=== PATIENT | female | born 1985 | race Caucasian/White ===

== ENCOUNTER 2023-12-30 07:46 | Outpatient (OUT) | payer BC, SELFPAY ==
[2023-12-30 08:38] LABS: Basophils Percent Auto 0.5 % (0.2-2.0); Eosinophils Absolute Auto 0.6 10^3/uL (0.0-0.7); Eosinophils Percent Auto 6.8 % (0.9-7.0); Hematocrit 38.4 % (36.0-48.0); Immature Granulocytes Abs Auto 0.02 10^3/uL (0.00-0.03); Immature Granulocytes Pct Auto 0.2 % (0.0-0.5); Lymphocytes Absolute Auto 2.8 10^3/uL (1.2-3.8); Lymphocytes Percent Auto 31.7 % (20.5-60.0); Mean Corpuscular HGB Conc 31.3 g/dL (29.9-35.2); Mean Corpuscular Hemoglobin 26.7 pg (26.7-34.0); Mean Corpuscular Volume 85.3 fL (81.0-99.0); Mean Platelet Volume 10.1 fL (9.5-13.5); Monocytes Absolute Auto 0.3 10^3/uL (0.3-0.8); Monocytes Percent Auto 3.9 % (1.7-12.0); Neutrophils Percent Auto 56.9 % (43.0-75.0); Platelet Count 284 10^3/uL (150-450); Red Cell Distribution Width 14.7 % (11.0-15.0); White Blood Count 8.8 10^3/uL (4.0-11.0)
[2023-12-30 08:40] LABS: Estimated Average Glucose 117 mg/dL; Glycohemoglobin A1C 5.7 % (4.5-6.2)
[2023-12-30 09:52] LABS: TSH W/ REFLEX FT4 1.591 uIU/mL (0.358-3.740)
[2023-12-30 09:53] LABS: Alanine Aminotransferase 26 U/L (14-59); Albumin Globulin Ratio 0.9; Albumin Level 3.3 g/dL (3.4-5.0); Alkaline Phosphatase 76 U/L (46-116); Anion Gap 12.9; Aspartate Amino Transferase 17 U/L (15-37); BUN Creatinine Ratio 10.7; Bilirubin Total 0.7 mg/dL (0.2-1.0); Calcium 9.1 mg/dL (8.5-10.1); Carbon Dioxide 27.1 mmol/L (21.0-32.0); Chloride 102 mmol/L (98-107); Chol HDL Ratio 4.4; Cholesterol 184 mg/dL (<=200); Estimated GFR (African America >60 (>=60); Estimated GFR (Non-African Ame >60 (>=60); Globulin 3.7 g/dL; Glucose 107 mg/dL (74-106); HDL Cholesterol 42 mg/dL (40-60); Sodium 138 mmol/L (136-145); Triglycerides 282 mg/dL (<=150); VLDL CHOLESTEROL 56.4 mg/dL
[2023-12-30 09:54] LABS: Percent Iron Saturation 15.6 %
[2023-12-31 08:08] LABS: Transferrin 330 mg/dL (192-364)
== END 2023-12-30 07:47 | disposition home or self-care (01) ==
LOC: LAB 07:50
DX: Z00.00 Encounter for general adult medical examination without abnormal findings (principal); R53.83 Other fatigue
CPT/HCPCS: 36415; 80053; 80061; 82607; 82728; 83036; 83540; 83550; 84439; 84443; 84466; 85025

== ENCOUNTER 2024-02-06 15:25 | Outpatient (OUT) | payer BC, SELFPAY ==
--- OUTSIDE RECORDS SUMMARY | 2024-02-06 15:30 | XMS_ITS | CCD ---
Author Organization [facility] Care Team Providers Care Ski Lift Operator Name Role Phone REQUEST, NONE LISTED Consulting Unavaila ble REQUEST, NONE LISTED Primary Care Unavaila ble REQUEST, NONE LISTED Admitting Unavaila ble REQUEST, DR CHAO LISTED Attending Unavaila ble USAMA DRISCOLL Admitting Unavailable YAMILA, USAMA Attending Unavailable USAMA DRISCOLL Consulting Unavailable REQUEST, NONE LISTED Primary Care Unavaila ble REQUEST, NONE LISTED Primary Care Unavaila ble GLADYS, SUSANNAH Admitting Unavailable GRECHANGELITA, WAQAR THACKER Consulting Unavailable GLADYS, SUSANNAH Attending Unavailable JACKELIN SURÁEZ Consulting Unavailable REQUEST, NONE LISTED Primary Care Unavaila ble MISC, DOCTOR Admitting Unavailable MISC, DR MARTÍNEZ Attending Unavailable MISC, DR MARTÍNEZ Consulting Unavailable Mariama, Genie Unavailable MARI FONSECA Attending Unavailable WOLF MIMS Referring Unavaila ble WOLF MIMS Attending Unavailabl e PRASANNA, WOLF Attending Unavailabl e Allergies Allergy Classification Reported Allergen(s) Allergy Type Date of Onset Reaction(s) Facility Shellfish (1 source) Shellfish Food Allergy [facility] Repository (1 source) Shellfish Propensity to adverse reactions [facility] Other (1 source) Shellfish; Translations: [SHELLFISH DERIVED] Propensity to adverse reactions to food (disorder) [facility] Repository Medications Current Medications Medication Drug Class(es) Dates Sig (Normalized) Sig (Original) atorvastatin (1 source) HMG-CoA Reductase Inhibitor Start: 02-05-2024 take 1 mg by mouth once daily Atorvastatin Active MG PO Daily February 05, 2024 12:00am fluticasone propionate 0.05 mg/actuat metered dose nasal spray (2 sources) Corticosteroid Start: 03-31-2021 take 2 spray(s) nasal route once daily Fluticasone Propionate 50 MCG/ACT 2 sprays Nasally Once a day for 14 day(s) 2 sprays to each nostril daily until your symptoms improve Mar, Active Start: 12-01-2019 take 1 spray(s) nasa l route once daily Fluticasone Propionate 50 MCG/ACT 1 spray in each nostril Nasally Once a day for 30 day(s) Nov, Not-Taking Losartan (1 source) Angiotensin 2 Receptor Jean Start: 02-05-2024 take 1 mg by mouth once daily Losartan Active MG PO Daily February 05, 2024 12:00am metFORMIN (2 sources) Biguanide Start: 02-05-2024 take 1 mg by mouth twice daily Metformin Active MG PO Twice daily February 05, 2024 12:00am metFORMIN HCl 50 0 MG Oral for 30 Not-Taking Multivitamin preparation (1 source) Multivitamin Act laila predniSONE 20 mg oral tablet (1 source) Start: 03-31-2021 take 1 tablet by mouth every twelve hours predniSONE 20 MG 1 tablet Orally bid for 5 day(s) Mar, Active Zantac 150 Maximum Strength 150 MG (1 source) take 1 tablet by mouth once daily Zantac 150 Maximum Strength 150 MG 1 tablet Orally Once a day Active Completed/Discontinued Medications Medication Drug Class(es) Dates Sig (Normalized) Sig (Original) [id number] 200 actuat albuterol 0.09 mg/actuat metered dose inhaler (1 source) beta2-Adrenergic Agonist Start: 03-18-2019 take 2 puff(s) by inhalation every four hours as needed Albuterol Sulfate HFA 108 (90 Base) MCG/ACT 2 puffs as needed Inhalation every 4 hrs Mar, Not-Taking cetirizine hydrochloride 10 mg oral tablet (1 source) Histamine-1 Receptor Antagonist Start: 12-01-2019 take 1 tablet by mouth every twenty-four hours Cetirizine HCl 10 MG 1 tablet Orally Once a day for 30 day(s) Nov, Not-Taking methylPREDNISolone 4 mg oral tablet (1 source) Corticosteroid Start: 03-18-2019 Medrol (Jason) 4 MG as directed Orally Mar, Not-Taking Previfem (1 source) Previfem Not-Taking Problems Active Problems Problem Classification Problem Date Documented Da te Episodic/Chronic Esophageal disorders (1 source) Gastroesophageal reflux disease; Translations: [GERD [Gastroesophageal reflux disease]] Chronic Other gastrointestinal disorders (1 source) Dysphagia; Translations: [Dysphagia, unspecified] 02-05-2024 Episodic Residual codes; unclassified (1 source) Obstructive sleep apnea (adult) (pediatric); Translations: [Obstructive sleep apnea (adult) (pediatric)] Onset: 4 Chronic Residual codes; unclassified (1 source) Acquired absence of other specified parts of digestive tract; Translations: [ACQ ABSENCE OTH PART DIGESTV TRACT] Onset: 1 Episodic Residual codes; unclassified (1 source) Acquired absence of both cervix and uterus; Translations: [ACQUIRED ABSENCE BOTH CERVIX AND UTERUS] Onset: 1 Episodic Unclassified (1 source) New Patient Onset: 4 Past or Other Problems Problem Classification Problem Date Documented Da te Episodic/Chronic Abdominal pain (6 sources) Upper abdominal pain, unspecified; Translations: [Epigastric pain] Onset: 06-13-2020 Episodic Gastritis and duodenitis (1 source) Gastroduodenitis; Translations: [Gastritis and gastroduodenitis, unspecified, without mention of hemorrhage] Episodic Immunizations and screening for infectious disease (5 sources) Contact with and (suspected) exposure to other viral communicable diseases; Translations: [CONTCT EXPS OTH VIRL COMMUNICABL DZ] Onset: 12-02-2019 Resolved: 03-31-2021 Episodic Nausea and vomiting (2 sources) Nausea; Translations: [Nausea and vomiting] Onset: 06-16-2020 Episodic Other disorders of stomach and duodenum (1 source) Disorder of function of stomach; Translations: [Dyspepsia and other specified disorders of function of stomach] Episodic Other gastrointestinal disorders (1 source) Diarrhea; Translations: [Diarrhea] Episodic Other upper respiratory infections (1 source) Acute recurrent sinusitis, unspecified Onset: 03-31-2021 Resolved: 03-31-2021 Episodic Viral infection (1 source) COVID-19 Onset: 03-31-2021 Resolved: 03-31-2021 Results Test Name Value Interpretation Reference Range Facility COVID Quick Testingon 2020 Result Positive [facility] Other AMYLASEon 06-13-2020 Amylase [Catalytic activity/Vol] 34 U/L Normal 31-110 [facility] Comment on above: Performed By: #### L IPA, CMP, NIDA #### [facility] [address] [place], [place] [id number] John Elsa CBC AUTO DIFFon 06-13-2020 BASO # 0.0 103/ul Normal 0.0-0.1 [facility] Comment on above: Performed By: #### C BC #### [facility] [address] [place], [place] [id number] John Elsa Basophils/100 WBC (Bld) 0.4 % Normal 0.2-2.0 [facility] Comment on above: Performed By: #### C BC #### [facility] [address] [place] [address] John Elsa EO # 1.1 103/ul Critically high 0.0-0.7 [facility] Comment on above: Performed By: #### C BC #### [facility] [address] [place] [address] John Elsa Eosinophils/100 WBC (Bld) 10.5 % Critically high 0.9-7.0 [facility] Comment on above: Performed By: #### C BC #### [facility] [address] [place] [address] John Elsa Erythrocyte distribution width (RBC) [Ratio] 14.1 % Normal 11.0-15.0 [facility] Comment on above: Performed By: #### C BC #### [facility] [address] [place] [address] John Elsa Hematocrit (Bld) [Volume fraction] 40.1 % Normal 36.0-48.0 [facility] Comment on above: Performed By: #### C BC #### [facility] [address] [place], [place] [id number] John Elsa Hemoglobin (Bld) [Mass/Vol] 12.8 g/dL Normal 12.0-16.0 [facility] Comment on above: Performed By: #### C BC #### [facility] [address] [place] [address] Johnkatelyn Hunter IG # 0.03 10e3/ul Normal 0.00-0.03 [facility] Comment on above: Performed By: #### C BC #### [facility] [address] [place] [address] Johnkatelyn Hunter IG % 0.3 % Normal 0.0-0.5 [facility] Comment on above: Performed By: #### C BC #### [facility] [address] [place] [address] Johnkatelyn Hunter LYMPH # 3.1 103/ul Normal 1.2-3.8 [facility] Comment on above: Performed By: #### C BC #### [facility] [address] [place] [address] John Hunter Lymphocytes/100 WBC (Bld) 29.2 % Normal 20.5-60.0 [facility] Comment on above: Performed By: #### C BC #### [facility] [address] [place] [address] John Hnuter MANUAL DIFF REQ NO Normal [facility] Comment on above: Performed By: #### C BC #### [facility] [address] [place] [address] Johnkatelyn Hunter MCH (RBC) [Entitic mass] 27.7 pg Normal 26.7-34.0 [facility] Comment on above: Performed By: #### C BC #### [facility] [address] [place] [address] John Hunter MCHC (RBC) [Mass/Vol] 31.9 g/dL Normal 29.9-35.2 [facility] Comment on above: Performed By: #### C BC #### [facility] [address] [place] [address] Johnkatelyn Hunter MCV (RBC) [Entitic vol] 86.8 fL Normal 81.0-99.0 [facility] Comment on above: Performed By: #### C BC #### [facility] [address] [place] [address] John Elsa MONO # 0.4 103/ul Normal 0.3-0.8 [facility] [place] [facility] Comment on above: Performed By: #### C BC #### [facility] [address] [place] [address] John Arellanoen Monocytes/100 WBC (Bld) 4.1 % Normal 1.7-12.0 [facility] Comment on above: Performed By: #### C BC #### [facility] [address] [place], [place] [address] Johnkatelyn Arellanoen NEUT # 5.9 103/ul Normal 1.4-6.5 [facility] Comment on above: Performed By: #### C BC #### [facility] [address] [place], [place] [id number] John Hunter Neutrophils/100 WBC (Bld) 55.5 % Normal 43.0-75.0 [facility] Comment on above: Performed By: #### C BC #### [facility] [address] [place], [place] [id number] John Hunter Platelet mean volume (Bld) [Entitic vol] 9.9 fL Normal 9.5-13.5 [facility] Comment on above: Performed By: #### C BC #### [facility] [address] [place], [place] [id number] John Elsa PLT 281 103/ul Normal 150-450 [facility] Comment on above: Performed By: #### C BC #### [facility] [address] [place], [place] [id number] John Elsa RBC 4.62 106/ul Normal 4.20-5.40 [facility] Comment on above: Performed By: #### C BC #### [facility] [address] [place], [place] [id number] John Elsa WBC 10.6 103/ul Normal 4.0-11.0 [facility] Comment on above: Performed By: #### C BC #### [facility] [address] [place], [place] [id number] Johnkatelyn Arellanoen ER URINE PROFILEon 1 Bilirubin Ql (U) Negative Normal NEGATIVE [facility] Comment on above: Performed By: #### E RUR #### [facility] [address] [place] [address] John Elsa Clarity (U) CLEAR Normal CLEAR [facility] Comment on above: Performed By: #### E RUR #### [facility] [address] [place] [address] John Elsa Color (U) LT. YELLOW Normal YELLOW [facility] Comment on above: Performed By: #### E RUR #### [facility] [address] [place] [address] John Elsa ERUAHD A micrscopic examination will be performed if indicated. Normal [facility] Comment on above: Performed By: #### E RUR #### [facility] [address] [place] [address] John Elsa Glucose Ql (U) Negative Normal NEGATIVE [facility] Comment on above: Performed By: #### E RUR #### [facility] [address] [place] [address] John Elsa Hemoglobin Ql (U) Negative Normal NEGATIVE [facility] Comment on above: Performed By: #### E RUR #### [facility] [address] [place] [address] John Elsa Ketones Ql (U) Negative Normal NEGATIVE [facility] Comment on above: Performed By: #### E RUR #### [facility] [address] [place] [address] John Elsa LEUKOCYTES Negative Normal NEGATIVE [facility] Comment on above: Performed By: #### E RUR #### [facility] [address] [place] [address] John Elsa Nitrite Ql (U) Negative Normal NEGATIVE [facility] Comment on above: Performed By: #### E RUR #### [facility] [address] [place] [address] John Elsa pH (U) 5.5 [pH] Normal 5-9 [facility] Comment on above: Performed By: #### E RUR #### [facility] [address] [place] [address] John Elsa SPEC GRAVITY 1.020 Normal 1.005-<=1.025 [facility] Comment on above: Performed By: #### E RUR #### [facility] [address] [place] [address] John Lesa UA PROTEIN Negative Normal NEGATIVE/ TRACE [facility] Comment on above: Performed By: #### E RUR #### [facility] [address] [place] [address] John Elsa UR MICRO IND NOT INDICATED Normal [facility] Comment on above: Performed By: #### E RUR #### [facility] [address] [place] [address] John Elsa Urobilinogen Qn (U) 0.2 {Nawaf'U}/dL Normal 0.2 - 1.0 [facility] Comment on above: Performed By: #### E RUR #### [facility] [address] [place] [address] John Elsa LIPASEon 06-13-2020 Lipase [Catalytic activity/Vol] 104.0 U/L Normal 23.0-300.0 [facility] Comment on above: Performed By: #### L IPA, CMP, NIDA #### [facility] [address] [place] [address] John Elsa MONOon 06-13-2020 Monocytes (Bld) [#/Vol] Negative Normal NEGATIVE [facility] Comment on above: Performed By: #### M RUBEN #### [facility] [address] [place] [address] Johnkatelyn Hunter PROF 14(COMP METB)on 021 Albumin [Mass/Vol] 3.4 g/dL Critically low 3.5-5.0 [facility] Comment on above: Performed By: #### L IPA, CMP, NIDA #### [facility] [address] [place] [address] John Elsa Albumin/Globulin [Mass ratio] 0.9 {ratio} Normal [facility] Comment on above: Performed By: #### L IPA, CMP, NIDA #### [facility] [address] [place], [place] [address] John Elsa ALP [Catalytic activity/Vol] 90 U/L Normal 38-126 [facility] Comment on above: Performed By: #### L IPA, CMP, NIDA #### [facility] [address] [address] John Elsa ALT [Catalytic activity/Vol] 19 U/L Normal 9-52 [facility] Comment on above: Performed By: #### L IPA, CMP, NIDA #### [facility] [address] [address] John Elsa Anion gap [Moles/Vol] 15.2 mmol/L Normal [facility] Comment on above: Performed By: #### L IPA, CMP, NIDA #### [facility] [address] [place] [address] John Elsa AST [Catalytic activity/Vol] 13 U/L Critically low 14-36 [facility] Comment on above: Performed By: #### L IPA, CMP, NIDA #### [facility] [address] [place] [address] John Elsa Bilirubin [Mass/Vol] 0.4 mg/dL Normal 0.2-1.3 [facility] Comment on above: Performed By: #### L IPA CMP, NIAD #### [facility] [address] [place] [address] John Elsa Calcium [Mass/Vol] 9.0 mg/dL Normal 8.4-10.2 [facility] Comment on above: Performed By: #### L IPA, CMP, NIDA #### [facility] [address] [place] [address] John Elsa Chloride [Moles/Vol] 104 mmol/L Normal 98-107 [facility] Comment on above: Performed By: #### L IPA, CMP, NIDA #### [facility] [address] [place] [address] John Elsa CO2 [Moles/Vol] 26.3 mmol/L Normal 22.0-30.0 [facility] Comment on above: Performed By: #### L IPA, CMP, NIDA #### [facility] [address] [place] [address] John Elsa Creatinine [Mass/Vol] 0.85 mg/dL Normal 0.52-1.04 [facility] Comment on above: Performed By: #### L IPA CMP, NIDA #### [facility] [address] [place] [address] John Elsa EGFR-AF IRAQI >60 Normal >=60 [facility] Comment on above: Performed By: #### L IPA CMP, NIDA #### [facility] [address] [address] John Elsa EGFR-NON AF IRAQI >60 Normal >=60 [facility] Comment on above: Performed By: #### L IPA CMP, NIDA #### [facility] [address] [place] [address] John Elsa Globulin (S) [Mass/Vol] 3.7 g/dL Normal [facility] Comment on above: Performed By: #### L IPA CMP, NIDA #### [facility] [address] [place] [address] John Elsa Glucose [Mass/Vol] 106 mg/dL Normal 74-106 [facility] Comment on above: Performed By: #### L IPA CMP, NIDA #### [facility] [address] [place] [address] John Elsa Potassium [Moles/Vol] 4.5 mmol/L Normal 3.4-5.0 [facility] Comment on above: Performed By: #### L IPA CMP, NIDA #### [facility] [address] [place] [address] John Elsa Protein [Mass/Vol] 7.1 g/dL Normal 6.1-8.2 [facility] Comment on above: Performed By: #### L IPA CMP, NIDA #### [facility] [address] [place] [address] John Elsa Sodium [Moles/Vol] 141 mmol/L Normal 137-145 [facility] Comment on above: Performed By: #### L IPA CMP, NIDA #### [facility] [address] [place] [address] John Elsa Urea nitrogen [Mass/Vol] 8.0 mg/dL Normal 7.0-17.0 [facility] Comment on above: Performed By: #### L LUPE RAMOS AMY #### [facility] [address] [address] John Hunter Urea nitrogen/Creatinin e [Mass ratio] 9.4 mg/mg Normal [facility] Comment on above: Performed By: #### L LUPE RAMOS AMY #### [facility] [address] [address] John Hunter XR ABD FLAT UP_PA Claudio 06-13 XR ABD FLAT UP_PA CH IMAGES REVIEWED: XR ABD FLAT UP_PA CH COMPARISON: 03/20/2019 chest x-ray. CLINICAL INDICATION: Abdominal pain. FINDINGS: Cardiomediastinal silhouette within normal limits. No focal consolidation, pleural effusion, or pneumothorax. Status post cholecystectomy. Hepatomegaly. No obvious obstruction, however there are some borderline dilated loops of small bowel in the left upper quadrant which could be further evaluated with CT if clinically indicated. No free air under the diaphragm. No focal pathologic calcifications. IMPRESSION: 1. No obvious obstruction, however there are some borderline dilated loops of small bowel in the left upper quadrant which could be further evaluated with CT if clinically indicated. 2. Hepatomegaly. 3. No free air. 4. Status post cholecystectomy. Electronically authenticated by: JACKELIN SUÁREZ Date: 2020-06-13 21:39 Normal [facility] COVID-19 PCRon 12-05-2019 SARS-CoV-2 (COVID-19) RNA DAVID+probe Ql (Unsp spec) Not detected Normal Not Detected [facility] Comment on above: Result Comment: This test was developed and its performance characteristics determined by [employer]. This test has not been FDA cleared or approved. This test has been authorized by FDA under an Emergency Use Authorization (EUA). This test is only authorized for the duration of time the declaration that circumstances exist justifying the authorization of the emergency use of in vitro diagnostic tests for detection of SARS-CoV-2 virus and/or diagnosis of COVID-19 infection under section 564(b)(1) of the Act, 21 U.S.C. 360bbb-3(b)(1), unless the authorization is terminated or revoked sooner. When diagnostic testing is negative, the possibility of a false negative result should be considered in the context of a patient's recent exposures and the presence of clinical signs and symptoms consistent with COVID-19. An individual without symptoms of COVID-19 and who is not shedding SARS-CoV-2 virus would expect to have a negative (not detected) result in this assay. Performed By: #### C VDPCR #### [facility] [address] [place] [address] John Hunter Vital Signs Date Time Vital Sign Value Performing Clinician Facility 02-05-2024 15:42-0400 Body height 160.02 cm [facility] 02-05-2024 15:42-0400 Body mass index (BMI) [Ratio] 51 kg/m2 [facility] 02-05-2024 15:42-0400 Body weight 130.63 kg [facility] 03-31-2021 16:30-0500 Body height 160.02 cm Genie Mariama Other [facility] Other 03-31-2021 16:30-0500 Body temperature 98.6 [degF] Genie Mariama Other [facility] Other 03-31-2021 16:30-0500 Respiratory rate 18 /min Genie Leslie Other [facility] Other 03-31-2021 16:30-0500 SaO2% (BldA) [Mass fraction] 98 % Genie Mariama Other [facility] Other Encounters Encounter Date Encounter Type Care Provider Facility Start: 02-05-2024 End: 02-05-2024 ambulatory [facility] Work Phone: Start: 02-05-2024 End: 02-05-2024 Patient encounter procedure [facility] Work Phone: Start: 01-23-2024 End: 01-23-2024 ambulatory WOLF ISAACPATRICK Not Available Start: 01-23-2024 End: 01-23-2024 ambulatory MARI FONSECA [facility] Start: 12-27-2023 End: 12-27-2023 ambulatory WOLF ISAACPATRICK Not Available Start: 03-31-2021 (URG) Urgent Care Visit Genie Mariama [facility] Start: 03-31-2021 End: 03-31-2021 ambulatory Genie Leslie Other [facility] Other Start: 09-02-2020 End: 09-03-2020 ambulatory USAMA DRISCOLL Facility:[facility] Start: 08-12-2020 End: 08-13-[address] NONE LISTED REQUEST Facility:[facility] Start: 06-13-2020 End: 06-14-[address] NONE LISTED REQUEST Facility:[facility] Start: 12-02-2019 End: 12-03-[address] NONE LISTED REQUEST Facility:[facility] Payers Date Payer Category Payer Unknown [id number] 1985 Unknown [id number] 1986 Unknown [id number] 1986 Unknown [id number] 1986 Unknown [id number] 1986 Unknown [id number] 1959 Private Health Insurance [id number] 1958 Self-pay [id number] 1958 Unknown [id number] Private Health Insurance [facility] [id number] Self-pay Self Pay [id number] Unknown [id number] Unknown [id number] Social History Date Type Detail Facility Unknown if ever smoked [facility] Other Sex Assigned At Sex Assigned At Bir th [facility] Other Start: 01-04-2024 Tobacco smoking status NHIS Never smoked tobacco (finding) [facility] Start: 1985 Sex Assigned At Female F [facility] Evaluation note 03-31-2021 Note Date & Type Note Facility 03-31-2021 Evaluation note Encounter Date Diagnosis Assessment Notes Mar, COVID-19 (ICD-10 - U07.1) Mar, Contact with and (suspected) exposure to other viral communicable diseases (ICD-10 - Z20.828) Mar, Acute recurrent sinusitis, unspecified location (ICD-10 - J01.91) Mar, Other Additional time spent conducting pre-visit phone call, screening for symptoms, instructions on social distancing, application and removal of PPE, and cleaning of examination room, equipment and supplies was preformed. Patient education given for testing methodology and results. Patient care instructions given in writting by [facility] document. [facility] Other Evaluation note Note Date & Type Note Facility Evaluation note No assessment information availa [facility] Work Phone: History general Narrative - Reported Note Date & Type Note Facility History general Narrative - Reported Type Medical History acid reflux Surgical History x2 Surgical History cholecystectomy Surgical History EGD Surgical History hysterectomy Hospitalization History No know Hospitalization history [facility] Other Summary Purpose Family History No Family History Records FoundNo Family History Records FoundNo Family History Records Found Advance Directives Advance Directive Response Recorded Date/ Time Advance Directives No January 04, 2024 2:44pm Chief Complaint and Reason for Visit Chief Complaint Refer: GERD, dysphag ia Additional Source Comments INFORMATION SOURCE (unrecogn ized section and content) DATE CREATED AUTHOR 09/01/2020 [facility] DATE CREATED AUTHOR AUTHOR'S ORGANIZ ATION 01/25/2024 [facility] DATE CREATED AUTHOR AUTHOR'S ORGANIZ ATION 01/25/2024 [facility] EPIC REASON FOR VISIT (unrecogniz ed section and content) #27 GREEN EQUINOX, EAR PAIN, SINUS CONGESTION Care Teams (unrecognized sec tion and content) Team Status: Active Member Role Status Dates PHYSICIAN NO FAMILY Primary Care Provider Active Team Status: Inactive Member Role Status Dates PHYSICIAN NO FAMILY Primary Care Provider Active Start: February 05, 2024 End: February 05, 2024 Francisco Barrett APRN Attending Provider Active Start: February 05, 2024 End: February 05, 2024 Goals (unrecognized section and content) Goals may be documented in a n alternate section FOR RECORDS PERTAINING TO PATIENTS WHO ARE OR HAVE BEEN ENROLLED IN A CHEMICAL DEPENDENCY/SUBSTANCEABUSE PROGRAM, SOME INFORMATION MAY BE OMITTED. This clinical summary was aggregated from multiple sources. Caution should be exercised in using it in the provision of clinical care. This summary normalizes information from multiple sources, and as a consequence, information in this document may materially change the coding, format and clinical context of patient data. In addition, data may be omitted in some cases. CLINICAL DECISIONS SHOULD BE BASED ON THE PRIMARY CLINICAL RECORDS. [facility] [employer] [facility]. provides no warranty or guarantee of the accuracy or completeness of information in this document.
== END 2024-02-06 15:26 | disposition home or self-care (01) ==
LOC: SLEEP 15:25
DX: G47.33 Obstructive sleep apnea (adult) (pediatric) (principal)
CPT/HCPCS: 95782

== ENCOUNTER 2024-03-02 10:24 | Outpatient (OUT) | payer BC, SELFPAY ==
--- OUTSIDE RECORDS SUMMARY | 2024-03-02 10:28 | XMS_ITS | CCD ---
Author Organization [facility] Care Team Providers Care Adventure Guide Name Role Phone REQUEST, NONE LISTED Consulting Unavaila ble REQUEST, NONE LISTED Primary Care Unavaila ble REQUEST, NONE LISTED Admitting Unavaila ble REQUEST, DR CHAO LISTED Attending Unavaila USAMA Borrego Admitting Unavailable YAMILA, USAMA Attending Unavailable USAMA DRISCOLL Consulting Unavailable REQUEST, NONE LISTED Primary Care Unavaila ble REQUEST, NONE LISTED Primary Care Unavaila ble SUSANNAH GRAHAM Admitting Unavailable GRECHANGELITA, WAQAR THACKER Consulting Unavailable SUSANNAH GRAHAM Attending Unavailable JACKELIN SUÁREZ Consulting Unavailable REQUEST, NONE LISTED Primary Care Unavaila ble MISC, DR MARTÍNEZ Admitting Unavailable MISC, DR MARTÍNEZ Attending Unavailable MISC, DR MARTÍNEZ Consulting Unavailable Mariama, Gneie Unavailable MARI FONSECA Attending Unavailable JACY RIVERA Referring Unavaila ble JACY RIVERA Attending JACY Noyola Attending UnavailMD Laura Wu Attending Provider RAJEEV Rivera Primary Care Provid er Jacy Rivera Primary Care Unavaila ble Laura Fortune Attending Unavailable Laura Fortune Admitting Unavailable Allergies Allergy Classification Reported Allergen(s) Allergy Type Date of Onset Reaction(s) Facility Shellfish (1 source) Shellfish Food Allergy [facility] Repository (1 source) Shellfish Propensity to adverse reactions [employer] Other (2 sources) Shellfish; Translations: [SHELLFISH DERIVED] Propensity to adverse reactions to food (disorder) 4 [facility] Medications Current Medications Medication Drug Class(es) Dates Sig (Normalized) Sig (Original) Ascorbic Acid (1 source) Vitamin C Start: 02-08-2024 take 1 tablet by mouth once daily Ascorbic Acid (Vitamin C) (C-1000) 1,000 mg tablet Active 1 GM PO Daily February 08, 2024 12:00am aspirin 81 mg oral tablet (1 source) Platelet Aggregation Inhibitor, Nonsteroidal Anti-inflammatory Drug Start: 02-08-2024 take 81 mg by mouth once daily Aspirin Active 81 MG PO Daily February 08, 2024 12:00am atorvastatin 20 mg oral tablet (2 sources) HMG-CoA Reductase Inhibitor Start: 02-05-2024 take 20 mg by mouth once daily Atorvastatin Active 20 MG PO Daily February 05, 2024 12:00am Start: 02-05-2024 take 1 mg by mouth [...] a day for 30 day(s) Nov, Not-Taking losartan potassium 25 mg oral tablet (2 sources) Angiotensin 2 Receptor Jean Start: 02-05-2024 take 25 mg by mouth once daily Losartan Active 25 MG PO Daily February 05, 2024 12:00am Start: 02-05-2024 take 1 mg by mouth once daily Losartan Active MG PO Daily February 05, 2024 12:00am metFORMIN hydrochloride 500 mg oral tablet (3 sources) Biguanide Start: 02-05-2024 take 500 mg by mouth twice daily Metformin Active 500 MG PO Twice daily February 05, 2024 12:00am Start: 02-05-2024 take 1 mg by mouth twice daily Metformin Active MG PO Twice daily February 05, 2024 12:00am metFORMIN HCl 50 0 MG Oral for 30 Not-Taking Multivitamin preparation (2 sources) Start: 02-08-2024 take 1 tablet by mouth once daily Multivitamin Active 1 TAB PO Daily February 08, 2024 12:00am Multivitamin Act laila pantoprazole 40 mg delayed release oral tablet (1 source) Proton Pump Inhibitor Start: 02-20-2024 take 40 mg by mouth twice daily Pantoprazole Active 40 MG PO Twice daily 120 February 20, 2024 12:00am predniSONE 20 mg oral tablet (1 source) Start: 03-31-2021 take 1 tablet by mouth every twelve hours predniSONE 20 MG 1 tablet Orally bid for 5 day(s) Mar, Active Red Beet Root-Sour Owusu Ext (1 source) Start: 02-08-2024 take 1 tablet by mouth once daily Red Beet Root-Sour Owusu Ext Active 1 TAB PO Daily February 08, 2024 12:00am Zantac 150 Maximum Strength 150 MG (1 source) take 1 tablet by mouth once daily Zantac 150 Maximum Strength 150 MG 1 tablet Orally Once a day Active Completed/Discontinued Medications Medication Drug Class(es) Dates Sig (Normalized) Sig (Original) [id number] 200 actuat albuterol 0.09 mg/actuat metered dose [...] a day for 30 day(s) Nov, Not-Taking cimetidine 200 mg oral tablet (1 source) Histamine-2 Receptor Antagonist Start: 02-08-2024 End: 02-20-2024 Cimetidine Discontinued 200 MG PO As Directed February 08, 2024 12:00am February 20, 2024 8:25am methylPREDNISolone 4 mg oral tablet (1 source) Corticosteroid Start: 03-18-2019 Medrol (Jason) 4 MG as directed Orally Mar, Not-Taking Previfem (1 source) Previfem Not-Taking Problems Active Problems Problem Classification Problem Date Documented Da te Episodic/Chronic Esophageal disorders (1 source) Gastroesophageal reflux disease; Translations: [GERD [Gastroesophageal reflux disease]] Chronic Other gastrointestinal disorders (2 sources) Dysphagia; Translations: [Dysphagia, unspecified] 02-05-2024 Episodic Other gastrointestinal disorders (1 source) Dysphagia, unspecified; Translations: [Dysphagia, unspecified] 02-05-2024 Episodic Residual codes; [...] Test Name Value Interpretation Reference Range Facility Pathology Request for Lab Co rpon 02-20-2024 Pathology Request for Lab Kelly Normal [facility] Comment on above: Order Comment: PATHO LOGY GI SPECIMEN Result Comment: See report. Scanned copy available in EMR. PERFORMED BY: [place] [address] PATHOLOGIST RESIDENT ASSISTANT ALIVIA GALARZA M.D. Performed By: #### P ATH TO [facility] #### [address] COVID Quick Testingon 2020 Result Positive [employer] Other AMYLASEon 06-13-2020 Amylase [Catalytic activity/Vol] 34 U/L Normal 31-110 [facility] Comment on above: Performed By: #### L IPA, CMP, NIDA #### [facility] [address] [place], [place] [id number] John Elsa CBC AUTO DIFFon 06-13-2020 BASO # 0.0 103/ul Normal 0.0-0.1 [facility] Comment on above: Performed By: #### C BC #### [facility] [address] [place], [place] [id number] John Elsa Basophils/100 WBC (Bld) 0.4 % Normal 0.2-2.0 [facility] Comment on above: Performed By: #### C BC #### [facility] [address] [place], [place] [phone] John Elsa EO # 1.1 103/ul Critically high 0.0-0.7 [facility] Comment on above: Performed By: #### C BC #### [facility] [address] [id number] John Elsa Eosinophils/100 WBC (Bld) 10.5 % Critically high 0.9-7.0 [facility] Comment on above: Performed By: #### C BC #### [facility] [address] [place], [place] [phone] John Elsa Erythrocyte distribution width (RBC) [Ratio] 14.1 % Normal 11.0-15.0 [facility] Comment on above: Performed By: #### C BC #### [facility] [address] [place], [place] [phone] John Elsa Hematocrit (Bld) [Volume fraction] 40.1 % Normal 36.0-48.0 [facility] Comment on above: Performed By: #### C BC #### [facility] [address] [place] [address] John Hunter Hemoglobin (Bld) [Mass/Vol] 12.8 g/dL Normal 12.0-16.0 [facility] Comment on above: Performed By: #### C BC #### [facility] [address] [place] [address] Johnkatelyn Hunter IG # 0.03 10e3/ul Normal 0.00-0.03 [facility] Comment on above: Performed By: #### C BC #### [facility] [address] [place] [address] Johnkatelyn Hunter IG % 0.3 % Normal 0.0-0.5 [facility] Comment on above: Performed By: #### C BC #### [facility] [address] [place] [address] John Hunter LYMPH # 3.1 103/ul Normal 1.2-3.8 [facility] Comment on above: Performed By: #### C BC #### [facility] [address] [place] [address] John Hunter Lymphocytes/100 WBC (Bld) 29.2 % Normal 20.5-60.0 [facility] Comment on above: Performed By: #### C BC #### [facility] [address] [place] [address] John Hunter MANUAL DIFF REQ NO Normal [facility] Comment on above: Performed By: #### C BC #### [facility] [address] [place], [place] [phone] John Hunter MCH (RBC) [Entitic mass] 27.7 pg Normal 26.7-34.0 [facility] Comment on above: Performed By: #### C BC #### [facility] [address] [place] [address] John Hunter MCHC (RBC) [Mass/Vol] 31.9 g/dL Normal 29.9-35.2 [facility] Comment on above: Performed By: #### C BC #### [facility] [address] [id number] John Hunter MCV (RBC) [Entitic vol] 86.8 fL Normal 81.0-99.0 [facility] Comment on above: Performed By: #### C BC #### [facility] [address] [phone] John Hunter MONO # 0.4 103/ul Normal 0.3-0.8 [facility] Comment on above: Performed By: #### C BC #### [facility] [address] [id number] John Hunter Monocytes/100 WBC (Bld) 4.1 % Normal 1.7-12.0 [facility] Comment on above: Performed By: #### C BC #### [facility] [address] [place], [place] [address] John Arellanoen NEUT # 5.9 103/ul Normal 1.4-6.5 [facility] Comment on above: Performed By: #### C BC #### [facility] [address] [place], [place] [address] John Hunter Neutrophils/100 WBC (Bld) 55.5 % Normal 43.0-75.0 [facility] Comment on above: Performed By: #### C BC #### [facility] [address] [place], [place] [address] John Hunter Platelet mean volume (Bld) [Entitic vol] 9.9 fL Normal 9.5-13.5 [facility] Comment on above: Performed By: #### C BC #### [facility] [address] [phone] John Elsa PLT 281 103/ul Normal 150-450 [facility] Comment on above: Performed By: #### C BC #### [facility] [address] [phone] John Elsa RBC 4.62 106/ul Normal 4.20-5.40 [facility] Comment on above: Performed By: #### C BC #### [facility] [address] [place] [address] John Elsa WBC 10.6 103/ul Normal 4.0-11.0 [facility] Comment on above: Performed By: #### C BC #### [facility] [address] [place], [place] [phone] John Elsa ER URINE PROFILEon 1 Bilirubin Ql (U) Negative Normal NEGATIVE [facility] Comment on above: Performed By: #### E RUR #### [facility] [address] [place] [address] John Elsa Clarity (U) CLEAR Normal CLEAR [facility] Comment on above: Performed By: #### E RUR #### [facility] [address] [place] [address] John Elsa Color (U) LT. YELLOW Normal YELLOW [facility] Comment on above: Performed By: #### E RUR #### [facility] [address] [place] [address] John Elsa ERUAHD A micrscopic examination will be performed if indicated. Normal [facility] Comment on above: Performed By: #### E RUR #### [facility] [address] [place] [address] John Elsa Glucose Ql (U) Negative Normal NEGATIVE [facility] Comment on above: Performed By: #### E RUR #### [facility] [address] [place] [address] Jonh Elsa Hemoglobin Ql (U) Negative Normal NEGATIVE [facility] Comment on above: Performed By: #### E RUR #### [facility] [address] [place] [address] John Elsa Ketones Ql (U) Negative Normal NEGATIVE [facility] Comment on above: Performed By: #### E RUR #### [facility] [address] [place] [address] John Elsa LEUKOCYTES Negative Normal NEGATIVE [facility] Comment on above: Performed By: #### E RUR #### [facility] [address] [place] [address] John Elsa Nitrite Ql (U) Negative Normal NEGATIVE [facility] Comment on above: Performed By: #### E RUR #### [facility] [address] [place], [place] [phone] John Hunter pH (U) 5.5 [pH] Normal 5-9 [facility] Comment on above: Performed By: #### E RUR #### [facility] [address] [place] [address] John Hunter SPEC GRAVITY 1.020 Normal 1.005-<=1.025 [facility] Comment on above: Performed By: #### E RUR #### [facility] [address] [place], [place] [address] John Hunter UA PROTEIN Negative Normal NEGATIVE/ TRACE [facility] Comment on above: Performed By: #### E RUR #### [facility] [address] [place] [address] John Hunter UR MICRO IND NOT INDICATED Normal [facility] Comment on above: Performed By: #### E RUR #### [facility] [address] [place] [address] John Hunter Urobilinogen Qn (U) 0.2 {Nawaf'U}/dL Normal 0.2 - 1.0 [facility] Comment on above: Performed By: #### E RUR #### [facility] [address] [place] [address] John Hunter LIPASEon 06-13-2020 Lipase [Catalytic activity/Vol] 104.0 U/L Normal 23.0-300.0 [facility] Comment on above: Performed By: #### L IPA, CMP, NIDA #### [facility] [address] [place], [place] [phone] Johnkatelyn Hunter MONOon 06-13-2020 Monocytes (Bld) [#/Vol] Negative Normal NEGATIVE [facility] Comment on above: Performed By: #### M RUBEN #### [facility] [address] [place] [address] Johnkatelyn Arellanoen PROF 14(COMP METB)on 021 Albumin [Mass/Vol] 3.4 g/dL Critically low 3.5-5.0 [facility] Comment on above: Performed By: #### L IPA, CMP, NIDA #### [facility] [address] [phone] John Elsa Albumin/Globulin [Mass ratio] 0.9 {ratio} Normal [facility] Comment on above: Performed By: #### L IPA, CMP, NIDA #### [facility] [address] [phone] John Elsa ALP [Catalytic activity/Vol] 90 U/L Normal 38-126 [facility] Comment on above: Performed By: #### L IPA, CMP, NIDA #### [facility] [address] [address] John Elsa ALT [Catalytic activity/Vol] 19 U/L Normal 9-52 [facility] Comment on above: Performed By: #### L IPA, CMP, NIDA #### [facility] [address] [phone] John Elsa Anion gap [Moles/Vol] 15.2 mmol/L Normal [facility] Comment on above: Performed By: #### L IPA, CMP, NIDA #### [facility] [address] [address] John Elsa AST [Catalytic activity/Vol] 13 U/L Critically low 14-36 [facility] Comment on above: Performed By: #### L IPA, CMP, NIDA #### [facility] [address] [phone] John Elsa Bilirubin [Mass/Vol] 0.4 mg/dL Normal 0.2-1.3 [facility] Comment on above: Performed By: #### L IPA, CMP, NIDA #### [facility] [address] [phone] John Elsa Calcium [Mass/Vol] 9.0 mg/dL Normal 8.4-10.2 [facility] Comment on above: Performed By: #### L IPA, CMP, NIDA #### [facility] [address] [phone] John Elsa Chloride [Moles/Vol] 104 mmol/L Normal 98-107 [facility] Comment on above: Performed By: #### L IPA CMP, NIDA #### [facility] [address] [place] [address] John Elsa CO2 [Moles/Vol] 26.3 mmol/L Normal 22.0-30.0 [facility] Comment on above: Performed By: #### L IPA CMP, NIDA #### [facility] [address] [place] [address] John Elsa Creatinine [Mass/Vol] 0.85 mg/dL Normal 0.52-1.04 [facility] Comment on above: Performed By: #### L IPA CMP, NIDA #### [facility] [address] [place] [address] John Elsa EGFR-AF WELSH >60 Normal >=60 [facility] Comment on above: Performed By: #### L IPA CMP, NIDA #### [facility] [address] [place] [address] John Elsa EGFR-NON AF WELSH >60 Normal >=60 [facility] Comment on above: Performed By: #### L IPA CMP, NIDA #### [facility] [address] [place] [address] John Elsa Globulin (S) [Mass/Vol] 3.7 g/dL Normal [facility] Comment on above: Performed By: #### L IPA CMP, NIDA #### [facility] [address] [place] [address] John Elsa Glucose [Mass/Vol] 106 mg/dL Normal 74-106 [facility] Comment on above: Performed By: #### L IPA CMP, NIDA #### [facility] [address] [place] [address] John Elsa Potassium [Moles/Vol] 4.5 mmol/L Normal 3.4-5.0 [facility] Comment on above: Performed By: #### L IPA CMP, NIDA #### [facility] [address] [place] [address] John Elsa Protein [Mass/Vol] 7.1 g/dL Normal 6.1-8.2 [facility] Comment on above: Performed By: #### L LUPE RAMOS, NIDA #### [facility] [address] [address] John Elsa Sodium [Moles/Vol] 141 mmol/L Normal 137-145 [facility] Comment on above: Performed By: #### L RACHEL CMP, NIDA #### [facility] [address] [address] John Elsa Urea nitrogen [Mass/Vol] 8.0 mg/dL Normal 7.0-17.0 [facility] Comment on above: Performed By: #### L RACHEL CMP, NIDA #### [facility] [address] [address] John Elsa Urea nitrogen/Creatinin e [Mass ratio] 9.4 mg/mg Normal [facility] Comment on above: Performed By: #### L RACHEL CMP, NIDA #### [facility] [address] [place] [address] John Elsa XR ABD FLAT UP_PA Claudio 06-13 XR [...] JACKELIN SUÁREZ Date: 2020-06-13 21:39 Normal [facility] COVID-19 PCRon 12-05-2019 SARS-CoV-2 (COVID-19) RNA DAVID+probe Ql (Unsp spec) Not detected Normal Not Detected [facility] Comment on above: Result Comment: This test was developed and its performance characteristics determined by [employer]. This test has not been FDA cleared [...] assay. Performed By: #### C VDPCR #### [facility] [address] [place] [address] Vital Signs Date Time Vital Sign Value Performing Clinician Faci litjosesito 02-20-2024 08:55-0400 Diastolic blood pressure 89 mm[Hg] HISTOPATHOLOGY TECHNICIAN-C Jacy Rivera Work Phone: [facility] 02-20-2024 08:55-0400 Heart rate 79 /min HISTOPATHOLOGY TECHNICIAN-C Jacy Rivera Work Phone: [facility] 02-20-2024 08:55-0400 Respiratory rate 16 /min HISTOPATHOLOGY TECHNICIAN-C Jacy Rivera Work Phone: [facility] 02-20-2024 08:55-0400 SaO2% (BldA) [Mass fraction] 98 % HISTOPATHOLOGY TECHNICIAN-C Jacy Rivera Work Phone: [facility] 02-20-2024 08:55-0400 Systolic blood pressure 138 mm[Hg] HISTOPATHOLOGY TECHNICIAN-C Jacy Rivera Work Phone: [facility] 02-20-2024 07:33-0400 Body height 160.02 cm HISTOPATHOLOGY TECHNICIAN-C Jacy Rivera Work Phone: [facility] 02-20-2024 07:33-0400 Body temperature 98 [degF] HISTOPATHOLOGY TECHNICIAN-C Jacy Rivera Work Phone: [facility] 02-20-2024 07:33-0400 Body weight 129.27 kg HISTOPATHOLOGY TECHNICIAN-C Jacy Mccartyzpatrick Work Phone: [facility] 02-05-2024 15:42-0400 Body height 160.02 cm [facility] 02-05-2024 15:42-0400 Body mass index (BMI) [Ratio] 51 kg/m2 [facility] 02-05-2024 15:42-0400 Body weight 130.63 kg [facility] 03-31-2021 16:30-0500 Body height 160.02 cm Genie Leslie Other [employer] [facility] [employer] Other 03-31-2021 16:30-0500 Body temperature 98.6 [degF] Genie Leslie Other [employer] [facility] [employer] Other 03-31-2021 16:30-0500 Respiratory rate 18 /min Genie Leslie Other [employer] [facility] [employer] Other 03-31-2021 16:30-0500 SaO2% (BldA) [Mass fraction] 98 % Genie Leslie Other [employer] [facility] [employer] Other Encounters Encounter Date Encounter Type Care Provider Facility Start: 02-20-2024 Non-patient / Non-visit HISTOPATHOLOGY TECHNICIAN-C Jacy Rivera Work Phone: [facility] Work Phone: Start: 02-20-2024 End: 02-20-2024 Admission to same day surgery center HISTOPATHOLOGY TECHNICIAN-C Jacy Rivera Work Phone: [facility] Work Phone: Start: 02-20-2024 End: 02-20-2024 ambulatory HISTOPATHOLOGY TECHNICIAN-C Jacy Rivera Work Phone: [facility] Work Phone: Start: 02-05-2024 End: 02-05-2024 ambulatory [facility] Work Phone: Start: 02-05-2024 End: 02-05-2024 Patient encounter procedure [facility] Work Phone: Start: 01-23-2024 End: 01-23-2024 ambulatory JACY RIVERA Not Available Start: 01-23-2024 End: 01-23-2024 ambulatory [facility] Start: 12-27-2023 End: 12-27-2023 ambulatory JACY RIVERA Not Available Start: 03-31-2021 (URG) Urgent Care Visit Genie Leslie [facility] Start: 03-31-2021 End: 03-31-2021 ambulatory Genie Leslie Other [employer] Other Start: 09-02-2020 End: 09-03-2020 ambulatory USAMA DRISCOLL Facility:[facility] Start: 08-12-2020 End: 08-13-2020 ambulatory NONE LISTED REQUEST Facility:[facility] Start: 06-13-2020 End: 06-14-[address] NONE LISTED REQUEST Facility:[facility] Start: 12-02-2019 End: 12-03-[address] NONE LISTED REQUEST Facility: Procedures Date Procedure Procedure Detail Performing Clinician Start: 02-20-2024 Esophagogastroduodenoscopy HISTOPATHOLOGY TECHNICIAN-Brianne Rivera Work Phone: Plan of Treatment Date Care Activity Detail Author Start: 02-20-[address] [facility] Patient Education Esophagitis Ga stritis (DC) Know your [facility] Work Phone: Payers Date Payer Category Payer Self-pay [id number] 2023 Unknown [id number] 1986 Unknown [id number] 1986 Unknown [id number] 1986 Unknown [id number] 1986 Unknown [id number] 1986 Unknown [id number] 1959 Private Health Insurance [id number] 1959 Self-pay [id number] 1958 Unknown [id number] Private Health Insurance [facility] Chujian [id number] Unknown [id number] Unknown [id number] Unknown [id number] Social History Date Type Detail Facility Unknown if ever smoked [employer] Other Sex Assigned At Sex Assigned At Bir th [employer] Other Start: 01-04-2024 End: 02-20-2024 Tobacco smoking status NHIS Never smoked tobacco (finding) [facility] Start: 1985 Sex Assigned At Female [facility] Goals Date Patient Goal Desired Activity /State Procedure note 02-20-2024 Note Date & Type Note Facility 02-20-2024 Procedure note [facility] Evaluation note 03-31-2021 Note Date & [...] Patient care instructions given in writting by [facility] Home document. [employer] Other Evaluation note Note Date & Type Note Facility Evaluation note No assessment information availa ble [facility] Work Phone: Evaluation note Note Date & Type Note Facility Evaluation note Diagnosis Onset Date Dysphagia acute [facility] Work Phone: History and physical note Note Date & Type Note Facility History and physical note Note Date/Time February 20, 2024 8:22am [facility] [address] [place] [address] Gastroenterology H&P Signed Patient: Ainsley Persaud MR#: [id number] : 1985 Acct:[id number] Age/Sex: 38 / F Adm Date: 4 Loc: Room: Type: [facility] Attending Dr: Laura Fortune MD Copies to: Jacy Rivera, HISTOPATHOLOGY TECHNICIAN-C Laura Fortune MD~ Date of Service: 02/20/2024 HISTORY & PHYSICAL: Patient's history with special attention to the cardiovascular, pulmonary systems and the current problem was reviewed with the patient immediately prior to the procedure. Present medications and doses reviewed in the EMR. Allergies and pertinent laboratory tests were also reviewedat this time in the EMR. The physical examination, as below, was then performed. Indication, assessment and HPI: 38-year-old female here for EGD for evaluation of dysphagia Family history of GI malignancy? No PHYSICAL EXAMINATION General appearance: NAD Skin: No jaundice Head: NC/AT Eyes: Anicteric Neck: Supple Lungs: Normal respiratory effort, no use of accessory muscles Abdomen: nondistended Neuro: Ox3. REVIEW OF SYSTEMS Constitutional: Denies malaise, fevers Cardiovascular: Denies chest pain, palpitations Respiratory: Denies shortness of breath, wheezing Gastrointestinal: As per HPI Genitourinary: Denies dysuria, polyuria Musculoskeletal: Denies joint swelling, joint stiffness Neurological: Denies confusion, numbness, tingling Endocrine: Denies fatigue Written informed consent obtained from the patient. Risks (including but not limited to perforation, infection, bloating, bleeding, need for emergent surgeryand loss of life), benefits and alternatives explained and questions answered. The patient verbalized understanding. Based on history patient is an appropriate candidate for the procedure. Laura Fortune M.D. Documented By: Laura Fortune MD 02/20/24819 Signed By: <Electronically signed by Laura Fortune MD> 02/20/24820 [facility] Work Phone: History general Narrative - Reported Note Date & Type Note Facility History general Narrative - Reported Type Medical History acid reflux Surgical History x2 Surgical History cholecystectomy Surgical History EGD Surgical History hysterectomy Hospitalization History No know Hospitalization history [facility] [employer] Other Summary Purpose Family History No Family History Records Found Relationship Condition Age at Onset Recorded Date/T cherry father Hypertension Unknown sister Malignant neoplasm of ovary Unknown grandparent Hypertension Unknown Diabetes mellitus Unknown mother History of heart valve replacement Unknow n Advance Directives No Advanced Directives Records Found Advance Directive Response Recorded Date/ Time Advance Directives No January 04, 2024 2:44pm Chief Complaint and Reason for Visit Chief Complaint Refer: GERD, dysphag ia Chief Complaint Refer: GERD, dysphag ia Dysphagia Dysphagia Reason for Visit Dysphagia Additional Source Comments INFORMATION SOURCE (unrecogn ized section and content) DATE CREATED AUTHOR 09/01/2020 [facility] DATE CREATED AUTHOR AUTHOR'S ORGANIZ ATION 01/25/2024 [facility] DATE CREATED AUTHOR AUTHOR'S ORGANIZ ATION 01/25/2024 [facility] DATE CREATED AUTHOR AUTHOR'S ORGANIZ ATION 02/27/2024 [facility] REASON FOR VISIT (unrecogniz ed section and content) #27 GREEN EQUINOX, EAR PAIN, SINUS CONGESTION Care Teams (unrecognized sec tion and content) Team Status: Active Member Role Status Dates PHYSICIAN NO FAMILY Primary Care Provider Active Team Status: Inactive Member Role Status Dates PHYSICIAN NO FAMILY Primary Care Provider Active Start: February 05, 2024 End: February 05, 2024 Francisoc Barrett APRN Attending Provider Active Start: February 05, 2024 End: February 05, 2024 Team Status: Active Member Role Status Dates Jacy Rivera NP-C Primary Care Provider Ac tive Team Status: Inactive Member Role Status Dates Laura Fortune MD Attending Provider Active Start: February 20, 2024 End: February 20, 2024 Jacy Rivera NP-C Primary Care Provider Ac tive Start: February 20, 2024 End: February 20, 2024 Team Status: Active Member Role Status Dates Laura Fortune MD Attending Provider, Other Provider Active Start: February 20, 2024 Jacy Rivera NP-C Primary Care Provider Active Start: February Goals (unrecognized section and content) Goals may [...] BE BASED ON THE PRIMARY CLINICAL RECORDS. [employer] [facility]. provides no warranty or guarantee of the accuracy or completeness of information in this document.
[2024-03-02 11:12] LABS: Alanine Aminotransferase 17 U/L (14-59); Albumin Globulin Ratio 0.8; Albumin Level 3.3 g/dL (3.4-5.0); Alkaline Phosphatase 83 U/L (46-116); Aspartate Amino Transferase 13 U/L (15-37); BUN Creatinine Ratio 11.1; Calcium 9.4 mg/dL (8.5-10.1); Chloride 103 mmol/L (98-107); Estimated GFR (African America >60 (>=60 mL/min/1.73m^2); Estimated GFR (Non-African Ame >60 (>=60 mL/min/1.73m^2); Glucose 107 mg/dL (74-106); Sodium 139 mmol/L (136-145); Total Protein 7.3 g/dL (6.4-8.2)
[2024-03-02 11:21] LABS: Creatinine Urine Random 95.13 mg/dL (20.00-300.00); Microalbum Creatinine Ratio Ur 13.6 mg/g (0.0-29.9); Microalbumin Urine Random <1.3 mg/dL (<=30.0)
== END 2024-03-02 10:25 | disposition home or self-care (01) ==
LOC: LAB 10:25
DX: R73.03 Prediabetes (principal)
CPT/HCPCS: 36415; 80053; 82043; 82570

== ENCOUNTER 2024-04-13 06:40 | Outpatient (OUT) | payer BC, SELFPAY ==
[2024-04-13 09:10] LABS: Estimated Average Glucose 143 mg/dL; Glycohemoglobin A1C 6.6 % (4.5-6.2)
== END 2024-04-13 06:41 | disposition home or self-care (01) ==
LOC: LAB 06:42
DX: R73.03 Prediabetes (principal)
CPT/HCPCS: 36415; 83036

== ENCOUNTER 2024-07-20 08:22 | Outpatient (OUT) | payer BC, SELFPAY ==
--- OUTSIDE RECORDS SUMMARY | 2024-07-20 08:26 | XMS_ITS | CCD ---
Author Organization [facility] Care Team Providers Care Webbing Inspector Name Role Phone REQUEST, DR NONE LISTED Consulting Unavaila ble REQUEST, NONE LISTED Primary Care Unavaila ble REQUEST, NONE LISTED Admitting Unavaila ble REQUEST, NONE LISTED Attending Unavaila ble USAMA DRISCOLL Admitting [...] Mariama, Genie Unavailable MARI FONSECA Attending Unavailable JACY RIVERA Referring Unavaila ble MD Laura Fortune Attending Provider [phone] RAJEEV Rivera Primary Care Provid er Oh Vasquez MD Primary Care Provider [phone] Jacy Rivera NP Unavailable [phone] Jacy Rivera Primary Care Unavaila ble Devika, Imad Attending Unavailable Devika, Imapril Admitting Unavailable Laura Fortune MD Attending Provider [phone] Miguel GRIMES-CJacy Primary Care Provid er Jacy Rievra NP Unavailable [phone] JACY RIVERA Attending Unavailabl e JACY RIVERA Attending Unavailabl e RIVERA, JACY Attending Unavailabl e Allergies Allergy Classification Reported Allergen(s) Allergy Type Date of Onset Reaction(s) Facility Shellfish (1 source) Shellfish Food Allergy [facility] Repository (1 source) Shellfish Propensity to adverse reactions IS Decisions Other (2 sources) Shellfish; Translations: [SHELLFISH DERIVED] Propensity to adverse reactions to food (disorder) 4 [facility] Repository (8 sources) Shellfish Propensity to adverse reactions 4 [facility] Healthcare (8 sources) Other Propensity to adverse reactions 4 Unknown [facility] Healthcare Medications Current Medications Medication Drug Class(es) Dates Sig (Normalized) Sig (Original) amoxicillin 875 mg / clavulanate 125 mg oral tablet (1 source) Penicillin-class Antibacterial Start: 03-19-2024 take 1 tablet by mouth every twelve hours Amoxicillin-Pot Clavulanate 875-125 mg tablet Active 1 TAB PO Every 12 hours 24 02March 19, 2024 12:00am Ascorbic Acid (16 sources) Vitamin C Start: 02-08-2024 take 1 tablet by mouth once daily Ascorbic Acid (Vitamin C) (C-1000) 1,000 mg tablet Active 1 GM PO Daily February 07, 2024 11:00pm Start: 02-08-2024 take 1 tablet by mouth once da christina Ascorbic Acid (Vitamin C) (C-1000) 1,000 mg tablet Active 1 GM PO Daily February 08, 2024 12:00am Start: 05-08-2019 Ascorbic Acid (vitamin C) 1000 MG tablet 05/08/2019 Active aspirin 81 mg oral tablet (16 sources) Platelet Aggregation Inhibitor, Nonsteroidal Anti-inflammatory Drug Start: 02-08-2024 take 1 capsule by mouth once daily Aspirin 81 mg capsule Active 81 MG PO Daily February 07, 2024 11:00pm take 1 tablet by mouth once alexandra y aspirin 81 MG EC tablet Take 81 mg by mouth Daily Active atorvastatin 20 mg oral tablet (15 sources) HMG-CoA Reductase Inhibitor Start: 02-05-2024 take 1 mg by mouth once daily Atorvastatin Active MG PO Daily February 05, 2024 12:00am Start: 01-15-2024 End: 04-22-2025 take 1 tablet by mouth once daily atorvastatin (Lipitor) 20 MG tablet Indications: Hypercholesteremia (CMS/HCC) Take 1 tablet (20 mg) by mouth Daily 30 tablet 11 04/22/2024 04/22/2025 Active fluticasone propionate 0.05 mg/actuat metered dose nasal [...] Not-Taking losartan potassium 25 mg oral tablet (12 sources) Angiotensin 2 Receptor Jean Start: 02-05-2024 take 1 mg by mouth once daily Losartan Active MG PO Daily February 05, 2024 12:00am Start: 01-23-2024 End: 04-22-2024 take 1 tablet by mouth once daily losartan (Cozaar) 25 MG tablet Indications: Mixed hyperlipidemia (CMS/HCC) TAKE 1 TABLET BY MOUTH DAILY 30 tablet 2 04/22/2024 Active metFORMIN hydrochloride 500 mg oral tablet (14 sources) Biguanide Start: 02-05-2024 take 1 mg by mouth twice daily Metformin Active MG PO Twice daily February 05, 2024 12:00am Start: 01-23-2024 End: 04-22-2025 take 1 tablet by mouth in the morning metFORMIN (Glucophage) 500 MG tablet Indications: Prediabetes Take 1 tablet (500 mg) by mouth in the morning and 1 tablet (500 mg) in the evening. Take with meals. 60 tablet 11 04/22/2024 04/22/2025 Active metFORMIN HCl 50 0 MG Oral for 30 Not-Taking Misc Natural Products (Beet Root) 500 MG capsule (14 sources) Start: 12-27-2023 Misc Natural P roducts (Beet Root) 500 MG capsule 12/27/2023 Active Multiple Vitamins-Minerals (Multivitamin Gummies Adult) chewable tablet (14 sources) Multiple Vitamins-Minerals (Multivitamin Gummies Adult) chewable tablet Active Multivitamin preparation (2 sources) Start: 02-08-2024 take 1 tablet by mouth once daily Multivitamin Active 1 TAB PO Daily February 08, 2024 12:00am Multivitamin Act laila Multivitamin tablet (1 source) Start: 02-08-2024 take 1 tablet by mouth once daily Multivitamin tablet Active 1 TAB PO Daily February 07, 2024 11:00pm pantoprazole 40 mg delayed release oral tablet (5 sources) Proton Pump Inhibitor Start: 02-20-2024 End: 03-08-2024 pantoprazole (ProtoNix) 40 MG EC tablet Twice daily 03/08/2024 Active predniSONE 20 mg oral tablet (1 source) Start: 03-31-2021 take 1 tablet by mouth every twelve hours predniSONE 20 MG 1 tablet Orally bid for 5 day(s) Mar, Active Red Beet Root-Sour [place] Ext (1 source) Start: 02-08-2024 take 1 tablet by mouth once daily Red Beet Root-Sour [place] Ext Active 1 TAB PO Daily February 08, 2024 12:00am Red Beet Root-Sour [place] Ext 250-0.5 mg tablet,chewable (1 source) Start: 02-08-2024 Red Beet Root- Sour [place] Ext 250-0.5 mg tablet,chewable Active 1 TAB PO Daily February 07, 2024 11:00pm Zantac 150 Maximum Strength 150 MG (1 source) take 1 tablet by mouth once daily Zantac 150 Maximum Strength 150 MG 1 tablet Orally Once a day Active Completed/Discontinued Medications Medication Drug Class(es) Dates Sig (Normalized) Sig (Original) [id number] 200 actuat albuterol 0.09 mg/actuat metered dose [...] Nov, Not-Taking cimetidine 200 mg oral tablet (16 sources) Histamine-2 Receptor Antagonist Start: 02-08-2024 End: 04-22-2024 Cimetidine 200 mg tablet Discontinued 200 MG PO As Directed February 07, 2024 11:00pm February 20, 2024 7:25am take 1 tablet by mouth every oth er day cimetidine (Tagamet) 200 MG tablet Take 200 mg by mouth 1 time EVERY OTHER DAY Active methylPREDNISolone 4 mg oral tablet (1 source) Corticosteroid Start: 03-18-2019 Medrol (Jason) 4 MG as directed Orally Mar, Not-Taking Previfem (1 source) Previfem Not-Todd ing rosuvastatin calcium 5 mg oral tablet (2 sources) HMG-CoA Reductase Inhibitor Start: 12-30-2023 End: 01-15-2024 take 1 tablet by mouth once daily rosuvastatin (Crestor) 5 MG tablet Indications: Hypertriglyceridemia (CMS/HCC) Take 1 tablet (5 mg) by mouth Daily 30 tablet 3 12/30/2023 01/15/2024 Discontinued (Side effects) Problems Active Problems Problem Classification Problem Date Documented Da te Episodic/Chronic Diabetes mellitus without complication (12 sources) Prediabetes; Translations: [Prediabetes] Onset: 4 01-23-2024 Episodic Disorders of lipid metabolism (17 sources) Hyperlipidemia; Translations: [Hyperlipidemia, unspecified] Onset: 4 01-23-2024 Chronic Esophageal disorders (20 sources) Gastroesophageal reflux disease; Translations: [GERD [Gastroesophageal reflux disease]] Onset: 4 12-27-2023 Chronic Essential hypertension (12 sources) Essential hypertension; Translations: [Essential (primary) hypertension] Onset: 4 01-23-2024 Chronic Other gastrointestinal disorders (3 sources) Dysphagia; Translations: [Dysphagia, unspecified] 02-05-2024 Episodic Other gastrointestinal disorders (3 sources) Dysphagia, unspecified; Translations: [Dysphagia, unspecified] Onset: 4 02-05-2024 Episodic Other nutritional; endocrine; and metabolic disorders (16 sources) Severe obesity; Translations: [Class 3 severe obesity with body mass index (BMI) of 50.0 to 59.9 in adult] Onset: 4 12-27-2023 Chronic Residual codes; unclassified (1 source) Obstructive sleep [...] COMMUNICABL DZ] Onset: 12-02-2019 Resolved: 03-31-2021 Episodic Malaise and fatigue (16 sources) Fatigue; Translations: [Other fatigue] Onset: 12-27-2023 12-27-2023 Episodic Nausea and vomiting (2 sources) Nausea; Translations: [Nausea and vomiting] Onset: 06-16-2020 Episodic Other disorders of stomach and duodenum (1 source) Disorder of function of stomach; Translations: [Dyspepsia and other specified disorders of function of stomach] Episodic Other gastrointestinal disorders (1 source) Diarrhea; Translations: [Diarrhea] Episodic Other gastrointestinal disorders (14 sources) Difficulty swallowing solids; Translations: [Dysphagia, unspecified] Onset: 12-27-2023 12-27-2023 Episodic Other lower respiratory disease (16 sources) Snoring; Translations: [Snoring] Onset: 12-27-2023 12-27-2023 Episodic Other upper respiratory infections (1 source) Acute recurrent sinusitis, unspecified Onset: 03-31-2021 Resolved: 03-31-2021 Episodic Viral infection (1 source) COVID-19 Onset: 03-31-2021 Resolved: 03-31-2021 Results Test Name Value Interpretation Reference Range Facility [facility] HEMOGLOBIN A1Con 024 Glucose [Mass/Vol] 143 mg/dL [facility] HbA1c (Bld) [Mass fraction] 6.6 % High 4.5 - 6.2 % [facility] Comment on above: ADA RECOMMENDED LIMI T 4.0 - 6.0 ADA THERAPEUTIC TARGET < 7.0 ACTION SUGGESTED > 7.0 Interpretation and review of laboratory results Abnormal [facility] CMP (CMP) (FOR REMOTE FH C USE)on 03-02-2024 Albumin [Mass/Vol] 3.3 g/dL Low 3.4 - 5.0 g/dL [facility] ALBUMIN GLOBULIN RATIO 0.8 [facility] ALP [Catalytic activity/Vol] 83 U/L 46 - 116 U/L [facility] ALT [Catalytic activity/Vol] 17 U/L 14 - 59 U/L [facility] Anion gap [Moles/Vol] 13 mmol/L [facility] AST [Catalytic activity/Vol] 13 U/L Low 15 - 37 U/L [facility] Bilirubin [Mass/Vol] 1 mg/dL 0.2 - 1 .0 mg/dL [facility] Calcium [Mass/Vol] 9.4 mg/dL 8.5 - 10. 1 mg/dL [facility] Chloride [Moles/Vol] 103 mmol/L 98 - 10 7 mmol/L [facility] CO2 [Moles/Vol] 27 mmol/L 21.0 - 32.0 mmol/L [facility] Creatinine [Mass/Vol] 0.9 mg/dL 0.55 - 1.02 mg/dL [facility] GFR/1.73 sq M.predicted CKD-EPI (S/P/Bld) [Vol rate/Area] >60 >=60 mL/min/1.73m 2 [facility] Globulin (S) [Mass/Vol] 4 g/dL [facility] Glucose [Mass/Vol] 107 mg/dL High 74 - 106 mg/dL [facility] Interpretation and review of laboratory results Abnormal [facility] Potassium [Moles/Vol] 4 mmol/L 3.5 - 5.1 mmol/L [facility] Protein [Mass/Vol] 7.3 g/dL 6.4 - 8.2 g/dL [facility] Sodium [Moles/Vol] 139 mmol/L 136 - 145 mmol/L [facility]H EGFR-NON AF [facility] >60 >=60 mL/min/1.73m 2 [facility] Urea nitrogen [Mass/Vol] 10 mg/dL 7.0 - 18.0 mg/dL [facility] Urea nitrogen/Creatinine [Mass ratio] 11.1 mg/mg [facility] Healthcar e No Panel InformationOrdered By: Laura Fortune on 02-20-2024 Miscellaneous Pathology Test See comment [facility] Comment on above: See report. Scanned copy available in EMR. Pathology Request for Lab Co rpon 02-20-2024 Pathology Request for Lab Kelly Normal [facility] Comment on above: Order Comment: PATHO LOGY GI SPECIMEN Result Comment: See report. Scanned copy available in EMR. PERFORMED BY: [place] [address] PATHOLOGIST ENVIRONMENTAL TECH ALIVIA GALARZA M.D. Performed By: #### P ATH TO [facility] #### [address] [facility] HEMOGLOBIN A1Con 024 Glucose [Mass/Vol] 117 mg/dL [facility] HbA1c (Bld) [Mass fraction] 5.7 % 4.5 - 6.2 % [facility] Comment on above: ADA RECOMMENDED LIMI T 4.0 - 6.0 ADA THERAPEUTIC TARGET < 7.0 ACTION SUGGESTED > 7.0 [facility] COVID Quick Testingon 2020 Result Positive [facility] Other AMYLASEon 06-13-2020 Amylase [Catalytic activity/Vol] 34 U/L Normal 31-110 [facility] Comment on above: Performed By: #### L IPA, CMP, NIDA #### [facility] [address] [place], [place] [address] John Elsa CBC AUTO DIFFon 06-13-2020 BASO # 0.0 103/ul Normal 0.0-0.1 [facility] Comment on above: Performed By: #### C BC #### [facility] [address] [place], [place] [address] John Elsa Basophils/100 WBC (Bld) 0.4 % Normal 0.2-2.0 [facility] Comment on above: Performed By: #### C BC #### [facility] [address] [place] [id number] John Elsa EO # 1.1 103/ul Critically high 0.0-0.7 [facility] Comment on above: Performed By: #### C BC #### [facility] [address] [place] [id number] John Elsa Eosinophils/100 WBC (Bld) 10.5 % Critically high 0.9-7.0 [facility] Comment on above: Performed By: #### C BC #### [facility] [address] [place] [address] John Elsa Erythrocyte distribution width (RBC) [Ratio] 14.1 % Normal 11.0-15.0 [facility] Comment on above: Performed By: #### C BC #### [facility] [address] [place] [address] John Elsa Hematocrit (Bld) [Volume fraction] 40.1 % Normal 36.0-48.0 [facility] Comment on above: Performed By: #### C BC #### [facility] [address] [place], [place] [id number] John Elsa Hemoglobin (Bld) [Mass/Vol] 12.8 g/dL Normal 12.0-16.0 [facility] Comment on above: Performed By: #### C BC #### [facility] [address] [place] [address] John Elsa IG # 0.03 10e3/ul Normal 0.00-0.03 [facility] Comment on above: Performed By: #### C BC #### [facility] [address] [place] [address] John Elsa IG % 0.3 % Normal 0.0-0.5 [facility] Comment on above: Performed By: #### C BC #### [facility] [address] [place] [address] John Elsa LYMPH # 3.1 103/ul Normal 1.2-3.8 [facility] Comment on above: Performed By: #### C BC #### [facility] [address] [place], [place] [id number] John Elsa Lymphocytes/100 WBC (Bld) 29.2 % Normal 20.5-60.0 [facility] Comment on above: Performed By: #### C BC #### [facility] [address] [place], [place] [id number] Jonh Elsa MANUAL DIFF REQ NO Normal [facility] Comment on above: Performed By: #### C BC #### [facility] [address] [place], [place] [id number] John Elsa MCH (RBC) [Entitic mass] 27.7 pg Normal 26.7-34.0 [facility] Comment on above: Performed By: #### C BC #### [facility] [address] [place] [address] John Elsa MCHC (RBC) [Mass/Vol] 31.9 g/dL Normal 29.9-35.2 [facility] Comment on above: Performed By: #### C BC #### [facility] [address] [place], [place] [id number] John Elsa MCV (RBC) [Entitic vol] 86.8 fL Normal 81.0-99.0 [facility] Comment on above: Performed By: #### C BC #### [facility] [address] [place] [address] John Elsa MONO # 0.4 103/ul Normal 0.3-0.8 [facility] Comment on above: Performed By: #### C BC #### [facility] [address] [place], [place] [id number] John Elsa Monocytes/100 WBC (Bld) 4.1 % Normal 1.7-12.0 [facility] Comment on above: Performed By: #### C BC #### [facility] [address] [place] [address] John Elsa NEUT # 5.9 103/ul Normal 1.4-6.5 [facility] Comment on above: Performed By: #### C BC #### [facility] [address] [place] [address] John Hunter Neutrophils/100 WBC (Bld) 55.5 % Normal 43.0-75.0 [facility] Comment on above: Performed By: #### C BC #### [facility] [address] [place] [address] John Hunter Platelet mean volume (Bld) [Entitic vol] 9.9 fL Normal 9.5-13.5 [facility] Comment on above: Performed By: #### C BC #### [facility] [address] [place] [address] John Hunter PLT 281 103/ul Normal 150-450 [facility] Comment on above: Performed By: #### C BC #### [facility] [address] [place] [address] John Hunter RBC 4.62 106/ul Normal 4.20-5.40 [facility] Comment on above: Performed By: #### C BC #### [facility] [address] [place] [address] Johnkatelyn Hunter WBC 10.6 103/ul Normal 4.0-11.0 [facility] Comment on above: Performed By: #### C BC #### [facility] [address] [place] [address] John Hunter ER URINE PROFILEon 1 Bilirubin Ql (U) Negative Normal NEGATIVE [facility] Comment on above: Performed By: #### E RUR #### [facility] [address] [place] [address] Johnkatelyn Arellanoen Clarity (U) CLEAR Normal CLEAR [facility] Comment on above: Performed By: #### E RUR #### [facility] [address] [place] [address] John Elsa Color (U) LT. YELLOW Normal YELLOW [facility] Comment on above: Performed By: #### E RUR #### [facility] [address] [place], [place] [id number] Johnkatelyn Arellanoen ERUAHD A micrscopic examination will be performed if indicated. Normal [facility] Comment on above: Performed By: #### E RUR #### [facility] [address] [place] [address] John Elsa Glucose Ql (U) Negative Normal NEGATIVE [facility] Comment on above: Performed By: #### E RUR #### [facility] [address] [place] [address] John Elsa Hemoglobin Ql (U) Negative Normal NEGATIVE [facility] Comment on above: Performed By: #### E RUR #### [facility] [address] [place] [address] John Elsa Ketones Ql (U) Negative Normal NEGATIVE [facility] Comment on above: Performed By: #### E RUR #### [facility] [address] [place] [address] John Elsa LEUKOCYTES Negative Normal NEGATIVE [facility] Comment on above: Performed By: #### E RUR #### [facility] [address] [place] [address] John Elsa Nitrite Ql (U) Negative Normal NEGATIVE [facility] Comment on above: Performed By: #### E RUR #### [facility] [address] [place] [address] John Elsa pH (U) 5.5 [pH] Normal 5-9 [facility] Comment on above: Performed By: #### E RUR #### [facility] [address] [place] [address] John Elsa SPEC GRAVITY 1.020 Normal 1.005-<=1.025 [facility] Comment on above: Performed By: #### E RUR #### [facility] [address] [place] [address] John Elsa UA PROTEIN Negative Normal NEGATIVE/ TRACE [facility] Comment on above: Performed By: #### E RUR #### [facility] [address] [place] [address] John Elsa UR MICRO IND NOT INDICATED Normal [facility] Comment on above: Performed By: #### E RUR #### [facility] [address] [place] [address] John Elsa Urobilinogen Qn (U) 0.2 {Nawaf'U}/dL Normal 0.2 - 1. 0 [facility] Comment on above: Performed By: #### E RUR #### [facility] [address] [place], [place] [id number] John Elsa LIPASEon 06-13-2020 Lipase [Catalytic activity/Vol] 104.0 U/L Normal 23.0-300.0 [facility] Comment on above: Performed By: #### L IPA, CMP, NIDA #### [facility] [address] [place], [place] [id number] John Elsa MONOon 06-13-2020 Monocytes (Bld) [#/Vol] Negative Normal NEGATIVE [facility] Comment on above: Performed By: #### M RUBEN #### [facility] [address] [place], [place] [id number] Johnkatelyn Arellanoen PROF 14(COMP METB)on 021 Albumin [Mass/Vol] 3.4 g/dL Critically low 3.5-5.0 [facility] Comment on above: Performed By: #### L IPA, CMP, NIDA #### [facility] [address] [place], [place] [id number] John Elsa Albumin/Globulin [Mass ratio] 0.9 {ratio} Normal [facility] Comment on above: Performed By: #### L IPA, CMP, NIDA #### [facility] [address] [place], [place] [id number] John Elsa ALP [Catalytic activity/Vol] 90 U/L Normal 38-126 [facility] Comment on above: Performed By: #### L IPA, CMP, NIDA #### [facility] [address] [place], [place] [id number] John Elsa ALT [Catalytic activity/Vol] 19 U/L Normal 9-52 [facility] Comment on above: Performed By: #### L IPA, CMP, NIDA #### [facility] [address] [place], [place] [id number] John Elsa Anion gap [Moles/Vol] 15.2 mmol/L Normal [facility] Comment on above: Performed By: #### L IPA, CMP, NIDA #### [facility] [address] [place] [address] John Elsa AST [Catalytic activity/Vol] 13 U/L Critically low 14-36 [facility] Comment on above: Performed By: #### L IPA, CMP, NIDA #### [facility] [address] [place] [address] John Elsa Bilirubin [Mass/Vol] 0.4 mg/dL Normal 0.2-1.3 [facility] Comment on above: Performed By: #### L IPA, CMP, NIDA #### [facility] [address] [place] [address] John Elsa Calcium [Mass/Vol] 9.0 mg/dL Normal 8.4-10.2 [facility] Comment on above: Performed By: #### L IPA, CMP, NIDA #### [facility] [address] [place] [address] John Elsa Chloride [Moles/Vol] 104 mmol/L Normal 98-107 [facility] Comment on above: Performed By: #### L IPA, CMP, NIDA #### [facility] [address] [place] [address] John Elsa CO2 [Moles/Vol] 26.3 mmol/L Normal 22.0-30.0 [facility] Comment on above: Performed By: #### L IPA, CMP, NIDA #### [facility] [address] [place] [address] John Elsa Creatinine [Mass/Vol] 0.85 mg/dL Normal 0.52-1.04 [facility] Comment on above: Performed By: #### L IPA, CMP, NIDA #### [facility] [address] [place] [address] John Elsa EGFR-AF [facility] >60 Normal >=60 [facility] Comment on above: Performed By: #### L IPA, CMP, NIDA #### [facility] [address] [place] [address] John Elsa EGFR-NON AF [facility] >60 Normal >=60 [facility] Comment on above: Performed By: #### L IPA, CMP, NIDA #### [facility] [address] [place] [id number] John Elsa Globulin (S) [Mass/Vol] 3.7 g/dL Normal [facility] Comment on above: Performed By: #### L IPA, CMP, NIDA #### [facility] [address] [place] [address] John Elsa Glucose [Mass/Vol] 106 mg/dL Normal 74-106 [facility] Comment on above: Performed By: #### L IPA, CMP, NIDA #### [facility] [address] [place] [address] John Elsa Potassium [Moles/Vol] 4.5 mmol/L Normal 3.4-5.0 [facility] Comment on above: Performed By: #### L IPA, CMP, NIDA #### [facility] [address] [place] [address] John Elsa Protein [Mass/Vol] 7.1 g/dL Normal 6.1-8.2 [facility] Comment on above: Performed By: #### L IPA CMP, NIDA #### [facility] [address] [place] [address] John Elsa Sodium [Moles/Vol] 141 mmol/L Normal 137-145 [facility] Comment on above: Performed By: #### L IPA, CMP, NIDA #### [facility] [address] [place], [place] [id number] John Elsa Urea nitrogen [Mass/Vol] 8.0 mg/dL Normal 7.0-17.0 [facility] Comment on above: Performed By: #### L IPA, CMP, NIDA #### [facility] [address] [id number] John Elsa Urea nitrogen/Creatinine [Mass ratio] 9.4 mg/mg Normal [facility] Comment on above: Performed By: #### L IPA, CMP, NIDA #### [facility] [address] [id number] John Elsa XR ABD FLAT UP_PA Claudio [...] JACKELIN SUÁREZ Date: 2020-06-13 21:39 Normal [facility] COVID-19 PCRon 12-05-2019 SARS-CoV-2 (COVID-19) RNA DAVID+probe Ql (Unsp spec) Not detected Normal Not Detected [facility] Comment on above: Result Comment: This test was developed and its performance characteristics determined by [facility]. This test has not been FDA cleared [...] assay. Performed By: #### C VDPCR #### [facility] [address] [id number] John Hunter Vital Signs Date Time Vital Sign Value Performing Clinician Facility 04-22-2024 15:29-0500 Body height 160 cm Jacy Rivera [employer] Work Phone: [facility] 04-22-2024 15:29-0500 Body mass index (BMI) [Ratio] 48.15 kg/m2 Jacy Rivera [employer] Work Phone: [facility] 04-22-2024 15:29-0500 Body temperature 97.2 [degF] Jacy Rivera [employer] Work Phone: [facility] 04-22-2024 15:29-0500 Body weight 123.29 kg Jacy Rivera [employer] Work Phone: [facility] 04-22-2024 15:29-0500 Diastolic blood pressure 82 mm[Hg] Jacy Rivera [employer] Work Phone: [facility] 04-22-2024 15:29-0500 Heart rate 87 /min Jacy Rivera [employer] Work Phone: [facility] 04-22-2024 15:29-0500 Respiratory rate 16 /min Jacy Rivera [employer] Work Phone: [facility] 04-22-2024 15:29-0500 SaO2% (BldA) [Mass fraction] 97 % Jacy Rivera [employer] Work Phone: [facility] 04-22-2024 15:29-0500 Systolic blood pressure 122 mm[Hg] Jacy Rivera [employer] Work Phone: [facility] 03-19-2024 16:08-0500 Body height 160.02 cm Jacy Rivera [employer] Work Phone: [facility] 03-19-2024 16:08-0500 Body mass index (BMI) [Ratio] 50.5 kg/m2 Jacy Rivera [employer] Work Phone: [facility] 03-19-2024 16:08-0500 Body temperature 97.2 [degF] Jacy Rivera [employer] Work Phone: [facility] 03-19-2024 16:08-0500 Body weight 129.5 kg Jacy Rivera [employer] Work Phone: [facility] 03-19-2024 16:08-0500 Diastolic blood pressure 80 mm[Hg] Jacy Rivera [employer] Work Phone: [facility] 03-19-2024 16:08-0500 Heart rate 83 /min Jacy Rivera [employer] Work Phone: [facility] 03-19-2024 16:08-0500 Respiratory rate 18 /min Jacy Rivera [employer] Work Phone: [facility] 03-19-2024 16:08-0500 SaO2% (BldA) [Mass fraction] 96 % Jacy Rivera [employer] Work Phone: [facility] 03-19-2024 16:08-0500 Systolic blood pressure 118 mm[Hg] Jacy Rivera [employer] Work Phone: [facility] 02-20-2024 08:55-0400 Diastolic blood pressure 89 mm[Hg] [employer] Jacy Rivera Work Phone: [facility] 02-20-2024 08:55-0400 Heart rate 79 /min [employer] Jacy Rivera Work Phone: [facility] 02-20-2024 08:55-0400 Respiratory rate 16 /min [employer] Jacy Rivera Work Phone: [facility] 02-20-2024 08:55-0400 SaO2% (BldA) [Mass fraction] 98 % [employer] Jacy Rivera Work Phone: [facility] 02-20-2024 08:55-0400 Systolic blood pressure 138 mm[Hg] [employer] Jacy Rivera Work Phone: [facility] 02-20-2024 07:33-0400 Body height 160.02 cm [employer] Jacy Rivera Work Phone: [facility] 02-20-2024 07:33-0400 Body temperature 98 [degF] [employer] Jacy Rivera Work Phone: [facility] 02-20-2024 07:33-0400 Body weight 129.27 kg [employer] Jacy Rivera Work Phone: [facility] 02-05-2024 15:42-0400 Body height 160.[address] [facility] 02-05-2024 15:42-0400 Body mass index (BMI) [Ratio] 51 kg/m2 [facility] 02-05-2024 15:42-0400 Body weight 130.[address] [facility] 01-23-2024 15:28-0400 Body height 160 cm Jacy Rivera [employer] Work Phone: [facility] 01-23-2024 15:28-0400 Body mass index (BMI) [Ratio] 51.37 kg/m2 Jacy Rivera [employer] Work Phone: [facility] 01-23-2024 15:28-0400 Body temperature 98.1 [degF] Jacy Rivera [employer] Work Phone: [facility] 01-23-2024 15:28-0400 Body weight 131.54 kg Jacy Rivera [employer] Work Phone: [facility] 01-23-2024 15:28-0400 Diastolic blood pressure 90 mm[Hg] Jacy Rivera [employer] Work Phone: [facility] 01-23-2024 15:28-0400 Heart rate 95 /min Jacy Rivera [employer] Work Phone: [facility] Comment on above: 95% O2 01-23-2024 15:28-0400 Systolic blood pressure 140 mm[Hg] Jacy Rivera [employer] Work Phone: [facility] 12-27-2023 16:25-0400 Body height 160 cm Jacy Rivera [employer] Work Phone: [facility] 12-27-2023 16:25-0400 Body mass index (BMI) [Ratio] 50.84 kg/m2 Jacy Rivera [employer] Work Phone: [facility] 12-27-2023 16:25-0400 Body temperature 98.29 [degF] Jacy Rivera [employer] Work Phone: [facility] 12-27-2023 16:25-0400 Body weight 130.18 kg Jacy Rivera [employer] Work Phone: [facility] 12-27-2023 16:25-0400 Diastolic blood pressure 90 mm[Hg] Jacy Rivera [employer] Work Phone: [facility] 12-27-2023 16:25-0400 Heart rate 100 /min Jacy Rivera [employer] Work Phone: [facility] Comment on above: 98% O2 12-27-2023 16:25-0400 Systolic blood pressure 134 mm[Hg] Jacy Rivera [employer] Work Phone: [facility] 03-31-2021 16:30-0500 Body height 160.02 cm Genie Leslie Other [facility] Other 03-31-2021 16:30-0500 Body temperature 98.6 [degF] Genie Leslie Other [facility] Other 03-31-2021 16:30-0500 Respiratory rate 18 /min Genie Leslie Other [facility] Other 03-31-2021 16:30-0500 SaO2% (BldA) [Mass fraction] 98 % Genie Leslie Other [facility] Other Encounters Encounter Date Encounter Type Care Provider Facility Start: 04-22-2024 End: 04-22-2024 Office outpatient visit 15 minutes Jacy Bearpatrick [employer] Work Phone: [facility] Comment on above: Primary hypertension (CMS/HCC) (Primary Dx); Prediabetes; Hypercholesteremia (CMS/HCC) Start: 04-22-2024 End: 04-22-2024 ambulatory JACY RIVERA Not Available Start: 04-22-2024 End: 04-22-2024 Bamboo flowsheet Jacy Rivera [employer] Work Phone: [facility] Start: 04-22-2024 End: 04-22-2024 Bamboo flowsheet Jacy Rivera [employer] Work Phone: [facility] Start: 04-19-2024 End: 04-22-2024 Refill Jacy Rivera [employer] Work Phone: [facility] Comment on above: Mixed hyperlipidemia (CMS/HCC) Start: 04-13-2024 End: 04-13-2024 Clinisync Result Encounter Jacy Rivera [employer] Work Phone: [facility] Unsolicited Start: 04-13-2024 End: 04-13-2024 Clinisync Result Encounter Jacy Rivera [employer] Work Phone: [facility] Unsolic[facility] Start: 03-19-2024 End: 03-19-2024 ambulatory Jacy N Rivera [employer] Work Phone: [facility] Work Phone: Start: 03-19-2024 End: 03-19-2024 Patient encounter procedure Jacy Rivera [employer] Work Phone: [facility] Work Phone: Start: 03-02-2024 End: 03-02-2024 Clinisync Result Encounter Jacy Rivera [employer] Work Phone: [facility] Unsolicited Start: 03-02-2024 End: 03-02-2024 Clinisync Result Encounter Jacy Rivera [employer] Work Phone: [facility] Unsolicited Start: 02-20-2024 Non-patient / Non-visit [employer] B malini Rivera Work Phone: [facility] Work Phone: Start: 02-20-2024 End: 02-20-2024 Admission to same day surgery center [employer] Jacy Hernándezk Work Phone: [facility] Work Phone: Start: 02-20-2024 End: 02-20-2024 ambulatory [employer] Jacy Rivera Work Phone: [facility] Work Phone: Start: 02-05-2024 End: 02-05-2024 ambulatory [facility] Work Phone: Start: 02-05-2024 End: 02-05-2024 Patient encounter procedure [facility] Work Phone: Start: 01-23-2024 End: 01-23-2024 Office outpatient visit 15 minutes Jacy Rivera [employer] Work Phone: [facility] Comment on above: Prediabetes (Primary Dx); Mixed hyperlipidemia (CMS/HCC); Primary hypertension (CMS/HCC); Gastroesophageal reflux disease, unspecified whether esophagitis present Start: 01-23-2024 End: 01-23-2024 ambulatory JACY RIVERA Not Available Start: 01-23-2024 End: 01-23-2024 Bamboo flowsheet Jacy Rivera [employer] Work Phone: [facility] Start: 01-23-2024 End: 01-23-2024 Bamboo flowsheet Jacy Rivera [employer] Work Phone: [facility] Start: 01-23-2024 End: 01-23-2024 ambulatory [facility] Start: 01-15-2024 End: 01-15-2024 Orders Only Jacy Rivera [employer] Work Phone: [facility] Comment on above: Hypercholesteremia ( CMS/HCC) (Primary Dx) Start: 12-30-2023 End: 12-30-2023 Clinisync Result Encounter Jacy Rivera [employer] Work Phone: [facility] Unsolicited Start: 12-30-2023 End: 12-30-2023 Clinisync Result Encounter Jacy Rivera [employer] Work Phone: [facility] Unsolicited Start: 12-30-2023 End: 12-30-2023 Refill Jacy Rivera [employer] Work Phone: [facility] Comment on above: Hypertriglyceridemia (CMS/HCC) (Primary Dx) Start: 12-27-2023 End: 12-27-2023 Periodic preventive med est patient 18-39 yrs Jacy Rivera [employer] Work Phone: [facility] Comment on above: Encounter for wellne ss examination in adult (Primary Dx); Class 3 severe obesity due to excess calories without serious comorbidity with body mass index (BMI) of 50.0 to 59.9 in adult (CMS/HCC); Gastroesophageal reflux disease, unspecified whether esophagitis present; Fatigue, unspecified type; Snoring Start: 12-27-2023 End: 12-27-2023 ambulatory JACY RIVERA Not Available Start: 12-27-2023 End: 12-27-2023 Bamboo flowsheet Jacy Rivera [employer] Work Phone: [facility] Start: 12-27-2023 End: 12-27-2023 Bamboo flowsheet Jacy Hernándezk [employer] Work Phone: [facility] Start: 12-27-2023 End: 12-27-2023 Patient encounter status Jacy Rivera [employer] Work Phone: [facility] Start: 03-31-2021 (URG) Urgent Care Visit Genie georges [facility] Start: 03-31-2021 End: 03-31-2021 ambulatory Genie Leslie Other [facility] Other Start: 09-02-2020 End: 09-03-2020 ambulatory USAMA DRISCOLL Facility: Start: 08-12-2020 End: 08-13-2020 ambulatory NONE LISTED REQUEST Facility: Start: 06-13-2020 End: 06-14-2020 ambulatory NONE LISTED REQUEST Facility: Start: 12-02-2019 End: 12-03-2019 ambulatory NONE LISTED REQUEST Facility: Procedures Date Procedure Procedure Detail Performing Clinician Start: 04-13-2024 MLR HEMOGLOBIN A1C Jacy Rivera [employer] Work Phone: Start: 03-02-2024 [facility] CMP (CMP) (FOR REMOTE COUNTS INCLUDE 234 BEDS AT THE [facility] USE) Diana Rivera [employer] Work Phone: Start: 02-20-2024 Esophagogastroduodenoscopy [employer] Jacy Rivera Work Phone: Start: 12-30-2023 MLR HEMOGLOBIN A1C Jacy Hernándezk [employer] Work Phone: Plan of Treatment Date Care Activity Detail Author Start: 06-24-2024 End: 01-22-2025 Lipid 1996 panel - Serum or Plasma Lipid panel Lab Routine Mixed hyperlipidemia (CMS/HCC) Expected: 06/24/2024 (Approximate), Expires: 01/22/2025 [facility] Work Phone: Comment on above: Expected: 06/24/2024 (Approximate), Expires: 01/22/2025 Start: 06-17-2024 Influenza vaccination Influenza Vacc ine (#1) [facility] Comment on above: Postponed from 01/06 (Patient Refused) Start: 04-23-2024 End: 01-22-2025 Hemoglobin A1c/Hemoglobin.total in Blood Hemoglobin A1c Lab Routine Prediabetes Expected: 04/23/2024 (Approximate), Expires: 01/22/2025 [facility] Comment on above: Expected: 04/23/2024 (Approximate), Expires: 01/22/2025 Start: 04-22-2024 End: 04-22-2024 Patient encounter procedure [facility] Comment on above: Arrived Start: 03-07-2024 End: 01-22-2025 Comprehensive metabolic 2000 panel - Serum or Plasma Comprehensive metabolic panel Lab Routine Prediabetes Expected: 03/07/2024 (Approximate), Expires: 01/22/2025 [facility] Comment on above: Expected: 03/07/2024 (Approximate), Expires: 01/22/2025 Start: 03-07-2024 End: 01-22-2025 Microalbumin/Creatinine panel in random Urine Microalbumin / creatinine urine ratio Lab Routine Prediabetes Expected: 03/07/2024 (Approximate), Expires: 01/22/2025 [facility] Comment on above: Expected: 03/07/2024 (Approximate), Expires: 01/22/2025 Start: 02-20-2024 [facility] Start: 01-23-2024 End: 01-23-2024 Patient encounter procedure [facility] Comment on above: Arrived Start: 01-07-2024 Influenza vaccination Influenza Vacc ine (#1) [facility] Start: 12-27-2023 End: 12-27-2023 Patient encounter procedure 12/27/2023 4:30 PM EDT Office Visit [facility] [address] [place] [address] Jacy Rivera, [place] [address] [place] [address] Arrived [facility] Comment on above: Arrived Start: 12-27-2023 End: 12-26-2024 CBC W Auto Differential panel - Blood CBC and differential Lab Routine Encounter for wellness examination in adult Expected: 12/27/2023 (Approximate), Expires: 12/26/2024 [facility] Comment on above: Expected: 12/27/2023 (Approximate), Expires: 12/26/2024 Start: 12-27-2023 End: 12-26-2024 Cobalamin (Vitamin B12) [Mass/volume] in Serum or Plasma Vitamin B12 Lab Routine Fatigue, unspecified type Expected: 12/27/2023 (Approximate), Expires: 12/26/2024 [facility] Comment on above: Expected: 12/27/2023 (Approximate), Expires: 12/26/2024 Start: 12-27-2023 End: 12-26-2024 Comprehensive metabolic 2000 panel - Serum or Plasma Comprehensive metabolic panel Lab Routine Encounter for wellness examination in adult Expected: 12/27/2023 (Approximate), Expires: 12/26/2024 [facility] Comment on above: Expected: 12/27/2023 (Approximate), Expires: 12/26/2024 Start: 12-27-2023 End: 12-26-2024 Ferritin [Mass/volume] in Serum or Plasma Ferritin Lab Routine Fatigue, unspecified type Expected: 12/27/2023 (Approximate), Expires: 12/26/2024 [facility] Comment on above: Expected: 12/27/2023 (Approximate), Expires: 12/26/2024 Start: 12-27-2023 End: 12-26-2024 Hemoglobin A1c/Hemoglobin.total in Blood Hemoglobin A1c Lab Routine Encounter for wellness examination in adult Expected: 12/27/2023 (Approximate), Expires: 12/26/2024 [facility] Comment on above: Expected: 12/27/2023 (Approximate), Expires: 12/26/2024 Start: 12-27-2023 End: 12-26-2024 Iron + transferrin + TIBC Iron + transferrin + TIBC Lab Routine Fatigue, unspecified type Expected: 12/27/2023 (Approximate), Expires: 12/26/2024 [facility] Comment on above: Expected: 12/27/2023 (Approximate), Expires: 12/26/2024 Start: 12-27-2023 End: 12-26-2024 Lipid 1996 panel - Serum or Plasma Lipid panel Lab Routine Encounter for wellness examination in adult Expected: 12/27/2023 (Approximate), Expires: 12/26/2024 [facility] Comment on above: Expected: 12/27/2023 (Approximate), Expires: 12/26/2024 Start: 12-27-2023 End: 12-26-2024 TSH W/REFLEX TO FT4 TSH W/REFLEX TO FT4 Lab Routine Encounter for wellness examination in adult Expected: 12/27/2023 (Approximate), Expires: 12/26/2024 [facility] Work Phone: Comment on above: Expected: 12/27/2023 (Approximate), Expires: 12/26/2024 Start: 2016 Screening for malign ant neoplasm of cervix [facility] Start: 2007 Screening for malign ant neoplasm of cervix Pap Smear [facility] Patient Education Esophagitis Ga stritis (DC) Know your [facility] Work Phone: Payers Date Payer Category Payer Self-pay [id number] 2023 [facility] Shield [facility] [id number] 2023 Unknown BCBS BCBS xxxxxx [id number] 2023-Present [phone] [address] [place] [address] [id number] 2023 Unknown [id number] 1986 Unknown [id number] 1986 Unknown [id number] [id number] 1986 Unknown [id number] [id number] 1986 Unknown [id number] [id number] 1986 Unknown [id number] [id number] 1986 Unknown [id number] [id number] 1959 Private Health Insurance [id number] 1959 Self-pay [id number] 1959 Unknown [id number] Private Health Insurance [facility] Urlist [facility] [id number] Unknown [id number] Unknown [id number] Unknown [id number] [id number] Social History Date Type Detail Facility Unknown if ever smoked [facility] Other Start: 12-27-2023 End: 01-23-2024 Sex Assigned At [facility] Other Start: 12-27-2023 End: 01-04-2024 Tobacco smoking status NHIS Never smoked tobacco (finding) [facility] Start: 1985 Sex Assigned At Female [facility] Start: 12-27-2023 End: 01-23-2024 Tobacco use and exposure Smokeless tobacco non-user [facility] Start: 12-27-2023 End: 01-23-2024 Alcoholic beverage intake Lifetime non-drinker (finding) [facility] Start: 12-27-2023 End: 01-23-2024 History of Social function [facility] Start: 1985 Sex assigned at Not on file [facility] Start: 03-19-2024 Sex Female (finding) [facility] History of tobacco use Passive smoker [facility] Tobacco smoking status NHIS Tobacco smoking consumption unknown [facility] NEGATED: Highlighted rowStart: NINF History of tobacco use Passive smoker [facility] Goals Date Patient Goal Desired Activity /State Clinical Notes 03-31-2021 to 04-22-2024 Jacy Rivera NP - 04/22/2024 3:46 PM Sonu Rivera, [place] - 04/22/2024 3:43 PM Sonu Rivera NP - 04/22/2024 3:30 PM EST Note Date & Type Note Facility 04-22-2024 History of Present illness Narrative Associated Problem(s): Prediabetes A1C 6.6% Metformin 500mg Bid Pt declines taking injectables or any GLP-1 medications. Would like to try with diet and exercise on her own first. Has lost 11 pounds since starting Metformin Check A1c in 3 months Recheck CMP in one month Associated Problem(s): Primary hypertension (CMS/HCC) Is currently taking Losartan. BP is at goal today in office. Denies orthostatic changes, dizziness, cough, shortness of breath, swelling in extremities. Continue current regimen. Given BP log, advised pt to record BP and bring log back with them to next visit. Images from the original note were not included. Subjective Patient ID: Hali Eason is a 38 y.o. female who presents for No chief complaint on file.. HPI HTN: Is currently taking Losartan. BP is at goal today in office. Denies orthostatic changes, dizziness, cough, shortness of breath, swelling in extremities. Continue current regimen. Given BP log, advised pt to record BP and bring log back with them to next visit. DM II: A1C 6.6% Metformin 500mg Bid Pt declines taking injectables or any GLP-1 medications. Would like to try with diet and exercise on her own first. Has lost 11 pounds since starting Metformin Check A1c in 3 months Recheck CMP in one month Review of Systems Constitutional: Negative for activity change, appetite change, chills, fatigue, fever, night sweats and unexpected weight change. HENT: Negative for congestion, ear pain, rhinorrhea, sinus pressure, sinus pain, sore throat, trouble swallowing and voice change. Eyes: Negative for discharge and visual disturbance. Respiratory: Negative for chest tightness, shortness of breath and wheezing. Cardiovascular: Negative for chest pain, palpitations and leg swelling. Gastrointestinal: Negative for abdominal distention, abdominal pain, blood in stool, constipation, diarrhea, nausea and vomiting. Genitourinary: Negative for difficulty urinating, dysuria, flank pain, hematuria and pelvic pain. Musculoskeletal: Negative for arthralgias, joint swelling and neck pain. Skin: Negative for rash and wound. Neurological: Negative for dizziness, tremors, syncope, weakness, light-headedness, numbness and headaches. Psychiatric/Behavioral: Negative for sleep disturbance and suicidal ideas. The patient is not nervous/anxious. Hematological: Does not bruise/bleed easily. Endocrine: Negative for cold intolerance, heat intolerance, polydipsia, polyphagia and polyuria. Objective Physical Exam Constitutional: Appearance: Normal appearance. HENT: Head: Normocephalic. Right Ear: External ear normal. Left Ear: External ear normal. Nose: Nose normal. Mouth/Throat: Mouth: Mucous membranes are moist. Pharynx: Oropharynx is clear. Eyes: Pupils: Pupils are equal, round, and reactive to light. Cardiovascular: Rate and Rhythm: Normal rate and regular rhythm. Pulses: Normal pulses. Pulmonary: Effort: Pulmonary effort is normal. Breath sounds: Normal breath sounds. Abdominal: General: Abdomen is flat. Bowel sounds are normal. Palpations: Abdomen is soft. Musculoskeletal: General: Normal range of motion. Cervical back: Normal range of motion. Skin: General: Skin is warm. Capillary Refill: Capillary refill takes less than 2 seconds. Neurological: Mental Status: She is alert and oriented to person, place, and time. Psychiatric: Mood and Affect: Mood normal. Behavior: Behavior normal. Assessment/Plan Problem List Items Addressed This Visit Prediabetes A1C 6.6% Metformin 500mg Bid Pt declines taking injectables or any GLP-1 medications. Would like to try with diet and exercise on her own first. Has lost 11 pounds since starting Metformin Check A1c in 3 months Recheck CMP in one month Primary hypertension (CMS/HCC) - Primary Is currently taking Losartan. BP is at goal today in office. Denies orthostatic changes, dizziness, cough, shortness of breath, swelling in extremities. Continue current regimen. Given BP log, advised pt to record BP and bring log back with them to next visit. documented in this encounter [facility] 02-20-2024 Procedure note [facility] 02-05-2024 Evaluation note Diagnosis Onset Date Resolution Dysphagia acute January 3:40pm [facility] Work Phone: [phone]) 913-328509-17-2024 History of Present illness Narrative* Jacy Rivera NP - 01/23/2024 4:37 PM EDTAssociated Problem(s): Primary hypertension (CMS/HCC) Elevated BP readings on multiple occasions. Pt is doing sleep study on 02/06/2024; Weight loss and CPAP regimen may significantly aid in BP reduction. However, in the meantime will initiate Losartan 25mg Once daily. Recheck CMP in 4 weeks. * Jacy Rivera NP - 01/23/2024 4:37 PM EDTAssociated Problem(s): Hyperlipidemia (CMS/HCC) Initiated Atorvastatin 20mg 2 weeks ago Denies any myalgias. Continue current regimen. Will recheck Lipid panel in 6 months * Jacy Rviera NP - 01/23/2024 4:37 PM EDTAssociated Problem(s): Prediabetes A1C 6.0% Initiated metformin 500mg BID Pt had taken previously in the past as prescribed by MARKETING PLANNING MANAGER. States she tolerated well and lost 50 pounds while taking, agreeable to initiation today. Check A1c in 3 months Recheck CMP in one month * Jacy Rivera NP - 01/23/2024 4:01 PM EDTAssociated Problem(s): GERD (gastroesophageal reflux disease) Continue taking Tagamet as prescribed. Referral sent to Dr. Sammi PETERSON sees GI on 02/05/24 Difficulty swallowing meats/proteins Changes in Bowel habits. * Jacy Rivera NP - 01/23/2024 3:30 PM EDT Images from the original note were not included. Subjective Patient ID: Hali Eason is a 38 y.o. female who presents for Follow-up. HPI HTN: Elevated BP readings on multiple occasions. Pt is doing sleep study on 02/06/2024; Weight loss and CPAP regimen may significantly aid in BP reduction. However, in the meantime will initiate Losartan 25mg Once daily. Recheck CMP in 4 weeks. HLD: Initiated Atorvastatin 20mg 2 weeks ago Denies any myalgias. Continue current regimen. Will recheck Lipid panel in 6 months Prediabetes: A1C 6.0% Initiated metformin 500mg Bid Check A1c in 3 months Recheck CMP in one month Review of Systems Constitutional: Negative for activity change, appetite change, chills, diaphoresis, fatigue, fever and unexpected weight change. HENT: Negative for congestion, ear pain, rhinorrhea, sinus pressure, sinus pain, sneezing, sore throat, trouble swallowing and voice change. Eyes: Negative for visual disturbance. Respiratory: Negative for cough, chest tightness, shortness of breath and wheezing. Cardiovascular: Negative for chest pain, palpitations and leg swelling. Gastrointestinal: Negative for abdominal distention, abdominal pain, blood in stool, constipation, diarrhea and vomiting. Genitourinary: Negative for decreased urine volume, dysuria, flank pain, frequency, hematuria and urgency. Musculoskeletal: Negative for arthralgias, gait problem, joint swelling and myalgias. Skin: Negative for rash. Neurological: Negative for dizziness, tremors, syncope, weakness, light- headedness and headaches. Psychiatric/Behavioral: Negative for decreased concentration and suicidal ideas. The patient is notnervous/anxious. Hematological: Does not bruise/bleed easily. Endocrine: Negative for cold intolerance, heat intolerance, polydipsia, polyphagia and polyuria. Objective Physical Exam Vitals reviewed. Constitutional: Appearance: Normal appearance. HENT: Head: Normocephalic and atraumatic. Right Ear: Tympanic membrane normal. Left Ear: Tympanic membrane normal. Nose: Nose normal. Mouth/Throat: Mouth: Mucous membranes are moist. Pharynx: Oropharynx is clear. Eyes: Pupils: Pupils are equal, round, and reactive to light. Cardiovascular: Rate and Rhythm: Normal rate and regular rhythm. Pulses: Normal pulses. Heart sounds: Normal heart sounds. Pulmonary: Effort: Pulmonary effort is normal. Breath sounds: Normal breath sounds. Abdominal: General: Abdomen is flat. Bowel sounds are normal. Palpations: Abdomen is soft. Musculoskeletal: General: Normal range of motion. Cervical back: Normal range of motion. Skin: General: Skin is warm and dry. Capillary Refill: Capillary refill takes less than 2 seconds. Neurological: General: No focal deficit present. Mental Status: She is alert and oriented to person, place, and time. Psychiatric: Mood and Affect: Mood normal. Behavior: Behavior normal. Assessment/Plan Problem List Items Addressed This Visit GERD (gastroesophageal reflux disease) Continue taking Tagamet as prescribed. Referral sent to Dr. Sammi PETERSON sees GI on 02/05/24 Difficulty swallowing meats/proteins Changes in Bowel habits. Prediabetes - Primary A1C 6.0% Initiated metformin 500mg BID Pt had taken previously in the past as prescribed by MARKETING PLANNING MANAGER. States she tolerated well and lost 50 pounds while taking, agreeable to initiation today. Check A1c in 3 months Recheck CMP in one month Relevant Medications metFORMIN (Glucophage) 500 MG tablet Other Relevant Orders Microalbumin / creatinine urine ratio Comprehensive metabolic panel Hemoglobin A1c Hyperlipidemia (CMS/HCC) Initiated Atorvastatin 20mg 2 weeks ago Denies any myalgias. Continue current regimen. Will recheck Lipid panel in 6 months Relevant Medications losartan (Cozaar) 25 MG tablet Other Relevant Orders Lipid panel Primary hypertension (CMS/HCC) Elevated BP readings on multiple occasions. Pt is doing sleep study on 02/06/2024; Weight loss and CPAP regimen may significantly aid in BP reduction. However, in the meantime will initiate Losartan 25mg Once daily. Recheck CMP in 4 weeks. documented in this [facility]09-17-2024 Instructions* Patient Instructions* Jacy Rivera NP - 01/23/2024 3:30 PM EDT Start Losartan 25mg daily Start Metformin 500mg twice daily Your blood pressure is TOO HIGH in the office today. Check your blood pressure at home one times per day, preferably in the afternoon. Goal <130/90. Record results in blood pressure log. Bring back with you to your next visit. Have Comprehensive metabolic profile and urine completed in 4-6 weeks Have Hgb A1C done in 3 months Have Lipid Panel done in June Complete sleep study. Call if you need anything! documented in this [facility]08-21-2024 History of Present illness Narrative* Jacy Rivera NP - 12/27/2023 5:16 PM EDTAssociated Problem(s): Fatigue Sleep study ordered. TSH ordered. Anemia panel ordered. * Jacy Rivera NP - 12/27/2023 5:15 PM EDTAssociated Problem(s): Snoring Sleep study ordered. * Jacy Rivera NP - 12/27/2023 5:13 PM EDTAssociated Problem(s): GERD (gastroesophageal reflux disease) Continue taking Tagamet as prescribed. Referral sent to Dr. West- GI Difficulty swallowing meats/proteins Changes in Bowel habits. * Jacy Rivera NP - 12/27/2023 5:12 PM EDTAssociated Problem(s): Class 3 severe obesity with body mass index (BMI) of 50.0 to 59.9 in adult ([facility]) Discussed with patient their BMI (actual, verses recommended). We have also discussed lifestyle modifications: attempts to perform physical activity as chronic conditions allow, also to monitor dietary intake: increasing protein/fruits/veggies and lowering carb intake (unless contraindicated). Limit sodas, juices, and sugary drinks. Also discussed oral medications that can be utilized for weight loss, as well as surgical options for weight loss. * Jacy Rivera NP - 12/27/2023 5:12 PM EDTAssociated Problem(s): Encounter for wellness examination in adult Wellness labs ordered * Jacy Hernándezk, LIFT BUILDER WHOLE - 12/27/2023 4:30 PM EDT Images from the original note were not included. Subjective Patient ID: Hali Eason is a 38 y.o. female who presents for Establish Care ( ) and Leg Swelling (BRIT X 2MONTHS). HPI Is here today to establish care Has concerns regarding swelling bilateral lower extremities, legs only-not feet. Denies shortness of breath, chest pain, orthopnea; Is concerned about weight. Had partial hysterectomy 5 years ago, has gained 100 pounds since. Lives at home with and two children, son and daughter. Enjoys reading and crocheting Diet: Mostly home cooked meals, maybe once per week eats out. Meal prep Protein, carb and vegetable at each meal. Water: 80-120 ounces per day Exercise: nothing consistent Sleep: Has insomnia; Gets 4-5 hours per night; broken up. Poor quality. Admits snoring, coughing in sleep, frequent drowsiness, naps. Denies: gasping for air Family hx of DM; Paternal GM Had gallbladder removed in 2013- had EGD for esophageal strictures; Difficulty swallowing proteins-feels food gets stuck in throat. Is unsure of dx- would like to see GI again. Anxiety/Depression: Denies SI/HI Has been worse since weight gain Feels hopeless and overwhelmed Has good support system at home. Review of Systems Constitutional: Negative for activity change, appetite change, chills, diaphoresis, fatigue, fever and unexpected weight change. HENT: Negative for congestion, ear pain, rhinorrhea, sinus pressure, sinus pain, sneezing, sore throat, trouble swallowing and voice change. Eyes: Negative for visual disturbance. Respiratory: Negative for cough, chest tightness, shortness of breath and wheezing. Cardiovascular: Positive for leg swelling. Negative for chest pain and palpitations. Gastrointestinal: Negative for abdominal distention, abdominal pain, blood in stool, constipation, diarrhea and vomiting. Genitourinary: Negative for decreased urine volume, dysuria, flank pain, frequency, hematuria and urgency. Musculoskeletal: Negative for arthralgias, gait problem, joint swelling and myalgias. Skin: Negative for rash. Neurological: Negative for dizziness, tremors, syncope, weakness, light- headedness and headaches. Psychiatric/Behavioral: Negative for decreased concentration and suicidal ideas. The patient is nervous/anxious. Hematological: Does not bruise/bleed easily. Endocrine: Negative for cold intolerance, heat intolerance, polydipsia, polyphagia and polyuria. Objective Physical Exam Vitals reviewed. Constitutional: Appearance: Normal appearance. HENT: Head: Normocephalic and atraumatic. Right Ear: Tympanic membrane normal. Left Ear: Tympanic membrane normal. Nose: Nose normal. Mouth/Throat: Mouth: Mucous membranes are moist. Pharynx: Oropharynx is clear. Eyes: Pupils: Pupils are equal, round, and reactive to light. Cardiovascular: Rate and Rhythm: Normal rate and regular rhythm. Pulses: Normal pulses. Heart sounds: Normal heart sounds. Pulmonary: Effort: Pulmonary effort is normal. Breath sounds: Normal breath sounds. Abdominal: General: Abdomen is flat. Bowel sounds are normal. Palpations: Abdomen is soft. Musculoskeletal: General: Normal range of motion. Cervical back: Normal range of motion. Right lower leg: Edema present. Left lower leg: Edema present. Comments: Non pitting BLE Edema Skin: General: Skin is warm and dry. Neurological: General: No focal deficit present. Mental Status: She is alert and oriented to person, place, and time. Psychiatric: Mood and Affect: Mood normal. Behavior: Behavior normal. Assessment/Plan Problem List Items Addressed This Visit GERD (gastroesophageal reflux disease) Continue taking Tagamet as prescribed. Referral sent to Dr. West- GI Difficulty swallowing meats/proteins Changes in Bowel habits. Encounter for wellness examination in adult - Primary Wellness labs ordered Fatigue Class 3 severe obesity with body mass index (BMI) of 50.0 to 59.9 in adult (CMS/[facility]) Discussed with patient their BMI (actual, verses recommended). We have also discussed lifestyle modifications: attempts to perform physical activity as chronic conditions allow, also to monitor dietary intake: increasing protein/fruits/veggies and lowering carb intake (unless contraindicated). Limit sodas, juices, and sugary drinks. Also discussed oral medications that can be utilized for weight loss, as well as surgical options for weight loss. documented in this encounterKindred [id number] Instructions* Patient Instructions* Jacy Bearpatrick, [place] - 12/27/2023 4:30 PM EDT FASTING labs ordered. Nothing to eat or drink for 12 hours prior to blood draw. Water and black coffee ok. Referral to Sleep Study and referral to GI- They will call you! Diet: Eat three meals per day. Breakfast, lunch, and dinner. Avoid snacking. Avoid eating after 5/6pm. Daily protein GOAL 35% of your intake; 30g per meal. Daily calorie GOAL 1,800-2,000 per day. Consider tracking your food intake on MyvitalclipinessPal or LoseIt Water: Increase water intake; GOAL 64-80oz of water per day. Exercise: Increase activity. GOAL 30 minutes, 5 days per week. START SLOW. Start with 5 minutes, 5 days per week. Then increase to 10 days, 5 days per week. Continue to increase until you reach the goal. Increase steps; GOAL 10,000 steps per day. Be sure to get adequate sleep; GOAL 6-8 hours of sleep per night. DASH stands for Dietary Approaches to Stop Hypertension. The DASH diet is a healthy-eating plan designed to help prevent or treat high blood pressure, also called hypertension. It also may help lower cholesterol linked to heart disease, called low density lipoprotein (LDL) cholesterol. High blood pressure and high LDL cholesterol levels are two major risk factors for heart disease and stroke. Foods in the DASH diet are rich in the minerals potassium, calcium and magnesium. The DASH diet focuses on vegetables, fruits and whole grains. It includes fat-free or low-fat dairy products, fish, poultry, beans and nuts. The diet limits foods that are high in salt, also called sodium. It also limits added sugar and saturated fat, such as in fatty meats and full-fat dairy products. DASH diet and sodium The standard DASH diet limits salt to 2,300 milligrams (mg) a day. That amount agrees with the Dietary Guidelines for Americans. That's about the amount of sodium in 1 teaspoon of table salt. A lower sodium version of DASH restricts sodium to 1,500 mg a day. You can choose the version of the diet that meets your health needs. If you aren't sure what sodium level is right for you, talk to your health care provider. DASH diet: What to eat The DASH diet is a balanced eating plan that gives choices of what to eat. The diet helps create a heart-healthy eating style for life. There's no need for special foods or drinks. Foods in the diet are at grocery stores and in most restaurants. When following DASH, it is important to choose foods that are: Rich in potassium, calcium, magnesium, fiber and protein. Low in saturated fat. Low in salt. DASH diet: Suggested servings The DASH diet provides daily and weekly nutritional goals. The number of servings depends on daily calorie needs. Here's a look at the recommended servings from each food group for a 2,780-sfukmyf-z-day DASH diet: Grains: 6 to 8 servings a day. One serving may be 1/2 cup of cooked cereal, rice or pasta, 1 slice of bread or 1 ounce dry cereal. Vegetables: 4 to 5 servings a day. One serving is 1 cup raw leafy green vegetable, 1/2 cup cut-up raw or cooked vegetables, or 1/2 cup vegetable juice. Fruits: 4 to 5 servings a day. One serving is one medium fruit, 1/2 cup fresh, frozen or canned fruit, or 1/2 cup fruit juice. Fat-free or low-fat dairy products: 2 to 3 servings a day. One serving is 1 cup milk or yogurt, or 1 1/2 ounces cheese. Lean meats, poultry and fish: six 1-ounce servings or fewer a day. One serving is 1 ounce of cookedmeat, poultry or fish, or 1 egg. Nuts, seeds, or dry beans and peas: 4 to 5 servings a week. One serving is 1/3 cup nuts, 2 tablespoons peanut butter, 2 tablespoons seeds, or 1/2 cup cooked dried beans or peas, also called legumes. Fats and oils: 2 to 3 servings a day. One serving is 1 teaspoon soft margarine, 1 teaspoon vegetable oil, 1 tablespoon mayonnaise or 2 tablespoons salad dressing. Sweets and added sugars: 5 servings or fewer a week. One serving is 1 tablespoon sugar, jelly or jam, 1/2 cup sorbet or 1 cup lemonade. DASH diet: Alcohol and caffeine Drinking too much alcohol can increase blood pressure. The Dietary Guidelines for Americans recommends that men limit alcohol to no more than two drinks a day and women to one or less. The DASH diet doesn't talk about caffeine. How caffeine affects blood pressure isn't clear. But caffeine can cause blood pressure to rise at least briefly. If you have high blood pressure or if you think caffeine affects your blood pressure, think about cutting down. You might talk to your health care provider about caffeine. Take aim at salt The foods at the center of the DASH diet are low in salt. So following the DASH diet is likely to lower salt intake. To further reduce salt: Read food labels and choose low-salt or au-gzpc-gwzeq options. Use salt-free spices or flavorings instead of salt. Don't add salt when cooking rice, pasta or hot cereal. Choose plain fresh or frozen vegetables. Choose fresh skinless poultry, fish and lean cuts of meat. Eat less restaurant food. When eating at restaurants, ask for dishes with less salt and ask not to have salt added to your order. As you cut back on processed, salty foods, you might notice that food tastes different. It can taketime for your taste buds to adjust. But once they do, you might prefer the DASH way of eating. And you'll be healthier for it. If you need anything call! documented in this encounterKindred [id number] Evaluation note* Encounter Date Diagnosis Assessment Notes Treatment Notes Treatment Clinical Notes Mar, COVID-19 (ICD-10 - U07.1) Mar, [...] Patient care instructions given in writting by [facility] At Home document. IngagePatient Other Evaluation noteNo assessment information available [facility] Work Phone: Evaluation note* Diagnosis Onset Date Resolution Status Dysphagia acute [facility] Work Phone: Evaluation note* Diagnosis Prediabetes- Primary Other abnormal glucose Mixed hyperlipidemia (CMS/HCC) Mixed hyperlipidemia Primary hypertension (CMS/HCC) Unspecified essential hypertension Gastroesophageal reflux disease, unspecified whether esophagitis present documented in this encounter [facility] HealthcareEvaluation note* Diagnosis Encounter for wellness examination in adult- Primary Class 3 severe obesity due to excess calories without serious comorbidity with body mass index (BMI) of 50.0 to 59.9 in adult (CMS/HCC) Gastroesophageal reflux disease, unspecified whether esophagitis present Fatigue, unspecified type Snoring Other dyspnea and respiratory abnormality Prediabetes- Primary Other abnormal glucose Mixed hyperlipidemia (CMS/HCC) Mixed hyperlipidemia Primary hypertension (CMS/HCC) Unspecified essential hypertension Gastroesophageal reflux disease, unspecified whether esophagitis present Mixed hyperlipidemia ([facility]/HCC) Mixed hyperlipidemia documented in this encounter [facility] HealthcareEvaluation note* Diagnosis Encounter for wellness examination in adult- Primary Class 3 severe obesity due to excess calories without serious comorbidity with body mass index (BMI) of 50.0 to 59.9 in adult (CMS/HCC) Gastroesophageal reflux disease, unspecified whether esophagitis present Fatigue, unspecified type Snoring Other dyspnea and respiratory abnormality Prediabetes- Primary Other abnormal glucose Mixed hyperlipidemia (CMS/HCC) Mixed hyperlipidemia Primary hypertension (CMS/HCC) Unspecified essential hypertension Gastroesophageal reflux disease, unspecified whether esophagitis present Primary hypertension ([facility]/HCC)- Primary Unspecified essential hypertension Prediabetes Other abnormal glucose Hypercholesteremia ([facility]/HCC) Pure hypercholesterolemia documented in this encounter [facility] HealthcareEvaluation note* Diagnosis Encounter for wellness examination in adult- Primary Class 3 severe obesity due to excess calories without serious comorbidity with body mass index (BMI) of 50.0 to 59.9 in adult ([facility]/HCC) Gastroesophageal reflux disease, unspecified whether esophagitis present Fatigue, unspecified type Snoring Other dyspnea and respiratory abnormality documented in this encounter [facility] HealthcareEvaluation note* Diagnosis Hypertriglyceridemia ([facility]/HCC)- Primary Pure hyperglyceridemia documented in this encounter [facility] HealthcareEvaluation note* Diagnosis Hypercholesteremia ([facility])- Primary Pure hypercholesterolemia documented in this encounter [facility] HealthcareHistory and physical note Author Laura Fortune [facility] February 20, 2024 8:21am Note Date/Time February 20, 2024 8 :22am [facility] [address] [place] [address] Gastroenterology H&P Signed Patient: Hali Eason MR#: [id number] : 1985 Acct:[id number] Age/Sex: 38 / F Adm Date: 4 Loc: Room: Type: [facility] Attending Dr: Laura Fortune MD Copies to: RAJEEV Patricio MD~ Date of Service: 02/20/2024 HISTORY & [...] <Electronically signed by Laura Fortune MD> 02/20/24820 [facility] Work Phone: History general Narrative - Reported* Type Description Date Medical History acid reflux Surgical History x2 Surgical History cholecystectomy Surgical History EGD Surgical History hysterectomy Hospitalization History No know Hospitalization history IngagePatient Other Reason for referral (narrative)* Consultation (Routine) - Pending Review Specialty Diagnoses / Procedures Referred By Tl aguiar Referred To Contact Gastroenterology Diagnoses Gastroesophageal reflux disease, unspecified whether esophagitis present Procedures [place] OFFICE/OUTPATIENT NEW HIGH [facility]DM 60 MINUTES Jacy Rivera NP [address] [place] [address] Jose West MD [address] [id number] Referral ID Status Reason Start Date Expiration Date Visits Requested Visits Authorized [id number] Pending Review Specialty Services Required 12/27/2023 06/24/2024 1 1 Scheduling Instructions Please include OV note 12/27/23 * Consultation (Routine) - Pending Review Specialty Diagnoses / Procedures Referred By Tl aguiar Referred To Contact Sleep Medicine Diagnoses Fatigue, unspecified type Snoring Procedures [place] OFFICE/OUTPATIENT NEW HIGH [facility] 60 MINUTES Jcay Rivera NP [address] [place] [address] Malu Guardado MD [facility] [place] [address] Referral ID Status Reason Start Date Expiration Date Visits Requested Visits Authorized [id number] Pending Review Specialty Services Required 12/27/2023 06/24/2024 1 1 Scheduling Instructions Please include OV note form today 12/26 [facility] Summary Purpose Family History Relationship Condition Age at Onset Recorded Date/T cherry father Hypertension Unknown sister Malignant neoplasm of ovary Unknown grandparent Hypertension Unknown Diabetes mellitus Unknown mother History of heart valve replacement Unknow n Advance Directives Advance Directive Response Recorded Date/ Time Advance Directives No January 04, 2024 2:44pm Advance Directive Response Recorded Date/ Time Advance Directives No January 04, 2024 1:44pm Chief Complaint and Reason for Visit Chief Complaint Refer: GERD, dysphag ia Chief Complaint Refer: GERD, dysphag ia Dysphagia Dysphagia Reason for Visit Dysphagia Chief Complaint Admit Date Refer: GERD, dysphagia February 04 024 3:40pm Dysphagia February 20, 2024 7 :05am Dysphagia February 20, 2024 8 :20am Cough, chest congestion March 19 024 4:04pm Reason for Visit Admit Date Dysphagia February 05, 2024 3:40pm Reason for Referral Specialty Diagnoses / Procedures Referred By Contac t Referred To Contact Diagnoses Hypertriglyceridemia ([facility]/HCC) Jacy Rivera NP [address] [place] [phone] Referral ID Status Reason Start Date Expiration Date Visits Re quested Visits Authorized [id number] Closed 1 1 Additional Source Comments INFORMATION SOURCE (unrecogn ized section and content) DATE CREATED AUTHOR 09/01/2020 [facility] DATE CREATED AUTHOR AUTHOR'S ORGANIZ ATION 01/25/2024 [facility] DATE CREATED AUTHOR AUTHOR'S ORGANIZ ATION 03/02/2024 [facility] DATE CREATED AUTHOR AUTHOR'S ORGANIZ ATION 04/24/2024 [facility] EPIC REASON FOR VISIT (unrecogniz ed section and content) Reason Comments Follow-up Reason Comments Med Refill Reason Comments Establish Care Leg Swelling BRIT X 2MONTHS Care Teams (unrecognized sec tion and content) [...] Team Status: Active Member Role Status Dates RAJEEV [facility] Primary Care Provider Ac tive Team Status: [...] NP-C Primary Care Provider Active Start: February Webbing Inspector Relationship Specialty Start Date End Date Oh Vasquez MD [address] [place] [address] PCP - General Family Medicine 12/18/23 Jacy Rivera NP [address] [place] [address] Nurse Practitioner Family Medicine 12/18/23 Team Status: Inactive Member Role Status Dates Jacy Rivera NP-C Primary Care Provider Ac tive Start: March 19, 2024 End: March 19, 2024 Lalita Schroeder APRN Attending Provider Active Start: March 19, 2024 End: March 19, 2024 Webbing Inspector Relationship Specialty Start Date End Date Oh Vasquez MD [address] [place] [address] PCP - General Family Medicine 12/18/23 Jacy Rivera NP [address] [place] [address] PCP - [facility] 02/06/24 Jacy Rivera NP [address] [place] [address] Nurse Practitioner Family Medicine 12/18/23 Webbing Inspector Relationship Specialty Start Date End Date Oh Vasquez MD [address] [place] [address] PCP - General Family Medicine 12/18/23 Jacy Rivera NP [address] [place] [address] Nurse Practitioner Family Medicine 12/18/23 Webbing Inspector Relationship Specialty Start Date End Date Oh Vasquez MD [address] [place] [phone] PCP - General Family Medicine 12/18/23 Jacy Rivera NP [address] [place] [address] Nurse Practitioner Family Medicine 12/18/23 Webbing Inspector Relationship Specialty Start Date End Date Oh Vasquez MD [address] [place] [phone] PCP - General Family Medicine 12/18/23 Jacy Rivera NP [address] [place] [address] PCP - [facility] 02/06/24 Jacy Rivera NP [address] [place] [address] Nurse Practitioner Family Medicine 12/18/23 Webbing Inspector Relationship Specialty Start Date End Date Oh Vasquez MD [address] [place] [phone] PCP - General Family Medicine 12/18/23 Jacy Rivera NP [address] [place] [address] PCP - [facility] 02/06/24 Jacy Rivera NP [address] [place] [address] Nurse Practitioner Family Medicine 12/18/23 Webbing Inspector Relationship Specialty Start Date End Date Oh Vasquez MD [address] [place] [address] PCP - General Family Medicine 12/18/23 Jacy Rivera NP [address] [place] [address] Nurse Practitioner Family Medicine 12/18/23 Webbing Inspector Relationship Specialty Start Date End Date Oh Vasquez MD [address] [place] [address] PCP - General Family Medicine 12/18/23 Jacy Rivera NP [address] [place] [address] Nurse Practitioner Family Medicine 12/18/23 Webbing Inspector Relationship Specialty Start Date End Date Oh Vasquez MD [address] [place] [address] PCP - General Family Medicine 12/18/23 Jacy Rivera NP [address] [place] [address] Nurse Practitioner Family Medicine 12/18/23 Webbing Inspector Relationship Specialty Start Date End Date Oh Vasquez MD [address] [place] [phone] PCP - General Family Medicine 12/18/23 Jacy Rivera NP [address] [place] [address] Nurse Practitioner [facility] 12/18/23 Webbing Inspector Relationship Specialty Start Date End Date Oh Vasquez MD [address] [place] [address] PCP - General Family [facility] 12/18/23 Jacy Rivera NP [address] [place] [address] Nurse Practitioner [facility] 12/18/23 Goals (unrecognized section and content) Goals may [...] BE BASED ON THE PRIMARY CLINICAL RECORDS. [facility]. provides no warranty or guarantee of the accuracy or completeness of information in this document.
[2024-07-20 08:48] LABS: Cholesterol 136 mg/dL (<=200); HDL Cholesterol 46 mg/dL (40-60); Triglycerides 185 mg/dL (<=150)
== END 2024-07-20 08:23 | disposition home or self-care (01) ==
LOC: LAB 08:23
PROVIDERS: PCP Nurse Practitioner
DX: E78.2 Mixed hyperlipidemia (principal)
CPT/HCPCS: 36415; 80061

== ENCOUNTER 2025-01-11 06:38 | Outpatient (OUT) | payer BC, SELFPAY ==
--- OUTSIDE RECORDS SUMMARY | 2025-01-11 06:41 | XMS_ITS | Encounter Summary ---
Author Organization [facility] Address [address] [place] [address] Care Team Providers Care Livestock Rancher Name Role Phone Oh Vasquez MD Primary Care Provider [phone] Jacy Rivera RN ANESTHESIOLOGY Unavailable [phone] Jacy Rivera RN ANESTHESIOLOGY Unavailable [phone] Encounter Details Date Type Department Care Team (Late st Contact Info) Description 04/17/2024 Orders Only [facility] [address] [place] [address] Jacy Rivera NP Social History Tobacco Use Types Packs/Day Years Used Date Smoking Tobacco: Never Passive Smoke Exposure: Never Smokeless Tobacco: Never Alcohol Use Standard Drinks/Week Comments Never 0 (1 standard drink = 0.6 oz pur e alcohol) PHQ-2 Answer Date Recorded Patient Health Questionnaire-2 Score 0 01/23/2024 Comments Unknown Sex and Gender Information Value Date Recorded Sex Assigned at Not on file Legal Sex Female 7:12 PM EDT Gender Identity Not on file Sexual Orientation Not on file documented as of this encounter Plan of Treatment Not on file documented as of this encounter Procedures Procedure Name Priority Date/Time Associated Diagnosis Comments TITRATION STUDY Routine 04/11/2024 10:02 AM EST documented in this encounter Results * Titration Study (04/11/2024 10:02 AM EST) Jacy Rivera RN [facility] ORDERABLES Final Result documented in this encounter Visit Diagnoses Not on filedocumented in this encounter Care Teams Livestock Rancher Relationship Specialty Start Date End Date Oh Vasquez MD PCP - General Family Medicine 12/18/23 Jacy Rivera NP PCP - [facility] 02/06/24 Jacy Rivera NP Nurse Practitioner Family Medicine 12/18/23 documented as of this encounter
--- OUTSIDE RECORDS SUMMARY | 2025-01-11 06:41 | XMS_ITS | CCD ---
Author Organization [facility] Care Team Providers Care Pipe Liner Name Role Phone REQUEST, NONE LISTED Consulting [...] Unavaila ble MD Laura Fortune Attending Provider [phone] RAJEEV Rivrea Primary Care [facility] er Oh Vasquez MD Primary Care Provider Jacy Rivera NP Unavailable Jacy Rivera Primary Care Unavaila ble Laura Fortune Attending Unavailable Laura Fortune Admitting Unavailable Laura Fortune MD Attending Provider Miguel ASSEMBLER CORNCOB PIPES-CJacy Primary Care [facility] er Jacy Rivera NP Unavailable Jacy Rivera NP Unavailable Jacy Rivera NP Unavailable Jacy Rivera Primary Care Provid er Lucila Brock DO Attending Provider OPAL VERDUGO Attending Unavailable OPAL VERDUGO Attending Unavailable OPAL VERDUGO Attending Unavailable OPAL VERDUGO Attending Unavailable OPAL VERDUGO Attending Unavailable JACY RIVERA Attending Unavailabl e RIVERAJACY BOBBY Attending Unavailabl e RIVERA, JACY Attending Unavailabl e Allergies Allergy Classification Reported Allergen(s) Allergy Type Date of Onset Reaction(s) Facility Shellfish (1 source) Shellfish Food Allergy The [facility] Repository (1 source) Shellfish Propensity to adverse reactions [employer] Other (2 sources) Shellfish; Translations: [SHELLFISH DERIVED] Propensity to adverse reactions to food (disorder) 4 [facility] Repository (20 sources) Shellfish Propensity to adverse reactions 4 [facility] (20 sources) Other Propensity to adverse reactions 4 Unknown [facility] Healthcare Medications Current Medications Medication Drug Class(es) Dates Sig (Normalized) Sig (Original) ascorbic acid 1000 mg oral tablet (20 sources) Vitamin C Start: 02-08-2024 take 1 tablet by mouth once daily Start: 02-08-2024 take 1 tablet by ruby th once daily Ascorbic Acid (Vitamin C) (C-1000) 1,000 mg tablet Active 1 GM PO Daily February 07, 2024 11:00pm Start: 02-08-2024 take 1 tablet by ruby th once daily Ascorbic Acid (Vitamin C) (C-1000) 1,000 mg tablet Active 1 GM PO Daily February 08, 2024 12:00am Start: 05-08-2019 End: 07-29-2024 Ascorbic Acid (vitamin C) 10 00 MG tablet 05/08/2019 07/29/2024 Discontinued (Therapy completed) aspirin 81 mg oral tablet (20 sources) Platelet Aggregation Inhibitor, Nonsteroidal Anti-inflammatory Drug Start: 02-08-2024 take 1 capsule by mouth once daily take 1 tablet by mouth once alexandra y aspirin 81 MG EC tablet Take 81 mg by mouth Daily Active atorvastatin 20 mg oral tablet (20 sources) HMG-CoA Reductase Inhibitor Start: 02-05-2024 take 1 mg by mouth once daily Atorvastatin Active MG PO Daily February 05, 2024 12:00am Start: 01-15-2024 End: 04-22-2025 take 1 tablet by mouth once daily atorvastatin (Lipitor) 20 MG tablet Indications: Hypercholesteremia Take 1 tablet (20 mg) by mouth Daily 30 tablet 11 04/22/2024 04/22/2025 Active FLUoxetine 20 mg oral capsule (20 sources) Serotonin Reuptake Inhibitor Start: 12-23-2024 End: 03-23-2025 take 1 capsule by mouth once daily FLUoxetine (PROzac) 20 MG capsule Indications: ISABEL (generalized anxiety disorder) Take 1 capsule (20 mg) by mouth Daily 90 capsule 12/23/2024 03/23/2025 Active Start: 07-29-2024 End: 01-28-2025 take 1 capsule by mouth once daily FLUoxetine (PROzac) 10 MG capsule Indications: ISABEL (generalized anxiety disorder) Take 1 capsule (10 mg) by mouth Daily 90 capsule 1 10/30/2024 12/23/2024 Discontinued (Reorder) fluticasone propionate 0.05 mg/actuat metered dose nasal [...] for 30 day(s) Nov, Not-Taking losartan potassium 50 mg oral tablet (20 sources) Angiotensin 2 Receptor Jean Start: 07-29-2024 End: 01-28-2025 take 1 tablet by mouth once daily losartan (Cozaar) 50 MG tablet Indications: Primary hypertension Take 1 tablet (50 mg) by mouth Daily 90 tablet 1 10/30/2024 01/28/2025 Active Start: 02-05-2024 take 1 mg by mouth once daily Losartan Active MG PO Daily February 05, 2024 12:00am Start: 01-23-2024 End: 07-29-2024 take 1 tablet by mouth once daily Losartan 25 mg tablet Active 25 MG PO Daily February 05, 2024 12:00am Complies with drug therapy metFORMIN hydrochloride 500 mg oral tablet (20 sources) Biguanide Start: 02-05-2024 take 1 mg by mouth twice daily Metformin Active MG PO Twice daily February 05, 2024 12:00am Start: 01-23-2024 End: 04-22-2025 take 1 tablet by mouth in the morning metFORMIN (Glucophage) 500 MG tablet Indications: Prediabetes Take 1 tablet (500 mg) by mouth in the morning and 1 tablet (500 mg) in the evening. Take with meals. 60 tablet 04/22/2024 04/22/2025 Active metFORMIN HCl 50 0 MG Oral for 30 Not-Taking Multivitamin preparation (2 sources) Start: 02-08-2024 take 1 tablet by mouth once daily Multivitamin Active 1 TAB PO Daily February 08, 2024 12:00am Multivitamin Act laila Multivitamin tablet (2 sources) Start: 02-08-2024 take 1 tablet by mouth once daily Multivitamin tablet Active 1 TAB PO Daily February 08, 2024 12:00am Complies with drug therapy Start: 02-08-2024 take 1 tablet by ruby th once daily Multivitamin tablet Active 1 TAB PO Daily February 07, 2024 11:00pm pantoprazole 40 mg delayed release oral tablet (20 sources) Proton Pump Inhibitor Start: 02-20-2024 End: [...] Drug Class(es) Dates Sig (Normalized) Sig (Original) [id number] 200 actuat albuterol 0.09 mg/actuat metered dose inhaler (1 source) beta2-Adrenergic Agonist Start: 03-18-2019 take 2 puff(s) by inhalation every four hours as needed Albuterol Sulfate HFA 108 (90 Base) MCG/ACT 2 puffs as needed Inhalation every 4 hrs Mar, Not-Taking amoxicillin 875 mg / clavulanate 125 mg oral tablet (2 sources) Penicillin-class Antibacterial Start: 03-19-2024 End: 04-23-2024 take 1 tablet by mouth every twelve hours Amoxicillin-Pot Clavulanate 875-125 mg tablet Discontinued 1 TAB PO Every 12 hours 24 02March 19, 2024 1:00am April 23, 2024 12:06pm budesonide 0.5 mg/ml inhalation suspension (1 source) Corticosteroid Start: 05-03-2024 End: 12-11-2024 take 1 mg by inhalation twice daily Budesonide 1 mg/2 mL suspension for nebulization Discontinued 1 MG INHALATION Twice daily 60 May 03, 2024 1:00am December 11, 2024 3:50pm cetirizine hydrochloride 10 mg oral tablet (1 source) Histamine-1 Receptor Antagonist Start: 12-01-2019 take 1 tablet by mouth every twenty-four hours Cetirizine HCl 10 MG 1 tablet Orally Once a day for 30 day(s) Nov, Not-Taking cimetidine 200 mg oral tablet (18 sources) Histamine-2 Receptor Antagonist Start: 12-11-2024 End: 12-11-2024 take 1 tablet by mouth every other day Cimetidine 200 mg tablet Discontinued 200 MG PO .q.o.d December 11, 2024 12:00am December 11, 2024 3:50pm Start: 02-08-2024 End: 04-22-2024 Cimetidine 200 mg tablet Discontinued 200 MG PO As Directed February 08, 2024 12:00am February 20, 2024 8:25am take 1 tablet by ruby th every other day cimetidine (Tagamet) 200 MG tablet Take 200 mg by mouth 1 time EVERY OTHER DAY Active methylPREDNISolone 4 mg oral tablet (1 source) Corticosteroid Start: 03-18-2019 Medrol (Jason) 4 MG as directed Orally Mar, Not-Taking Misc Natural Products (Beet Root) 500 MG capsule (17 sources) Start: 12-27-2023 End: 07-29-2024 Misc Natural Products (Beet Root) 500 MG capsule 12/27/2023 07/29/2024 Discontinued (Therapy completed) Start: 12-27-2023 Misc Natural P roducts (Beet Root) 500 MG capsule 12/27/2023 Active Multiple Vitamins-Minerals (Multivitamin Gummies Adult) chewable tablet (17 sources) End: 07-29-2024 Multiple Vitamins-Minerals (Multivitamin Gummies Adult) chewable tablet 07/29/2024 Discontinued (Therapy completed) Multiple Vitamin s-Minerals (Multivitamin Gummies Adult) chewable tablet Active phentermine hydrochloride 37.5 mg oral tablet (13 sources) Sympathomimetic Amine Anorectic Start: 10-30-2024 End: 01-22-2025 take 1 tablet by mouth before mealtime phentermine (Adipex-P) 37.5 MG tablet Indications: Morbid obesity due to excess calories (CMS-HCC) Take 1 tablet (37.5 mg) by mouth in the morning. Take before meals. 30 tablet 11/27/2024 12/23/2024 Discontinued (Reorder) Previfem (1 source) Previfem Not-Todd ing Red Beet-Sour [place]usu Extract 250-0.5 mg tablet,chewable (1 source) Start: 02-08-2024 End: 12-11-2024 Red Beet-Sour [place]u Extract 250-0.5 mg tablet,chewable Discontinued 1 TAB PO Daily February 08, 2024 12:00am December 11, 2024 3:51pm rosuvastatin calcium 5 mg oral tablet (2 sources) HMG-CoA Reductase Inhibitor Start: 12-30-2023 End: 01-15-2024 take 1 tablet by mouth once daily rosuvastatin (Crestor) 5 MG tablet Indications: Hypertriglyceridemia (CMS/HCC) Take 1 tablet (5 mg) by mouth Daily 30 tablet 3 12/30/2023 01/15/2024 Discontinued (Side effects) Problems Active Problems Problem Classification Problem Date Documented Da te Episodic/Chronic Abdominal pain (7 sources) Upper abdominal pain, unspecified; Translations: [Epigastric pain] Onset: 1 Episodic Anxiety disorders (20 sources) Generalized anxiety disorder; Translations: [Generalized anxiety disorder] Onset: 5 07-29-2024 Chronic Disorders of lipid metabolism (20 sources) Hyperlipidemia; Translations: [Hyperlipidemia, unspecified] Onset: 4 01-23-2024 Chronic Esophageal disorders (20 sources) Gastroesophageal reflux disease; Translations: [GERD [Gastroesophageal reflux disease]] Onset: 4 12-27-2023 Chronic Esophageal disorders (1 source) Esophagitis; Translations: [Esophagitis] 04-23-2024 Episodic Essential hypertension (20 sources) Essential hypertension; Translations: [Essential (primary) hypertension] Onset: 4 01-23-2024 Chronic Gastritis and duodenitis (3 sources) Gastroduodenitis; Translations: [Gastritis and gastroduodenitis, unspecified, without mention of hemorrhage] 04-23-2024 Episodic Other gastrointestinal disorders (4 sources) Dysphagia; Translations: [Dysphagia, unspecified] 02-05-2024 Episodic Other gastrointestinal disorders (3 sources) Dysphagia, unspecified; Translations: [Dysphagia, unspecified] Onset: 4 02-05-2024 Episodic Other lower respiratory disease (2 sources) Hypoxia; Translations: [Hypoxemia] 12-11-2024 Episodic Other nutritional; endocrine; and metabolic disorders (20 sources) Morbid obesity; Translations: [Morbid (severe) obesity due to excess calories] Onset: 5 07-29-2024 Chronic Other nutritional; endocrine; and metabolic disorders (2 sources) Obesity; Translations: [Obesity, unspecified] 12-11-2024 Chronic Other upper respiratory infections (2 sources) Acute recurrent sinusitis, unspecified; Translations: [Acute sinusitis] Onset: 1 Resolved: 1 Episodic Residual codes; unclassified (1 source) Obstructive sleep apnea (adult) (pediatric); Translations: [Obstructive sleep apnea (adult) (pediatric)] Onset: 4 Chronic Residual codes; unclassified (18 sources) Obstructive sleep apnea syndrome; Translations: [Obstructive sleep apnea (adult) (pediatric)] Onset: 5 07-29-2024 Chronic Residual codes; unclassified (2 sources) Hypersomnia; Translations: [Hypersomnia, unspecified] 12-11-2024 Chronic Residual codes; unclassified (1 source) Acquired absence of other specified parts of digestive tract; Translations: [ACQ ABSENCE OTH PART DIGESTV TRACT] Onset: 1 Episodic Residual codes; unclassified (1 source) Acquired absence of both cervix and uterus; Translations: [ACQUIRED ABSENCE BOTH CERVIX AND UTERUS] Onset: 1 Episodic Residual codes; unclassified (2 sources) Sleep deprivation; Translations: [Sleep deprivation] 12-11-2024 Episodic Unclassified (1 source) New Patient Onset: 4 Past or Other Problems Problem Classification Problem Date Documented Da te Episodic/Chronic Diabetes mellitus without complication (20 sources) Prediabetes; Translations: [Prediabetes] Onset: 01-23-2024 01-23-2024 Episodic Immunizations and screening for infectious disease (5 sources) Contact with and (suspected) exposure to other viral communicable diseases; Translations: [CONTCT EXPS OTH VIRL COMMUNICABL DZ] Onset: 12-02-2019 Resolved: 03-31-2021 Episodic Malaise and fatigue (20 sources) Fatigue; Translations: [Other fatigue] Onset: 12-27-2023 12-27-2023 Episodic Nausea and vomiting (2 sources) Nausea; Translations: [Nausea and vomiting] Onset: 06-16-2020 Episodic Other disorders of stomach and duodenum (1 source) Disorder of function of stomach; Translations: [Dyspepsia and other specified disorders of function of stomach] Episodic Other gastrointestinal disorders (1 source) Diarrhea; Translations: [Diarrhea] Episodic Other gastrointestinal disorders (20 sources) Difficulty swallowing solids; Translations: [Dysphagia, unspecified] Onset: 12-27-2023 12-27-2023 Episodic Other lower respiratory disease (20 sources) Snoring; Translations: [Snoring] Onset: 12-27-2023 12-27-2023 Episodic Other nutritional; endocrine; and metabolic disorders (20 sources) Severe obesity; Translations: [Class 3 severe obesity with body mass index (BMI) of 50.0 to 59.9 in adult] Onset: 12-27-2023 Resolved: 07-29-2024 12-27-2023 Chronic Other nutritional; endocrine; and metabolic disorders (15 sources) Obesity caused by energy imbalance; Translations: [Morbid (severe) obesity due to excess calories] Onset: 07-29-2024 Resolved: 07-29-2024 07-29-2024 Chronic Other nutritional; endocrine; and metabolic disorders (17 sources) Body mass index 40+ - severely obese; Translations: [Body mass index (BMI) 45.0-49.9, adult] Onset: 07-29-2024 Resolved: 07-29-2024 07-29-2024 Chronic Viral infection (1 source) COVID-19 Onset: 03-31-2021 Resolved: 03-31-2021 Results Test Name Value Interpretation Reference Range Facility HbA1c (Bld) [Mass fraction]o n 07-29-2024 Interpretation and review of laboratory results Abnormal [facility] Laboratory - Hematology and Cell countson 07-29-2024 HbA1c (Bld) [Mass fraction] 6.10 % [facility] HEMOGLOBIN A1Con 024 Glucose [Mass/Vol] 143 mg/dL [facility] HbA1c (Bld) [Mass fraction] 6.6 % High 4.5 - 6.2 % [facility] Comment on above: ADA RECOMMENDED LIMI T 4.0 - 6.0 ADA THERAPEUTIC TARGET < 7.0 ACTION SUGGESTED > 7.0 Interpretation and review of laboratory results Abnormal [facility] CMP (CMP) (FOR REMOTE FH C USE)on 03-02-2024 Albumin [Mass/Vol] 3.3 g/dL Low 3.4 - 5.0 g/dL [facility] ALBUMIN GLOBULIN RATIO 0.8 [facility] ALP [Catalytic activity/Vol] 83 U/L 46 - 116 U/L [facility] ALT [Catalytic activity/Vol] 17 U/L 14 - 59 U/L [facility] Anion gap [Moles/Vol] 13 mmol/L [facility] AST [Catalytic activity/Vol] 13 U/L Low 15 - 37 U/L [facility] Bilirubin [Mass/Vol] 1 mg/dL 0.2 - 1 .0 mg/dL [facility] Calcium [Mass/Vol] 9.4 mg/dL 8.5 - 10. 1 mg/dL [facility] Chloride [Moles/Vol] 103 mmol/L 98 - 10 7 mmol/L [facility] CO2 [Moles/Vol] 27 mmol/L 21.0 - 32.0 mmol/L [facility] Creatinine [Mass/Vol] 0.9 mg/dL 0.55 - 1.02 mg/dL [facility] GFR/1.73 sq M.predicted CKD-EPI (S/P/Bld) [Vol rate/Area] >60 >=60 mL/min/1.73m 2 [facility] Globulin (S) [Mass/Vol] 4 g/dL [facility] Glucose [Mass/Vol] 107 mg/dL High 74 - 106 mg/dL [facility] Interpretation and review of laboratory results Abnormal [facility] Potassium [Moles/Vol] 4 mmol/L 3.5 - 5.1 mmol/L [facility] Protein [Mass/Vol] 7.3 g/dL 6.4 - 8.2 g/dL [facility] Sodium [Moles/Vol] 139 mmol/L 136 - 145 mmol/L [facility] TBH EGFR-NON AF [place] >60 >=60 mL/min/1.73m 2 [facility] Urea nitrogen [Mass/Vol] 10 mg/dL 7.0 - 18.0 mg/dL [facility] Urea nitrogen/Creatinine [Mass ratio] 11.1 mg/mg [facility] No Panel InformationOrdered By: Laura Fortune on 02-20-2024 Miscellaneous Pathology Test See comment [facility] Comment on above: See report. Scanned copy available in EMR. Pathology Request for Lab Co rpon 02-20-2024 Pathology Request for Lab Kelly Normal [facility] Comment on above: Order Comment: PATHO LOGY GI SPECIMEN Result Comment: See report. Scanned copy available in EMR. PERFORMED BY: [place] [address] PATHOLOGIST RETAIL PLANNER ALIVIA GALARZA M.D. Performed By: #### P ATH TO [facility] #### [address] MLR HEMOGLOBIN A1Con 024 Glucose [Mass/Vol] 117 mg/dL [facility] HbA1c (Bld) [Mass fraction] 5.7 % 4.5 - 6.2 % [facility] Comment on above: ADA RECOMMENDED LIMI T 4.0 - 6.0 ADA THERAPEUTIC TARGET < 7.0 ACTION SUGGESTED > 7.0 [facility] e COVID Quick Testingon 2020 Result Positive [employer] Other AMYLASEon 06-13-2020 Amylase [Catalytic activity/Vol] 34 U/L Normal 31-110 [facility] Comment on above: Performed By: #### L IPA, CMP, NIDA #### [facility] [address] [place], [place] [id number] John Elsa CBC AUTO DIFFon 06-13-2020 BASO # 0.0 103/ul Normal 0.0-0.1 [facility] Comment on above: Performed By: #### C BC #### [facility] [address] [place], [place] [id number] John Hunter Basophils/100 WBC (Bld) 0.4 % Normal 0.2-2.0 [facility] Comment on above: Performed By: #### C BC #### [facility] [address] [place], [place] [id number] Johnkatelyn Hunter EO # 1.1 103/ul Critically high 0.0-0.[address] [facility] Comment on above: Performed By: #### C BC #### [facility] [address] [place], [place] [id number] John Hunter Eosinophils/100 WBC (Bld) 10.5 % Critically high 0.9-7.0 [facility] Comment on above: Performed By: #### C BC #### [facility] [address] [place], [place] [id number] John Hunter Erythrocyte distribution width (RBC) [Ratio] 14.1 % Normal 11.0-15.0 [facility] Comment on above: Performed By: #### C BC #### [facility] [address] [place], [place] [id number] John Elsa Hematocrit (Bld) [Volume fraction] 40.1 % Normal 36.0-48.0 [facility] Comment on above: Performed By: #### C BC #### [facility] [address] [place], [place] [id number] John Elsa Hemoglobin (Bld) [Mass/Vol] 12.8 g/dL Normal 12.0-16.0 [facility] Comment on above: Performed By: #### C BC #### [facility] [address] [place], [place] [id number] John Elsa IG # 0.03 10e3/ul Normal 0.00-0.03 [facility] Comment on above: Performed By: #### C BC #### [facility] [address] [place] [address] John Elsa IG % 0.3 % Normal 0.0-0.5 [facility] Comment on above: Performed By: #### C BC #### [facility] [address] [place] [address] John Elsa LYMPH # 3.1 103/ul Normal 1.2-3.8 [facility] Comment on above: Performed By: #### C BC #### [facility] [address] [place], [place] [id number] John Hunter Lymphocytes/100 WBC (Bld) 29.2 % Normal 20.5-60.0 [facility] Comment on above: Performed By: #### C BC #### [facility] [address] [place], [place] [id number] Johnkatelyn Hunter MANUAL DIFF REQ NO Normal [facility] Comment on above: Performed By: #### C BC #### [facility] [address] [place], [place] [id number] John Elsa MCH (RBC) [Entitic mass] 27.7 pg Normal 26.7-34.0 [facility] Comment on above: Performed By: #### C BC #### [facility] [address] [place], [place] [id number] John Elsa MCHC (RBC) [Mass/Vol] 31.9 g/dL Normal 29.9-35.2 [facility] Comment on above: Performed By: #### C BC #### [facility] [address] [place], [place] [address] John Elsa MCV (RBC) [Entitic vol] 86.8 fL Normal 81.0-99.0 [facility] Comment on above: Performed By: #### C BC #### [facility] [address] [place] [id number] John Elsa MONO # 0.4 103/ul Normal 0.3-0.8 [facility] Comment on above: Performed By: #### C BC #### [facility] [address] [place], [place] [id number] John Elsa Monocytes/100 WBC (Bld) 4.1 % Normal 1.7-12.0 [facility] Comment on above: Performed By: #### C BC #### [facility] [address] [place] [address] John Elsa NEUT # 5.9 103/ul Normal 1.4-6.5 [facility] Comment on above: Performed By: #### C BC #### [facility] [address] [place], [place] [id number] John Elsa Neutrophils/100 WBC (Bld) 55.5 % Normal 43.0-75.0 [facility] Comment on above: Performed By: #### C BC #### [facility] [address] [place], [place] [id number] John Elsa Platelet mean volume (Bld) [Entitic vol] 9.9 fL Normal 9.5-13.5 [facility] Comment on above: Performed By: #### C BC #### [facility] [address] [place], [place] [id number] John Elsa PLT 281 103/ul Normal 150-450 [facility] Comment on above: Performed By: #### C BC #### [facility] [address] [place], [place] [id number] John Elsa RBC 4.62 106/ul Normal 4.20-5.40 [facility] Comment on above: Performed By: #### C BC #### [facility] [address] [place], [place] [id number] John Lesa WBC 10.6 103/ul Normal 4.0-11.0 [facility] Comment on above: Performed By: #### C BC #### [facility] [address] [place] [address] John Elsa ER URINE PROFILEon 1 Bilirubin Ql (U) Negative Normal NEGATIVE [facility] Comment on above: Performed By: #### E RUR #### [facility] [address] [place] [address] John Elsa Clarity (U) CLEAR Normal CLEAR [facility] Comment on above: Performed By: #### E RUR #### [facility] [address] [place] [address] John Elsa Color (U) LT. YELLOW Normal YELLOW [facility] Comment on above: Performed By: #### E RUR #### [facility] [address] [place] [address] John Elsa ERUAHD A micrscopic examination will be performed if indicated. Normal [facility] Comment on above: Performed By: #### E RUR #### [facility] [address] [place] [address] John Elsa Glucose Ql (U) Negative Normal NEGATIVE [facility] Comment on above: Performed By: #### E RUR #### [facility] [address] [place] [address] John Elsa Hemoglobin Ql (U) Negative Normal NEGATIVE [facility] Comment on above: Performed By: #### E RUR #### [facility] [address] [place] [address] John Elsa Ketones Ql (U) Negative Normal NEGATIVE [facility] Comment on above: Performed By: #### E RUR #### [facility] [address] [place] [address] John Elsa LEUKOCYTES Negative Normal NEGATIVE [facility] Comment on above: Performed By: #### E RUR #### [facility] [address] [place] [address] John Elsa Nitrite Ql (U) Negative Normal NEGATIVE [facility] Comment on above: Performed By: #### E RUR #### [facility] [address] [place], [place] [id number] John Hunter pH (U) 5.5 [pH] Normal 5-9 [facility] Comment on above: Performed By: #### E RUR #### [facility] [address] [place], [place] [id number] John Hunter SPEC GRAVITY 1.020 Normal 1.005-<=1.[address] [facility] Comment on above: Performed By: #### E RUR #### [facility] [address] [place], [place] [id number] John Hunter UA PROTEIN Negative Normal NEGATIVE/ TRACE [facility] Comment on above: Performed By: #### E RUR #### [facility] [address] [place], [place] [id number] John Hunter UR MICRO IND NOT INDICATED Normal [facility] Comment on above: Performed By: #### E RUR #### [facility] [address] [place] [address] John Hunter Urobilinogen Qn (U) 0.2 {Nawaf'U}/dL Normal 0.2 - 1. 0 [facility] Comment on above: Performed By: #### E RUR #### [facility] [address] [place], [place] [id number] John Hunter LIPASEon 06-13-2020 Lipase [Catalytic activity/Vol] 104.0 U/L Normal 23.0-300.0 [facility] Comment on above: Performed By: #### L IPA, CMP, NIDA #### [facility] [address] [place], [place] [id number] John Elsa MONOon 06-13-2020 Monocytes (Bld) [#/Vol] Negative Normal NEGATIVE [facility] Comment on above: Performed By: #### M RUBEN #### [facility] [address] [place], [place] [id number] John Hunter PROF 14(COMP METB)on 021 Albumin [Mass/Vol] 3.4 g/dL Critically low 3.5-5.0 [facility] Comment on above: Performed By: #### L IPA, CMP, NIDA #### [facility] [address] [place], [place] [address] John Elsa Albumin/Globulin [Mass ratio] 0.9 {ratio} Normal [facility] Comment on above: Performed By: #### L IPA, CMP, NIDA #### [facility] [address] [place], [place] [address] John Elsa ALP [Catalytic activity/Vol] 90 U/L Normal 38-126 [facility] Comment on above: Performed By: #### L IPA, CMP, NIDA #### [facility] [address] [place] [id number] John Elsa ALT [Catalytic activity/Vol] 19 U/L Normal 9-52 [facility] Comment on above: Performed By: #### L IPA, CMP, NIDA #### [facility] [address] [place] [id number] John Elsa Anion gap [Moles/Vol] 15.2 mmol/L Normal [facility] Comment on above: Performed By: #### L IPA, CMP, NIDA #### [facility] [address] [place], [place] [address] John Elsa AST [Catalytic activity/Vol] 13 U/L Critically low 14-36 [facility] Comment on above: Performed By: #### L IPA, CMP, NIDA #### [facility] [address] [place], [place] [address] John Elsa Bilirubin [Mass/Vol] 0.4 mg/dL Normal 0.2-1.3 [facility] Comment on above: Performed By: #### L IPA, CMP, NIDA #### [facility] [address] [place], [place] [address] John Elsa Calcium [Mass/Vol] 9.0 mg/dL Normal 8.4-10.2 [facility] Comment on above: Performed By: #### L IPA, CMP, NIDA #### [facility] [address] [place], [place] [address] John Elsa Chloride [Moles/Vol] 104 mmol/L Normal 98-107 [facility] Comment on above: Performed By: #### L IPA, CMP, NIDA #### [facility] [address] [place] [address] John Elsa CO2 [Moles/Vol] 26.3 mmol/L Normal 22.0-30.0 [facility] Comment on above: Performed By: #### L IPA, CMP, NIDA #### [facility] [address] [place] [address] John Elsa Creatinine [Mass/Vol] 0.85 mg/dL Normal 0.52-1.04 [facility] Comment on above: Performed By: #### L IPA, CMP, NIDA #### [facility] [address] [place] [address] John Elsa EGFR-AF [place] >60 Normal >=60 [facility] Comment on above: Performed By: #### L IPA, CMP, NIDA #### [facility] [address] [place] [address] John Elsa EGFR-NON AF [place] >60 Normal >=60 [facility] Comment on above: Performed By: #### L IPA, CMP, NIDA #### [facility] [address] [place] [address] John Elsa Globulin (S) [Mass/Vol] 3.7 g/dL Normal [facility] Comment on above: Performed By: #### L IPA, CMP, NIDA #### [facility] [address] [place] [address] John Elsa Glucose [Mass/Vol] 106 mg/dL Normal 74-106 [facility] Comment on above: Performed By: #### L IPA, CMP, NIDA #### [facility] [address] [place] [address] John Elsa Potassium [Moles/Vol] 4.5 mmol/L Normal 3.4-5.0 [facility] Comment on above: Performed By: #### L IPA, CMP, NIDA #### [facility] [address] [place] [address] John Elsa Protein [Mass/Vol] 7.1 g/dL Normal 6.1-8.2 [facility] Comment on above: Performed By: #### L IPA, CMP, NIDA #### [facility] [address] [place] [id number] John Elsa Sodium [Moles/Vol] 141 mmol/L Normal 137-145 [facility] Comment on above: Performed By: #### L IPA, CMP, NIDA #### [facility] [address] [place] [address] John Elsa Urea nitrogen [Mass/Vol] 8.0 mg/dL Normal 7.0-17.0 [facility] Comment on above: Performed By: #### L IPA, CMP, NIDA #### [facility] [address] [place] [address] John Elsa Urea nitrogen/Creatinine [Mass ratio] 9.4 mg/mg Normal [facility] Comment on above: Performed By: #### L IPA, CMP, NIDA #### [facility] [address] [place] [address] John Elsa XR ABD FLAT UP_PA Claudio [...] JACKELIN SUÁREZ Date: 2020-06-13 21:39 Normal [facility] COVID-19 PCRon 12-05-2019 SARS-CoV-2 (COVID-19) RNA DAVID+probe Ql (Unsp spec) Not detected Normal Not Detected [facility] Comment on above: Result Comment: This test was developed and its performance characteristics determined by [employer]. This test has not been FDA cleared [...] assay. Performed By: #### C VDPCR #### [facility] [address] [place] [address] John Elsa Vital Signs Date Time Vital Sign Value Performing Clinician Facility 12-23-2024 19:29-0400 Diastolic blood pressure 94 mm[Hg] pOal Jangliannez [employer] Work Phone: [facility] 12-23-2024 19:29-0400 Systolic blood pressure 134 mm[Hg] Opal Jangholz [employer] Work Phone: [facility] 12-23-2024 18:56-0400 Body mass index (BMI) [Ratio] 48.43 kg/m2 Opal Suhailholz [employer] Work Phone: [facility] 12-23-2024 18:56-0400 Body temperature 97.81 [degF] Opal Suhailholz [employer] Work Phone: [facility] 12-23-2024 18:56-0400 Body weight 124.01 kg Opal Suhailholz [employer] Work Phone: [facility] 12-23-2024 18:56-0400 Heart rate 84 /min Opal Suhailliannez [employer] Work Phone: [facility] 12-23-2024 18:56-0400 Respiratory rate 18 /min Opal Kartik [employer] Work Phone: [facility] 12-23-2024 18:56-0400 SaO2% (BldA) [Mass fraction] 98 % Opal Walterz [employer] Work Phone: [facility] 12-11-2024 13:09-0400 Body height 160.02 cm Jacy Rivera [employer] Work Phone: [facility] 12-11-2024 13:09-0400 Diastolic blood pressure 93 mm[Hg] Jacy Rivera [employer] Work Phone: [facility] 12-11-2024 13:09-0400 Heart rate 82 /min Jacy Rivera [employer] Work Phone: [facility] 12-11-2024 13:09-0400 Respiratory rate 16 /min Jacy Rivera [employer] Work Phone: [facility] 12-11-2024 13:09-0400 SaO2% (BldA) [Mass fraction] 96 % Jacy Rivera [employer] Work Phone: [facility] 12-11-2024 13:09-0400 Systolic blood pressure 142 mm[Hg] Jacy Rivera [employer] Work Phone: [facility] 11-27-2024 16:53-0400 Body mass index (BMI) [Ratio] 48.57 kg/m2 Opal Walterz [employer] Work Phone: [facility] 11-27-2024 16:53-0400 Body temperature 98.49 [degF] Opal Walterz [employer] Work Phone: [facility] 11-27-2024 16:53-0400 Body weight 124.38 kg Opal Kartik [employer] Work Phone: [facility] 11-27-2024 16:53-0400 Diastolic blood pressure 90 mm[Hg] Opal Aichholz [employer] Work Phone: [facility] 11-27-2024 16:53-0400 Heart rate 95 /min Opal Aichholz [employer] Work Phone: [facility] 11-27-2024 16:53-0400 Respiratory rate 18 /min Opal Aichholz [employer] Work Phone: [facility] 11-27-2024 16:53-0400 SaO2% (BldA) [Mass fraction] 98 % Opal Aichholz [employer] Work Phone: [facility] 11-27-2024 16:53-0400 Systolic blood pressure 128 mm[Hg] Opal Aichholz [employer] Work Phone: [facility] 10-30-2024 16:09-0400 Diastolic blood pressure 86 mm[Hg] Opal Aichholz [employer] Work Phone: [facility] 10-30-2024 16:09-0400 Systolic blood pressure 122 mm[Hg] Opal Aichholz [employer] Work Phone: [facility] 10-30-2024 15:34-0400 Body mass index (BMI) [Ratio] 50.34 kg/m2 Opal Aichholz [employer] Work Phone: [facility] 10-30-2024 15:34-0400 Body temperature 98.49 [degF] Opal Aichholz [employer] Work Phone: [facility] 10-30-2024 15:34-0400 Body weight 128.91 kg Opal Aichholz [employer] Work Phone: [facility] 10-30-2024 15:34-0400 Heart rate 83 /min Opal Aichholz [employer] Work Phone: [facility] 10-30-2024 15:34-0400 Respiratory rate 18 /min Opal Aichholz [employer] Work Phone: [facility] 10-30-2024 15:34-0400 SaO2% (BldA) [Mass fraction] 97 % Opalmarin Watsonz [employer] Work Phone: [facility] 08-29-2024 16:00-0400 Body mass index (BMI) [Ratio] 49.67 kg/m2 Opal Suhailholz [employer] Work Phone: [facility] 08-29-2024 16:00-0400 Body temperature 97.9 [degF] Opal Suhailholz [employer] Work Phone: [facility] 08-29-2024 16:00-0400 Body weight 127.19 kg Opal Suhailholz [employer] Work Phone: [facility] 08-29-2024 16:00-0400 Diastolic blood pressure 82 mm[Hg] Opal Suhailholz [employer] Work Phone: [facility] 08-29-2024 16:00-0400 Heart rate 95 /min Opal Suhailholz [employer] Work Phone: [facility] 08-29-2024 16:00-0400 Respiratory rate 18 /min Opal Suhailholz [employer] Work Phone: [facility] 08-29-2024 16:00-0400 SaO2% (BldA) [Mass fraction] 97 % Opal Suhailholz [employer] Work Phone: [facility] 08-29-2024 16:00-0400 Systolic blood pressure 124 mm[Hg] Opal Suhailholz [employer] Work Phone: [facility] 07-29-2024 14:11-0400 Body mass index (BMI) [Ratio] 50.45 kg/m2 Opal Suhailholz [employer] Work Phone: [facility] 07-29-2024 14:11-0400 Body temperature 99.61 [degF] Opal Danishhholz [employer] Work Phone: [facility] 07-29-2024 14:11-0400 Body weight 129.18 kg Opal Danishmayelaz [employer] Work Phone: [facility] 07-29-2024 14:11-0400 Diastolic blood pressure 88 mm[Hg] Opal Verdugo [employer] Work Phone: [facility] 07-29-2024 14:11-0400 Heart rate 93 /min Opla Verdugo [employer] Work Phone: [facility] 07-29-2024 14:11-0400 Respiratory rate 18 /min Opal Verdugo [employer] Work Phone: [facility] 07-29-2024 14:11-0400 SaO2% (BldA) [Mass fraction] 97 % Opal Verdugo [employer] Work Phone: [facility] 07-29-2024 14:11-0400 Systolic blood pressure 140 mm[Hg] Opal Verdugo [employer] Work Phone: [facility] 04-22-2024 15:29-0500 Body height 160 cm Jacy Rivera [employer] Work Phone: [facility] 04-22-2024 15:29-0500 Body mass index (BMI) [Ratio] 48.15 kg/m2 Jacy Rivera [employer] Work Phone: [facility] 04-22-2024 15:29-0500 Body temperature 97.2 [degF] Jacy Rivera [employer] Work Phone: [facility] 04-22-2024 15:29-0500 Body weight 123.29 kg Jacy Rivera [employer] Work Phone: [facility] 04-22-2024 15:29-0500 Diastolic blood pressure 82 mm[Hg] Jacy Rivera [employer] Work Phone: [facility] 04-22-2024 15:29-0500 Heart rate 87 /min Jacy Rivera [employer] Work Phone: [facility] 04-22-2024 15:29-0500 Respiratory rate 16 /min Jacy Rivera [employer] Work Phone: [facility] 04-22-2024 15:29-0500 SaO2% (BldA) [Mass fraction] 97 % Jacy Rivera [employer] Work Phone: [facility] 04-22-2024 15:29-0500 Systolic blood pressure 122 mm[Hg] Jacy Rivera [employer] Work Phone: [facility] 03-19-2024 16:08-0500 Body height 160.02 cm Jacy Rivera [employer] Work Phone: [facility] 03-19-2024 16:08-0500 Body mass index (BMI) [Ratio] 50.5 kg/m2 Jacy Rivera [employer] Work Phone: [facility] 03-19-2024 16:08-0500 Body temperature 97.2 [degF] Jacy Rivera [employer] Work Phone: [facility] 03-19-2024 16:08-0500 Body weight 129.5 kg Jacy Rivera [employer] Work Phone: [facility] 03-19-2024 16:08-0500 Diastolic blood pressure 80 mm[Hg] Jacy Rivera [employer] Work Phone: [facility] 03-19-2024 16:08-0500 Heart rate 83 /min Jacy Rivera [employer] Work Phone: [facility] 03-19-2024 16:08-0500 Respiratory rate 18 /min Jacy Rivera [employer] Work Phone: [facility] 03-19-2024 16:08-0500 SaO2% (BldA) [Mass fraction] 96 % Jacy Rivera [employer] Work Phone: [facility] 03-19-2024 16:08-0500 Systolic blood pressure 118 mm[Hg] Jacy Rivera [employer] Work Phone: [facility] 02-20-2024 08:55-0400 Diastolic blood pressure 89 mm[Hg] [employer] Jacy Rivera Work Phone: [facility] 02-20-2024 08:55-0400 Heart rate 79 /min [employer] Jacy Rivera Work Phone: [facility] 02-20-2024 08:55-0400 Respiratory rate 16 /min [employer] Jacy Rivera Work Phone: [facility] 02-20-2024 08:55-0400 SaO2% (BldA) [Mass fraction] 98 % [employer] Jacy Rivera Work Phone: [facility] 02-20-2024 08:55-0400 Systolic blood pressure 138 mm[Hg] [employer] Jacy Rivera Work Phone: [facility] 02-20-2024 07:33-0400 Body height 160.02 cm [employer] Jacy Rivera Work Phone: [facility] 02-20-2024 07:33-0400 Body temperature 98 [degF] [employer] Jacy Rivera Work Phone: [facility] 02-20-2024 07:33-0400 Body weight 129.27 kg [employer] Jacy Rivera Work Phone: [facility] 02-05-2024 15:42-0400 Body height 160.02 cm [facility] 02-05-2024 15:42-0400 Body mass index (BMI) [Ratio] 51 kg/m2 [facility] 02-05-2024 15:42-0400 Body weight 130.63 kg [facility] 01-23-2024 15:28-0400 Body height 160 cm Jacy Rivera [employer] Work Phone: [facility] 01-23-2024 15:28-0400 Body mass index (BMI) [Ratio] 51.37 kg/m2 Jacy Rivera [employer] Work Phone: [facility] 01-23-2024 15:28-0400 Body temperature 98.1 [degF] Jacy Rivera [employer] Work Phone: [facility] 01-23-2024 15:28-0400 Body weight 131.54 kg Jacy Rivera [employer] Work Phone: [facility] 01-23-2024 15:28-0400 Diastolic blood pressure 90 mm[Hg] Jacy Rivera [employer] Work Phone: [facility] 01-23-2024 15:28-0400 Heart rate 95 /min Jacy Rivera [employer] Work Phone: [facility] Comment on above: 95% O2 01-23-2024 15:28-0400 Systolic blood pressure 140 mm[Hg] Jacy Rivera [employer] Work Phone: [facility] 12-27-2023 16:25-0400 Body height 160 cm Jacy Rivera [employer] Work Phone: [facility] 12-27-2023 16:25-0400 Body mass index (BMI) [Ratio] 50.84 kg/m2 Jacy Rivera [employer] Work Phone: [facility] 12-27-2023 16:25-0400 Body temperature 98.29 [degF] Jacy Rivera [employer] Work Phone: [facility] 12-27-2023 16:25-0400 Body weight 130.18 kg Jacy Rivera [employer] Work Phone: [facility] 12-27-2023 16:25-0400 Diastolic blood pressure 90 mm[Hg] Jacy Bearpatrick [employer] Work Phone: [facility] 12-27-2023 16:25-0400 Heart rate 100 /min Jacy Bearpatrick [employer] Work Phone: [facility] Comment on above: 98% O2 12-27-2023 16:25-0400 Systolic blood pressure 134 mm[Hg] Jacy Bearpatrick [employer] Work Phone: [facility] 03-31-2021 16:30-0500 Body height 160.02 cm Genie Pedersenmond Other [facility] Other 03-31-2021 16:30-0500 Body temperature 98.6 [degF] Genie Mariama Other [facility] Other 03-31-2021 16:30-0500 Respiratory rate 18 /min Genie Mariama Other [facility] Other 03-31-2021 16:30-0500 SaO2% (BldA) [Mass fraction] 98 % Geniedarwin Leslie Other [facility] Other Encounters Encounter Date Encounter Type Care Provider Facility Start: 12-23-2024 End: 12-23-2024 Office outpatient visit 25 minutes Opal Verdugo [employer] Work Phone: [facility] Comment on above: ISABEL (generalized anx iety disorder) (Primary Dx); Morbid obesity due to excess calories ([facility]-HCC); Mixed hyperlipidemia ; Encounter for wellness examination in adult; Primary hypertension Start: 12-23-2024 End: 12-23-2024 Patient encounter status Opal Verdugo [employer] Work Phone: [facility] Start: 12-23-2024 End: 12-23-2024 ambulatory OPAL AICHHOLZ Not Available Start: 12-23-2024 End: 12-23-2024 Bamboo flowsheet Opal Aichholz [employer] Work Phone: [facility] Start: 12-23-2024 End: 12-23-2024 Bamboo flowsheet Opal Aichholz [employer] Work Phone: [facility] Start: 12-11-2024 End: 12-11-2024 ambulatory Jacy Rivera [employer] Work Phone: [facility] Work Phone: Start: 12-11-2024 End: 12-11-2024 Patient encounter procedure Lucila Brock DO -[facility] Work Phone: Start: 11-27-2024 End: 11-27-2024 Office outpatient visit 15 minutes Opal Aichholz [employer] Work Phone: [facility] Comment on above: Primary hypertension (Primary Dx); Morbid obesity due to excess calories (CMS-HCC); ISABEL (generalized anxiety disorder) Start: 11-27-2024 End: 11-27-2024 ambulatory OPAL AICHHOLZ Not Available Start: 11-27-2024 End: 11-27-2024 Bamboo flowsheet Opal Aichholz [employer] Work Phone: [facility] Start: 11-27-2024 End: 11-27-2024 Bamboo flowsheet Opal Aichholz [employer] Work Phone: [facility] Start: 10-30-2024 End: 10-30-2024 Office outpatient visit 25 minutes Opal Aichholz [employer] Work Phone: [facility] Comment on above: ISABEL (generalized anx iety disorder) (Primary Dx); Primary hypertension ; Morbid obesity due to excess calories (CMS-HCC); Prediabetes Start: 10-30-2024 End: 10-30-2024 ambulatory OPAL AICHHOLZ Not Available Start: 10-30-2024 End: 10-30-2024 Bamboo flowsheet Opal Danishhholz [employer] Work Phone: [facility] Start: 10-30-2024 End: 10-30-2024 Bamboo flowsheet Opal Aichholz [employer] Work Phone: [facility] Start: 08-29-2024 End: 08-29-2024 Office outpatient visit 15 minutes Opal Kartik [employer] Work Phone: [facility] Comment on above: Primary hypertension (CMS/HCC) (Primary Dx); Morbid obesity due to excess calories (CMS/HCC); ISABEL (generalized anxiety disorder) (CMS/HCC) Start: 08-29-2024 End: 08-29-2024 ambulatory OPAL KARTIK Not Available Start: 08-29-2024 End: 08-29-2024 Bamboo flowsheet Opal Aichholz [employer] Work Phone: [facility] Start: 08-29-2024 End: 08-29-2024 Bamboo flowsheet Opal Aichholz [employer] Work Phone: [facility] Start: 07-29-2024 End: 07-29-2024 Bamboo flowsheet Opal Aichholz [employer] Work Phone: [facility] Start: 07-29-2024 End: 07-29-2024 Bamboo flowsheet Opal Aichholz [employer] Work Phone: [facility] Start: 07-29-2024 End: 07-29-2024 Office outpatient visit 25 minutes Opal Walterz [employer] Work Phone: [facility] Comment on above: Primary hypertension (CMS/HCC) (Primary Dx); Body mass index (BMI) 45.0-49.9, adult (CMS/HCC); Gastroesophageal reflux disease, unspecified whether esophagitis present; Morbid obesity due to excess calories (CMS/HCC); Mixed hyperlipidemia (CMS/HCC); Prediabetes; Eosinophilic esophagitis; ELISA (obstructive sleep apnea); ISABEL (generalized anxiety disorder) (CMS/HCC) Start: 07-29-2024 End: 07-29-2024 ambulatory OPAL VERDUGO Not Available Start: 04-22-2024 End: 04-22-2024 Office outpatient visit 15 minutes Jacy Hernándezk [employer] Work Phone: [facility] Comment on above: Primary hypertension (CMS/HCC) (Primary Dx); Prediabetes; Hypercholesteremia (CMS/HCC) Start: 04-22-2024 End: 04-22-2024 ambulatory JACY GALVANTRICK Not Available Start: 04-22-2024 End: 04-22-2024 Bamboo flowsheet Jacy Galvantrick [employer] Work Phone: [facility] Start: 04-22-2024 End: 04-22-2024 Bamboo flowsheet Jacy Rivera [employer] Work Phone: [facility] Start: 04-19-2024 End: 04-22-2024 Refill Jacy Galvantrick [employer] Work Phone: [facility] Comment on above: Mixed hyperlipidemia (CMS/HCC) Start: 04-13-2024 End: 04-13-2024 Clinisync Result Encounter Jacy Galvantrick [employer] Work Phone: [facility] Unsolicited Start: 04-13-2024 End: 04-13-2024 Clinisync Result Encounter Jacy Galvantrick [employer] Work Phone: [facility]solic[facility] Start: 03-19-2024 End: 03-19-2024 ambulatory Jacy Galvantrick [employer] Work Phone: [facility] Work Phone: Start: 03-19-2024 End: 03-19-2024 Patient encounter procedure Jacy Galvantrick [employer] Work Phone: [facility] Work Phone: Start: 03-02-2024 End: 03-02-2024 Clinisync Result Encounter Jacy Rivera [employer] Work Phone: [facility] Unsolicited Start: 03-02-2024 End: 03-02-2024 Clinisync Result Encounter Jacy Hernándezk [employer] Work Phone: [facility] Unsolicited Start: 02-20-2024 Non-patient / Non-visit [employer] B malini Galvantrick Work Phone: [facility] Work Phone: Start: 02-20-2024 End: 02-20-2024 Admission to same day surgery center [employer] Jacy Hernándezk Work Phone: [facility] Work Phone: Start: 02-20-2024 End: 02-20-2024 ambulatory [employer] Jacy Hernándezk Work Phone: [facility] Work Phone: Start: 02-05-2024 End: 02-05-2024 ambulatory [facility] Work Phone: Start: 02-05-2024 End: 02-05-2024 Patient encounter procedure [facility] Work Phone: Start: 01-23-2024 End: 01-23-2024 Office outpatient visit 15 minutes Jacy Hernándezk [employer] Work Phone: [facility] Comment on above: Prediabetes (Primary Dx); Mixed hyperlipidemia (CMS/HCC); Primary hypertension (CMS/HCC); Gastroesophageal reflux disease, unspecified whether esophagitis present Start: 01-23-2024 End: 01-23-2024 ambulatory JACY GALVANTRICK Not Available Start: 01-23-2024 End: 01-23-2024 Bamboo flowsheet Jacy Rivera [employer] Work Phone: [facility] Start: 01-23-2024 End: 01-23-2024 Bamboo flowsheet Jacy Rivera [employer] Work Phone: [facility] Start: 01-23-2024 End: 01-23-[address] [facility] Start: 01-15-2024 End: 01-15-2024 Orders Only Jacy Hernándezk [employer] Work Phone: [facility] Comment on above: Hypercholesteremia ( CMS/HCC) (Primary Dx) Start: 12-30-2023 End: 12-30-2023 Clinisync Result Encounter Jacy Rivera [employer] Work Phone: [facility] Unsolicited Start: 12-30-2023 End: 12-30-2023 Clinisync Result Encounter Jacy Rivera [employer] Work Phone: [facility] Unsolicited Start: 12-30-2023 End: 12-30-2023 Refill Jacy Rivera [employer] Work Phone: [facility] Comment on above: Hypertriglyceridemia (CMS/HCC) (Primary Dx) Start: 12-27-2023 End: 12-27-2023 Periodic preventive med est patient 18-39 yrs Jacy Bearpatrick [employer] Work Phone: [facility] Comment on above: Encounter for wellne ss examination in adult (Primary Dx); Class 3 severe obesity due to excess calories without serious comorbidity with body mass index (BMI) of 50.0 to 59.9 in adult (CMS/HCC); Gastroesophageal reflux disease, unspecified whether esophagitis present; Fatigue, unspecified type; Snoring Start: 12-27-2023 End: 12-27-2023 ambulatory JACY JAEGERZPATRICK Not Available Start: 12-27-2023 End: 12-27-2023 Bamboo flowsheet Jacy Hernándezk [employer] Work Phone: [facility] Start: 12-27-2023 End: 12-27-2023 Bamboo flowsheet Jacy Rivera [employer] Work Phone: [facility] Start: 12-27-2023 End: 12-27-2023 Patient encounter status Jacy Rivera [employer] Work Phone: [facility] Start: 03-31-2021 (URG) Urgent Care Visit Genie georges [facility] Start: 03-31-2021 End: 03-31-2021 ambulatory Genie Leslie Other [employer] Other Start: 09-02-2020 End: 09-03-2020 ambulatory USAMA DRISCOLL Facility: Start: 08-12-2020 End: 08-13-[address] NONE LISTED REQUEST Facility: Start: 06-13-2020 End: 06-14-[address] NONE LISTED REQUEST Facility: Start: 12-02-2019 End: 12-03-[address] NONE LISTED REQUEST Facility: Procedures Date Procedure Procedure Detail Performing Clinician Start: 07-29-2024 Hemoglobin glycosylated a1c Opal españa [employer] Work Phone: Start: 04-13-2024 MLR HEMOGLOBIN A1C Jacy Rivera [employer] Work Phone: Start: 03-02-2024 [facility] CMP (CMP) (FOR REMOTE [facility] USE) Diana Rivera [employer] Work Phone: Start: 02-20-2024 Esophagogastroduodenoscopy [employer] Jacy Rivera Work Phone: Start: 12-30-2023 MLR HEMOGLOBIN A1C Jacy Rivera [employer] Work Phone: Plan of Treatment Date Care Activity Detail Author Start: 01-30-2025 End: 01-30-2025 Patient encounter procedure 01/30/2025 3:40 PM EDT Office Visit [facility] [address] [place] [address] Opal Verdugo, [employer] [address] [place] [address] [facility] Start: 01-06-2025 Influenza vaccination [facility] Start: 12-23-2024 End: 12-23-2024 Patient encounter procedure 12/23/2024 7:00 PM EDT Office Visit [facility] [address] [place] [address] Opal Verdugo, [employer] [address] [place] [id number] Morbid obesity due to excess calories (CMS-HCC) (Primary Dx); Mixed hyperlipidemia ; ISABEL (generalized anxiety disorder) ; Encounter for wellness examination in adult [facility] Comment on above: Morbid obesity due t o excess calories (CMS-HCC) (Primary Dx); Mixed hyperlipidemia ; ISABEL (generalized anxiety disorder) ; Encounter for wellness examination in adult Start: 12-23-2024 End: 12-23-2025 CBC W Auto Differential panel - Blood CBC and differential Lab Routine Encounter for wellness examination in adult Expected: 12/23/2024 (Approximate), Expires: 12/23/2025 [facility] Work Phone: Comment on above: Expected: 12/23/2024 (Approximate), Expires: 12/23/2025 Start: 12-23-2024 End: 12-23-2025 Comprehensive metabolic 2000 panel - Serum or Plasma Comprehensive metabolic panel Lab Routine Encounter for wellness examination in adult Expected: 12/23/2024 (Approximate), Expires: 12/23/2025 [facility] Comment on above: Expected: 12/23/2024 (Approximate), Expires: 12/23/2025 Start: 12-23-2024 End: 12-23-2025 Lipid 1996 panel - Serum or Plasma Lipid panel Lab Routine Encounter for wellness examination in adult Expected: 12/23/2024 (Approximate), Expires: 12/23/2025 [facility] Comment on above: Expected: 12/23/2024 (Approximate), Expires: 12/23/2025 Start: 12-23-2024 End: 12-23-2025 Thyrotropin [Units/volume] in Serum or Plasma TSH Lab Routine Encounter for wellness examination in adult Expected: 12/23/2024 (Approximate), Expires: 12/23/2025 [facility] Comment on above: Expected: 12/23/2024 (Approximate), Expires: 12/23/2025 Start: 12-23-2024 End: 12-23-2025 Urinalysis complete panel - Urine Urinalysis with reflex microscopic (clean catch) Lab Routine Encounter for wellness examination in adult Expected: 12/23/2024 (Approximate), Expires: 12/23/2025 [facility] Comment on above: Expected: 12/23/2024 (Approximate), Expires: 12/23/2025 Start: 11-27-2024 End: 11-27-2024 Patient encounter procedure 11/27/2024 4:30 PM EDT Office Visit [facility] [address] [place] [address] Opal Verdugo, [employer] [address] [place] [address] Primary hypertension (Primary Dx); ELISA (obstructive sleep apnea); Morbid obesity due to excess calories ([facility]) [facility] Comment on above: Primary hypertension (Primary Dx); ELISA (obstructive sleep apnea); Morbid obesity due to excess calories ([facility]) Start: 10-30-2024 End: 10-30-2024 Patient encounter procedure [facility] Comment on above: Primary hypertension (Primary Dx); ELISA (obstructive sleep apnea); Morbid obesity due to excess calories ([facility]); Prediabetes Start: 09-23-2024 Influenza vaccination Influenza Vacc ine (#1) [facility] Comment on above: Postponed from 01/06 (Patient Refused) Start: 08-29-2024 End: 08-29-2024 Patient encounter procedure 08/29/2024 3:40 PM EDT Office Visit [facility] [address] [place] [address] Opal Verdugo, [place] [address] [place] [phone] ELISA (obstructive sleep apnea) (Primary Dx); Primary hypertension (CMS/HCC); Morbid obesity due to excess calories (CMS/HCC); ISABEL (generalized anxiety disorder) (CMS/HCC) [facility] Comment on above: ELISA (obstructive sle ep apnea) (Primary Dx); Primary hypertension (CMS/HCC); Morbid obesity due to excess calories (CMS/HCC); ISABEL (generalized anxiety disorder) (CMS/HCC) Start: 07-29-2024 End: 07-29-2024 Patient encounter procedure 07/29/2024 2:00 PM EDT Office Visit [facility] [address] [place] [address] Opal Verdugo, [place] [address] [place] [phone] Primary hypertension (CMS/HCC) (Primary Dx); Body mass index (BMI) 45.0-49.9, adult (CMS/HCC); Gastroesophageal reflux disease, unspecified whether esophagitis present; Morbid obesity due to excess calories (CMS/HCC); Mixed hyperlipidemia (CMS/HCC); Prediabetes [facility] Comment on above: Primary hypertension (CMS/HCC) (Primary Dx); Body mass index (BMI) 45.0-49.9, adult (CMS/HCC); Gastroesophageal reflux disease, unspecified whether esophagitis present; Morbid obesity due to excess calories (CMS/HCC); Mixed hyperlipidemia (CMS/HCC); Prediabetes Start: 06-24-2024 End: 01-22-2025 Lipid 1996 panel - Serum or Plasma Lipid panel Lab Routine Mixed hyperlipidemia (CMS/HCC) Expected: 06/24/2024 (Approximate), Expires: 01/22/2025 [facility] Work Phone: Comment on above: Expected: 06/24/2024 (Approximate), Expires: 01/22/2025 Start: 06-17-2024 Influenza vaccination Influenza Vacc ine (#1) [facility] Comment on above: Postponed from 01/06 (Patient Refused) Start: 04-23-2024 End: 01-22-2025 Hemoglobin A1c/Hemoglobin.total in Blood Hemoglobin A1c Lab Routine Prediabetes Expected: 04/23/2024 (Approximate), Expires: 01/22/2025 [facility] Comment on above: Expected: 04/23/2024 (Approximate), Expires: 01/22/2025 Start: 04-22-2024 End: 04-22-2024 Patient encounter procedure [facility] Comment on above: Arrived Start: 03-07-2024 End: 01-22-2025 Comprehensive metabolic 2000 panel - Serum or Plasma Comprehensive metabolic panel Lab Routine Prediabetes Expected: 03/07/2024 (Approximate), Expires: 01/22/2025 [facility] Comment on above: Expected: 03/07/2024 (Approximate), Expires: 01/22/2025 Start: 03-07-2024 End: 01-22-2025 Microalbumin/Creatinine panel in random Urine Microalbumin / creatinine urine ratio Lab Routine Prediabetes Expected: 03/07/2024 (Approximate), Expires: 01/22/2025 [facility] Comment on above: Expected: 03/07/2024 (Approximate), Expires: 01/22/2025 Start: 02-20-2024 [facility] Start: 01-23-2024 End: 01-23-2024 Patient encounter procedure [facility] Comment on above: Arrived Start: 01-07-2024 Influenza vaccination Influenza Vacc ine (#1) [facility] Start: 12-27-2023 End: 12-27-2023 Patient encounter procedure 12/27/2023 4:30 PM EDT Office Visit [facility] [address] [place] [address] Jacy Rivera NP [address] [place] [address] Arrived [facility] Comment on above: Arrived Start: 12-27-2023 End: 12-26-2024 CBC W Auto Differential panel - Blood CBC and differential Lab Routine Encounter for wellness examination in adult Expected: 12/27/2023 (Approximate), Expires: 12/26/2024 [facility] Comment on above: Expected: 12/27/2023 (Approximate), [...] unspecified type Expected: 12/27/2023 (Approximate), Expires: 12/26/2024 [facility] Comment on above: Expected: 12/27/2023 (Approximate), [...] in adult Expected: 12/27/2023 (Approximate), Expires: 12/26/2024 [facility] Comment on above: Expected: 12/27/2023 (Approximate), Expires: 12/26/2024 Start: 12-27-2023 End: 12-26-2024 TSH W/REFLEX TO FT4 TSH W/REFLEX TO FT4 Lab Routine Encounter for wellness examination in adult Expected: 12/27/2023 (Approximate), Expires: 12/26/2024 [facility] Work Phone: Comment on above: Expected: 12/27/2023 (Approximate), Expires: 12/26/2024 Start: 2016 Screening for malign ant neoplasm of cervix [facility] Start: 2007 Screening for malign ant neoplasm of cervix Pap Smear [facility] Patient Education Esophagitis Ga stritis (DC) Know your [facility] Work Phone: Immunizations Immunization Date Immunization Notes Care Provider Fa [facility] 09-02-2020 Pfizer Purple Cap SARS-CoV-2 Vaccination Opal Verdugo [employer] Work Phone: [facility] 08-12-2020 Pfizer Purple Cap SARS-CoV-2 Vaccination Opal Verdugo [employer] Work Phone: [facility] Payers Date Payer Category Payer Self-pay [id number] 2023 [facility] er [id number] 2023 Unknown BCBS BCBS [id number] [id number] 2023-Present [phone] [address] [place] [address] [id number] 2023 Unknown [id number] 1986 Unknown [id number] [id number]. 2.593 1986 Unknown [id number] 2.16.840.1.027784.3.579. 2.593 1986 Unknown [id number] 2.16.840.1.820864.3.579. 2.1286 1986 Unknown [id number] 2.16.840.1.796418.3.579. 2.1259 1986 Unknown [id number] 2.16.840.1.341442.3.579. 2.1259 1986 Unknown [id number] 2.16.840.1.022592.3.579. 2.1259 1986 Unknown [id number] 2.16.840.1.391653.3.579. 2.1259 1986 Unknown [id number] 2.16.840.1.602927.3.579. 2.1259 1986 Unknown [id number] 2.16.840.1.640393.3.579. 2.1259 1986 Unknown [id number] 2.16.840.1.798304.3.579. 2.1259 1986 Unknown [id number] 2.16.840.1.899022.3.579. 2.1259 1959 Private Health Insurance [id number] 1959 Self-pay [id number] 1959 Unknown [id number] Private Health Insurance [employer] PAX [employer] [id number] Unknown [id number] [id number]. 2.593 Unknown [id number] 2.16.840.1.690922.3.579. 2.593 Unknown [id number] [id number]. 2.531 Social History Date Type Detail Facility Unknown if ever smoked [facility] [employer] Other Start: 01-23-2024 End: 07-29-2024 Sex Assigned At [facility] with [facility] [employer] Other Start: 01-04-2024 End: 01-23-2024 Tobacco smoking status WIIS Never smoked tobacco (finding) [facility] Start: 1985 Sex Assigned At Female F [facility] Start: 12-27-2023 End: 01-23-2024 Tobacco use and exposure Smokeless tobacco non-user [facility] Start: 01-23-2024 End: 12-23-2024 Alcoholic beverage intake Lifetime non-drinker (finding) [facility] Start: 01-23-2024 End: 07-29-2024 History of Social function [facility] Start: 1985 Sex assigned at Not on file [facility] Start: 03-19-2024 Sex Female (finding) [facility] History of tobacco use Passive smoker [facility] smoking consumption unknown [facility] How often do you nee d to have someone help you when you read instructions, pamphlets, or other written material from your doctor or pharmacy [SILS] Never [facility] Do you belong to any clubs or organizations such as rastafarian groups, unions, fraternal or athletic groups, or school groups? No [facility] Are you now , , , , never or living with a partner? [facility] How often to you hav e a drink containing alcohol? Never [facility] How hard is it for y ou to pay for the very basics like food, housing, medical care, and heating Not very hard [facility] Do you feel stress - tense, restless, nervous, or anxious, or unable to sleep at night because your mind is troubled all the time - these days [OSQ] Very much [facility] (I/We) worried wheth er (my/our) food would run out before (I/we) got money to buy more. Sometimes true [facility] The food that (I/we) bought just didn't last, and (I/we) didn't have money to get more. Never true [facility] NEGATED: Highlighted rowStart: NINF History of tobacco use Passive smoker [facility] Goals Date Patient Goal Desired Activity /State Clinical Notes 03-31-2021 to 12-23-2024 Opal Verdugo NP - 12/23/2024 7:39 PM EDPATRICIA IZQUIERDO - 12/23/2024 7:00 PM Cali Verdugo NP - 12/23/2024 7:00 PM Cali Verdugo NP - 12/23/2024 7:37 AM EDTPatient Instructions Note Date & Type Note Facility 12-23-2024 History of Presen t illness Narrative Associated Problem(s): Primary hypertension Please check blood pressure daily and record DASH diet Limit caffeine Take medication as directed Contact office if chest pain, pressure, dizziness, shortness of breath, swelling legs Recommend slow position changes Current meds: losartan No dose changes Check BP daily, if home reads consistently >140/90;s call office Pt feels she needs to up the fluoxetine dose. Pt has also stopped taking the metformin due to increase migraines with the adipex after stopping the metformin she has not had any since. Pt would like to know if she can take the one dose at night and not in the AM with the adipex Images from the original note were not included. Ainsley Persaud is a 39 y.o. female presents with chief complaint of Hypertension HPI: Here for adipex check up: has lost 1 pound since last visit, it is of note that she stopped her metformin d/t feeling that she was getting PANDA from the combination. She reports PANDA made her eyes feel like they were pulsating, no blurry/double vision noted. No chest pain or dyspnea noted Once she stopped the metformin the sxs resolved, Is having trouble falling asleep with adipex, also can feel anxious during the day as well. A bit more irritated/aggitated as well No Si/HI, no chest pain/pressure or tightness to chest. SUBJECTIVE: MEDICATIONS: Current Outpatient Medications Medication Instructions aspirin 81 mg, Daily atorvastatin (LIPITOR) 20 mg, Oral, Daily FLUoxetine (PROZAC) 20 mg, Oral, Daily losartan (COZAAR) 50 mg, Oral, Daily metFORMIN (GLUCOPHAGE) 500 mg, Oral, 2 times daily with meals pantoprazole (ProtoNix) 40 MG EC tablet Twice daily phentermine (ADIPEX-P) 37.5 mg, Oral, Daily before breakfast ALLERGIES: Allergies Allergen Reactions Shellfish Allergy Hives Other Unknown REVIEW OF SYMPTOMS: Review of Systems Constitutional: Negative for appetite change, chills and fever. HENT: Negative for congestion, ear pain and sore throat. Eyes: Negative for pain, discharge, redness and visual disturbance. Respiratory: Negative for cough, shortness of breath and wheezing. Cardiovascular: Positive for leg swelling. Negative for chest pain and palpitations. Gastrointestinal: Negative for abdominal pain, blood in stool, constipation, diarrhea, nausea and vomiting. Genitourinary: Negative for difficulty urinating, dysuria and frequency. Musculoskeletal: Negative for arthralgias, back pain, joint swelling and myalgias. Skin: Negative for rash and wound. Neurological: Positive for headaches. Negative for dizziness, tremors, seizures and syncope. Psychiatric/Behavioral: Negative for behavioral problems, self-injury and suicidal ideas. The patient is not nervous/anxious. Hematological: Does not bruise/bleed easily. Endocrine: Negative for polydipsia, polyphagia and polyuria. Allergic/Immunologic: Negative for environmental allergies and food allergies. PAST MEDICAL HISTORY Past Medical History: Diagnosis Date Acid reflux Past Surgical History: Procedure Laterality Date SECTION, CLASSIC 2009 2012 CSECTION #2 CHOLECYSTECTOMY 2014 PARTIAL HYSTERECTOMY 2019 UPPER GASTROINTESTINAL ENDOSCOPY 2013 family history includes Diabetes in her paternal grandmother; Fibromyalgia in her mother; HTN in her father and paternal grandmother; Heart defect in her mother; Kidney cancer in her paternal grandmother; Osteoporosis in her mother. OBJECTIVE: Visit Vitals BP (!) 134/94 (BP Location: Left arm, Patient Position: Sitting, BP Cuff Size: Large adult) Pulse 84 Temp 97.8 F (Temporal) Resp 18 Wt 273 lb 6.4 oz SpO2 98% BMI 48.43 kg/m OB Status Hysterectomy Smoking Status Never BSA 2.35 m Physical Exam Vitals and nursing note reviewed. Constitutional: General: She is not in acute distress. Appearance: Normal appearance. HENT: Head: Normocephalic and atraumatic. Right Ear: External ear normal. Left Ear: External ear normal. Nose: Nose normal. Mouth/Throat: Mouth: Mucous membranes are moist. Eyes: Extraocular Movements: Extraocular movements intact. Conjunctiva/sclera: Conjunctivae normal. Cardiovascular: Rate and Rhythm: Normal rate and regular rhythm. Pulses: Normal pulses. Heart sounds: Normal heart sounds. Pulmonary: Effort: Pulmonary effort is normal. Breath sounds: Normal breath sounds. No wheezing or rhonchi. Abdominal: General: Bowel sounds are normal. There is no distension. Palpations: Abdomen is soft. There is no mass. Tenderness: There is no abdominal tenderness. Musculoskeletal: General: Normal range of motion. Cervical back: Normal range of motion and neck supple. Right lower leg: No edema. Left lower leg: No edema. Skin: General: Skin is warm and dry. Capillary Refill: Capillary refill takes 2 to 3 seconds. Findings: No rash. Neurological: General: No focal deficit present. Mental Status: She is alert and oriented to person, place, and time. Psychiatric: Mood and Affect: Mood normal. Behavior: Behavior normal. Thought Content: Thought content normal. Judgment: Judgment normal. ASSESSMENT AND PLAN: Follow up in about 4 weeks (around 01/20/2025) for Recheck. Problem List Items Addressed This Visit Encounter for wellness examination in adult Check labs Relevant Orders CBC and differential Comprehensive metabolic panel Lipid panel TSH Urinalysis with reflex microscopic (clean catch) Hyperlipidemia Primary hypertension Please check blood pressure daily and record DASH diet Limit caffeine Take medication as directed Contact office if chest pain, pressure, dizziness, shortness of breath, swelling legs Recommend slow position changes Current meds: losartan No dose changes Check BP daily, if home reads consistently >140/90;s call office Morbid obesity due to excess calories ([facility]) - Primary Discussed with patient their BMI (actual, verses recommended). We have also discussed lifestyle modifications: attempts to perform physical activity as chronic conditions allow, also to monitor dietary intake: increasing protein/fruits/veggies and lowering carb intake (unless contraindicated). Limit sodas, juices, and sugary drinks. Pt meets qualifications of [facility] 4731-03-11 for weight loss. BMI>30 or >27 with comorbid conditions. Notify office with any symptoms of chest pain, dyspnea, heart palpitations, or any anxiety symptoms. F/U in 4 weeks to document weight loss. Increase physical activity as tolerated, and lower caloric intake to 1600 calories daily if no contraindications Starting weight: 284 (10/30/24) Adipex month's completed: 2 Todays weight 273 Will have her cut adipex in half Relevant Medications phentermine (Adipex-P) 37.5 MG tablet ISABEL (generalized anxiety disorder) Current med: fluoxetine Would like to increase dose Will go to 20mg daily Take medication only as directed. This medication will take approximately 4-6 weeks to become effective. If any suicidal thoughts, thoughts of hurting others, or hallucinations contact the office or proceed to the Emergency Room for mental health evaluation. Medication may cause dry mouth, dizziness, and in some cases worsening in depression symptoms. Please contact the office if these occur. Relevant Medications FLUoxetine (PROzac) 20 MG capsule Associated Problem(s): Encounter for wellness examination in adult Check labs Associated Problem(s): ISABEL (generalized anxiety disorder) Current med: fluoxetine Would like to increase dose Will go to 20mg daily Take medication only as directed. This medication will take approximately 4-6 weeks to become effective. If any suicidal thoughts, thoughts of hurting others, or hallucinations contact the office or proceed to the Emergency Room for mental health evaluation. Medication may cause dry mouth, dizziness, and in some cases worsening in depression symptoms. Please contact the office if these occur. Associated Problem(s): Morbid obesity due to excess calories ([facility]) Discussed with patient their BMI (actual, verses recommended). We have also discussed lifestyle modifications: attempts to perform physical activity as chronic conditions allow, also to monitor dietary intake: increasing protein/fruits/veggies and lowering carb intake (unless contraindicated). Limit sodas, juices, and sugary drinks. Pt meets qualifications of [facility] 4731-03-11 for weight loss. BMI>30 or >27 with comorbid conditions. Notify office with any symptoms of chest pain, dyspnea, heart palpitations, or any anxiety symptoms. F/U in 4 weeks to document weight loss. Increase physical activity as tolerated, and lower caloric intake to 1600 calories daily if no contraindications Starting weight: 284 (10/30/24) Adipex month's completed: 2 Todays weight 273 Will have her cut adipex in half documented in this encounter [facility] [place] 12-23-[facility] Instructions Opal Verdugo NP - 12/23/2024 7:00 PM EDT Trial 1/2 pill adipex We can increase the fluoxtine to 20mg daily Try starting back on metformin every other day 1 pill documented in this encounter [facility] [place] 12-11-2024 Evaluation note Diagnosis Onset Date Resolution Hypersomnia acute December 11, 2 025 3:40pm Hypoxia acute December 11 3:40pm Obesity acute December 11 3:40pm ELISA (obstructive sleep apnea) acute December 11, 2024 3:40pm Sleep deprivation acute December 11, 2024 3:40pm Snoring acute December 11 3:40pm [facility] Work Phone: [phone]) 941-298707-23-2025 History of Present illness Narrative* Opal Verdugo NP - 11/27/2024 5:11 PM EDTAssociated Problem(s): ISABEL (generalized anxiety disorder) Current med: fluoxetine * PATRICIA CORREA - 11/27/2024 4:30 PM EDT Pt is only getting about [id number] tamra daily * Opal Verdugo NP - 11/27/2024 4:30 PM EDT Images from the original note were not included. Ainsley Persaud is a 39 y.o. female presents with chief complaint of ISABEL HPI: Here for adipex check, completed month #1, has lost 10 pounds No chest pain/pressure, no dyspnea, no heart palpitations Does get some dry mouth, no constipation SUBJECTIVE: MEDICATIONS: Current Outpatient Medications Medication Instructions aspirin 81 mg, Daily atorvastatin (LIPITOR) 20 mg, Oral, Daily FLUoxetine (PROZAC) 10 mg, Oral, Daily losartan (COZAAR) 50 mg, Oral, Daily metFORMIN (GLUCOPHAGE) 500 mg, Oral, 2 times daily with meals pantoprazole (ProtoNix) 40 MG EC tablet Twice daily phentermine (ADIPEX-P) 37.5 mg, Oral, Daily before breakfast ALLERGIES: Allergies Allergen Reactions Shellfish Allergy Hives Other Unknown REVIEW OF SYMPTOMS: Review of Systems Constitutional: Negative for appetite change, chills and fever. HENT: Negative for congestion, ear pain and sore throat. Eyes: Negative for pain, discharge, redness and visual disturbance. Respiratory: Negative for cough, shortness of breath and wheezing. Cardiovascular: Negative for chest pain, palpitations and leg swelling. Gastrointestinal: Negative for abdominal pain, blood in stool, constipation, diarrhea, nausea and vomiting. Genitourinary: Negative for difficulty urinating, dysuria and frequency. Musculoskeletal: Negative for arthralgias, back pain, joint swelling and myalgias. Skin: Negative for rash and wound. Neurological: Negative for dizziness, tremors, seizures, syncope and headaches. Psychiatric/Behavioral: Negative for behavioral problems, self-injury and suicidal ideas. The patient is not nervous/anxious. Hematological: Does not bruise/bleed easily. Endocrine: Negative for polydipsia, polyphagia and polyuria. Allergic/Immunologic: Negative for environmental allergies and food allergies. PAST MEDICAL HISTORY Past Medical History: Diagnosis Date Acid reflux Past Surgical History: Procedure Laterality Date SECTION, CLASSIC 2008 2011 CSECTION #2 CHOLECYSTECTOMY 2014 PARTIAL HYSTERECTOMY 2019 UPPER GASTROINTESTINAL ENDOSCOPY 2013 family history includes Diabetes in her paternal grandmother; Fibromyalgia in her mother; HTN in her father and paternal grandmother; Heart defect in her mother; Kidney cancer in her paternal grandmother; Osteoporosis in her mother. OBJECTIVE: Visit Vitals BP 128/90 (BP Location: Left arm, Patient Position: Sitting, BP Cuff Size: Large adult) Pulse 95 Temp 98.5 F (Temporal) Resp 18 Wt 274 lb 3.2 oz SpO2 98% BMI 48.57 kg/m OB Status Hysterectomy Smoking Status Never BSA 2.35 m Physical Exam Vitals and nursing note reviewed. Constitutional: General: She is not in acute distress. Appearance: Normal appearance. HENT: Head: Normocephalic and atraumatic. Right Ear: External ear normal. Left Ear: External ear normal. Nose: Nose normal. Mouth/Throat: Mouth: Mucous membranes are moist. Eyes: Extraocular Movements: Extraocular movements intact. Conjunctiva/sclera: Conjunctivae normal. Cardiovascular: Rate and Rhythm: Normal rate and regular rhythm. Pulses: Normal pulses. Heart sounds: Normal heart sounds. Pulmonary: Effort: Pulmonary effort is normal. Breath sounds: Normal breath sounds. Abdominal: General: Bowel sounds are normal. There is no distension. Palpations: Abdomen is soft. There is no mass. Tenderness: There is no abdominal tenderness. Musculoskeletal: General: Normal range of motion. Cervical back: Normal range of motion and neck supple. Right lower leg: No edema. Left lower leg: No edema. Skin: General: Skin is warm and dry. Capillary Refill: Capillary refill takes 2 to 3 seconds. Findings: No rash. Neurological: General: No focal deficit present. Mental Status: She is alert and oriented to person, place, and time. Psychiatric: Mood and Affect: Mood normal. Behavior: Behavior normal. Thought Content: Thought content normal. Judgment: Judgment normal. ASSESSMENT AND PLAN: Follow up in about 4 weeks (around 12/25/2024) for Recheck. Problem List Items Addressed This Visit Primary hypertension - Primary Please check blood pressure daily and record DASH diet Limit caffeine Take medication as directed Contact office if chest pain, pressure, dizziness, shortness of breath, swelling legs Recommend slow position changes Current meds: losartan Morbid obesity due to excess calories ([facility]) Discussed with patient their BMI (actual, verses recommended). We have also discussed lifestyle modifications: attempts to perform physical activity as chronic conditions allow, also to monitor dietary intake: increasing protein/fruits/veggies and lowering carb intake (unless contraindicated). Limit sodas, juices, and sugary drinks. Pt meets qualifications of [employer] 4731-03-11 for weight loss. BMI>30 or >27 with comorbid conditions. Notify office with any symptoms of chest pain, dyspnea, heart palpitations, or any anxiety symptoms. F/U in 4 weeks to document weight loss. Increase physical activity as tolerated, and lower caloric intake to 1600 calories daily if no contraindications Starting weight: 284 (10/30/24) Adipex month's completed: 1 Todays weight 274 Relevant Medications phentermine (Adipex-P) 37.5 MG tablet ISABEL (generalized anxiety disorder) Current med: fluoxetine * Opal Verdugo NP - 11/27/2024 6:11 AM EDTAssociated Problem(s): Morbid obesity due to excess calories ([facility]) Discussed with patient their BMI (actual, verses recommended). We have also discussed lifestyle modifications: attempts to perform physical activity as chronic conditions allow, also to monitor dietary intake: increasing protein/fruits/veggies and lowering carb intake (unless contraindicated). Limit sodas, juices, and sugary drinks. Pt meets qualifications of [employer] 4731-03-11 for weight loss. BMI>30 or >27 with comorbid conditions. Notify office with any symptoms of chest pain, dyspnea, heart palpitations, or any anxiety symptoms. F/U in 4 weeks to document weight loss. Increase physical activity as tolerated, and lower caloric intake to 1600 calories daily if no contraindications Starting weight: 284 (10/30/24) Adipex month's completed: 1 Todays weight 274 * Opal Verdugo NP - 11/27/2024 6:09 AM EDTAssociated Problem(s): ELISA (obstructive sleep apnea) Did not have second sleep study completed AHI 21, O2 sat 80% * Opal Verdugo NP - 11/27/2024 6:09 AM EDTAssociated Problem(s): Primary hypertension Please check blood pressure daily and record DASH diet Limit caffeine Take medication as directed Contact office if chest pain, pressure, dizziness, shortness of breath, swelling legs Recommend slow position changes Current meds: losartan documented in this [facility]07-23-2025 Instructions* Patient Instructions* Opal Verdugo NP - 11/27/2024 4:30 PM EDT Continue the momentum!! You are worth it and doing great documented in this [facility]06-25-2025 History of Present illness Narrative* PATRICIA CORREA - 10/30/2024 3:20 PM EDT Pt would like to talk about the metformin * Opal Verdugo NP - 10/30/2024 3:20 PM EDT Images from the original note were not included. Ainsley Persaud is a 39 y.o. female presents with chief complaint of Hypertension HPI: Fu on anxiety and fluoxetine , overall is working, some days not as well and can have increase in anxiety and difficulty sleeping. No SI//HI/Hallucinations would like to stay at current dose of meds. Diff with losing weight, feels tired and sluggish, not sure if metformin is working Hypertension This is a chronic problem. The current episode started more than 1 year ago. The problem is unchanged. The problem is controlled. Associated symptoms include anxiety. Pertinent negatives include no chest pain, headaches, palpitations, peripheral edema or shortness of breath. There are no associatedagents to hypertension. Risk factors for coronary artery disease include dyslipidemia and obesity. Past treatments include angiotensin blockers. The current treatment provides significant improvement. There are no compliance problems. There is no history of CAD/TN, heart failure or PVD. SUBJECTIVE: MEDICATIONS: Current Outpatient Medications Medication Instructions aspirin 81 mg, Daily atorvastatin (LIPITOR) 20 mg, Oral, Daily FLUoxetine (PROZAC) 10 mg, Oral, Daily losartan (COZAAR) 50 mg, Oral, Daily metFORMIN (GLUCOPHAGE) 500 mg, Oral, 2 times daily with meals pantoprazole (ProtoNix) 40 MG EC tablet Twice daily phentermine (ADIPEX-P) 37.5 mg, Oral, Daily before breakfast ALLERGIES: Allergies Allergen Reactions Shellfish Allergy Hives Other Unknown REVIEW OF SYMPTOMS: Review of Systems Constitutional: Positive for fatigue. Negative for appetite change, chills and fever. HENT: Negative for congestion, ear pain and sore throat. Eyes: Negative for pain, discharge, redness and visual disturbance. Respiratory: Negative for cough, shortness of breath and wheezing. Cardiovascular: Negative for chest pain, palpitations and leg swelling. Gastrointestinal: Negative for abdominal pain, blood in stool, constipation, diarrhea, nausea and vomiting. Genitourinary: Negative for difficulty urinating, dysuria and frequency. Musculoskeletal: Negative for arthralgias, back pain, joint swelling and myalgias. Skin: Negative for rash and wound. Neurological: Negative for dizziness, tremors, seizures, syncope and headaches. Psychiatric/Behavioral: Negative for behavioral problems, self-injury and suicidal ideas. The patient is nervous/anxious. Hematological: Does not bruise/bleed easily. Endocrine: Negative for polydipsia, polyphagia and polyuria. Allergic/Immunologic: Negative for environmental allergies and food allergies. PAST MEDICAL HISTORY Past Medical History: Diagnosis Date Acid reflux Past Surgical History: Procedure Laterality Date SECTION, CLASSIC 2008 2011 CSECTION #2 CHOLECYSTECTOMY 2014 PARTIAL HYSTERECTOMY 2019 UPPER GASTROINTESTINAL ENDOSCOPY 2013 family history includes Diabetes in her paternal grandmother; Fibromyalgia in her mother; HTN in her father and paternal grandmother; Heart defect in her mother; Kidney cancer in her paternal grandmother; Osteoporosis in her mother. OBJECTIVE: Visit Vitals BP 122/86 (BP Location: Left arm, Patient Position: Sitting, BP Cuff Size: Large adult) Pulse 83 Temp 98.5 F (Temporal) Resp 18 Wt 284 lb 3.2 oz SpO2 97% BMI 50.34 kg/m OB Status Hysterectomy Smoking Status Never BSA 2.39 m Physical Exam Vitals and nursing note reviewed. Constitutional: General: She is not in acute distress. Appearance: Normal appearance. HENT: Head: Normocephalic and atraumatic. Right Ear: External ear normal. Left Ear: External ear normal. Nose: Nose normal. Mouth/Throat: Mouth: Mucous membranes are moist. Eyes: Extraocular Movements: Extraocular movements intact. Conjunctiva/sclera: Conjunctivae normal. Cardiovascular: Rate and Rhythm: Normal rate and regular rhythm. Pulses: Normal pulses. Heart sounds: Normal heart sounds. Pulmonary: Effort: Pulmonary effort is normal. Breath sounds: Normal breath sounds. No wheezing or rhonchi. Abdominal: General: Bowel sounds are normal. There is no distension. Palpations: Abdomen is soft. There is no mass. Tenderness: There is no abdominal tenderness. Musculoskeletal: General: Normal range of motion. Cervical back: Normal range of motion and neck supple. Skin: General: Skin is warm and dry. Capillary Refill: Capillary refill takes 2 to 3 seconds. Findings: No rash. Neurological: General: No focal deficit present. Mental Status: She is alert and oriented to person, place, and time. Psychiatric: Mood and Affect: Mood normal. Behavior: Behavior normal. Thought Content: Thought content normal. Judgment: Judgment normal. ASSESSMENT AND PLAN: Follow up in about 4 weeks (around 11/27/2024) for Recheck. Problem List Items Addressed This Visit Prediabetes Check blood sugars daily, notify if <70 or >200. Check it like 3 times week. Take medications(pills or insulin) as directed. Monitor for s/s of hypoglycemia (sweaty, dizziness, nausea, vomiting, or shakiness). Watch for increase in thirst, urination, or appetite. Inspect feet frequently monitoring for open wounds , and also recommend yearly eye exam. Pt should attempt to remain as physically active as chronic conditions allow, as well as trying to follow a diet low in carbohydrates, and simple sugars. Current meds: asa, statin, arb, metformin A1c 6.1% 07/29/24 Primary hypertension Please check blood pressure daily and record DASH diet Limit caffeine Take medication as directed Contact office if chest pain, pressure, dizziness, shortness of breath, swelling legs Recommend slow position changes Current meds: losartan Relevant Medications losartan (Cozaar) 50 MG tablet Morbid obesity due to excess calories ([facility]) Discussed with patient their BMI (actual, verses recommended). We have also discussed lifestyle modifications: attempts to perform physical activity as chronic conditions allow, also to monitor dietary intake: increasing protein/fruits/veggies and lowering carb intake (unless contraindicated). Limit sodas, juices, and sugary drinks. Pt meets qualifications of [facility] 4731-03-11 for weight loss. BMI>30 or >27 with comorbid conditions. Notify office with any symptoms of chest pain, dyspnea, heart palpitations, or any anxiety symptoms. F/U in 4 weeks to document weight loss. Increase physical activity as tolerated, and lower caloric intake to 1600 calories daily if no contraindications Relevant Medications phentermine (Adipex-P) 37.5 MG tablet ISABEL (generalized anxiety disorder) - Primary Current med: fluoxetine Relevant Medications FLUoxetine (PROzac) 10 MG capsule * Opal Verdugo NP - 10/30/2024 7:17 AM EDTAssociated Problem(s): Prediabetes Check blood sugars daily, notify if <70 or >200. Check it like 3 times week. Take medications(pills or insulin) as directed. Monitor for s/s of hypoglycemia (sweaty, dizziness, nausea, vomiting, or shakiness). Watch for increase in thirst, urination, or appetite. Inspect feet frequently monitoring for open wounds , and also recommend yearly eye exam. Pt should attempt to remain as physically active as chronic conditions allow, as well as trying to follow a diet low in carbohydrates, and simple sugars. Current meds: asa, statin, arb, metformin A1c 6.1% 07/29/24 * Opal Verdugo NP - 10/30/2024 7:17 AM EDTAssociated Problem(s): ISABEL (generalized anxiety disorder) Current med: fluoxetine * Opal Verdugo NP - 10/30/2024 7:16 AM EDTAssociated Problem(s): Morbid obesity due to excess calories ([facility]) Discussed with patient their BMI (actual, verses recommended). We have also discussed lifestyle modifications: attempts to perform physical activity as chronic conditions allow, also to monitor dietary intake: increasing protein/fruits/veggies and lowering carb intake (unless contraindicated). Limit sodas, juices, and sugary drinks. Pt meets qualifications of [employer] 4731-03-11 for weight loss. BMI>30 or >27 with comorbid conditions. Notify office with any symptoms of chest pain, dyspnea, heart palpitations, or any anxiety symptoms. F/U in 4 weeks to document weight loss. Increase physical activity as tolerated, and lower caloric intake to 1600 calories daily if no contraindications * Opal Verdugo NP - 10/30/2024 7:16 AM EDTAssociated Problem(s): ELISA (obstructive sleep apnea) Did not have second sleep study completed AHI 21, O2 sat 80% * Opal Verdugo NP - 10/30/2024 7:16 AM EDTAssociated Problem(s): Primary hypertension Please check blood pressure daily and record DASH diet Limit caffeine Take medication as directed Contact office if chest pain, pressure, dizziness, shortness of breath, swelling legs Recommend slow position changes Current meds: losartan [id number] Instructions* Patient Instructions* Opal Verdugo NP - 10/30/2024 3:20 PM EDT Notify office with any symptoms of chest pain, dyspnea, heart palpitations, or any anxiety symptoms. F/U in 4 weeks to document weight loss. Increase physical activity as tolerated, and lower caloricintake to 1600 calories daily if no contraindications [facility] [id number] History of Present illness Narrative* Opal Verdugo NP - 08/29/2024 3:40 PM EDT Images from the original note were not included. Ainsley Persaud is a 39 y.o. female presents with chief complaint of No chief complaint on file. HPI: Anxiety Presents for follow-up visit. Patient reports no chest pain, depressed mood, dizziness, excessive worry, insomnia, irritability, nausea, nervous/anxious behavior, palpitations, shortness of breath orsuicidal ideas. Symptoms occur occasionally. The severity of symptoms is mild. The quality of sleepis good. Compliance with medications is 76-100%. SUBJECTIVE: MEDICATIONS: Current Outpatient Medications Medication Instructions aspirin 81 mg, Daily atorvastatin (LIPITOR) 20 mg, Oral, Daily FLUoxetine (PROZAC) 10 mg, Oral, Daily losartan (COZAAR) 50 mg, Oral, Daily metFORMIN (GLUCOPHAGE) 500 mg, Oral, 2 times daily with meals pantoprazole (ProtoNix) 40 MG EC tablet Twice daily ALLERGIES: Allergies Allergen Reactions Shellfish Allergy Hives Other Unknown REVIEW OF SYMPTOMS: Review of Systems Constitutional: Negative for appetite change, chills, fever and irritability. HENT: Negative for congestion, ear pain and sore throat. Eyes: Negative for pain, discharge, redness and visual disturbance. Respiratory: Negative for cough, shortness of breath and wheezing. Cardiovascular: Negative for chest pain, palpitations and leg swelling. Gastrointestinal: Negative for abdominal pain, blood in stool, constipation, diarrhea, nausea and vomiting. Genitourinary: Negative for difficulty urinating, dysuria and frequency. Musculoskeletal: Negative for arthralgias, back pain, joint swelling and myalgias. Skin: Negative for rash and wound. Neurological: Negative for dizziness, tremors, seizures, syncope and headaches. Psychiatric/Behavioral: Negative for behavioral problems, self-injury and suicidal ideas. The patient is not nervous/anxious and does not have insomnia. Hematological: Does not bruise/bleed easily. Endocrine: Negative for polydipsia, polyphagia and polyuria. Allergic/Immunologic: Negative for environmental allergies and food allergies. PAST MEDICAL HISTORY Past Medical History: Diagnosis Date Acid reflux Past Surgical History: Procedure Laterality Date SECTION, CLASSIC 2008 2011 CSECTION #2 CHOLECYSTECTOMY 2014 PARTIAL HYSTERECTOMY 2018 UPPER GASTROINTESTINAL ENDOSCOPY 2013 family history includes Diabetes in her paternal grandmother; Fibromyalgia in her mother; HTN in her father and paternal grandmother; Heart defect in her mother; Kidney cancer in her paternal grandmother; Osteoporosis in her mother. OBJECTIVE: Visit Vitals BP 124/82 (BP Location: Left arm, Patient Position: Sitting, BP Cuff Size: Adult long) Pulse 95 Temp 97.9 F (Temporal) Resp 18 Wt 280 lb 6.4 oz SpO2 97% BMI 49.67 kg/m OB Status Hysterectomy Smoking Status Never BSA 2.38 m Physical Exam Vitals and nursing note reviewed. Constitutional: General: She is not in acute distress. Appearance: Normal appearance. HENT: Head: Normocephalic and atraumatic. Right Ear: External ear normal. Left Ear: External ear normal. Nose: Nose normal. Mouth/Throat: Mouth: Mucous membranes are moist. Eyes: Extraocular Movements: Extraocular movements intact. Conjunctiva/sclera: Conjunctivae normal. Cardiovascular: Rate and Rhythm: Normal rate and regular rhythm. Pulses: Normal pulses. Heart sounds: Normal heart sounds. Pulmonary: Effort: Pulmonary effort is normal. Breath sounds: Normal breath sounds. Musculoskeletal: General: Normal range of motion. Cervical back: Normal range of motion and neck supple. Skin: General: Skin is warm and dry. Capillary Refill: Capillary refill takes 2 to 3 seconds. Findings: No rash. Neurological: General: No focal deficit present. Mental Status: She is alert and oriented to person, place, and time. Psychiatric: Mood and Affect: Mood normal. Behavior: Behavior normal. Thought Content: Thought content normal. Judgment: Judgment normal. ASSESSMENT AND PLAN: Follow up in about 2 months (around 10/29/2024) for Recheck. Problem List Items Addressed This Visit Primary hypertension (CMS/HCC) - Primary Please check blood pressure daily and record DASH diet Limit caffeine Take medication as directed Contact office if chest pain, pressure, dizziness, shortness of breath, swelling legs Recommend slow position changes Current meds: losartan Morbid obesity due to excess calories (CMS/HCC) Discussed with patient their BMI (actual, verses recommended). We have also discussed lifestyle modifications: attempts to perform physical activity as chronic conditions allow, also to monitor dietary intake: increasing protein/fruits/veggies and lowering carb intake (unless contraindicated). Limit sodas, juices, and sugary drinks. ISABEL (generalized anxiety disorder) (CMS/HCC) Last appt started fluoxetine, is very happy with the results Sleeping better less anxious No dose change Fu in 8 weeks Relevant Medications FLUoxetine (PROzac) 10 MG capsule * Opal Verdugo NP - 08/29/2024 7:39 AM EDTAssociated Problem(s): ISABEL (generalized anxiety disorder) (CMS/HCC) Last appt started fluoxetine, is very happy with the results Sleeping better less anxious No dose change Fu in 8 weeks * Opal Verdugo NP - 08/29/2024 7:39 AM EDTAssociated Problem(s): Morbid obesity due to excess calories (CMS/HCC) Discussed with patient their BMI (actual, verses recommended). We have also discussed lifestyle modifications: attempts to perform physical activity as chronic conditions allow, also to monitor dietary intake: increasing protein/fruits/veggies and lowering carb intake (unless contraindicated). Limit sodas, juices, and sugary drinks. * Opal Verdugo NP - 08/29/2024 7:39 AM EDTAssociated Problem(s): Primary hypertension (CMS/HCC) Please check blood pressure daily and record DASH diet Limit caffeine Take medication as directed Contact office if chest pain, pressure, dizziness, shortness of breath, swelling legs Recommend slow position changes Current meds: losartan * Opal Verdugo NP - 08/29/2024 7:39 AM EDTAssociated Problem(s): ELISA (obstructive sleep apnea) Did not have second sleep study completed AHI 21, O2 sat 80% documented in this [facility]04-24-2025 Instructions* Patient Instructions* Opal Verdugo NP - 08/29/2024 3:40 PM EDT Keep meds at current doses Follow up in 8 weeks [facility] this [facility] [facility] History of Present illness Narrative* Opal Verdugo NP - 07/29/2024 2:59 PM EDTAssociated Problem(s): ISABEL (generalized anxiety disorder) (CMS/HCC) Take medication only as directed. This medication will take approximately 4-6 weeks to become effective. If any suicidal thoughts, thoughts of hurting others, or hallucinations contact the office or proceed to the Emergency Room for mental health evaluation. Medication may cause dry mouth, dizziness, and in some cases worsening in depression symptoms. Please contact the office if these occur. Fu 4 weeks * Opal Verdugo NP - 07/29/2024 2:55 PM EDTAssociated Problem(s): ELISA (obstructive sleep apnea) Did not have second sleep study completed AHI 21, O2 sat 80% Will reach out to [facility] sleep lab * Opal Verdugo NP - 07/29/2024 2:46 PM EDTAssociated Problem(s): Eosinophilic esophagitis Working w GI to get on dupixant * PATRICIA CORREA - 07/29/2024 2:00 PM EDT Pt is also taking zoyava- maurice-inositol (D-chiro inostitrol, Berberine, Vit D3+K2)multi-vit 3 caps daily Zoyava-collagen (Biotin & Ieratin Hyaluronic acid) 3 caps daily Gssgdj-nxxsn-ryogdi (magnesium, Ashwagandha, L-theanine) 2 caps daily Pt is struggling with sleeping through the night she states she typically only sleeps 4 hrs at a time and in the past 2 weeks 3 nights she has not slept at all. Pt states she has not tried a sleep aid. 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 Pt states that she has both issues with falling asleep and staying asleep. Pt states she checks her BP at home however not regularly last time was on Monday she had a BP 145/79 wrist cuff * Opal Verdugo NP - 07/29/2024 2:00 PM EDT Images from the original note were not included. Ainsley Persaud is a 39 y.o. female presents with chief complaint of No chief complaint on file. HPI: Difficulty with sleeping: for quite some time, been told has ELISA, she feels that brain does not shut off Loud snoring, no gasping or stop breathing, has had a sleep study done Does not have CPAP, was done approx 02/28 Hypertension This is a chronic problem. The current episode started more than 1 year ago. The problem is unchanged. The problem is uncontrolled. Associated symptoms include peripheral edema. Pertinent negatives include no blurred vision, chest pain, headaches, palpitations or shortness of breath. There are no associated agents to hypertension. Risk factors for coronary artery disease include diabetes mellitus, dyslipidemia, obesity and sedentary lifestyle. Past treatments include angiotensin blockers. The current treatment provides mild improvement. There are no compliance problems. GERD She reports no abdominal pain, no chest pain, no coughing, no dysphagia, no early satiety, no heartburn, no nausea, no sore throat or no wheezing. This is a chronic problem. The current episode started more than 1 year ago. The problem occurs frequently. Risk factors include obesity (EOE). She has tried a PPI for the symptoms. The treatment provided moderate relief. Past procedures include an EGD. Diabetes She presents for her follow-up diabetic visit. She has type 2 diabetes mellitus. Her disease coursehas been stable. Hypoglycemia symptoms include nervousness/anxiousness. Pertinent negatives for hypoglycemia include no dizziness, headaches, seizures or tremors. Associated symptoms include polydipsi a and polyuria. Pertinent negatives for diabetes include no blurred vision, no chest pain, no foot paresthesias and no polyphagia. There are no hypoglycemic complications. Symptoms are stable. Pertinent negatives for diabetic complications include no heart disease, nephropathy or peripheral neuropathy. Risk factors for coronary artery disease include diabetes mellitus, dyslipidemia, hypertension,obesity and sedentary lifestyle. Current diabetic treatment includes oral agent (monotherapy). She is compliant with treatment all of the time. She participates in exercise weekly. An HINA inhibitor/angiotensin II receptor jean is being taken. She does not see a net programmer analyst.Eye exam is current. SUBJECTIVE: MEDICATIONS: Current Outpatient Medications Medication Instructions aspirin 81 mg, Daily atorvastatin (LIPITOR) 20 mg, Oral, Daily FLUoxetine (PROZAC) 10 mg, Oral, Daily losartan (COZAAR) 50 mg, Oral, Daily metFORMIN (GLUCOPHAGE) 500 mg, Oral, 2 times daily with meals pantoprazole (ProtoNix) 40 MG EC tablet Twice daily ALLERGIES: Allergies Allergen Reactions Shellfish Allergy Hives Other Unknown REVIEW OF SYMPTOMS: Review of Systems Constitutional: Negative for appetite change, chills and fever. HENT: Negative for congestion, ear pain and sore throat. Eyes: Negative for blurred vision, pain, discharge, redness and visual disturbance. Respiratory: Negative for cough, shortness of breath and wheezing. Cardiovascular: Negative for chest pain, palpitations and leg swelling. Gastrointestinal: Negative for abdominal pain, blood in stool, constipation, diarrhea, dysphagia, heartburn, nausea and vomiting. Genitourinary: Negative for difficulty urinating, dysuria and frequency. Musculoskeletal: Negative for arthralgias, back pain, joint swelling and myalgias. Skin: Negative for rash and wound. Neurological: Negative for dizziness, tremors, seizures, syncope and headaches. Psychiatric/Behavioral: Negative for behavioral problems, self-injury and suicidal ideas. The patient is nervous/anxious. Hematological: Does not bruise/bleed easily. Endocrine: Positive for polydipsia and polyuria. Negative for polyphagia. Allergic/Immunologic: Negative for environmental allergies and food allergies. PAST MEDICAL HISTORY Past Medical History: Diagnosis Date Acid reflux Past Surgical History: Procedure Laterality Date SECTION, CLASSIC 2008 2011 CSECTION #2 CHOLECYSTECTOMY 2014 PARTIAL HYSTERECTOMY 2019 UPPER GASTROINTESTINAL ENDOSCOPY 2013 family history includes Diabetes in her paternal grandmother; Fibromyalgia in her mother; HTN in her father and paternal grandmother; Heart defect in her mother; Kidney cancer in her paternal grandmother; Osteoporosis in her mother. OBJECTIVE: Visit Vitals BP 140/88 (BP Location: Left arm, Patient Position: Sitting, BP Cuff Size: Large adult) Pulse 93 Temp 99.6 F (Temporal) Resp 18 Wt 284 lb 12.8 oz SpO2 97% BMI 50.45 kg/m OB Status Hysterectomy Smoking Status Never BSA 2.39 m Physical Exam Vitals and nursing note reviewed. Constitutional: General: She is not in acute distress. Appearance: Normal appearance. HENT: Head: Normocephalic and atraumatic. Right Ear: External ear normal. Left Ear: External ear normal. Nose: Nose normal. Mouth/Throat: Mouth: Mucous membranes are moist. Eyes: Extraocular Movements: Extraocular movements intact. Conjunctiva/sclera: Conjunctivae normal. Cardiovascular: Rate and Rhythm: Normal rate and regular rhythm. Pulses: Normal pulses. Heart sounds: Normal heart sounds. Pulmonary: Effort: Pulmonary effort is normal. Breath sounds: Normal breath sounds. No wheezing or rhonchi. Abdominal: General: Bowel sounds are normal. There is no distension. Palpations: Abdomen is soft. There is no mass. Tenderness: There is no abdominal tenderness. Musculoskeletal: General: Normal range of motion. Cervical back: Normal range of motion and neck supple. Right lower leg: No edema. Left lower leg: No edema. Lymphadenopathy: Cervical: No cervical adenopathy. Skin: General: Skin is warm and dry. Capillary Refill: Capillary refill takes 2 to 3 seconds. Findings: No rash. Neurological: General: No focal deficit present. Mental Status: She is alert and oriented to person, place, and time. Psychiatric: Mood and Affect: Mood normal. Behavior: Behavior normal. Thought Content: Thought content normal. Judgment: Judgment normal. ASSESSMENT AND PLAN: Follow up in about 4 weeks (around 08/26/2024) for Recheck. Problem List Items Addressed This Visit GERD (gastroesophageal reflux disease) Recommendations: freq small meals, nothing to eat or drink at least 2 hours prior to bed, limit caffeine, alcohol, as well as spicy foods Meds to limit or avoid if possible: NSAIDS Elevate HOB if possible Current meds: pantoprazole Had scope, has EOE, GI is working to get pt on dupixent Prediabetes Check blood sugars daily, notify if <70 or >200. Check it like 3 times week. Take medications(pills or insulin) as directed. Monitor for s/s of hypoglycemia (sweaty, dizziness, nausea, vomiting, or shakiness). Watch for increase in thirst, urination, or appetite. Inspect feet frequently monitoring for open wounds , and also recommend yearly eye exam. Pt should attempt to remain as physically active as chronic conditions allow, as well as trying to follow a diet low in carbohydrates, and simple sugars. Current meds: asa, statin, arb, metformin A1c 6.1% 07/29/24 Relevant Orders POCT glycosylated hemoglobin (Hb A1C) docked device (Completed) Hyperlipidemia (CMS/HCC) On statin therapy Check labs yearly and prn dose changes Primary hypertension (CMS/HCC) - Primary Please check blood pressure daily and record DASH diet Limit caffeine Take medication as directed Contact office if chest pain, pressure, dizziness, shortness of breath, swelling legs Recommend slow position changes Current meds: losartan Relevant Medications losartan (Cozaar) 50 MG tablet RESOLVED: Body mass index (BMI) 45.0-49.9, adult ([facility]) Morbid obesity due to excess calories ([facility]) Discussed with patient their BMI (actual, verses recommended). We have also discussed lifestyle modifications: attempts to perform physical activity as chronic conditions allow, also to monitor dietary intake: increasing protein/fruits/veggies and lowering carb intake (unless contraindicated). Limit sodas, juices, and sugary drinks. Eosinophilic esophagitis Working w GI to get on dupixant ELISA (obstructive sleep apnea) Did not have second sleep study completed AHI 21, O2 sat 80% Will reach out to [facility] sleep lab ISAEBL (generalized anxiety disorder) ([facility]) Take medication only as directed. This medication will take approximately 4-6 weeks to become effective. If any suicidal thoughts, thoughts of hurting others, or hallucinations contact the office or proceed to the Emergency Room for mental health evaluation. Medication may cause dry mouth, dizziness, and in some cases worsening in depression symptoms. Please contact the office if these occur. Fu 4 weeks Relevant Medications FLUoxetine (PROzac) 10 MG capsule * Opal Verdugo NP - 07/29/2024 7:17 AM EDTAssociated Problem(s): Prediabetes Check blood sugars daily, notify if <70 or >200. Check it like 3 times week. Take medications(pills or insulin) as directed. Monitor for s/s of hypoglycemia (sweaty, dizziness, nausea, vomiting, or shakiness). Watch for increase in thirst, urination, or appetite. Inspect feet frequently monitoring for open wounds , and also recommend yearly eye exam. Pt should attempt to remain as physically active as chronic conditions allow, as well as trying to follow a diet low in carbohydrates, and simple sugars. Current meds: asa, statin, arb, metformin A1c 6.1% 07/29/24 * Opal Verdugo NP - 07/29/2024 7:16 AM EDTAssociated Problem(s): Hyperlipidemia (CMS/HCC) On statin therapy Check labs yearly and prn dose changes * Opal Verdugo NP - 07/29/2024 7:15 AM EDTAssociated Problem(s): Morbid obesity due to excess calories (CMS/HCC) Discussed with patient their BMI (actual, verses recommended). We have also discussed lifestyle modifications: attempts to perform physical activity as chronic conditions allow, also to monitor dietary intake: increasing protein/fruits/veggies and lowering carb intake (unless contraindicated). Limit sodas, juices, and sugary drinks. * Opal Verdugo NP - 07/29/2024 7:14 AM EDTAssociated Problem(s): GERD (gastroesophageal reflux disease) Recommendations: freq small meals, nothing to eat or drink at least 2 hours prior to bed, limit caffeine, alcohol, as well as spicy foods Meds to limit or avoid if possible: NSAIDS Elevate HOB if possible Current meds: pantoprazole Had scope, has EOE, GI is working to get pt on dupixent * Opal Verdugo NP - 07/29/2024 7:14 AM EDTAssociated Problem(s): Primary hypertension (CMS/HCC) Please check blood pressure daily and record DASH diet Limit caffeine Take medication as directed Contact office if chest pain, pressure, dizziness, shortness of breath, swelling legs Recommend slow position changes Current meds: losartan documented in this [facility]03-24-2025 Instructions* Patient Instructions* Opal eVrdugo NP - 07/29/2024 2:00 PM EDT Start fluoxetine at 10mg daily Take medication only as directed. This medication will take approximately 4-6 weeks to become effective. If any suicidal thoughts, thoughts of hurting others, or hallucinations contact the office or proceed to the Emergency Room for mental health evaluation. Medication may cause dry mouth, dizziness, and in some cases worsening in depression symptoms. Please contact the office if these occur. documented in this [facility]12-16-2024 History of Present illness Narrative* Jacy Rivera NP - 04/22/2024 3:46 PM ESTAssociated Problem(s): Prediabetes A1C 6.6% Metformin 500mg Bid Pt declines taking injectables or any GLP-1 medications. Would like to try with diet and exercise on her own first. Has lost 11 pounds since starting Metformin Check A1c in 3 months Recheck CMP in one month * Jacy Rivera NP - 04/22/2024 3:43 PM ESTAssociated Problem(s): Primary hypertension (CMS/HCC) Is currently taking Losartan. BP is at goal today in office. Denies orthostatic changes, dizziness, cough, shortness of breath, swelling in extremities. Continue current regimen. Given BP log, advised pt to record BP and bring log back with them to next visit. * Jacy Rivera NP - 04/22/2024 3:30 PM EST Images from the original note were not included. Subjective Patient ID: Ainsley Persaud is a 38 y.o. female who presents [...] change, appetite change, chills, fatigue, fever, night sweatsand unexpected weight change. HENT: Negative for congestion, [...] Negative for dizziness, tremors, syncope, weakness, light- headedness, numbness and headaches. Psychiatric/Behavioral: Negative for sleep [...] them to next visit. documented in this encounterFulton [facility]- [id number] Procedure [facility]09-30-2024 Evaluation note* Diagnosis Onset Date Resolution Status Admit Date Dysphagia acute January 3:40pm [facility] Work Phone: [phone]) 495-434209-17-2024 History of Present illness Narrative* Jacy Rivera [...] Lipid panel in 6 months * Jacy Rivera NP - 01/23/2024 4:37 PM EDTAssociated Problem(s): Prediabetes A1C 6.0% Initiated metformin 500mg BID Pt had taken previously in the past as prescribed by [employer]. States she tolerated well and lost 50 pounds while taking, agreeable to initiation today. Check A1c in 3 months Recheck CMP in one month * Jacy Rivera NP - 01/23/2024 4:01 PM EDTAssociated Problem(s): GERD (gastroesophageal reflux disease) Continue taking Tagamet as prescribed. Referral sent to Dr. West- KRISTEN sees GI on 02/05/24 Difficulty swallowing meats/proteins Changes in Bowel habits. * Jacy Rivera NP - 01/23/2024 3:30 PM EDT Images from the original note were not included. Subjective Patient ID: Ainsley Persaud is a 38 y.o. female who presents [...] prescribed. Referral sent to Dr. West- GI sees GI on 02/05/24 Difficulty swallowing meats/proteins Changes in Bowel habits. Prediabetes - Primary A1C 6.0% Initiated metformin 500mg BID Pt had taken previously in the past as prescribed by [employer]. States she tolerated well and lost 50 [...] CMP in 4 weeks. documented in this [facility]09-17-2024 Instructions* Patient Instructions* Jacy Rivera NP - [...] if you need anything! documented in this [facility]08-21-2024 History of Present illness Narrative* Jacy Rivera [...] (BMI) of 50.0 to 59.9 in adult (CMS/[facility]) Discussed with patient their BMI (actual, verses [...] in adult Wellness labs ordered * Jacy Rivera NP - 12/27/2023 4:30 PM EDT Images from the original note were not included. Subjective Patient ID: Ainsley Persaud is a 38 y.o. female who presents [...] (BMI) of 50.0 to 59.9 in adult ([facility]) Discussed with patient their BMI (actual, verses [...] options for weight loss. documented in this encounterFulton Medical Center- [id number] Instructions* Patient Instructions* Jacy Rivera NP - 12/27/2023 4:30 PM EDT FASTING labs [...] day. Consider tracking your food intake on MyFtinessPal or LoseIt Water: Increase water intake; GOAL [...] servings from each food group for a 2,534-[id number]-day DASH diet: Grains: 6 to 8 servings [...] Read food labels and choose low-salt or [id number] options. Use salt-free spices or flavorings instead [...] you need anything call! documented in this encounterFulton Medical Center- [id number] Evaluation note* Encounter Date Diagnosis Assessment Notes [...] Patient care instructions given in writting by [facility] Care At Home document. [employer] Other Evaluation noteNo assessment information available [facility] Work Phone: Evaluation note* Diagnosis Onset Date Resolution Status Dysphagia acute [facility] Work Phone: evaluation note* Diagnosis Prediabetes- Primary Other abnormal glucose Mixed hyperlipidemia (CMS/HCC) Mixed hyperlipidemia Primary hypertension (CMS/HCC) Unspecified essential hypertension Gastroesophageal reflux disease, unspecified whether esophagitis present documented in this encounter [facility] HealthcareEvaluation note* Diagnosis Encounter for wellness [...] disease, unspecified whether esophagitis present Mixed hyperlipidemia (CMS/HCC) Mixed hyperlipidemia documented in this encounter [facility] HealthcareEvaluation note* Diagnosis Encounter for wellness [...] disease, unspecified whether esophagitis present Primary hypertension (CMS/HCC)- Primary Unspecified essential hypertension Prediabetes Other abnormal glucose Hypercholesteremia (CMS/HCC) Pure hypercholesterolemia documented in this encounter [facility] HealthcareEvaluation note* Diagnosis Encounter for wellness examination in adult- Primary Class 3 severe obesity due to excess calories without serious comorbidity with body mass index (BMI) of 50.0 to 59.9 in adult ([facility]/HCC) Gastroesophageal reflux disease, unspecified whether esophagitis present Fatigue, unspecified type Snoring Other dyspnea and respiratory abnormality documented in this encounter [facility] HealthcareEvaluation note* Diagnosis Hypertriglyceridemia (CMS/HCC)- Primary Pure hyperglyceridemia documented in this encounter [facility] HealthcareEvaluation note* Diagnosis Hypercholesteremia ([facility])- Primary Pure hypercholesterolemia documented in this encounter [facility] HealthcareEvaluation note* Diagnosis Encounter for wellness examination in adult- Primary Class 3 severe obesity due to excess calories without serious comorbidity with body mass index (BMI) of 50.0 to 59.9 in adult ([facility]) Gastroesophageal reflux disease, unspecified whether esophagitis present Fatigue, unspecified type Snoring Other dyspnea and respiratory abnormality Prediabetes- Primary Other abnormal glucose Mixed hyperlipidemia (CMS/HCC) Mixed hyperlipidemia Primary hypertension ([facility]) Unspecified essential hypertension Gastroesophageal reflux disease, unspecified whether esophagitis present Primary hypertension ([facility])- Primary Unspecified essential hypertension Prediabetes Other abnormal glucose Hypercholesteremia ([facility]) Pure hypercholesterolemia Primary hypertension ([facility])- Primary Unspecified essential hypertension Body mass index (BMI) 45.0-49.9, adult ([facility]) Gastroesophageal reflux disease, unspecified whether esophagitis present Morbid obesity due to excess calories ([facility]) Mixed hyperlipidemia ([facility]) Mixed hyperlipidemia Prediabetes Other abnormal glucose Eosinophilic esophagitis ELISA (obstructive sleep apnea) Obstructive sleep apnea (adult) (pediatric) ISABEL (generalized anxiety disorder) ([facility]) Generalized anxiety disorder documented in this encounter [facility]* Diagnosis Encounter for wellness examination in adult- Primary Class 3 severe obesity due to excess calories without serious comorbidity with body mass index (BMI) of 50.0 to 59.9 in adult Gastroesophageal reflux disease, unspecified whether esophagitis present Fatigue, unspecified type Snoring Other dyspnea and respiratory abnormality Prediabetes- Primary Other abnormal glucose Mixed hyperlipidemia ([facility]) Mixed hyperlipidemia Primary hypertension ([facility]) Unspecified essential hypertension Gastroesophageal reflux disease, unspecified whether esophagitis present Primary hypertension ([facility])- Primary Unspecified essential hypertension Prediabetes Other abnormal glucose Hypercholesteremia ([facility]) Pure hypercholesterolemia Primary hypertension ([facility])- Primary Unspecified essential hypertension Body mass index (BMI) 45.0-49.9, adult ([facility]) Gastroesophageal reflux disease, unspecified whether esophagitis present Morbid obesity due to excess calories ([facility]) Mixed hyperlipidemia ([facility]) Mixed hyperlipidemia Prediabetes Other abnormal glucose Eosinophilic esophagitis ELISA (obstructive sleep apnea) Obstructive sleep apnea (adult) (pediatric) ISABEL (generalized anxiety disorder) ([facility]) Generalized anxiety disorder Primary hypertension ([facility])- Primary Unspecified essential hypertension Morbid obesity due to excess calories ([facility]) ISABEL (generalized anxiety disorder) ([facility]) Generalized anxiety disorder documented in [facility] encounter [facility]* Diagnosis Encounter for wellness examination in adult- Primary Class 3 severe obesity due to excess calories without serious comorbidity with body mass index (BMI) of 50.0 to 59.9 in adult ([facility]) Gastroesophageal reflux disease, unspecified whether esophagitis present Fatigue, unspecified type Snoring Other dyspnea and respiratory abnormality Prediabetes- Primary Other abnormal glucose Mixed hyperlipidemia Mixed hyperlipidemia Primary hypertension Unspecified essential hypertension Gastroesophageal reflux disease, unspecified whether esophagitis present Primary hypertension- Primary Unspecified essential hypertension Prediabetes Other abnormal glucose Hypercholesteremia Pure hypercholesterolemia Primary hypertension- Primary Unspecified essential hypertension Body mass index (BMI) 45.0-49.9, adult ([facility]) Gastroesophageal reflux disease, unspecified whether esophagitis present Morbid obesity due to excess calories ([facility]) Mixed hyperlipidemia Mixed hyperlipidemia Prediabetes Other abnormal glucose Eosinophilic esophagitis ELISA (obstructive sleep apnea) Obstructive sleep apnea (adult) (pediatric) ISABEL (generalized anxiety disorder) Generalized anxiety disorder Primary hypertension- Primary Unspecified essential hypertension Morbid obesity due to excess calories ([facility]) ISABEL (generalized anxiety disorder) Generalized anxiety disorder ISABEL (generalized anxiety disorder)- Primary Generalized anxiety disorder Primary hypertension Unspecified essential hypertension Morbid obesity due to excess calories ([facility]) Prediabetes Other abnormal glucose documented in this encounter [facility] HealthcareEvaluation note* Diagnosis Encounter for wellness examination in adult- Primary Class 3 severe obesity due to excess calories without serious comorbidity with body mass index (BMI) of 50.0 to 59.9 in adult ([facility]) Gastroesophageal reflux disease, unspecified whether esophagitis present Fatigue, unspecified type Snoring Other dyspnea and respiratory abnormality Prediabetes- Primary Other abnormal glucose Mixed hyperlipidemia Mixed hyperlipidemia Primary hypertension Unspecified essential hypertension Gastroesophageal reflux disease, unspecified whether esophagitis present Primary hypertension- Primary Unspecified essential hypertension Prediabetes Other abnormal glucose Hypercholesteremia Pure hypercholesterolemia Primary hypertension- Primary Unspecified essential hypertension Body mass index (BMI) 45.0-49.9, adult ([facility]) Gastroesophageal reflux disease, unspecified whether esophagitis present Morbid obesity due to excess calories ([facility]) Mixed hyperlipidemia Mixed hyperlipidemia Prediabetes Other abnormal glucose Eosinophilic esophagitis ELISA (obstructive sleep apnea) Obstructive sleep apnea (adult) (pediatric) ISABEL (generalized anxiety disorder) Generalized anxiety disorder Primary hypertension- Primary Unspecified essential hypertension Morbid obesity due to excess calories ([facility]) ISABEL (generalized anxiety disorder) Generalized anxiety disorder ISABEL (generalized anxiety disorder)- Primary Generalized anxiety disorder Primary hypertension Unspecified essential hypertension Morbid obesity due to excess calories ([facility]) Prediabetes Other abnormal glucose Primary hypertension- Primary Unspecified essential hypertension Morbid obesity due to excess calories ([facility]) ISABEL (generalized anxiety disorder) Generalized anxiety disorder documented in this encounter [facility] Diagnosis Encounter for wellness examination in adult- Primary Class 3 severe obesity due to excess calories without serious comorbidity with body mass index (BMI) of 50.0 to 59.9 in adult ([facility]) Gastroesophageal reflux disease, unspecified whether esophagitis present Fatigue, unspecified type Snoring Other dyspnea and respiratory abnormality Prediabetes- Primary Other abnormal glucose Mixed hyperlipidemia Mixed hyperlipidemia Primary hypertension Unspecified essential hypertension Gastroesophageal reflux disease, unspecified whether esophagitis present Primary hypertension- Primary Unspecified essential hypertension Prediabetes Other abnormal glucose Hypercholesteremia Pure hypercholesterolemia Primary hypertension- Primary Unspecified essential hypertension Body mass index (BMI) 45.0-49.9, adult ([facility]) Gastroesophageal reflux disease, unspecified whether esophagitis present Morbid obesity due to excess calories ([facility]) Mixed hyperlipidemia Mixed hyperlipidemia Prediabetes Other abnormal glucose Eosinophilic esophagitis ELISA (obstructive sleep apnea) Obstructive sleep apnea (adult) (pediatric) ISABEL (generalized anxiety disorder) Generalized anxiety disorder Primary hypertension- Primary Unspecified essential hypertension Morbid obesity due to excess calories ([facility]) ISABEL (generalized anxiety disorder) Generalized anxiety disorder ISABEL (generalized anxiety disorder)- Primary Generalized anxiety disorder Primary hypertension Unspecified essential hypertension Morbid obesity due to excess calories ([facility]) Prediabetes Other abnormal glucose Primary hypertension- Primary Unspecified essential hypertension Morbid obesity due to excess calories ([facility]) ISABEL (generalized anxiety disorder) Generalized anxiety disorder ISABEL (generalized anxiety disorder)- Primary Generalized anxiety disorder Morbid obesity due to excess calories ([facility]) Mixed hyperlipidemia Mixed hyperlipidemia Encounter for wellness examination in adult Primary hypertension Unspecified essential hypertension documented in this encounter [facility] Author Laura Fortune [facility] February 20, 2024 8:21am Note Date/Time February 20, 2024 8 :22am [facility] [address] [place] [address] Gastroenterology H&P Signed Patient: Ainsley Persaud MR#: [id number] : 1985 Acct:[id number] Age/Sex: 38 / F Adm Date: 4 Loc: Room: Type: [facility] Attending Dr: Laura Fortune MD [...] <Electronically signed by Laura Fortune MD> 02/20/24820 [facility] Work Phone: History general Narrative - Reported* Type Description Date Medical History acid reflux Surgical History x2 Surgical History cholecystectomy Surgical History EGD Surgical History hysterectomy Hospitalization History No know Hospitalization history T[employer]buds Other Reason for referral (narrative)* Consultation (Routine) - Pending Review Specialty Diagnoses / Procedures Referred By Tl t Referred To Contact Gastroenterology Diagnoses Gastroesophageal reflux disease, unspecified whether esophagitis present Procedures [place] OFFICE/OUTPATIENT NEW HIGH [facility] 60 MINUTES Jacy Rivera NP [address] [facility] [place] [address] Jose West MD [address] [address] Referral ID Status Reason Start Date Expiration Date Visits Requested Visits Authorized [id number] Pending Review Specialty Services Required 12/27/2023 06/24/2024 1 1 Scheduling Instructions Please include OV note 12/27/23 * Consultation (Routine) - Pending Review Specialty Diagnoses / Procedures Referred By Conttomasz t Referred To Contact Sleep Medicine Diagnoses Fatigue, unspecified type Snoring Procedures [place] OFFICE/OUTPATIENT NEW HIGH [facility] 60 MINUTES Jacy Rivera NP [address] [place] [address] Malu Guardado MD [facility] [place] [address] Referral ID Status Reason Start Date Expiration Date Visits Requested Visits Authorized [id number] Pending Review Specialty Services Required 12/27/2023 06/24/2024 1 1 Scheduling Instructions Please include OV note form today 12/26 YUMIKO LangfordReyuni for referral (narrative)No reason for referral information [facility] Work Phone: Summary Purpose Family History No Family History [...] Dysphagia February 05, 2024 3:40pm Reason for Visit Admit Date Hypersomnia December 11, 2024 3:4 0pm Hypoxia December 11, 2024 3:4 0pm Obesity December 11, 2024 3:4 0pm ELISA (obstructive sleep apnea) December 3:40pm Sleep deprivation December 11, 2024 3:4 0pm Snoring December 11, 2024 3:4 0pm Reason for Referral Specialty Diagnoses / Procedures Referred By Conttomasz t Referred To Contact Diagnoses Hypertriglyceridemia ([facility]) Jacy Rivera NP [address] [place] [address] Referral ID Status Reason Start Date Expiration Date Visits Re quested Visits Authorized [id number] Closed 1 1 Additional Source Comments INFORMATION SOURCE (unrecogn ized section and content) DATE CREATED AUTHOR 09/01/2020 [facility] DATE CREATED AUTHOR AUTHOR'S ORGANIZ ATION 01/25/2024 [facility] DATE CREATED AUTHOR AUTHOR'S ORGANIZ ATION 03/02/2024 [facility] DATE CREATED AUTHOR AUTHOR'S ORGANIZ ATION 12/25/2024 [facility] EPIC REASON FOR VISIT (unrecogniz ed section and content) Reason Comments Follow-up Reason Comments Med Refill Reason Comments Establish Care Leg Swelling BRIT X 2MONTHS Reason Comments Hypertension Reason Comments ISABEL Care Teams (unrecognized sec tion and content) [...] NP-C Primary Care Provider Active Start: February Pipe Liner Relationship Specialty Start Date End Date Oh Vasquez MD [address] [place] [address] PCP - General Family Medicine 12/18/23 Jacy Rivera NP [address] [place] [address] Nurse Practitioner Family Medicine 12/18/23 Team Status: Inactive Member Role Status Dates Jacy Rivera NP-C Primary Care Provider Ac tive Start: March 19, 2024 End: March 19, 2024 Lalita Schroeder APRN Attending Provider Active Start: March 19, 2024 End: March 19, 2024 Pipe Liner Relationship Specialty Start Date End Date Oh Vasquez MD [address] [place] [address] PCP - General Family Medicine 12/18/23 Jacy Rivera NP [address] [place] [address] [facility] Jacy Rivera NP [address] [place] [address] Nurse Practitioner Family Medicine 12/18/23 Pipe Liner Relationship Specialty Start Date End Date Oh Vasquez MD [address] [place] [address] PCP - General Family Medicine 12/18/23 Jacy Rivera NP [address] [place] [address] Nurse Practitioner Family [facility] 12/18/23 Pipe Liner Relationship Specialty Start Date End Date Oh Vasquez MD [address] [place] [address] PCP - General [facility] Medicine 12/18/23 Jacy Rivera NP [address] [place] [address] Nurse Practitioner Family Medicine 12/18/23 Pipe Liner Relationship Specialty Start Date End Date Oh Vasquez MD [address] [place] [address] PCP - General Family Medicine 12/18/23 Jacy Rivera NP [address] [place] [address] PCP - [facility] 02/06/24 Jacy Rivera NP [address] [place] [address] Nurse Practitioner Family Medicine 12/18/23 Pipe Liner Relationship Specialty Start Date End Date Oh Vasquez MD [address] [place] [address] PCP - General Family Medicine 12/18/23 Jacy Rivera NP [address] [place] [address] PCP - [facility] 02/06/24 Jacy Rivera NP [address] [place] [address] Nurse Practitioner Family Medicine 12/18/23 Pipe Liner Relationship Specialty Start Date End Date Oh Vasquez MD [address] [place] [address] PCP - General Family Medicine 12/18/23 Jacy Rivera NP [address] [place] [address] Nurse Practitioner Family Medicine 12/18/23 Pipe Liner Relationship Specialty Start Date End Date Oh Vasquez MD [address] [place] [address] PCP - General Family Medicine 12/18/23 Jacy Rivera NP [address] [place] [address] Nurse Practitioner Family Medicine 12/18/23 Pipe Liner Relationship Specialty Start Date End Date Oh Vasquez MD [address] [place] [address] PCP - General Family Medicine 12/18/23 Jacy Rivera NP [address] [place] [address] Nurse Practitioner Family Medicine 12/18/23 Pipe Liner Relationship Specialty Start Date End Date Oh Vasquez MD [address] [place] [address] PCP - General Family Medicine 12/18/23 Jacy Rivera NP [address] [place] [address] Nurse Practitioner Family Medicine 12/18/23 Pipe Liner Relationship Specialty Start Date End Date Oh Vasquez MD [address] [place] [address] PCP - General Family Medicine 12/18/23 Jacy Rivera NP [address] [place] [address] Nurse Practitioner Family Medicine 12/18/23 Pipe Liner Relationship Specialty Start Date End Date Oh Vasquez MD [address] [place] [address] PCP - General Family Medicine 12/18/23 Jacy Rivera NP PCP - [facility] 02/06/24 Jacy Rivera NP [address] [place] [address] Nurse Practitioner Family Medicine 12/18/23 Pipe Liner Relationship Specialty Start Date End Date Oh Vasquez MD [address] [place] [address] PCP - General Family Medicine 12/18/23 Jacy Rivera NP PCP - [facility] 02/06/24 Jacy Rivera NP [address] [place] [address] Nurse Practitioner Family Medicine 12/18/23 Pipe Liner Relationship Specialty Start Date End Date Oh Vasquez MD [address] [place] [address] PCP - General Family Medicine 12/18/23 Jacy Rivera NP PCP - [facility] 02/06/24 Jacy Rivera NP [address] [place] [address] Nurse Practitioner Family Medicine 12/18/23 Pipe Liner Relationship Specialty Start Date End Date Oh Vasquez MD [address] [place] [address] PCP - General Family Medicine 12/18/23 Jacy Rivera NP PCP - [facility] 02/06/24 Jacy Rivera NP [address] [place] [address] Nurse Practitioner Family Medicine 12/18/23 Pipe Liner Relationship Specialty Start Date End Date Oh Vasquez MD [address] [place] [address] PCP - General Family Medicine 12/18/23 Jacy Rivera NP [address] [place] [address] Nurse Practitioner Family Medicine 12/18/23 Pipe Liner Relationship Specialty Start Date End Date Oh Vasquez MD [address] [place] [address] PCP - General Family Medicine 12/18/23 Jacy Rivera NP [address] [place] [address] Nurse Practitioner Family Medicine 12/18/23 Pipe Liner Relationship Specialty Start Date End Date Oh Vasquez MD [address] [place] [address] PCP - General Family Medicine 12/18/23 Jacy Rivera NP [address] [place] [address] Nurse Practitioner Family Medicine 12/18/23 Pipe Liner Relationship Specialty Start Date End Date Oh Vasquez MD [address] [place] [address] PCP - General Family Medicine 12/18/23 Jacy Rivera NP [address] [place] [address] Nurse Practitioner Family Medicine 12/18/23 Team Status: Inactive Member Role Status Dates Jacy Rivera NP-C Primary Care Provider Ac tive Start: December 11, 2024 End: December 11, 2024 Lucila Brock DO Attending Provider Active Sta rt: December 11, 2024 End: December 11, 2024 Pipe Liner Relationship Specialty Start Date End Date Oh Vasquez MD [address] [place] [address] PCP - General Family Medicine 12/18/23 Jacy Rivera NP [address] [place] [address] Nurse Practitioner [facility] 12/18/23 Pipe Liner Relationship Specialty Start Date End Date Oh Vasquez MD [address] [place] [address] PCP - General Family Medicine 12/18/23 Jacy Rivera NP [address] [place] [address] Nurse Practitioner Family [facility] 12/18/23 Goals (unrecognized section and content) Goals [...] BE BASED ON THE PRIMARY CLINICAL RECORDS. [employer] provides no warranty or guarantee of the accuracy or completeness of information in this document.
--- OUTSIDE RECORDS SUMMARY | 2025-01-11 06:42 | XMS_ITS | Encounter Summary ---
Author Organization [facility] Address [address] [place] [address] Care Team Providers Care Animal Skinner Name Role Phone Oh Vasquez MD Primary Care Provider [phone] Jacy Rivera CHUCKING MACHINE SET UP OPERATOR Unavailable [phone] Jacy Rivera CHUCKING MACHINE SET UP OPERATOR Unavailable Encounter Details Date Type Department Care Team (Late st Contact Info) Description 01/10/2024 Orders Only [facility] [place] [facility] [address] [facility] [place] [phone] Jacy Rivera NP Social History Tobacco Use Types Packs/Day Years Used Date Smoking Tobacco: Never Passive Smoke Exposure: Current Smokeless Tobacco: Never Alcohol Use Standard Drinks/Week Comments Never 0 (1 standard drink = 0.6 oz pur e alcohol) PHQ-2 Answer Date Recorded Patient Health Questionnaire-2 Score 2 12/27/2023 Comments Unknown Sex and Gender Information Value Date Recorded Sex Assigned at Not on file Legal Sex Female 7:12 PM EDT Gender Identity Not on file Sexual Orientation Not on file documented as of this encounter Plan of Treatment Not on file documented as of this encounter Visit Diagnoses Not on filedocumented in this encounter Care Teams Animal Skinner Relationship Specialty Start Date End Date Oh Vasquez MD PCP - General Family Medicine 12/18/23 Jacy Rivera NP PCP - [facility] 02/06/24 Jacy Rivera NP Nurse Practitioner Family Medicine 12/18/23 documented as of this encounter
--- OUTSIDE RECORDS SUMMARY | 2025-01-11 06:42 | XMS_ITS | Encounter Summary ---
Author Organization [facility] Address [address] [place] [address] Care Team Providers Care Department Coordinator Name Role Phone Oh Vasquez MD Primary Care Provider Jacy Rivera BREWERY REPRESENTATIVE Unavailable [phone] Encounter Details Date Type Department Care Team (Late st Contact Info) Description 12/11/2024 Abstract [facility] [place] [facility] [address] [place] [address] Opal Verdugo NP [address] [place] [address] Social History Tobacco Use Types Packs/Day Years Used Date Smoking Tobacco: Never Passive Smoke Exposure: Never Smokeless Tobacco: Never Alcohol Use Standard Drinks/Week Comments Never 0 (1 standard drink = 0.6 oz pur e alcohol) B1300 Health Literacy Answer Date Recor ded How often do you need to hav e someone help you when you read instructions, pamphlets, or other written material from your doctor or pharmacy? Never 07/29/2024 Social Connection and Isolat ion Panel [NHANES] Answer Date Recorded In a typical week, how many times do you talk on the phone with family, friends, or neighbors? More than three times a week 07/29/2024 How often do you get togethe r with friends or relatives? More than three times a week 07/29/2024 How often do you attend chur ch or sikh services? Never 07/29/2024 Do you belong to any clubs o r organizations such as bahai groups, unions, fraternal or athletic groups, or school groups? No 07/29/2024 How often do you attend meet ings of the clubs or organizations you belong to? Never 07/29/2024 Are you , , di vorced, , never , or living with a partner? 07/29/2024 AUDIT-C Answer Date Recorded Q1: How often do you have a drink containing alcohol? Never 07/29/2024 Q2: How many drinks containi ng alcohol do you have on a typical day when you are drinking? Patient does not drink Q3: How often do you have si x or more drinks on one occasion? Never 07/29/2024 Overall Financial Resource Strain (CARDIA) Answe r Date Recorded How hard is it for you to pa y for the very basics like food, housing, medical care, and heating? Not very hard 07/29/2024 PHQ-2 Answer Date Recorded Patient Health Questionnaire-2 Score 0 01/23/2024 [facility] - Occupational Stress Questionnaire Answer Date Recorded Do you feel stress - tense, restless, nervous, or anxious, or unable to sleep at night because your mind is troubled all the time - these days? Very much 07/29/2024 Exercise Vital Sign Answer Date Recorde d On average, how many days pe r week do you engage in moderate to strenuous exercise (like a brisk walk)? 2 days 07/29/2024 On average, how many minutes do you engage in exercise at this level? 30 min 07/29/2024 Hunger Vital Sign Answer Date Recorded Within the past 12 months, y ou worried that your food would run out before you got the money to buy more. Sometimes true Within the past 12 months, t he food you bought just didn't last and you didn't have money to get more. Never true PRAPARE - Transportation Answer Date Re corded In the past 12 months, has l ack of transportation kept you from medical appointments or from getting medications? No 07/07 In the past 12 months, has l ack of transportation kept you from meetings, work, or from getting things needed for daily living? No 07/29/2024 Housing Stability Vital Sign Answer Eliseo e Recorded In the last 12 months, was t here a time when you were not able to pay the mortgage or rent on time? No 07/29/2024 In the past 12 months, how m any times have you moved where you were living? 0 07/29/2024 At any time in the past 12 m [facility], were you homeless or living in a penitentiary (including now)? No 07/29/2024 Comments No Sex and Gender Information Value Date Recorded Sex Assigned at Not on file Legal Sex Female 7:12 PM EDT Gender Identity Not on file Sexual Orientation Not on file documented as of this encounter Plan of Treatment Not on file documented as of this encounter Visit Diagnoses Not on filedocumented in this encounter Care Teams Department Coordinator Relationship Specialty Start Date End Date Oh Vasquez MD PCP - General Family Medicine 12/18/23 Jacy Rivera NP Nurse Practitioner Family Medicine 12/18/23 documented as of this encounter
--- OUTSIDE RECORDS SUMMARY | 2025-01-11 06:42 | XMS_ITS | Encounter Summary ---
Author Organization [facility] Address [address] [place] [address] Care Team Providers Care Goggles Assembler Name Role Phone Oh Vasquez MD Primary Care Provider Jacy Rivera AUTO WASH BUFFER Unavailable [phone] Encounter Details Date Type Department Care Team (Late st Contact Info) Description 12/11/2024 Abstract [facility] [place] [facility] [address] [place] [address] Opal Verdugo NP [address] [place] [address] Social History Tobacco Use Types Packs/Day Years [...] often do you attend chur ch or evangelical services? Never 07/29/2024 Do you belong to any clubs o r organizations such as presybeterian groups, unions, fraternal or athletic groups, or [...] Recorded Patient Health Questionnaire-2 Score 0 01/23/2024 [facility] - Occupational [...] any time in the past 12 m [facility], were you homeless or living in a fdc (including now)? No 07/29/2024 Comments No Sex and Gender Information Value Date Recorded Sex Assigned at Not on file Legal Sex Female 7:12 PM EDT Gender Identity Not on file Sexual Orientation Not on file documented as of this encounter Plan of Treatment Not on file documented as of this encounter Visit Diagnoses Not on filedocumented in this encounter Care Teams Goggles Assembler Relationship Specialty Start Date End Date Oh Vasquez MD PCP - General Family Medicine 12/18/23 Jacy Rivera NP Nurse Practitioner Family Medicine 12/18/23 documented as of this encounter
--- OUTSIDE RECORDS SUMMARY | 2025-01-11 06:42 | XMS_ITS | Clinical Summary ---
Author Organization [facility] Address [address] [place] [address] Care Team Providers Care Correctional Officer Name Role Phone Oh Vasquez MD Primary Care Provider [phone] Jacy Rivera LEADERSHIP DEVELOPMENT MANAGER Unavailable [phone] Allergies Active Allergy Reactions Criticality Noted Date Comments Other Unknown 12/27/2023 Shellfish Allergy Hives Medium 01/23/2024 Medications aspirin 81 MG EC tablet Take 81 mg by mouth Daily Active pantoprazole (ProtoNix) 40 MG EC tablet Twice daily 4 Active atorvastatin (Lipitor) 20 MG tabletIndications :Hypercholesterem ia Take 1 tablet (20 mg) by mouth Daily 30 tablet 11 4 04/22/20 25 Active metFORMIN (Glucophage) 500 MG tabletIndications :Prediabetes Take 1 tablet (500 mg) by mouth in the morning and 1 tablet (500 mg) in the evening. Take with meals. 60 tablet 11 4 04/22/20 25 Active losartan (Cozaar) 50 MG tabletIndications :Primary hypertension Take 1 tablet (50 mg) by mouth Daily 90 tablet 1 5 01/29/20 25 Active FLUoxetine (PROzac) 20 MG capsuleIndication s:ISABEL (generalized anxiety disorder) Take 1 capsule (20 mg) by mouth Daily 90 capsule 5 03/23/20 25 Active phentermine (Adipex-P) 37.5 MG tabletIndications :Morbid obesity due to excess calories (CMS-HCC) Take 1 tablet (37.5 mg) by mouth in the morning. Take before meals. 30 tablet 5 01/23/20 25 Active FLUoxetine (PROzac) 10 MG capsuleIndication s:ISABEL (generalized anxiety disorder) Take 1 capsule (10 mg) by mouth Daily 90 capsule 1 5 12/24/19 25 Discontinu ed(Reorder ) phentermine (Adipex-P) 37.5 MG tabletIndications :Morbid obesity due to excess calories (CMS-HCC) Take 1 tablet (37.5 mg) by mouth in the morning. Take before meals. 30 tablet 5 12/24/19 25 Discontinu ed(Reorder ) Active Problems Problem Noted Date Diagnosed Date Morbid obesity due to excess calories 07/29/2024 Assessment & Plan (12/23/2024 7:39 PM EDT): Discussed with patient their BMI (actual, verses [...] Will have her cut adipex in half Assessment & Plan (11/27/2024 5:11 PM EDT): Discussed with patient their BMI (actual, verses [...] Adipex month's completed: 1 Todays weight 274 Assessment & Plan (10/30/2024 4:11 PM EDT): Discussed with patient their BMI (actual, verses [...] to 1600 calories daily if no contraindications Assessment & Plan (08/29/2024 7:39 AM EDT): Discussed with patient their BMI (actual, verses recommended). We have also discussed lifestyle modifications: attempts to perform physical activity as chronic conditions allow, also to monitor dietary intake: increasing protein/fruits/veggies and lowering carb intake (unless contraindicated). Limit sodas, juices, and sugary drinks. Assessment & Plan (07/29/2024 7:15 AM EDT): Discussed with patient their BMI (actual, verses recommended). We have also discussed lifestyle modifications: attempts to perform physical activity as chronic conditions allow, also to monitor dietary intake: increasing protein/fruits/veggies and lowering carb intake (unless contraindicated). Limit sodas, juices, and sugary drinks. Eosinophilic esophagitis 07/29/2024 Assessment & Plan (07/29/2024 2:46 PM EDT): Working w GI to get on dupixant ELISA (obstructive sleep apnea) 07/29/2024 Assessment & Plan (11/27/2024 6:09 AM EDT): Did not have second sleep study completed AHI 21, O2 sat 80% Assessment & Plan (10/30/2024 7:16 AM EDT): Did not have second sleep study completed AHI 21, O2 sat 80% Assessment & Plan (08/29/2024 7:39 AM EDT): Did not have second sleep study completed AHI 21, O2 sat 80% Assessment & Plan (07/29/2024 2:55 PM EDT): Did not have second sleep study completed AHI 21, O2 sat 80% Will reach out to [facility] sleep lab ISABEL (generalized anxiety disorder) 07/29/2024 Assessment & Plan (12/23/2024 7:40 PM EDT): Current med: fluoxetine Would like to increase [...] Please contact the office if these occur. Assessment & Plan (11/27/2024 5:11 PM EDT): Current med: fluoxetine Assessment & Plan (10/30/2024 7:17 AM EDT): Current med: fluoxetine Assessment & Plan (08/29/2024 4:35 PM EDT): Last appt started fluoxetine, is very happy with the results Sleeping better less anxious No dose change Fu in 8 weeks Assessment & Plan (07/29/2024 2:59 PM EDT): Take medication only as directed. This medication will take approximately 4-6 weeks to become effective. If any suicidal thoughts, thoughts of hurting others, or hallucinations contact the office or proceed to the Emergency Room for mental health evaluation. Medication may cause dry mouth, dizziness, and in some cases worsening in depression symptoms. Please contact the office if these occur. Fu 4 weeks Prediabetes 01/23/2024 Assessment & Plan (10/30/2024 7:17 AM EDT): Check blood sugars daily, notify if <70 or >200. Check it like 3 times week. Take medications (pills or insulin) as directed. Monitor for s/s [...] asa, statin, arb, metformin A1c 6.1% 07/29/24 Assessment & Plan (07/29/2024 2:47 PM EDT): Check blood sugars daily, notify if <70 or >200. Check it like 3 times week. Take medications (pills or insulin) as directed. Monitor for s/s [...] asa, statin, arb, metformin A1c 6.1% 07/29/24 Assessment & Plan (04/22/2024 3:46 PM EST): A1C 6.6% Metformin 500mg Bid Pt declines taking injectables or any GLP-1 medications. Would like to try with diet and exercise on her own first. Has lost 11 pounds since starting Metformin Check A1c in 3 months Recheck CMP in one month Assessment & Plan (01/23/2024 4:38 PM EDT): A1C 6.0% Initiated metformin 500mg BID Pt had taken previously in the past as prescribed by [facility] [facility]. States she tolerated well and lost 50 pounds while taking, agreeable to initiation today. Check A1c in 3 months Recheck CMP in one month Hyperlipidemia 01/23/2024 Assessment & Plan (07/29/2024 7:16 AM EDT): On statin therapy Check labs yearly and prn dose changes Assessment & Plan (01/23/2024 4:37 PM EDT): Initiated Atorvastatin 20mg 2 weeks ago Denies any myalgias. Continue current regimen. Will recheck Lipid panel in 6 months Primary hypertension 01/23/2024 Assessment & Plan (12/23/2024 7:39 PM EDT): Please check blood pressure daily and record DASH diet Limit caffeine Take medication as directed Contact office if chest pain, pressure, dizziness, shortness of breath, swelling legs Recommend slow position changes Current meds: losartan No dose changes Check BP daily, if home reads consistently >140/90;s call office Assessment & Plan (11/27/2024 6:09 AM EDT): Please check blood pressure daily and record DASH diet Limit caffeine Take medication as directed Contact office if chest pain, pressure, dizziness, shortness of breath, swelling legs Recommend slow position changes Current meds: losartan Assessment & Plan (10/30/2024 7:16 AM EDT): Please check blood pressure daily and record DASH diet Limit caffeine Take medication as directed Contact office if chest pain, pressure, dizziness, shortness of breath, swelling legs Recommend slow position changes Current meds: losartan Assessment & Plan (08/29/2024 7:39 AM EDT): Please check blood pressure daily and record DASH diet Limit caffeine Take medication as directed Contact office if chest pain, pressure, dizziness, shortness of breath, swelling legs Recommend slow position changes Current meds: losartan Assessment & Plan (07/29/2024 7:14 AM EDT): Please check blood pressure daily and record DASH diet Limit caffeine Take medication as directed Contact office if chest pain, pressure, dizziness, shortness of breath, swelling legs Recommend slow position changes Current meds: losartan Assessment & Plan (04/22/2024 3:46 PM EST): Is currently taking Losartan. BP is at goal today in office. Denies orthostatic changes, dizziness, cough, shortness of breath, swelling in extremities. Continue current regimen. Given BP log, advised pt to record BP and bring log back with them to next visit. Assessment & Plan (01/23/2024 4:37 PM EDT): Elevated BP readings on multiple occasions. Pt is doing sleep study on 02/06/2024; Weight loss and CPAP regimen may significantly aid in BP reduction. However, in the meantime will initiate Losartan 25mg Once daily. Recheck CMP in 4 weeks. Encounter for wellness examination in adult 12/07 Assessment & Plan (12/23/2024 7:37 AM EDT): Check labs Assessment & Plan (12/27/2023 5:12 PM EDT): Wellness labs ordered Fatigue 12/27/2023 Assessment & Plan (12/27/2023 5:16 PM EDT): Sleep study ordered. TSH ordered. Anemia panel ordered. Difficulty swallowing solids 12/27/2023 Overview (12/27/2023): Proteins such as meats Snoring 12/27/2023 Assessment & Plan (12/27/2023 5:15 PM EDT): Sleep study ordered. GERD (gastroesophageal reflux disease) 4 Assessment & Plan (07/29/2024 2:45 PM EDT): Recommendations: freq small meals, nothing to eat or drink at least 2 hours prior to bed, limit caffeine, alcohol, as well as spicy foods Meds to limit or avoid if possible: NSAIDS Elevate HOB if possible Current meds: pantoprazole Had scope, has EOE, GI is working to get pt on dupixent Assessment & Plan (01/23/2024 4:01 PM EDT): Continue taking Tagamet as prescribed. Referral sent to Dr. Sammi PETERSON sees GI on 02/05/24 Difficulty swallowing meats/proteins Changes in Bowel habits. Assessment & Plan (12/27/2023 5:15 PM EDT): Continue taking Tagamet as prescribed. Referral sent to Dr. Sammi PETERSON Difficulty swallowing meats/proteins Changes in Bowel habits. Resolved Problems Problem Noted Date Diagnosed Date Resolved Date Morbid (severe) obesity due to excess calories 07/29/2024 07/29/2024 Body mass index (BMI) 45.0-49.9, adult 07/29/2024 07/29/2024 Class 3 severe obesity with body mass index (BMI) of 50.0 to 59.9 in adult 12/27/2023 Assessment & Plan (12/27/2023 5:12 PM EDT): Discussed with patient their BMI (actual, verses recommended). We have also discussed lifestyle modifications: attempts to perform physical activity as chronic conditions allow, also to monitor dietary intake: increasing protein/fruits/veggies and lowering carb intake (unless contraindicated). Limit sodas, juices, and sugary drinks. Also discussed oral medications that can be utilized for weight loss, as well as surgical options for weight loss. Encounters Date Type Department Care Team Description 12/23/2024 7:00 PM EDT Office Visit [facility] [address] [place] [address] Opal Verdugo NP ISABEL (generalized anxiety disorder) (Primary Dx); Morbid obesity due to excess calories ([facility]); Mixed hyperlipidemia ; Encounter for wellness examination in adult; Primary hypertension 12/23/2024 Bamboo flowsheet [facility] [address] [place] [address] Opal Verdugo NP 12/23/2024 Travel 12/11/2024 Abstract [facility] [address] [place] [address] Opal Verdugo NP 12/11/2024 Abstract [facility] [address] [place] [address] Opal Verdugo NP 11/27/2024 4:30 PM EDT Office Visit [facility] [address] [place] [address] Opal Verdugo NP Primary hypertension (Primary Dx); Morbid obesity due to excess calories (CMS-HCC); ISABEL (generalized anxiety disorder) 11/27/2024 Bamboo flowsheet [facility] [address] [place] [address] Opal Verdugo NP 10/30/2024 3:20 PM EDT Office Visit [facility] [address] [place] [address] Opal Verdugo NP ISABEL (generalized anxiety disorder) (Primary Dx); Primary hypertension ; Morbid obesity due to excess calories ([facility]-H[facility]); Prediabetes 10/30/2024 Bamboo flowsheet [facility] [address] [place] [address] Opal Verdugo NP 10/30/2024 Travel from Last 3 Months Immunizations Immunization Administration Dates Next Due Pfizer Purple Cap SARS-CoV-2 Vaccination 021,08/12/2020 Family History Medical History Relation Name Comments HTN Father Fibromyalgia Mother Heart defect Mother Osteoporosis Mother Diabetes Paternal Grandmother HTN Paternal Grandmother Kidney cancer Paternal Grandmother Relation Name Status Comments Father Alive Mother Alive Paternal Grandmother Alive Social History Tobacco Use Types Packs/Day Years Used Date Smoking Tobacco: Never Passive Smoke Exposure: Never Smokeless Tobacco: Never Tobacco Cessation:Counseling Given: Not Answered Alcohol Use Standard Drinks/Week Comments Never 0 [...] often do you attend chur ch or islam services? Never 07/29/2024 Do you belong to any clubs o r organizations such as pentecostalism groups, unions, fraternal or athletic groups, or [...] Recorded Patient Health Questionnaire-2 Score 0 01/23/2024 [facility] - Occupational [...] any time in the past 12 m [facility], were you homeless or living in a usp (including now)? No 07/29/2024 Comments No Sex and Gender Information Value Date Recorded Sex Assigned at Not on file Legal Sex Female 7:12 PM EDT Gender Identity Not on file Sexual Orientation Not on file Last Filed Vital Signs Vital Sign Reading Time Taken Comments Blood Pressure 134/94 12/23/2024 7:29 PM EDT Pulse 84 12/23/2024 6:56 PM EDT Temperature 36.6 C (97.8 F) 12/23/2024 6:56 PM EDT Respiratory Rate 18 12/23/2024 6:56 PM EDT Oxygen Saturation 98% 12/23/2024 6:56 PM EDT Inhaled Oxygen Concentration - - Weight 124 kg (273 lb 6.4 oz) 12/23/2024 6:56 PM EDT Height 160 cm (5' 3 ) 04/22/2024 3:29 PM EST Body Mass Index 48.43 04/22/2024 3:29 PM EST Plan of Treatment Health Maintenance Due Date Last Done Comments Influenza Vaccine (#1) [address]25 [address] [place] [address] [employer] Care Teams Correctional Officer Relationship Specialty Start Date End Date Oh Vasquez MD PCP - General Family Medicine 12/18/23 Jacy Rivera NP Nurse Practitioner Family Medicine 12/18/23
[2025-01-11 07:10] LABS: Hematocrit 40.3 % (36.0-48.0); Hemoglobin 12.8 g/dL (12.0-16.0); Immature Granulocytes Abs Auto 0.02 10^3/uL (0.00-0.03); Immature Granulocytes Pct Auto 0.2 % (0.0-0.5); Lymphocytes Absolute Auto 3.2 10^3/uL (1.2-3.8); Mean Corpuscular HGB Conc 31.8 g/dL (29.9-35.2); Mean Corpuscular Hemoglobin 25.2 pg (26.7-34.0); Mean Corpuscular Volume 79.3 fL (81.0-99.0); Platelet Count 330 10^3/uL (150-450); Red Blood Count 5.08 10^6/uL (4.20-5.40); White Blood Count 9.6 10^3/uL (4.0-11.0)
[2025-01-11 07:12] LABS: Glucose Urine UA NEGATIVE (NEGATIVE)
[2025-01-11 07:43] LABS: Alanine Aminotransferase 16 U/L (14-59); Albumin Globulin Ratio 0.8; Albumin Level 3.4 g/dL (3.4-5.0); Alkaline Phosphatase 84 U/L (46-116); Anion Gap 13.1; Aspartate Amino Transferase 12 U/L (15-37); Blood Urea Nitrogen 10.0 mg/dL (7.0-18.0); Calcium 8.7 mg/dL (8.5-10.1); Carbon Dioxide 28.8 mmol/L (21.0-32.0); Chloride 102 mmol/L (98-107); Cholesterol 176 mg/dL (<=200); Estimated GFR (African America >60 (>=60 mL/min/1.73m^2); Estimated GFR (Non-African Ame >60 (>=60 mL/min/1.73m^2); Globulin 4.2 g/dL; Glucose 103 mg/dL (74-106); HDL Cholesterol 53 mg/dL (40-60); Potassium 3.9 mmol/L (3.5-5.1); Sodium 140 mmol/L (136-145); Thyroid Stimulating Hormone 2.362 uIU/mL (0.358-3.740); Total Protein 7.6 g/dL (6.4-8.2); Triglycerides 256 mg/dL (<=150); VLDL CHOLESTEROL 51.2 mg/dL
== END 2025-01-11 06:39 | disposition home or self-care (01) ==
PROVIDERS: PCP Nurse Practitioner; Visit Provider Nurse Practitioner
DX: Z00.00 Encounter for general adult medical examination without abnormal findings (principal); I10 Essential (primary) hypertension; E78.5 Hyperlipidemia, unspecified; R73.03 Prediabetes; F41.1 Generalized anxiety disorder; G47.33 Obstructive sleep apnea (adult) (pediatric); K21.9 Gastro-esophageal reflux disease without esophagitis
CPT/HCPCS: 36415; 80053; 80061; 81003; 84443; 85025

== ENCOUNTER 2025-05-07 10:35 | Outpatient (OUT) | payer BC, SELFPAY ==
--- OUTSIDE RECORDS SUMMARY | 2025-05-07 10:40 | XMS_ITS | Clinical Summary ---
Author Organization [facility] Address [address] [place] [address] Care Team Providers Care Sand Mixer Machine Name Role Phone Oh Vasquez MD Primary Care Provider [phone] Jacy Rivera CHIEF CLIENT OFFICER Unavailable [phone] Allergies Active AllergyReactionsCriticalityNoted VpyzUppgfnstGucooTiadynx74/21/2024 Shellfish DrbwhjkMzbsuEnbugg38/17/2024 Medications MedicationSigDispense QuantityRefillsLast FilledStart DateEnd DateStatus aspirin 81 MG EC tablet Take 81 mg by mouth DailyActive pantoprazole (ProtoNix) 40 MG EC tablet Twice daily03/08/2024ctive atorvastatin (Lipitor) 20 MG tablet Indications:HypercholesteremiaTake 1 tablet (20 mg) by mouth Daily 30 tablet 4Active metFORMIN (Glucophage) 500 MG tablet Indications:PrediabetesTake 1 tablet (500 mg) by mouth in the morning and 1 tablet (500 mg) in the evening. Take with meals. 60 tablet 4Active losartan (Cozaar) 50 MG tablet Indications:Primary hypertensionTake 1 tablet (50 mg) by mouth Daily 90 tablet 5Active FLUoxetine (PROzac) 20 MG capsule Indications:ISABEL (generalized anxiety disorder)Take 1 capsule (20 mg) by mouth Daily 90 capsule 5Active phentermine (Adipex-P) 37.5 MG tablet Indications:Morbid obesity due to excess calories ([facility]-HCC)Take 1 tablet (37.5 mg) by mouth in the morning. Take before meals. 30 tablet 5Active Active Problems ProblemNoted DateDiagnosed DateMorbid obesity due to excess vcmeaudx86/24/2025 Assessment & Plan (12/23/2024 7:39 PM EDT): [...] and sugary drinks. Pt meets qualifications of [facility] 4731-03-11 for weight loss. BMI>30 or >27 [...] Limit sodas, juices, and sugary drinks. Eosinophilic lvyfhlixzqa07/24/2025 Assessment & Plan (07/29/2024 2:46 PM EDT): Working w GI to get on dupixant ELISA (obstructive sleep apnea)07/29/2024 Assessment & Plan (11/27/2024 6:09 AM EDT): [...] O2 sat 80% Will reach out to [facility] sleep lab ISABEL (generalized anxiety disorder)07/29/2024 Assessment & Plan (12/23/2024 7:40 PM EDT): [...] office if these occur. Fu 4 weeks Ecfoxgimuwr69/17/2024 Assessment & Plan (10/30/2024 7:17 AM EDT): [...] previously in the past as prescribed by [facility] CHOREOGRAPHER. States she tolerated well and lost 50 pounds while taking, agreeable to initiation today. Check A1c in 3 months Recheck CMP in one month Qoefhputycnehx13/17/2024 Assessment & Plan (07/29/2024 7:16 AM EDT): On statin therapy Check labs yearly and prn dose changes Assessment & Plan (01/23/2024 4:37 PM EDT): Initiated Atorvastatin 20mg 2 weeks ago Denies any myalgias. Continue current regimen. Will recheck Lipid panel in 6 months Primary bjjwuprmnzfl76/17/2024 Assessment & Plan (12/23/2024 7:39 PM EDT): [...] 4 weeks. Encounter for wellness examination in adult12/27/2023 Assessment & Plan (12/23/2024 7:37 AM EDT): Check labs Assessment & Plan (12/27/2023 5:12 PM EDT): Wellness labs ordered Yzqwhnr4712/27/2023 Assessment & Plan (12/27/2023 5:16 PM EDT): Sleep study ordered. TSH ordered. Anemia panel ordered. Difficulty swallowing mmcxpa0712/27/2023 Overview (12/27/2023): Proteins such as meats Nmdwddi8712/27/2023 Assessment & Plan (12/27/2023 5:15 PM EDT): Sleep study ordered. GERD (gastroesophageal reflux disease)08/27/2013 Assessment & Plan (07/29/2024 2:45 PM EDT): [...] meats/proteins Changes in Bowel habits. Resolved Problems ProblemNoted DateDiagnosed DateResolved DateMorbid (severe) obesity due to excess pwymdfnc51ody mass index (BMI) 45.0-49.9, adult lass 3 severe obesity with body mass index (BMI) of 50.0 to 59.9 in adult/ Assessment & Plan (12/27/2023 5:12 PM EDT): [...] well as surgical options for weight loss. Immunizations ImmunizationAdministration DatesNext DuePfizer Purple Cap SARS-CoV-2 Vaccination 09/02/2020,08/12/2020 Family History Medical HistoryRelationNameCommentsHTNFatherFibromyalgiaMotherHeart defectMother OsteoporosisMotherDiabetesPaternal GrandmotherHTNPaternal GrandmotherKidney cancerPaternal GrandmotherRelationNameStatusCommentsFatherAliveMotherAlive Paternal GrandmotherAlive Social History Tobacco UseTypesPacks/DayYears UsedDateSmoking Tobacco: NeverPassive Smoke Exposure: NeverSmokeless Tobacco: Never Tobacco Cessation:Counseling Given: Not Answered Alcohol UseStandard Drinks/WeekCommentsNever0 (1 standard drink = 0.6 oz pure alcohol)B1300 Health LiteracyAnswerDate RecordedHow often do you need to have someone help you when you read instructions, pamphlets, or other written material from your doctor or pharmacy?Never07/29/2024Social Connection and Isolation PanelAnswerDate RecordedIn a typical week, how many times do you talk on the phone with family, friends, or neighbors?More than three times a week 07/29/2024How often do you get together with friends or relatives?More than three times a week07/29/2024How often do you attend yarsani or rastafari services?Never07/29/2024Do you belong to any clubs or organizations such as yarsani groups, unions, fraternal or athletic groups, or school groups?No 07/29/2024How often do you attend meetings of the clubs or organizations you belong to?Never07/29/2024re you , , , , never , or living with a partner?Qetlelj0507/29/2024UDIT-CAnswerDate RecordedQ1: How often do you have a drink containing alcohol?Never07/29/2024Q2: How many drinks containing alcohol do you have on a typical day when you are drinking? Patient does not drink07/29/2024Q3: How often do you have six or more drinks on one occasion?Never07/29/2024Overall Financial Resource Strain (CARDIA)AnswerDate RecordedHow hard is it for you to pay for the very basics like food, housing, medical care, and heating?Not very hard07/29/2024PHQ-2AnswerDate RecordedPatient Health Questionnaire-2 Xrzpt299[facility] [place] [facility] - Occupational Stress QuestionnaireAnswerDate RecordedDo you feel stress - tense, restless, nervous, or anxious, or unable to sleep at night because your mind is troubled all the time - these days?Very much07/29/2024Exercise Vital SignAnswerDate RecordedOn average, how many days per week do you engage in moderate to strenuous exercise (like a brisk walk)?2 days07/29/2024On average, how many minutes do you engage in exercise at this level?30 min07/29/2024Hunger Vital SignAnswerDate RecordedWithin the past 12 months, you worried that your food would run out before you got the money to buymore.Sometimes true07/29/2024 Within the past 12 months, the food you bought just didn't last and you didn't have money to get more.Never true07/29/2024PRAPARE - TransportationAnswerDate RecordedIn the past 12 months, has lack of transportation kept you from medical appointments or from getting medications?No07/29/2024In the past 12 months, has lack of transportation kept you from meetings, work, or from getting things needed for daily living?No07/29/2024Housing Stability Vital SignAnswerDate RecordedIn the last 12 months, was there a time when you were not able to pay the mortgage or rent on time?07/29/2024In the past 12 months, how many times have you moved where you were living?t any time in the past 12 months, were you homeless or living in a penitentiary (including now)?07/29/2024 CommentsNoSex and Gender InformationValueDate RecordedSex Assigned at BirthNot on fileLegal ZqkPjxvmr12/15/2023 7:12 PM EDTGender IdentityNot on file Sexual OrientationNot on file Last Filed Vital Signs Vital SignReadingTime TakenCommentsBlood Bhshrnhc432/9412/23/2024 7:29 PM EDT Lcgim545712/23/2024 6:56 PM DZZSsbiegjucnm05.6 ??C (97.8 ??F)12/23/2024 6:56 PM EDTRespiratory Dpzd671312/23/2024 6:56 PM EDTOxygen Iwdenogyrh74%12/23/2024 6:56 PM EDTInhaled Oxygen Concentration--Yhlknk817 kg (273 lb 6.4 oz)12/23/2024 6:56 PM VCUUlldtc687 cm (5' 3 )04/22/2024 3:29 PM ESTBody Mass Index48.43106/23/2023 3:29 PM EST Plan of Treatment Health MaintenanceDue DateLast DoneCommentsPap Smear2007Cervical Cancer Ydbtlbqij35/30/2017HPV/Ovourk1506/06/2016Influenza Vaccine (#1)2025 Pneumococcal Vaccine: Pediatrics (0 to 5 Years) and At-Risk Patients (6 to 64 Years)Aged OutNo longer eligible based on patient's age to complete this topic Insurance [address] [place] [address] Care Teams Team MemberRelationshipSpecialtyStart DateEnd Date Oh Vasquez MD PCP - GeneralFamily Medicine12/18/23 Jacy Rivera NP Nurse PractitionerShriners Children'S Medicine12/18/23
--- OUTSIDE RECORDS SUMMARY | 2025-05-07 10:40 | XMS_ITS | Clinical Summary ---
[id number] [address] [place] [address] Care Team Providers Care [employer] Workers Name Role Phone Unavailable Primary Care Provider Unavailabl e Allergies Active AllergyReactionsCriticalityNoted DateCommentsShellfish DerivedHivesMedium 01/23/2024 Medications * This document contains information received from the source organization and may not represent a complete record from that organization. No known medications Active Problems No known active problems Family History Medical HistoryRelationNameCommentsSleep apneaMotherRelationNameStatusComments Mother Social History Tobacco UseTypesPacks/DayYears UsedDateSmoking Tobacco: NeverSmokeless Tobacco: Never Tobacco Cessation:Counseling Given: Not Answered Alcohol UseStandard Drinks/WeekCommentsNot Currently0 (1 standard drink = 0.6 oz pure alcohol)ChildcareAnswerDate MgvicowvGfqmmzsgkMcczmzb36/06/2019Employment AnswerDate RstxiczbUwrrlkektsRveltzp10/06/2019Hunger ScreeningAnswerDate RecordedWithin the past 12 months we worried whether our food would run out before we got money to buy more.Never True01/23/2024Within the past 12 months the food we bought just didn't last and we didn't have money to get more.Never True4Purpose - LifeAnswerDate RecordedPurpose and direction in life Ivccmhu68/11/2021CommentsUnknownSex and Gender InformationValueDate RecordedSex Assigned at BirthNot on fileLegal GapCimejq18/06/2015 11:33 AM EDT Gender IdentityNot on fileSexual OrientationNot on fileOccupationIndustryJob Start DateJob End DateFactory Worker/Forklift DriverNot on fileNot on fileNot on file Last Filed Vital Signs Vital SignReadingTime TakenCommentsBlood Rvonbnqf600/9401/23/2024 12:45 PM EDT Vabqn977401/23/2024 12:45 PM EDTTemperature--Respiratory Rate--Oxygen Saturation 95%01/23/2024 12:45 PM EDTInhaled Oxygen Concentration--Ebgrif494.1 kg (289 lb) 01/23/2024 12:45 PM TYJIabozi994 cm (5' 3 )01/23/2024 12:45 PM EDTBody Mass Index51.19001/23/2024 12:45 PM EDT Plan of Treatment Health MaintenanceDue DateLast DoneCommentsDepression Wjkfmxxon31/30/1999 DTaP,Tdap and Td Vaccines (1 - Tdap)2005Pap Smear2007COVID-19 Vaccine (3 - season)/, 08/12/2020Influenza Vaccine 5Adult BMI Soykaowkf02/Tobacco Uvpaotnmi53/17/2025 01/23/2024 Medical Devices Not on file Insurance * Guarantor: Octavio Persaud TypeRelation to PatientDate of BirthPhone Billing AddressPersonal/KfmwryWxbg77/30/1986 [address] [place] [address]
--- OUTSIDE RECORDS SUMMARY | 2025-05-07 10:40 | XMS_ITS | CCD ---
Author Organization [facility] CliniSyri Care Team Providers Care Natural Resource Economist Name Role Phone REQUEST, NONE LISTED Consulting Unavaila ble REQUEST, NONE LISTED Primary Care Unavaila ble REQUEST, NONE LISTED Admitting Unavaila ble REQUEST, DR CHAO LISTED Attending Unavaila ble USAMA DRISCOLL Admitting Unavailable YAMILA, USAMA Attending Unavailable USAMA DRISCOLL Consulting Unavailable REQUEST, NONE LISTED Primary Care Unavaila ble REQUEST, NONE LISTED Primary Care Unavaila ble GLADYS, SUSANNAH Admitting Unavailable GRECHNY, WAQAR THACKER Consulting Unavailable SUSANNAH GRAHAM Attending Unavailable JACKELIN SUÁREZ Consulting Unavailable REQUEST, NONE LISTED Primary Care Unavaila ble MISC, DR MARTÍNEZ Admitting Unavailable MISC, DR MARTÍNEZ Attending Unavailable MISC, DR MARTÍNEZ Consulting Unavailable Mariama, Genie Unavailable MARI FONSECA Attending Unavailable JACY RIVERA Referring Unavaila ble MD Laura Fortune Attending Provider [phone] RAJEEV Rivera Primary Care Provid er Oh Vasquez MD Primary Care Provider Jacy Rivera NP Unavailable Jacy Rivera Primary Care Unavaila ble Devika, Laura Attending Unavailable Devika, Laura Admitting Unavailable Laura Fortune MD Attending Provider [phone] Miguel GRIMES-CJacy Primary Care Provid er Jacy Rivera NP Unavailable Jacy Rivera NP Unavailable Jacy Rivera NP Unavailable [phone] Jacy Rivera Primary Care Provid er Lucila Brock DO Attending Provider [phone] OPAL VERDUGO Attending Unavailable KARTIK, OPAL Attending Unavailable KARTIK, OPAL Attending Unavailable KARTIK, OPAL Attending Unavailable KARTIK, OPAL Attending Unavailable MIGUEL, JACY Attending Unavailabl e RIVERA, JACY Attending Unavailabl e MIGUEL, JACY Attending Unavailabl e DanishhholOpal Choe Attending Provider Opal Andrews Primary Care Provider Allergies Allergy ClassificationReported Allergen(s)Allergy TypeDate of OnsetReaction(s) FacilityShellfish (1 source)ShellfishFood AllergyScci Hospital [facility] Repository (1 source)ShellfishPropensity to adverse reactionshiSSM Health Care Cellabus Other (2 sources)Shellfish; Translations: [SHELLFISH DERIVED]Propensity to adverse reactions to food (disorder)63-31-9468MaeMgefrt Repository (20 sources)ShellfishPropensity to adverse qncjzyrvv66-86-6762KtbihQCEK Healthcare (20 sources)OtherPropensity to adverse ibhcnxzfc02-35-8887PxsawxfSEUZ Healthcare Medications Current Medications MedicationDrug Class(es)DatesSig (Normalized)Sig (Original)ascorbic acid 1000 mg oral tablet (20 sources)Vitamin CStart: 72-49-4788yxib 1 tablet by mouth once dailyStart: 61-41-8733cvxc 1 tablet by mouth once dailyAscorbic Acid (Vitamin C) (C-1000) 1,000 mg tablet Active 1 GM PO Daily February 07, 2024 11:00pmStart: 02-08-2024 take 1 tablet by mouth once dailyAscorbic Acid (Vitamin C) (C-1000) 1,000 mg tablet Active 1 GM PO Daily February 08, 2024 12:00amStart: 05-08-2019 End: 58-92-5407Ojjkqheh Acid (vitamin C) 1000 MG tablet 05/08/2019 07/29/2024 Discontinued (Therapy completed)aspirin 81 mg oral tablet (20 sources)Platelet Aggregation Inhibitor, Nonsteroidal Anti-inflammatory Drug Start: 41-61-3507wpag 1 capsule by mouth once dailyAspirin 81 mg capsule Active 81 MG PO Daily February 08, 2024 12:00am Complies with drug therapytake 1 tablet by mouth once dailyaspirin 81 MG EC tablet Take 81 mg by mouth Daily Active atorvastatin 20 mg oral tablet (20 sources)HMG-CoA Reductase InhibitorStart: 12-97-7039vgol 1 mg by mouth once dailyAtorvastatin Active MG PO Daily February 05, 2024 12:00amStart: 01-15-2024 End: 09-48-7768gatw 1 tablet by mouth once dailyAtorvastatin 20 mg tablet Active 20 MG PO Daily February 05, 2024 12:00am Complies with drug therapyFLUoxetine 20 mg oral capsule (20 sources)Serotonin Reuptake InhibitorStart: 12-23-2024 End: 86-98-8779ikry 1 capsule by mouth once dailyFluoxetine 20 mg capsule Active 20 MG PO Daily January 30, 2025 12:00am Complies with drug therapyStart: 07-29-2024 End: 57-89-7662dyuo 1 capsule by mouth once dailyFluoxetine 10 mg capsule Discontinued 10 MG PO Daily December 11, 2024 12:00am January 30, 2025 8:05am fluticasone propionate 0.05 mg/actuat metered dose nasal spray (2 sources)CorticosteroidStart: 58-37-7494hatd 2 spray(s) nasal route once daily Fluticasone Propionate 50 MCG/ACT 2 sprays Nasally Once a day for 14 day(s) 2 sprays to each nostril daily until your symptoms improve Mar, Active Start: 15-91-1454akov 1 spray(s) nasal route once dailyFluticasone Propionate 50 MCG/ACT 1 spray in each nostril Nasally Once a day for 30 day(s) Nov, Not-Takinglosartan potassium 50 mg oral tablet (20 sources)Angiotensin 2 Receptor BlockerStart: 85-32-9530wbtj 1 tablet by mouth once dailyLosartan 50 mg tablet Active 50 MG PO Daily January 30, 2025 12:00am Complies with drug therapyStart: 07-29-2024 End: 86-01-8646apqg 1 tablet by mouth once dailylosartan (Cozaar) 50 MG tablet Indications: Primary hypertension Take 1 tablet (50 mg) by mouth Daily 90 tablet 1 10/30/2024 01/28/2025 ActiveStart: 32-20-1275tclm 1 mg by mouth once daily Losartan Active MG PO Daily February 05, 2024 12:00amStart: 01-23-2024 End: 06-68-0046gyhq 1 tablet by mouth once dailyLosartan 25 mg tablet Discontinued 25 MG PO Daily February 05, 2024 12:00am January 30, 2025 8:05ammetFORMIN hydrochloride 500 mg oral tablet (20 sources)BiguanideStart: 15-32-7688vdro 1 mg by mouth twice dailyMetformin Active MG PO Twice daily February 05, 2024 12:00amStart: 01-23-2024 End: 34-13-9237mgxt 1 tablet by mouth twice dailymetFORMIN HCl 500 MG Oral for 30 Not-TakingMultivitamin preparation (2 sources)Start: 44-22-1489ihpa 1 tablet by mouth once dailyMultivitamin Active 1 TAB PO Daily February 08, 2024 12:00amMultivitamin ActiveMultivitamin tablet (3 sources)Start: 69-15-5144zljq 1 tablet by mouth once dailyMultivitamin tablet Active 1 TAB PO Daily February 08, 2024 12:00am Complies with drug therapyStart: 71-57-4902eodm 1 tablet by mouth once dailyMultivitamin tablet Active 1 TAB PO Daily February 07, 2024 11:00pmpantoprazole 40 mg delayed release oral tablet (20 sources)Proton Pump InhibitorStart: 02-20-2024 End: 59-36-9059Boorpxsugemi 40 mg tablet,delayed release (DR/EC) Active 40 MG PO Twice daily December 19, 2024 1:15pm Take 1 tablet orally 30 minutes before morning meal and 30 minutes before evening meal. Complies with drug therapyphentermine hydrochloride 37.5 mg oral tablet (14 sources)Sympathomimetic Amine AnorecticStart: 10-30-2024 End: 94-05-2321eium 1 tablet by mouth once daily 30 minutes after breakfast Phentermine (Adipex-P) 37.5 mg tablet Active 37.5 MG PO Daily December 11, 2024 12:00am must administer 30 minutes before or 1-2 hours after breakfast Complies with drug therapypredniSONE 20 mg oral tablet (1 source)Start: 05-16-0975boen 1 tablet by mouth every twelve hourspredniSONE 20 MG 1 tablet Orally bid for 5 day(s) Mar, ActiveRed Beet Root-Sour Owusu Ext (1 source)Start: 99-24-9182sdgm 1 tablet by mouth once dailyRed Beet Root-Sour [place]usu Ext Active 1 TAB PO Daily February 08, 2024 12:00amRed Beet Root-Sour [place] Ext 250-0.5 mg tablet,chewable (1 source)Start: 17-31-6987Fkj Beet Root-Sour [place] Ext 250-0.5 mg tablet,chewable Active 1 TAB PO Daily February 07, 2024 11:00pmZantac 150 Maximum Strength 150 MG (1 source)take 1 tablet by mouth once dailyZantac 150 Maximum Strength 150 MG 1 tablet Orally Once a day Active Completed/Discontinued Medications MedicationDrug Class(es)DatesSig (Normalized)Sig (Original)[id number] 200 actuat albuterol 0.09 mg/actuat metered dose inhaler (1 source)beta2-Adrenergic AgonistStart: 62-88-5443lhzk 2 puff(s) by inhalation every four hours as neededAlbuterol Sulfate HFA 108 (90 Base) MCG/ACT 2 puffs as needed Inhalation every 4 hrs Mar, Not-Takingamoxicillin 875 mg / clavulanate 125 mg oral tablet (3 sources)Penicillin-class AntibacterialStart: 03-19-2024 End: 55-38-3899facx 1 tablet by mouth every twelve hoursAmoxicillin-Pot Clavulanate 875-125 mg tablet Discontinued 1 TAB PO Every 12 hours 24 02March 19, 2024 1:00am April 23, 2024 12:06pmbudesonide 0.5 mg/ml inhalation suspension (2 sources)CorticosteroidStart: 05-03-2024 End: 02-71-4610epaf 1 mg by inhalation twice dailyBudesonide 1 mg/2 mL suspension for nebulization Discontinued 1 MG INHALATION Twice daily May 03, 2024 1:00am December 11, 2024 3:50pmcetirizine hydrochloride 10 mg oral tablet (1 source)Histamine-1 Receptor AntagonistStart: 17-49-4571ybpa 1 tablet by mouth every twenty-four hoursCetirizine HCl 10 MG 1 tablet Orally Once a day for 30 day(s) Nov, Not-Takingcimetidine 200 mg oral tablet (20 sources)Histamine-2 Receptor AntagonistStart: 12-11-2024 End: 11-53-2007nhpj 1 tablet by mouth every other dayCimetidine 200 mg tablet Discontinued 200 MG PO .q.o.d December 11, 2024 12:00am December 11, 2024 3:50pm Start: 02-08-2024 End: 06-19-8157Jyddnubsxb 200 mg tablet Discontinued 200 MG PO As Directed February 08, 2024 12:00am February 8:25amtake 1 tablet by mouth every other daycimetidine (Tagamet) 200 MG tablet Take 200 mg by mouth 1 time EVERY OTHER DAY ActivemethylPREDNISolone 4 mg oral tablet (1 source)CorticosteroidStart: 73-84-9133Rbusmk (Jason) 4 MG as directed Orally Mar, Not-TakingMisc Natural Products (Beet Root) 500 MG capsule (17 sources)Start: 12-27-2023 End: 27-22-8043Xtlj Natural Products (Beet Root) 500 MG capsule 12/27/2023 07/29/2024 Discontinued (Therapy completed)Start: 63-99-3849Ezqp Natural Products (Beet Root) 500 MG capsule 12/27/2023 ActiveMultiple Vitamins-Minerals (Multivitamin Gummies Adult) chewable tablet (17 sources) End: 38-45-3429Nvxwpgrk Vitamins-Minerals (Multivitamin Gummies Adult) chewable tablet 07/29/2024 Discontinued (Therapy completed)Multiple Vitamins-Minerals (Multivitamin Gummies Adult) chewable tablet ActivePrevifem (1 source)Previfem Not-TakingRed Beet-Sour Owusu Extract 250-0.5 mg tablet,chewable (2 sources)Start: 02-08-2024 End: 88-17-8406Qry Beet-Sour Owusu Extract 250-0.5 mg tablet,chewable Discontinued 1 TAB PO Daily February 08, 2024 12:00am December 11, 2024 3:51pm rosuvastatin calcium 5 mg oral tablet (2 sources)HMG-CoA Reductase InhibitorStart: 12-30-2023 End: 78-68-9448lzyn 1 tablet by mouth once dailyrosuvastatin (Crestor) 5 MG tablet Indications: Hypertriglyceridemia (CMS/HCC) Take 1 tablet (5 mg)by mouth Daily 30 tablet 3 12/30/2023 01/15/2024 Discontinued (Side effects) Problems Active Problems Problem ClassificationProblemDateDocumented DateEpisodic/ChronicAbdominal pain (8 sources)Upper abdominal pain, unspecified; Translations: [Epigastric pain] Onset: 20-89-1573QprwpwyrEsoooja disorders (20 sources)Generalized anxiety disorder; Translations: [Generalized anxiety disorder]Onset: 398391-02-4057HkzhqvtTtnsjcjf mellitus without complication (20 sources)Prediabetes; Translations: [Prediabetes]Onset: EpisodicDisorders of lipid metabolism (20 sources)Hyperlipidemia; Translations: [Hyperlipidemia, unspecified]Onset: 629929-96-5460ElzsjwyWqumrcshgm disorders (20 sources)Gastroesophageal reflux disease; Translations: [GERD [Gastroesophageal reflux disease]]Onset: 509134-62-6245ImggayfRyvzsijrqs disorders (2 sources)Esophagitis; Translations: [Esophagitis]38-21-1892XpyuorarWmpxqpwnq hypertension (20 sources)Essential hypertension; Translations: [Essential (primary) hypertension]Onset: 033957-45-5135SepiruwElgagfekg and duodenitis (5 sources)Gastroduodenitis; Translations: [Gastritis and gastroduodenitis, unspecified, without mention of hemorrhage]91-03-7250VtuotpqqLbbvzyn and fatigue (20 sources)Fatigue; Translations: [Other fatigue]Onset: EpisodicOther gastrointestinal disorders (5 sources)Dysphagia; Translations: [Dysphagia, unspecified]51-55-6326Yiolkuof Other gastrointestinal disorders (3 sources)Dysphagia, unspecified; Translations: [Dysphagia, unspecified]Onset: 062737-35-7334EopetoogAtcfx gastrointestinal disorders (20 sources)Difficulty swallowing solids; Translations: [Dysphagia, unspecified] Onset: 689325-86-2724QbqmoyprPphre lower respiratory disease (20 sources)Snoring; Translations: [Snoring]Onset: 654081-26-1446Qyzkpzah Other lower respiratory disease (4 sources)Hypoxia; Translations: [Hypoxemia]67-54-6658NsitarbxQnuaf nutritional; endocrine; and metabolic disorders (20 sources)Morbid obesity; Translations: [Morbid (severe) obesity due to excess calories]Onset: 172665-12-3706FtjmtnnFfhkw nutritional; endocrine; and metabolic disorders (17 sources)Obesity caused by energy imbalance; Translations: [Morbid (severe) obesity due to excess calories]Onset: 07-29-2024 Resolved: 776505-98-6740QrghvexMdzqe nutritional; endocrine; and metabolic disorders (4 sources)Obesity; Translations: [Obesity, unspecified]22-33-7450XexocxwVfgjt upper respiratory infections (2 sources)Acute recurrent sinusitis, unspecified; Translations: [Acute sinusitis]Onset: 03-31-2021 Resolved: 62-02-2634QibrgmjyWxcdelih codes; unclassified (1 source)Obstructive sleep apnea (adult) (pediatric); Translations: [Obstructive sleep apnea (adult) (pediatric)]Onset: 98-18-1222YuvnmgrLftamycj codes; unclassified (20 sources)Obstructive sleep apnea syndrome; Translations: [Obstructive sleep apnea (adult) (pediatric)]Onset: 151712-36-6149LmlkeogLcdtzpas codes; unclassified (4 sources)Hypersomnia; Translations: [Hypersomnia, unspecified]12-11-2024 ChronicResidual codes; unclassified (1 source)Acquired absence of other specified parts of digestive tract; Translations: [ACQ ABSENCE OTH PART DIGESTV TRACT]Onset: 85-46-2283Wsoxwxcg Residual codes; unclassified (1 source)Acquired absence of both cervix and uterus; Translations: [ACQUIRED ABSENCE BOTH CERVIX AND UTERUS]Onset: 36-41-4003MrymajqwBdeypgbg codes; unclassified (4 sources)Sleep deprivation; Translations: [Sleep deprivation]12-11-2024 EpisodicUnclassified (1 source)New PatientOnset: 01-23-2024 Past or Other Problems Problem ClassificationProblemDateDocumented DateEpisodic/ChronicImmunizations and screening for infectious disease (5 sources)Contact with and (suspected) exposure to other viral communicable diseases; Translations: [CONTCT EXPS OTH VIRL COMMUNICABL DZ]Onset: 12-02-2019 Resolved: 51-93-3223PyzdeppmByjpvp and vomiting (2 sources)Nausea; Translations: [Nausea and vomiting]Onset: 68-57-9648Jmenbgqs Other disorders of stomach and duodenum (1 source)Disorder of function of stomach; Translations: [Dyspepsia and other specified disorders of functionof stomach]EpisodicOther gastrointestinal disorders (1 source)Diarrhea; Translations: [Diarrhea]EpisodicOther nutritional; endocrine; and metabolic disorders (20 sources)Severe obesity; Translations: [Class 3 severe obesity with body mass index (BMI) of 50.0 to 59.9 inadult]Onset: 12-27-2023 Resolved: 655908-15-7110IhaghpbXbrxx nutritional; endocrine; and metabolic disorders (17 sources)Body mass index 40+ - severely obese; Translations: [Body mass index (BMI) 45.0-49.9, adult]Onset: 07-29-2024 Resolved: 658991-33-9851OtjzsiiHilub infection (1 source)COVID-19Onset: 03-31-2021 Resolved: 03-31-2021 Results Test NameValueInterpretationReference RangeFacilityBasophils Auto (Bld) [#/Vol] Ordered By: Opal Verdugo on 96-69-4012Rrdccbqwk (Bld) [#/Vol]0.0 10 3/uL0.0-0.1 [facility] HospitalBasophils/100 WBC Auto (Bld)Ordered By: Opal Verdugo on 79-92-4879Wdonqwiiu/100 WBC (Bld)0.3 %0.2-2.0[facility] HospitalCholesterol in LDL Calc [Mass/Vol]Ordered By: Opal Verdugo on 17-26-9477Asqdnwphebk in LDL [Mass/Vol]72.0 mg/dLOhiohealth Doctors HospitalComment on above:<100 mg/dl BUGYMMO706-912 mg/dl NEAR OR ABOVE JHTEOPX457- 159 mg/dl BORDERLINE QRIV887-997 mg/dl HIGH>190 mg/dl VERY HIGHCholesterol in VLDL Calc [Mass/Vol]Ordered By: Opal Verdugo on 00-29-3248Midilnebiyr in VLDL [Mass/Vol]51.2 mg/dLOhiohealth Doctors HospitalEosinophils/100 WBC Auto (Bld)Ordered By: Opal Verdugo on 09-41-4399Fhkzhmjowex/100 WBC (Bld)3.1 % 0.9-7.0[facility] HospitalErythrocyte distribution width Auto (RBC) [Ratio]Ordered By: Opal Verdugo on 06-01-9259Qbfhuwsxrxn distribution width (RBC) [Ratio]15.6 %High11.0-15.0[facility] HospitalGlobulin Calc (S) [Mass/Vol]Ordered By: Opal Verdugo on 47-01-5704Qehhplan (S) [Mass/Vol]4.2 g/dLOhiohealth Doctors HospitalGlomerular filtration rate (GFR) estimation in non- AmericanOrdered By: Opal Verdugo on 01-11-2025 GFR/1.73 sq M.predicted among non-blacks MDRD (S/P/Bld) [Vol rate/Area] mL/min/{1.73_m2}>=60 mL/min/1.73m [address] [place], [place] [address]Hematocrit Auto (Bld) [Volume fraction]Ordered By: Opal Verdugo on 50-72-1133Uosvxwpmyv (Bld) [Volume fraction]40.3 %36.0-48.0[facility] Hemoglobin [Mass/volume] in BloodOrdered By: Opal Verdugo on 01-11-2025 Hemoglobin (Bld) [Mass/Vol]12.8 g/dL12.0-16.0[facility] Laboratory - Chemistry and Chemistry - challengeOrdered By: Opal Verdugo on 14-01-9737Wtcrxkz [Mass/Vol]3.4 g/dL3.4-5.0[facility] HospitalALP [Catalytic activity/Vol]84 U/F43-445LrracvvtwOhiohealth Doctors HospitalALT [Catalytic activity/Vol]16 U/V59-90GhzmxplfsOhiohealth Doctors HospitalAST [Catalytic activity/Vol]12 U/ORom80-75UptccpoovOhiohealth Doctors HospitalBilirubin [Mass/Vol]1.1 mg/dLHigh0.2-1.0[facility] HospitalBilirubin Ql (U) NegativeNEGATIVEOhiohealth Doctors HospitalCalcium [Mass/Vol]8.7 mg/dL 8.5-10.1FCorey HospitalChloride [Moles/Vol]102 mmol/L98-107 [facility] HospitalCholesterol [Mass/Vol]176 mg/dL<=200[facility] HospitalCholesterol in HDL [Mass/Vol]53 mg/oB24-38QrxusfojsOhiohealth Doctors HospitalComment on above:> or =60 mg/dl - LOW CARDIOVASCULAR RISK<40 mg/dl - HIGH CARDIOVASCULAR RISKCO2 [Moles/Vol]28.8 mmol/L21.0-32.0 [facility] HospitalCreatinine [Mass/Vol]0.79 mg/dL0.55-1.02 [facility] HospitalGFR/1.73 sq M.predicted MDRD (S/P/Bld) [Vol rate/Area]mL/min/{1.73_m2}>=60 mL/min/1.73m 2FCorey Hospital Glucose (U) [Mass/Vol]NegativeNEGATIVEOhiohealth Doctors HospitalGlucose [Mass/Vol]103 mg/nM98-648PfczlfmgrOhiohealth Doctors HospitalKetones Ql (U)Negative NEGATIVEOhiohealth Doctors HospitalpH (U)6.0 [pH]5.0-9.0[facility] HospitalPotassium [Moles/Vol]3.9 mmol/L3.5-5.1FCorey HospitalProtein [Mass/Vol]7.6 g/dL6.4-8.2FRegional Medical Centerodium [Moles/Vol]140 mmol/M193-295LdyshnqamUniversity Hospitals Ahuja Medical Centerpecific gravity (U) [Rel density]1.0201.005-1.025[facility] HospitalTriglyceride [Mass/Vol]256 mg/dLHigh<=150Ohio[facility] HospitalTSH Qn2.362 m[IU]/L 0.358-3.740[facility] HospitalUrea nitrogen [Mass/Vol]10.0 mg/dL 7.0-18.0[facility] HospitalUrea nitrogen/Creatinine [Mass ratio] 12.7 mg/mgOhiohealth Doctors HospitalUrobilinogen Qn (U)0.2 {Nawaf'U}/dL 0.2-1.0[facility] HospitalLaboratory - Hematology and Cell counts Ordered By: Opal Verdugo on 91-38-7142Xxnvfrfq granulocytes/100 WBC (Bld)0.2 % 0.0-0.5FCorey HospitalLaboratory - Specimen informationOrdered By: Opal Verdugo on 94-45-6141Cuzrcycyue (U)CLEARCLEARFCorey HospitalColor (U)LT. YELLOWYELLOWOhiohealth Doctors Hospital Laboratory - UrinalysisOrdered By: Opal Verdugo on 35-43-3662Mtmkelplo esterase Test strip Ql (U)NegativeNEGATIVEOhiohealth Doctors HospitalNitrite Ql (U) NegativeNEGATIVEOhiohealth Doctors HospitalProtein Ql (U)NegativeNEG/TRACE [facility] HospitalLeukocytes [#/volume] corrected for nucleated erythrocytes in Blood by Automated counOrdered By: Opal Verdugo on 01-11-2025 WBC corrected for nucl RBC Auto (Bld) [#/Vol]9.6 10 3/uL4.0-11.0[facility] HospitalLymphocytes Auto (Bld) [#/Vol]Ordered By: Opal Verdugo on 91-69-0269Vlbbfsusumj (Bld) [#/Vol]3.2 10 3/uL1.2-3.8[facility] HospitalLymphocytes/100 WBC Auto (Bld)Ordered By: Opal Verdugo on 03-54-7887Jtuxbmjolya/100 WBC (Bld)33.3 %20.5-60.0[facility] HospitalMCH Auto (RBC) [Entitic mass]Ordered By: Opal Verdugo on 71-51-7905XVH (RBC) [Entitic mass]25.2 pgLow26.7-34.0[facility] HospitalHC Auto (RBC) [Mass/Vol]Ordered By: Opal Verdugo on 17-92-5479TQED (RBC) [Mass/Vol]31.8 g/dL29.9-35.2FCorey HospitalMCV Auto (RBC) [Entitic vol]Ordered By: Opal Verdugo on 48-60-8468OEX (RBC) [Entitic vol]79.3 fLLow81.0-99.0[facility] HospitalMonocytes Auto (Bld) [#/Vol] Ordered By: Opal Verdugo on 22-82-1873Kfhnflqtr (Bld) [#/Vol]0.4 10 3/uL0.3-0.8 [facility] HospitalMonocytes/100 WBC Auto (Bld)Ordered By: Opal Verdugo on 84-20-2691Iicctmaow/100 WBC (Bld)3.7 %1.7-12.0[facility] HospitalNeutrophils Auto (Bld) [#/Vol]Ordered By: Opal Verdugo on 65-88-7866Kntiusxlwgl (Bld) [#/Vol]5.7 10 3/uL1.4-6.5FCorey HospitalNeutrophils/100 WBC Auto (Bld)Ordered By: Opal Verdugo on 01-11-2025 Neutrophils/100 WBC (Bld)59.4 %43.0-75.0[facility] HospitalNo Panel InformationOrdered By: Opal Verdugo on 41-62-7636Odkppxzvfze # (Auto)0.3 10 3/uL0.0-0.7FCorey HospitalImmature Granulocyte # (Auto)0.02 10 3/uL0.00-0.03[facility] HospitalUrine Microscopic ReviewNO [facility] HospitalUrine Occult BloodNegativeNEGATIVEOhiohealth Doctors HospitalPlatelet mean volume Auto (Bld) [Entitic vol]Ordered By: Opal Verdugo on 92-71-5806Raelrnmp mean volume (Bld) [Entitic vol]9.8 fL 9.5-13.5FCorey HospitalPlatelets Auto (Bld) [#/Vol]Ordered By: Opal Verdugo on 12-22-1719Fnqyhkjmn (Bld) [#/Vol]330 10 3/mN869-228DvulvtaegOhiohealth Doctors HospitalRBC Auto (Bld) [#/Vol]Ordered By: Opal Verdugo on 23-59-7717ZIM (Bld) [#/Vol]5.08 10 6/uL4.20-5.40[facility] Ahuja Medical Centererum or plasma albumin/globulin mass ratioOrdered By: Opal Verdugo on 83-29-4597Xgyqijq/Globulin [Mass ratio]0.8 {ratio}[facility] Ahuja Medical Centererum or plasma anion gap determinationOrdered By: Opal Verdugo on 21-80-4083Dcwsh gap [Moles/Vol]13.1 mmol/LFRegional Medical Centererum or plasma total cholesterol/high density lipoprotein (HDL) cholesterol mass rat Ordered By: Opal Verdugo on 85-56-4434Erbuewuuznu.total/Cholesterol in HDL [Mass ratio]3.3 {ratio}[facility] HospitalComment on above:3.3 - 4.4 LOW RISK4.4 - 7.1 AVERAGE RISK7.1 - 11.0 MODERATE RISK>11.0 HIGH WVYJYlM5l (Bld) [Mass fraction]on 55-44-6577Gvhedwdyhaslik and review of laboratory resultsAbnoGrant Regional Health CenterLaboratory - Hematology and Cell countson 73-49-5959OhU0h (Bld) [Mass fraction]6.10 %[facility]R HEMOGLOBIN A1Con 36-18-4610Ghiweqh [Mass/Vol]143 mg/dLUniversity Health Lakewood Medical CenterHbA1c (Bld) [Mass fraction]6.6 %High4.5 - 6.2 %[facility] HealthcareComment on above:ADA RECOMMENDED LIMIT 4.0 - 6.0 ADA THERAPEUTIC TARGET < 7.0 ACTION SUGGESTED > 7.0 Interpretation and review of laboratory resultsAbnormalNOMS HealthcareCLINISYNC NOMS HealthcareCCF CMP (CMP) (FOR REMOTE [facility] USE)on 02-96-1511Sceatfp [Mass/Vol] 3.3 g/dLLow3.4 - 5.0 g/dLNOSD HealthcareALBUMIN GLOBULIN RATIO0.8NOMS Healthcare ALP [Catalytic activity/Vol]83 U/L46 - 116 U/LNOMS HealthcareALT [Catalytic activity/Vol]17 U/L14 - 59 U/LNOMS HealthcareAnion gap [Moles/Vol]13 mmol/LNOMS HealthcareAST [Catalytic activity/Vol]13 U/LLow15 - 37 U/LNOMS Healthcare Bilirubin [Mass/Vol]1 mg/dL0.2 - 1.0 mg/dLNOSD HealthcareCalcium [Mass/Vol]9.4 mg/dL8.5 - 10.1 mg/dLNOSD HealthcareChloride [Moles/Vol]103 mmol/L98 - 107 mmol/LNOMS HealthcareCO2 [Moles/Vol]27 mmol/L21.0 - 32.0 mmol/LNOMS Healthcare Creatinine [Mass/Vol]0.9 mg/dL0.55 - 1.02 mg/dLNOSD HealthcareGFR/1.73 sq M.predicted CKD-EPI (S/P/Bld) [Vol rate/Area]>60>=60 mL/min/1.73m 2NOMS HealthcareGlobulin (S) [Mass/Vol]4 g/dLNOSD HealthcareGlucose [Mass/Vol]107 mg/oXRgxy30 - 106 mg/dLNOSD HealthcareInterpretation and review of laboratory resultsAbnormalNOMS HealthcarePotassium [Moles/Vol]4 mmol/L3.5 - 5.1 mmol/LNOMS HealthcareProtein [Mass/Vol]7.3 g/dL6.4 - 8.2 g/dLNOSD HealthcareSodium [Moles/Vol]139 mmol/L136 - 145 mmol/LNOMS HealthcareTBH EGFR-NON AF BELIZEAN>60 >=60 mL/min/1.73m 2NOMS HealthcareUrea nitrogen [Mass/Vol]10 mg/dL7.0 - 18.0 mg/dLNOSD HealthcareUrea nitrogen/Creatinine [Mass ratio]11.1 mg/mgNOMS HealthcareCLINISYNCNST. ANTHONY HOSPITAL [facility] [place] HealthcareNo Panel InformationOrdered By: Laura Fortune on 17-17-0756Ajtoexhbtetiu Pathology TestSee commentOhiohealth Doctors HospitalComment on above:See report. Scanned copy available in EMR.Pathology Request for Lab Corpon [id number] Request for Lab CorpNormalThSyringa General Hospital Physician GroupComment on above:Order Comment: PATHOLOGY GI SPECIMEN Result Comment: See report. Scanned copy available in EMR. PERFORMED BY: [place] [address] PATHOLOGIST RHINOLOGIST ALIVIA GALARZA M.D.Performed By: #### PATH TO [facility] #### [place] [address] USAMLR HEMOGLOBIN A1Con [id number] [Mass/Vol]117 mg/dL NOMS QeryruavwdFsK5t (Bld) [Mass fraction]5.7 %4.5 - 6.2 %NOM HealthcareComment on above:ADA RECOMMENDED LIMIT 4.0 - 6.0 ADA THERAPEUTIC TARGET < 7.0 ACTION SUGGESTED > 7.0 CLINISYNCNOMS HealthcareCOVID Quick Testingon [id number] Cellabus Other AMYLASEon 03-08-4709Uemuhxm [Catalytic activity/Vol]34 U/KVxhjsq27-015Tta [facility] HospitalComment on above:Performed By: #### LIPA, CMP, NIDA #### [facility] [address], [place] [address] John KarenCBC AUTO DIFFon [id number] #0.0 103/ulNormal0.0-0.1The [facility] HospitalComment on above:Performed By: #### CBC #### [facility] [address], [place] [address] John KarenBasophils/100 WBC (Bld)0.4 %Normal0.2-2.0The [facility] Comment on above:Performed By: #### CBC #### [facility] [address], [place] [address] John KarenEO #1.1 103/ulCritically high0.0-0.7The [facility] HospitalComment on above:Performed By: #### CBC #### [facility] [address] [place] [address] John KarenEosinophils/100 WBC (Bld)10.5 %Critically high0.9-7.0The [facility] HospitalComment on above:Performed By: #### CBC #### [facility] [address] [place] [address] John KarenErythrocyte distribution width (RBC) [Ratio]14.1 %Wvhhqw64.0-15.0The [facility] HospitalComment on above:Performed By: #### CBC #### [facility] [address] [place] [address] John KarenHematocrit (Bld) [Volume fraction]40.1 %Fwtjyf49.0-48.0The [facility] on above:Performed By: #### CBC #### [facility] [address] [place] [address] John KarenHemoglobin (Bld) [Mass/Vol]12.8 g/yHNmoift02.0-16.0The [facility] HospitalComtr[facility] on above:Performed By: #### CBC #### [facility] [address] [place] [address] John KarenIG #0.03 10e3/ulNormal0.00-0.03The [facility] on above:Performed By: #### CBC #### [facility] [address] [place] [address] John KarenIG %0.3 %Normal0.0-0.5The [facility] HospitalComtr[facility] health [facility] on above: Performed By: #### CBC #### [facility] [address] [place] [address] John KarenLYMPH #3.1 103/ulNormal1.2-3.8The [facility] HospitalComtr[facility] health [facility] on above: Performed By: #### CBC #### [facility] [address] [place] [address] John KarenLymphocytes/100 WBC (Bld)29.2 %Txuwef75.5-60.0The [facility] Comment on above:Performed By: #### CBC #### [facility] [address] [place] [address] John KarenMANUAL DIFF REQNONormalThe [facility] HospitalComment on above: Performed By: #### CBC #### [facility] [address] [place] [address] John KarenMCH (RBC) [Entitic mass]27.7 reUhwqjf42.7-34.0The [facility] Comment on above:Performed By: #### CBC #### [facility] [address] [place] [address] John KarenMCHC (RBC) [Mass/Vol]31.9 g/wMQpjpdp41.9-35.2[facility] Comment on above:Performed By: #### CBC #### [facility] [address] [place] [address] John KarenMCV (RBC) [Entitic vol]86.8 eZWcdajr95.0-99.0[facility] Comment on above:Performed By: #### CBC #### [facility] [address] [place] [address] John KarenMONO #0.4 103/ulNormal0.3-0.8The [facility] HospitalComment on above: Performed By: #### CBC #### [facility] [address] [place] [address] John KarenMonocytes/100 WBC (Bld)4.1 %Normal1.7-12.0[facility] Comment on above:Performed By: #### CBC #### [facility] [address] [place] [address] John KarenNEUT #5.9 103/ulNormal1.4-6.5The [facility] HospitalComment on above: Performed By: #### CBC #### [facility] [address] [place] [address] John KarenNeutrophils/100 WBC (Bld)55.5 %Wrscfh79.0-75.0The [facility] Comment on above:Performed By: #### CBC #### [facility] [address] [place] [address] John HunterPlatelet mean volume (Bld) [Entitic vol]9.9 fLNormal9.5-13.5The [facility] HospitalComment on above:Performed By: #### CBC #### [facility] [address] [place] [address] John ArellanoHenwmPUT883 103/awWjbdcr195-961Vft [facility] HospitalComment on above: Performed By: #### CBC #### [facility] [address] [place] [address] John KarenRBC4.62 106/ulNormal4.20-5.40The [facility] Hospitalment on above: Performed By: #### CBC #### [facility] [address] [place] [address] John NnnchEWP67.6 103/ulNormal4.0-11.0The [facility] HospitalComment on above: Performed By: #### CBC #### [facility] [address] [place] [address] John Franco URINE PROFILEon 13-59-2988Gqkqidtrv Ql (U)NegativeNormalNEGATIVE [facility] LimaComment on above:Performed By: #### ERUR #### [facility] [address] [place] [address] John KarenClarity (U)CLEARNormalCLEARThe [facility] HospitalComment on above: Performed By: #### ERUR #### [facility] [address] [place] [address] John KarenColor (U)LT. YELLOWNormalYELLOWThe [facility] HospitalComtrinity health [facility] hospital on above:Performed By: #### ERUR #### [facility] [address] [place] [address] John KarenERUAHDA micrscopic examination will be performed if indicated.Normal The [facility] HospitalComment on above:Performed By: #### ERUR #### [facility] [address] [place] [address] John KarenGlucose Ql (U)NegativeNormalNEGATIVEOhio Valley Hospital HospitalComment on above:Performed By: #### ERUR #### [facility] [address] [place] [address] John KarenHemoglobin Ql (U)NegativeNormalNEGATIVEOhio Valley Hospital HospitalComment on above:Performed By: #### ERUR #### [facility] [address] [place] [address] John KarenKetones Ql (U)NegativeNormalNEGATIVEOhio Valley Hospital HospitalComment on above:Performed By: #### ERUR #### [facility] [address] [place] [address] John KarenLEUKOCYTESNegativeNormalNEGATIVEScci Hospital LimaComment on above:Performed By: #### ERUR #### [facility] [address] [place] [address] John KarenNitrite Ql (U)NegativeNormalNEGATIVEOhio Valley Hospital HospitalComment on above:Performed By: #### ERUR #### [facility] [address] [place] [address] John KarenpH (U)5.5 [pH]Normal5-9[facility] Hospital LimaComment on above: Performed By: #### ERUR #### [facility] [address] [place] [address] John KarenSPEC GRAVITY1.672Qztyfl4.005-<=1.025[facility] Hospital LimaComment on above:Performed By: #### ERUR #### [facility] [address] [place] [address] John KarenUA PROTEINNegativeNormalNEGATIVE/ TRACEOhio Valley Hospital HospitalComment on above:Performed By: #### ERUR #### [facility] [address] [place] [address] John KarenUR MICRO INDNOT INDICATEDNormalThGalion HospitalComment on above:Performed By: #### ERUR #### [facility] [address] [place] [address] John KarenUrobilinogen Qn (U)0.2 {Nawaf'U}/dLNormal0.2 - 1.0The [facility] HospitalComment on above:Performed By: #### ERUR #### [facility] [address] [place] [address] John KarenLIPASEon 62-86-4321Rmvbyv [Catalytic activity/Vol]104.0 U/LNormal 23.0-300.0The [facility] HospitalComment on above:Performed By: #### PUJA, CMP, NIDA #### [facility] [address] [place] [address] John KarenMONOon 98-12-1681Mqswzzfda (Bld) [#/Vol]NegativeNormalNEGATIVEThe [facility] HospitalComment on above:Performed By: #### MONO #### [facility] [address] [place] [address] John KarenPROF 14(COMP METB)on 07-49-8102Tysqrxu [Mass/Vol]3.4 g/dLCritically low3.5-5.0The [facility] HospitalComment on above:Performed By: #### PUJA CMP, NIDA #### [facility] [address] [place] [address] John KarenAlbumin/Globulin [Mass ratio]0.9 {ratio}NormalScci Hospital [facility] Comment on above:Performed By: #### LIPMarin, CMP, NIDA #### [facility] [address] [place] [address] John KarenALP [Catalytic activity/Vol]90 U/AZcmnnc46-633Ztc [facility] Comment on above:Performed By: #### LIPMarin, CMP, NIDA #### [facility] [address] [place] [address] John KarenALT [Catalytic activity/Vol]19 U/LNormal9-52The [facility] Comment on above:Performed By: #### LIPA, CMP, NIDA #### [facility] [address] [place] [address] John KarenAnion gap [Moles/Vol]15.2 mmol/LNormalThe [facility] HospitalComment on above:Performed By: #### PUJA CMP, NIDA #### [facility] [address] [place] [address] John KarenAST [Catalytic activity/Vol]13 U/LCritically xyc20-44Nhc [facility] HospitalComment on above:Performed By: #### PUJA CMP, NIDA #### [facility] [address] [place] [address] John KarenBilirubin [Mass/Vol]0.4 mg/dLNormal0.2-1.3The [facility] Comment on above:Performed By: #### LIPMarin CMP, NIDA #### [facility] [address] [place] [address] John KarenCalcium [Mass/Vol]9.0 mg/dLNormal8.4-10.2[facility] Comment on above:Performed By: #### PUJA CMP, NIDA #### [facility] [address] [place] [address] John KarenChloride [Moles/Vol]104 mmol/EOopzcc45-473Ovt [facility] Comment on above:Performed By: #### PUJA CMP, NIDA #### [facility] [address] [place] [address] John KarenCO2 [Moles/Vol]26.3 mmol/CLhjkwu45.0-30.0[facility] Comment on above:Performed By: #### LIPMarin CMP, NIDA #### [facility] [address] [place] [address] John KarenCreatinine [Mass/Vol]0.85 mg/dLNormal0.52-1.04[facility] Comment on above:Performed By: #### LIPMarin, CMP, NIDA #### [facility] [address] [place] [address] John KarenEGFR-AF BELIZEAN>60Normal>=60The [facility] HospitalComment on above: Performed By: #### LIPA, CMP, NIDA #### [facility] [address] [place], [place] [address] John KarenEGFR-NON AF BELIZEAN>60Normal>=60[facility] LimaComment on above:Performed By: #### LUPE LUO, NIDA #### [facility] [address] [place] [address] John KarenGlobulin (S) [Mass/Vol]3.7 g/dLNormParkwood HospitalComment on above:Performed By: #### LUPE LUO, NIDA #### [facility] [address] [place] [address] John KarenGlucose [Mass/Vol]106 mg/ySHhocti46-154Yga [facility] HospitalComment on above:Performed By: #### LUPE LUO, NIDA #### [facility] [address] [place] [address] John KarenPotassium [Moles/Vol]4.5 mmol/LNormal3.4-5.0The [facility] Comment on above:Performed By: #### LUPE LUO, NIDA #### [facility] [address] [place] [address] John KarenProtein [Mass/Vol]7.1 g/dLNormal6.1-8.2The [facility] HospitalComment on above:Performed By: #### LUPE LUO, NIDA #### [facility] [address] [place] [address] John KarenSodium [Moles/Vol]141 mmol/YGaqqlb775-096Vro [facility] Comment on above:Performed By: #### LUPE LUO, NIDA #### [facility] [address] [place] [address] John KarenUrea nitrogen [Mass/Vol]8.0 mg/dLNormal7.0-17.0The [facility] Comment on above:Performed By: #### LUPE LUO, NIDA #### [facility] [address] [place] [address] John KarenUrea nitrogen/Creatinine [Mass ratio]9.4 mg/mgNormParkwood HospitalComment on above:Performed By: #### LUPE LUO, NIDA #### [facility] [address] [address] John ArellanoenXR ABD FLAT UP_PA Claudio [id number] ABD FLAT UP_PA CHIMAGES REVIEWED: XR ABD FLAT UP_PA CH COMPARISON: [...] Electronically authenticated by: JACKELIN SUÁREZ Date: 2020-06-13 21:39NoAvita Health SystemCOVID-19 PCRon [id number]-CoV-2 (COVID-19) RNA DAVID+probe Ql (Unsp spec)Not detectedNormalNot DetectedThe [facility] HospitalComment on above: Result Comment: This test was developed and its performance characteristics determined by [employer]. This test has not been FDA cleared [...] a negative (not detected) result in this assay.Performed By: #### CVDPCR #### [facility] [address] [place] [address] John Hunter Vital Signs Date TimeVital SignValuePerforming AfoyhffqfQxhnngxi39-28-7485 16:01-0400Body avnwor632.02 cmBrittany Rivera TRANSPORTATION SERVICES REPRESENTATIVE-C Work Phone: [phone]09-25-2025 16:01-0400 Body mass index (BMI) [Ratio]48.5 kg/t7Jruyxrwd Rivera TRANSPORTATION SERVICES REPRESENTATIVE-C Work Phone: [phone]09-25-2025 16:01-0400 Body .3 [degF]Jacy Rivera TRANSPORTATION SERVICES REPRESENTATIVE-C Work Phone: [phone]09-25-2025 16:01-0400 Body rpaxoq896.34 kgBrittany Rivera TRANSPORTATION SERVICES REPRESENTATIVE-C Work Phone: [phone]09-25-2025 16:01-0400 Diastolic blood mm[Hg]Jacy Rivera TRANSPORTATION SERVICES REPRESENTATIVE-C Work Phone: [phone] [address]09-25-2025 16:01-0400 Heart rate86 /minBrittany Rivera TRANSPORTATION SERVICES REPRESENTATIVE-C Work Phone: [phone]09-25-2025 16:01-0400 Respiratory rate18 /minBrittany Rivera TRANSPORTATION SERVICES REPRESENTATIVE-C Work Phone: [phone] [place], [place] 2173309-25-2025 16:01-0400 SaO2% (BldA) [Mass fraction]98 %Jacy Rivera TRANSPORTATION SERVICES REPRESENTATIVE-C Work Phone: [phone] [place], [place] 2173309-25-2025 16:01-0400 Systolic blood ytmymbsu119 mm[Hg]Jacy Rivera TRANSPORTATION SERVICES REPRESENTATIVE-C Work Phone: [phone] [place], [place] 2173308-18-2025 19:29-0400 Diastolic blood zwzrimbt47 mm[Hg]Opal Aichholz TRANSPORTATION SERVICES REPRESENTATIVE Work Phone: [place] [address]Zmbezapyqz50-86-5363 19:29-0400Systolic blood udpiwbkh358 mm[Hg]Opal Verdugo TRANSPORTATION SERVICES REPRESENTATIVE Work Phone: [place] [address]Tqelufkrav47-00-0881 18:56-0400Body mass index (BMI) [Ratio]48.43 kg/m2Opal Verdugo TRANSPORTATION SERVICES REPRESENTATIVE Work Phone: [facility] CenterOxqcqaflrp34-38-2010 18:56-0400Body temperature 97.81 [degF]Opal Verdugo TRANSPORTATION SERVICES REPRESENTATIVE Work Phone: [facility] CenterPqdtklvkhf10-74-4657 18:56-0400Body jihqzl733.01 kgOpal eVrdugo TRANSPORTATION SERVICES REPRESENTATIVE Work Phone: [facility] CenterPrgdewbweh88-02-9638 18:56-0400Heart rate84 /min Opal Verdugo TRANSPORTATION SERVICES REPRESENTATIVE Work Phone: [facility] CenterInuljvwuoc90-70-8879 18:56-0400Respiratory rate18 /minOpal Verdugo TRANSPORTATION SERVICES REPRESENTATIVE Work Phone: [facility] CenterIqmbclqcqf04-25-0019 18:56-6188RpT2% (BldA) [Mass fraction]98 %Opal Verdugo TRANSPORTATION SERVICES REPRESENTATIVE Work Phone: [facility] CenterRmngupnutz89-61-1560 13:09-0400Body vfyeac977.02 cmBrousmane Rivera TRANSPORTATION SERVICES REPRESENTATIVE-C Work Phone: [facility]08-06-2025 13:09-0400 Diastolic blood oxoghmjo34 mm[Hg]Jacy Rivera TRANSPORTATION SERVICES REPRESENTATIVE-C Work Phone: [facility]08-06-2025 13:09-0400 Heart rate82 /minBrittany Rivera TRANSPORTATION SERVICES REPRESENTATIVE-C Work Phone: [facility]08-06-2025 13:09-0400 Respiratory rate16 /minBrittany Rivera TRANSPORTATION SERVICES REPRESENTATIVE-C Work Phone: [facility]08-06-2025 13:09-0400 SaO2% (BldA) [Mass fraction]96 %Jacy Hernándezk TRANSPORTATION SERVICES REPRESENTATIVE-C Work Phone: [facility]08-06-2025 13:09-0400 Systolic blood aukrdwyz683 mm[Hg]Jacy Hernándezk TRANSPORTATION SERVICES REPRESENTATIVE-C Work Phone: [facility]07-23-2025 16:53-0400 Body mass index (BMI) [Ratio]48.57 kg/m2Lisa Suhailholz TRANSPORTATION SERVICES REPRESENTATIVE Work Phone: [facility] CenterUwxnhvbrpe65-42-8328 16:53-0400Body temperature 98.49 [degF]Opal Suhailholz TRANSPORTATION SERVICES REPRESENTATIVE Work Phone: [facility] CenterWgxcvoridp40-97-1161 16:53-0400Body szibgg561.38 kgLisa Danishhholz TRANSPORTATION SERVICES REPRESENTATIVE Work Phone: [facility] CenterEkukzeziaf89-97-7548 16:53-0400Diastolic blood nzgkymys14 mm[Hg]Opal Danishhholz TRANSPORTATION SERVICES REPRESENTATIVE Work Phone: [facility] CenterXdhdnbxrac47-55-0318 16:53-0400Heart rate95 /min Opal Dnaishhholz TRANSPORTATION SERVICES REPRESENTATIVE Work Phone: [facility] CenterWdhmyegzuv85-85-7464 16:53-0400Respiratory rate18 /minLisa Danishhholz TRANSPORTATION SERVICES REPRESENTATIVE Work Phone: [facility] CenterLehtxmxpuw46-26-9596 16:53-0221KsG8% (BldA) [Mass fraction]98 %Opal Aichholz TRANSPORTATION SERVICES REPRESENTATIVE Work Phone: [facility] CenterIdhmulqgga17-42-2008 16:53-0400Systolic blood uftnqkun963 mm[Hg]Opal Aichholz TRANSPORTATION SERVICES REPRESENTATIVE Work Phone: [facility] CenterQlyqfmxmrb32-40-3335 16:09-0400Diastolic blood mdsjylhs63 mm[Hg]Opal Aichholz TRANSPORTATION SERVICES REPRESENTATIVE Work Phone: [facility] CenterIqswswgwkl63-91-8799 16:09-0400Systolic blood ikbslssg800 mm[Hg]Opal Verdugo TRANSPORTATION SERVICES REPRESENTATIVE Work Phone: [facility] CenterGhpgeuklxn59-84-1182 15:34-0400Body mass index (BMI) [Ratio]50.34 kg/m2Viviennesa Suhailholz TRANSPORTATION SERVICES REPRESENTATIVE Work Phone: [facility] CenterSyjhjumokw68-41-0996 15:34-0400Body temperature 98.49 [degF]Opal Watsonz TRANSPORTATION SERVICES REPRESENTATIVE Work Phone: [facility] CenterJaiiamtgmj95-56-9300 15:34-0400Body ypfjwv781.91 kgLisa Suhailholz TRANSPORTATION SERVICES REPRESENTATIVE Work Phone: [facility] CenterRqyqfvotnn78-63-1332 15:34-0400Heart rate83 /min Opal Watsonz TRANSPORTATION SERVICES REPRESENTATIVE Work Phone: [facility] CenterJynpsbjtjq46-50-0630 15:34-0400Respiratory rate18 /minLisa Watsonz TRANSPORTATION SERVICES REPRESENTATIVE Work Phone: [facility] CenterEmmeazwncz34-83-5264 15:34-0300OdK7% (BldA) [Mass fraction]97 %Opal Watsonz TRANSPORTATION SERVICES REPRESENTATIVE Work Phone: [facility] CenterGgsardvjou00-30-3048 16:00-0400Body mass index (BMI) [Ratio]49.67 kg/m2Opal Watsonz TRANSPORTATION SERVICES REPRESENTATIVE Work Phone: [facility] CenterIigrtzpbtc50-70-9979 16:00-0400Body temperature 97.9 [degF]Opal Watsonz TRANSPORTATION SERVICES REPRESENTATIVE Work Phone: [place] [phone] 16:00-0400Body .19 kgLisa Suhailholz TRANSPORTATION SERVICES REPRESENTATIVE Work Phone: [place] [phone] 16:00-0400Diastolic blood uaneldic73 mm[Hg]Opal Jangholz TRANSPORTATION SERVICES REPRESENTATIVE Work Phone: [place] [phone] 16:00-0400Heart rate95 /min Opal Suhailholz TRANSPORTATION SERVICES REPRESENTATIVE Work Phone: [facility] CenterPdhmhryulq55-17-5708 16:00-0400Respiratory rate18 /minLisa Danishhholz TRANSPORTATION SERVICES REPRESENTATIVE Work Phone: [facility] CenterFggfytdawi49-25-1851 16:00-0169AcZ0% (BldA) [Mass fraction]97 %Opal Suhailholz TRANSPORTATION SERVICES REPRESENTATIVE Work Phone: [facility] CenterBklukhfkek40-92-9591 16:00-0400Systolic blood ofabsqul427 mm[Hg]Opal Danishhholz TRANSPORTATION SERVICES REPRESENTATIVE Work Phone: [facility] CenterPsyvfyatgy51-26-9663 14:11-0400Body mass index (BMI) [Ratio]50.45 kg/m2Lisa Suhailholz TRANSPORTATION SERVICES REPRESENTATIVE Work Phone: [facility] CenterRveskquhic27-16-3179 14:11-0400Body temperature 99.61 [degF]Opal Suhailholz TRANSPORTATION SERVICES REPRESENTATIVE Work Phone: [facility] CenterEcrlpheoqd78-86-1107 14:11-0400Body .18 kgLisa Danishhholz TRANSPORTATION SERVICES REPRESENTATIVE Work Phone: [facility] CenterGaspvhyhxg74-07-6403 14:11-0400Diastolic blood lqbahuod84 mm[Hg]Opal Suhailholz TRANSPORTATION SERVICES REPRESENTATIVE Work Phone: [facility] CenterUybtpeyfzm77-45-7340 14:11-0400Heart rate93 /min Opal Suhialholz TRANSPORTATION SERVICES REPRESENTATIVE Work Phone: [place] [address]Fdoyjilcwr71-76-0098 14:11-0400Respiratory rate18 /minLisa Aichholz TRANSPORTATION SERVICES REPRESENTATIVE Work Phone: [place] [address]Jjikairkbt09-32-2677 14:11-5115UzR6% (BldA) [Mass fraction]97 %Opal Danishhholz TRANSPORTATION SERVICES REPRESENTATIVE Work Phone: [place] [address]Hppteqttdp04-86-9195 14:11-0400Systolic blood zydibccm818 mm[Hg]Opal Danishhholz TRANSPORTATION SERVICES REPRESENTATIVE Work Phone: [facility] CenterEpqdivqrsf81-16-3278 15:29-0500Body hzyhvu865 cm Jacy Rivera TRANSPORTATION SERVICES REPRESENTATIVE Work Phone: [facility] CenterPzglurwxeh94-28-0835 15:29-0500Body mass index (BMI) [Ratio]48.15 kg/g7Ksqhpqpo Rivera TRANSPORTATION SERVICES REPRESENTATIVE Work Phone: [facility] CenterUqnqpujbxh40-00-0541 15:29-0500Body temperature 97.2 [degF]Jacy Rivera TRANSPORTATION SERVICES REPRESENTATIVE Work Phone: [facility] CenterFkjxnolwif47-08-0639 15:29-0500Body yyvith919.29 kgBrittany Rivera TRANSPORTATION SERVICES REPRESENTATIVE Work Phone: [facility] CenterJkovycsipd27-88-9713 15:29-0500Diastolic blood jirswquf49 mm[Hg]Jacy Rivera TRANSPORTATION SERVICES REPRESENTATIVE Work Phone: [facility] CenterLnjmpwzsnm83-25-1552 15:29-0500Heart rate87 /min Jacy Rivera TRANSPORTATION SERVICES REPRESENTATIVE Work Phone: [facility] CenterCmceokjlah21-28-6056 15:29-0500Respiratory rate16 /minBrittany Rivera TRANSPORTATION SERVICES REPRESENTATIVE Work Phone: [facility] CenterIniqroloxt44-10-5052 15:29-4856EkA4% (BldA) [Mass fraction]97 %Jacy Rivera TRANSPORTATION SERVICES REPRESENTATIVE Work Phone: [facility] CenterRhwqasjviq42-65-6071 15:29-0500Systolic blood riugxuez735 mm[Hg]Jacy Rivera TRANSPORTATION SERVICES REPRESENTATIVE Work Phone: [facility] CenterVotfydmanf33-14-6717 16:08-0500Body hymlrm906.02 cmBrittany Rivera TRANSPORTATION SERVICES REPRESENTATIVE-C Work Phone: [facility]11-12-2024 16:08-0500 Body mass index (BMI) [Ratio]50.5 kg/l2Tndcspav Rivera TRANSPORTATION SERVICES REPRESENTATIVE-C Work Phone: 1([phone])547-[address] [place], [place] [address]3311-12-2024 16:08-0500 Body cupfwwnpigu95.2 [degF]Jacy Rivera TRANSPORTATION SERVICES REPRESENTATIVE-C Work Phone: [phone])[address]11-12-2024 16:08-0500 Body pknawo974.5 kgBrittany Rivera TRANSPORTATION SERVICES REPRESENTATIVE-C Work Phone: 1([phone])[address]11-12-2024 16:08-0500 Diastolic blood pgfsgyko49 mm[Hg]Jacy Rivera TRANSPORTATION SERVICES REPRESENTATIVE-C Work Phone: 1(427)[address] [place], [place] 9936211-12-2024 16:08-0500 Heart rate83 /minBrittany Rivera TRANSPORTATION SERVICES REPRESENTATIVE-C Work Phone: 1([phone])[address] [place], [place] 9936211-12-2024 16:08-0500 Respiratory rate18 /minBrittany Rivera TRANSPORTATION SERVICES REPRESENTATIVE-C Work Phone: 1([phone])[address] [place], [place] 9936211-12-2024 16:08-0500 SaO2% (BldA) [Mass fraction]96 %Jacy Rivera TRANSPORTATION SERVICES REPRESENTATIVE-C Work Phone: [phone])[address]11-12-2024 16:08-0500 Systolic blood wrcxuvqb100 mm[Hg]Jacy Rivera TRANSPORTATION SERVICES REPRESENTATIVE-C Work Phone: 1(065)[address] [place], [place] 9936210-15-2024 08:55-0400 Diastolic blood eetgtykj84 mm[Hg]TRANSPORTATION SERVICES REPRESENTATIVE-C Jacy Rivera Work Phone: 1([phone])[address] [place], [place] 9936210-15-2024 08:55-0400 Heart rate79 /minNP-C Jacy Rivera Work Phone: 1(638)[address] [place], [place] 9936210-15-2024 08:55-0400 Respiratory rate16 /minNP-C Jacy Rivera Work Phone: 1(044)[address]10-15-2024 08:55-0400 SaO2% (BldA) [Mass fraction]98 %TRANSPORTATION SERVICES REPRESENTATIVE-C Jacy Rivera Work Phone: 1([phone])[address]10-15-2024 08:55-0400 Systolic blood riirjwxd486 mm[Hg]TRANSPORTATION SERVICES REPRESENTATIVE-C Jacy Rivera Work Phone: [phone]10-15-2024 07:33-0400 Body anclko803.02 cmNP-C Jacy Rivera Work Phone: 1(092)[address]10-15-2024 07:33-0400 Body azamnlwwzpq23 [degF]TRANSPORTATION SERVICES REPRESENTATIVE-C Jacy Rivera Work Phone: [phone]10-15-2024 07:33-0400 Body rclyoq582.27 kgNP-C Jacy Rivera Work Phone: 1(448)823-[address] [place], [place] 2173309-30-2024 15:42-0400 Body .02 [facility] 15:42-0400Body mass index (BMI) [Ratio]51 kg/m8XydsrpktmOhiohealth Doctors Hospital09-30-2024 15:42-0400Body sxugtf806.63 kgOhiohealth [facility]09-17-2024 15:28-0400Body bheggp387 cmBrittany Rivera TRANSPORTATION SERVICES REPRESENTATIVE Work Phone: [facility] CenterLyqjtgiuds39-96-3885 15:28-0400Body mass index (BMI) [Ratio]51.37 kg/b2Dhyohhhy Rivera TRANSPORTATION SERVICES REPRESENTATIVE Work Phone: [facility] CenterSgpgpnnwjn79-56-3141 15:28-0400Body temperature 98.1 [degF]Jacy Rivera TRANSPORTATION SERVICES REPRESENTATIVE Work Phone: [facility] CenterOgfqkitblm49-94-0568 15:28-0400Body kwxyrs980.54 kgBrittany Rivera TRANSPORTATION SERVICES REPRESENTATIVE Work Phone: [facility] CenterSbnlhichcb77-12-6482 15:28-0400Diastolic blood habaktml34 mm[Hg]Jacy Rivera TRANSPORTATION SERVICES REPRESENTATIVE Work Phone: [facility] HospitalMdujotlntc77-55-8092 15:28-0400Heart rate95 /min Jacy Rivera TRANSPORTATION SERVICES REPRESENTATIVE Work Phone: noms HealthcareComment on above:95% B910-98-9035 15:28-0400Systolic blood bdwjbwko310 mm[Hg]Jacy Rivera TRANSPORTATION SERVICES REPRESENTATIVE Work Phone: noW[facility] HospitalDwulkzgkqf75-57-7125 16:25-0400Body cjolsi894 cm Jacy Rivera TRANSPORTATION SERVICES REPRESENTATIVE Work Phone: noW[facility] HospitalLhwztagzun21-87-3479 16:25-0400Body mass index (BMI) [Ratio]50.84 kg/u6Csouysrd Rivera TRANSPORTATION SERVICES REPRESENTATIVE Work Phone: noW[facility] HospitalJwxsvxyieg74-02-3776 16:25-0400Body temperature 98.29 [degF]Jacy Rivera TRANSPORTATION SERVICES REPRESENTATIVE Work Phone: noW[facility] HospitalZdygzwpsut34-25-4486 16:25-0400Body hdvkie876.18 kgBrittany Rivera TRANSPORTATION SERVICES REPRESENTATIVE Work Phone: noW[facility] HospitalYnodxnehuv75-08-0292 16:25-0400Diastolic blood ftbokdiw74 mm[Hg]Jacy Rivera TRANSPORTATION SERVICES REPRESENTATIVE Work Phone: noW[facility] HospitalCydhitilkc43-87-0372 16:25-0400Heart xgvi715 /min Jacy Rivera TRANSPORTATION SERVICES REPRESENTATIVE Work Phone: noms HealthcareComment on above:98% U517-28-3036 16:25-0400Systolic blood reglefzs888 mm[Hg]Jacy Rivera TRANSPORTATION SERVICES REPRESENTATIVE Work Phone: noW[facility] HospitalRijzhdbqan69-68-3341 16:30-0500Body nzmegv547.02 Dinesh Leslie Other Paige [employer] Other 11-24-2021 16:30-0500Body evjurgaojdo92.6 [degF]Genie Leslie [facility] [employer] Other 11-24-2021 16:30-0500Respiratory rate18 /minGenie Leslie Other [facility] [employer] Other 11-24-2021 16:30-2154EnM8% (BldA) [Mass fraction]98 % Genie Leslie Other [facility] [employer] Other Encounters Encounter DateEncounter TypeCare ProviderFacilityStart: 01-30-2025 End: 67-33-8949zuhzchiguyXbitfuho N Fitzpatrick TRANSPORTATION SERVICES REPRESENTATIVE-C Work Phone: [facility] Work Phone: Start: 01-30-2025 End: 80-79-5190Dbpgtxm encounter procedureOpal Verdugo NP-C-[facility] [place] Work Phone: Start: 28-40-0022Zhrxbhg encounter statusJacy Rivera TRANSPORTATION SERVICES REPRESENTATIVE-C Work Phone: [facility] Centertart: 56-40-8253Piy- patient / Non-visitOpal Verdugo NP-C-[facility] Work Phone: Start: 12-23-2024 End: 24-54-7493Soksqk outpatient visit 25 minutesLisa Verdugo TRANSPORTATION SERVICES REPRESENTATIVE Work Phone: [facility] FMComment on above:ISABEL (generalized anxiety disorder) (Primary Dx); Morbid obesity due to excess calories ([facility]-HCC); Mixed hyperlipidemia ; Encounter for wellness examination in adult; Primary hypertensionStart: 12-23-2024 End: 35-79-5173Oywewub encounter statusOpal Verdugo TRANSPORTATION SERVICES REPRESENTATIVE Work Phone: NOYN HealthcareStart: 12-23-2024 End: 90-51-9861mtrxexcgsoVEUA AICHHOLZNot AvailableStart: 12-23-2024 End: 55-51-2155Yrabha flowsheetLisa Aichholz TRANSPORTATION SERVICES REPRESENTATIVE Work Phone: NOVO CWM FMStart: 12-23-2024 End: 29-09-9653Gbrwjv flowsheetLisa Aichholz TRANSPORTATION SERVICES REPRESENTATIVE Work Phone: noms CWM FMStart: 12-11-2024 End: 12-12-8811pruewwusixAkunwwjh N Rivera TRANSPORTATION SERVICES REPRESENTATIVE-C Work Phone: [facility] Work Phone: Start: 12-11-2024 End: 91-90-1675Xmthskx encounter procedureNicvelia Brock DO-[facility] [place] Work Phone: Start: 11-27-2024 End: 16-47-2236Wwlqzw outpatient visit 15 minutesLisa Aichholz TRANSPORTATION SERVICES REPRESENTATIVE Work Phone: noms CWM FMComment on above:Primary hypertension (Primary Dx); Morbid obesity due to excess calories ([facility]-HCC); ISABEL (generalized anxiety disorder)Start: 11-27-2024 End: 37-18-8938nzmkfhrxjgKCCF AICHHOLZNot AvailableStart: 11-27-2024 End: 06-32-0683Liwaue flowsheetLisa Aichholz TRANSPORTATION SERVICES REPRESENTATIVE Work Phone: NO CWM FMStart: 11-27-2024 End: 35-95-2495Kusdyt flowsheetLisa Aichholz TRANSPORTATION SERVICES REPRESENTATIVE Work Phone: noms CWM FMStart: 10-30-2024 End: 59-41-2507Bncybj outpatient visit 25 minutesLisa Aichholz TRANSPORTATION SERVICES REPRESENTATIVE Work Phone: noms CWM FMComment on above:ISABEL (generalized anxiety disorder) (Primary Dx); Primary hypertension ; Morbid obesity due to excess calories ([facility]-HCC); PrediabetesStart: 10-30-2024 End: 68-09-7867cmjucvcuhxBMNC AICHHOLZNot AvailableStart: 10-30-2024 End: 22-76-4537Wsiguv flowsheetLisa Aichholz TRANSPORTATION SERVICES REPRESENTATIVE Work Phone: NOJW CWM FMStart: 10-30-2024 End: 58-39-7076Klovcg flowsheetLisa Aichholz TRANSPORTATION SERVICES REPRESENTATIVE Work Phone: NOIX CWM FMStart: 08-29-2024 End: 93-66-5105Zbsveg outpatient visit 15 minutesLisa Aichholz TRANSPORTATION SERVICES REPRESENTATIVE Work Phone: NOMS CWM FMComment on above:Primary hypertension (CMS/HCC) (Primary Dx); Morbid obesity due to excess calories (CMS/HCC); ISABEL (generalized anxiety disorder) (CMS/HCC)Start: 08-29-2024 End: 11-34-1919ommwkxelkgHFOV AICHHOLZNot AvailableStart: 08-29-2024 End: 79-86-5302Jujdpv flowsheetLisa Aichholz TRANSPORTATION SERVICES REPRESENTATIVE Work Phone: NOXQ CWM FMStart: 08-29-2024 End: 64-12-3917Xkspfa flowsheetLisa Aichholz TRANSPORTATION SERVICES REPRESENTATIVE Work Phone: NONG CWM FMStart: 07-29-2024 End: 72-24-7278Njhglw flowsheetLisa Aichholz TRANSPORTATION SERVICES REPRESENTATIVE Work Phone: NOOP CWM FMStart: 07-29-2024 End: 77-25-6148Jnjdvd flowsheetLisa Aichholz TRANSPORTATION SERVICES REPRESENTATIVE Work Phone: NOJT CWM FMStart: 07-29-2024 End: 10-17-4974Hqanmk outpatient visit 25 minutesLisa Aichholz TRANSPORTATION SERVICES REPRESENTATIVE Work Phone: NOMS CWM FMComment on above:Primary hypertension (CMS/HCC) (Primary Dx); Body mass index (BMI) 45.0-49.9, adult (CMS/HCC); Gastroesophageal reflux disease, unspecified whether esophagitis present; Morbid obesity due to excess calories (CMS/HCC); Mixed hyperlipidemia (CMS/HCC); Prediabetes; Eosinophilic esophagitis; ELISA (obstructive sleep apnea); ISABEL (generalized anxiety disorder) (CMS/HCC)Start: 07-29-2024 End: 02-61-5859kahtbuxappYJNU AICHHOLZNot AvailableStart: 04-22-2024 End: 00-22-8033Siiuiu outpatient visit 15 minutesBrittabigail Rivera TRANSPORTATION SERVICES REPRESENTATIVE Work Phone: NOXB CWM FMComment on above:Primary hypertension (CMS/HCC) (Primary Dx); Prediabetes; Hypercholesteremia (CMS/HCC)Start: 04-22-2024 End: 91-61-3364grbhasigywQJCBXGJE FITZPATRICKNot AvailableStart: 04-22-2024 End: 09-52-4778Iiynyn flowsheetBrittany Rivera TRANSPORTATION SERVICES REPRESENTATIVE Work Phone: noms CWM FMStart: 04-22-2024 End: 78-37-6267Oyhang flowsheetBrittany Rivera TRANSPORTATION SERVICES REPRESENTATIVE Work Phone: noms CWM FMStart: 04-19-2024 End: 60-95-2064XwctsuVxoksfge Rivera TRANSPORTATION SERVICES REPRESENTATIVE Work Phone: noms CWM FMComment on above:Mixed hyperlipidemia (CMS/HCC)Start: 04-13-2024 End: 65-30-4717Rjfiegvkc Result EncounterBrittany Rivera TRANSPORTATION SERVICES REPRESENTATIVE Work Phone: noms External Department UnsolicitedStart: 04-13-2024 End: 83-36-2842Vjjcpcutn Result EncounterBrittany Rivera TRANSPORTATION SERVICES REPRESENTATIVE Work Phone: noms External Department UnsolicitedStart: 03-19-2024 End: 67-28-6505ikbnbhxmfvHpvwirse N Rivera TRANSPORTATION SERVICES REPRESENTATIVE-C Work Phone: [facility] Work Phone: Start: 03-19-2024 End: 11-08-5661Jrbnawn encounter procedureJacy Hernándezk TRANSPORTATION SERVICES REPRESENTATIVE-C Work Phone: [facility] [place] Work Phone: Start: 03-02-2024 End: 22-34-0165Wyqvumwei Result EncounterBrousmane Galvantrick TRANSPORTATION SERVICES REPRESENTATIVE Work Phone: noms External Department UnsolicitedStart: 03-02-2024 End: 93-42-3590Wywvtkunc Result EncounterBrousmane Galvantrick TRANSPORTATION SERVICES REPRESENTATIVE Work Phone: noms External Department UnsolicitedStart: 02-20-2024 Non-patient / Xaa-glxsiNE-J Jacy Galvantrick Work Phone: [facility] Work Phone: Start: 02-20-2024 End: 81-29-6738Iilrgelmb to same day surgery centerNP-C Jacy Hernándezk Work Phone: [facility] Work Phone: Start: 02-20-2024 End: 32-95-6651kcijygyumkWG-C Jacy Galvantrick Work Phone: [facility] Work Phone: Start: 02-05-2024 End: 00-10-6353wqobetmrbpSevrhwtxx[facility] Work Phone: Start: 02-05-2024 End: 94-99-8432Rulyoeg encounter procedureC[facility] Work Phone: Start: 01-23-2024 End: 26-00-4124Kgqhfh outpatient visit 15 minutesBrousmane Hernándezk TRANSPORTATION SERVICES REPRESENTATIVE Work Phone: noms CWM FMComment on above:Prediabetes (Primary Dx); Mixed hyperlipidemia (CMS/HCC); Primary hypertension (CMS/[facility]); Gastroesophageal reflux disease, unspecified whether esophagitis presentStart: 01-23-2024 End: 34-92-7118gghnitskzuPQZBKDHW FITZPATRICKNot AvailableStart: 01-23-2024 End: 04-22-6250Njrkdu flowsheetJacy Rivera TRANSPORTATION SERVICES REPRESENTATIVE Work Phone: noms CWM FMStart: 01-23-2024 End: 03-68-1656Xvjydr flowsheetJacy Rivera TRANSPORTATION SERVICES REPRESENTATIVE Work Phone: noms CWM FMStart: 01-23-2024 End: 78-36-0813zdrwoqfxasFHAAVH. [facility] Ambulatory PPGStart: 01-15-2024 End: 32-51-2438Ssgrnw OnlyJacy Rivera TRANSPORTATION SERVICES REPRESENTATIVE Work Phone: noms CWM FMComment on above:Hypercholesteremia (CMS/HCC) (Primary Dx)Start: 12-30-2023 End: 64-28-0534Hutzndump Result EncounterBrousmane Hernándezk TRANSPORTATION SERVICES REPRESENTATIVE Work Phone: noms External Department UnsolicitedStart: 12-30-2023 End: 28-53-2244Uxcsnpqjj Result EncounterBrousmane Rivera TRANSPORTATION SERVICES REPRESENTATIVE Work Phone: noms External Department UnsolicitedStart: 12-30-2023 End: 32-11-1017EjaxpsPzplddzl Fitzpatrick TRANSPORTATION SERVICES REPRESENTATIVE Work Phone: NOMS CWM FMComment on above:Hypertriglyceridemia ([facility]/HCC) (Primary Dx)Start: 12-27-2023 End: 72-92-3337Ifagxuvb preventive med est patient 18-39 yrsJacy Hernándezk TRANSPORTATION SERVICES REPRESENTATIVE Work Phone: noMS CWM FMComment on above:Encounter for wellness examination in adult (Primary Dx); Class 3 severe obesity due to excess calories without serious comorbidity with body mass index (BMI) of 50.0 to 59.9 in adult ([facility]); Gastroesophageal reflux disease, unspecified whether esophagitis present; Fatigue, unspecified type; SnoringStart: 12-27-2023 End: 02-26-1274nhbpjdchghYMVZTKJE FITFREDERICKKNot AvailableStart: 12-27-2023 End: 04-85-9581Jgfahh flowsheetBrousmane Hernándezk TRANSPORTATION SERVICES REPRESENTATIVE Work Phone: noms CWM FMStart: 12-27-2023 End: 53-35-4209Mmlzan flowsheetKishahalieabigail Hernándezk TRANSPORTATION SERVICES REPRESENTATIVE Work Phone: noms CWM FMStart: 12-27-2023 End: 64-79-3177Iciutoz encounter statusKishahalieabigail BearRivera TRANSPORTATION SERVICES REPRESENTATIVE Work Phone: noms HealthcareStart: 03-31-2021(URG) Urgent Care VisitPabena MariamaFPG Urgent Care ClydeStart: 03-31-2021 End: 47-15-4882biavgfkquePbllxt Mariama Other [facility] [employer] Other Start: 09-02-2020 End: 53-81-7953inuifawmyrGZWXUZ ROSSFacility:K0Ijaxy: 08-12-2020 End: 40-53-2673uctkmhiptzCF NONE LISTED REQUESTFacility:P5Fwdih: 06-13-2020 End: 92-39-2376oteynuacxmKK NONE LISTED REQUESTFacility:N9Dvujd: 12-02-2019 End: 18-02-7659wwvdsvauobIJ NONE LISTED REQUESTFacility:H1 Procedures DateProcedureProcedure DetailPerforming ClinicianStart: 82-88-6538Cddieefaxo glycosylated t9aYvlg Aichliannez TRANSPORTATION SERVICES REPRESENTATIVE Work Phone: Start: 80-67-8915CDA HEMOGLOBIN V5BDpjnzsstJacy Jaegerzpatrick TRANSPORTATION SERVICES REPRESENTATIVE Work Phone: Start: 15-07-9237GFC CMP (CMP) (FOR REMOTE [facility] USE) Jacy Rivera TRANSPORTATION SERVICES REPRESENTATIVE Work Phone: Start: 25-61-8077HaaskaxnpxyrjbmitzserxwxuoQM-C Jacy Rivera Work Phone: Start: 24-54-4413PBK HEMOGLOBIN U1SVzgibnir Miguel TRANSPORTATION SERVICES REPRESENTATIVE Work Phone: Plan of Treatment DateCare ActivityDetailAuthorStart: 01-30-2025 End: 31-45-9334Urihiyf encounter rvfqsxioo19/25/2025 3:40 PM EDT Office Visit [facility] [address] [place] [address] Opal Verdugo, [place] [address] [place] [phone] [facility] FMStart: 09-17-6309Njzmfjduh [facility] HospitalsStart: 12-23-2024 End: 59-35-8924Mvjusgc encounter mlpjxsrys46/18/2025 7:00 PM EDT Office Visit [facility] [address] [place] [address] Opal Verdugo, [place] [address] [place] [phone] Morbid obesity due to excess calories (CMS-HCC) (Primary Dx); Mixed hyperlipidemia ; ISABEL (generalized anxiety disorder) ; [facility]:Morbid obesity due to excess calories (CMS-HCC) (Primary Dx); Mixed hyperlipidemia ; ISABEL (generalized anxiety disorder) ; Encounter for wellness examination in adultStart: 12-23-2024 End: 98-90-2665KNT W Auto Differential panel - BloodCBC and differential Lab Routine Encounter for wellness examination in adult Expected: 12/23/2024 (A pproximate), Expires: 12/23/2025[facility] Work Phone: Comment on above:Expected: 12/23/2024 (Approximate), Expires: 12/23/2025Start: 12-23-2024 End: 39-64-1511Ajdellnhliztd metabolic 2000 panel - Serum or PlasmaComprehensive metabolic panel Lab Routine Encounter for wellness examination in adult Expected: 12/23/2024 (Approximate), Expires: 12/23/2025[facility] HealthcareComment on above:Expected: 12/23/2024 (Approximate), Expires: 12/23/2025Start: 12-23-2024 End: 97-87-8805Bbxns 1996 panel - Serum or PlasmaLipid panel Lab Routine Encounter for wellness examination in adult Expected: 12/23/2024 (Approximate), Expires: 12/23/2025[facility] HealthcareComment on above:Expected: 12/23/2024 (Approximate), Expires: 12/23/2025Start: 12-23-2024 End: 05-94-2711Wpvjkvqulwu [Units/volume] in Serum or PlasmaTSH Lab Routine Encounter for wellness examination in adult Expected: 12/23/2024 (Approximate), Expires: 12/23/2025[facility] HealthcareComment on above:Expected: 12/23/2024 (Approximate), Expires: 12/23/2025Start: 12-23-2024 End: 78-75-9209Cogqpfgvjm complete panel - UrineUrinalysis with reflex microscopic (clean catch) Lab Routine Encounter for wellness examination in a dult Expected: 12/23/2024 (Approximate), Expires: 12/23/2025[facility] Healthcare Comment on above:Expected: 12/23/2024 (Approximate), Expires: 12/23/2025Start: 11-27-2024 End: 98-40-3967Rnxsogb encounter atzkhrclo99/23/2025 4:30 PM EDT Office Visit [facility] [address] [place] [address] Opal Verdugo NP [address] [place] [address] Primary hypertension (Primary Dx); ELISA (obstructive sleep apnea); Morbid obesity due to excess calories ([facility]-HCC)[facility]OMS CW FMComment on above:Primary hypertension (Primary Dx); ELISA (obstructive sleep apnea); Morbid obesity due to excess calories (CMS-HCC)Start: 10-30-2024 End: 45-46-5833Xsfyuqq encounter procedureNOMS CW FMComment on above:Primary hypertension (Primary Dx); ELISA (obstructive sleep apnea); Morbid obesity due to excess calories (CMS-HCC); PrediabetesStart: 02-73-3587Lrwrshhpj vaccinationInfluenza Vaccine (#1)[facility] HealthcareComment on above:Postponed from 01/07/2024 (Patient Refused)Start: 08-29-2024 End: 93-76-6175Iopgwlf encounter egptpsfez99/24/2025 3:40 PM EDT Office Visit [facility] [address] [place] [phone] Opal Verdugo NP [address] [place] [address] ELISA (obstructive sleep apnea) (Primary Dx); Primary hypertension (CMS/HCC); Morbid obesity due to excess calories (CMS/HCC); ISABEL (generalized anxiety disorder) (CMS/HCC)[facility]OMS CW FMComment on above:ELISA (obstructive sleep apnea) (Primary Dx); Primary hypertension (CMS/HCC); Morbid obesity due to excess calories (CMS/HCC); ISABEL (generalized anxiety disorder) (CMS/HCC)Start: 07-29-2024 End: 04-99-6438Cnakszu encounter /24/2025 2:00 PM EDT Office Visit [facility] [address] [place] [phone] Opal Verdugo NP [address] [place] [address] Primary hypertension (CMS/HCC) (Primary Dx); Body mass index (BMI) 45.0-49.9, adult (CMS/HCC); Gastroesophageal reflux disease, unspecified whether esophagitis present; Morbid obesity due to excess calories (CMS/HCC); Mixed hyperlipidemia (CMS/HCC); PrediabetesNOMS CWM FMComment on above:Primary hypertension ([facility]) (Primary Dx); Body mass index (BMI) 45.0-49.9, adult ([facility]); Gastroesophageal reflux disease, unspecified whether esophagitis present; Morbid obesity due to excess calories (CMS/HCC); Mixed hyperlipidemia ([facility]); PrediabetesStart: 06-24-2024 End: 45-78-4305Azetm 1996 panel - Serum or PlasmaLipid panel Lab Routine Mixed hyperlipidemia (CMS/HCC) Expected: 06/24/2024 (Approximate), Expires:01/22/2025 [facility] Work Phone: Comment on above:Expected: 06/24/2024 (Approximate), Expires: 01/22/2025Start: 11-63-3685Hxdkisgjk vaccinationInfluenza Vaccine (#1) N[facility] HealthcareComment on above:Postponed from 01/07/2024 (Patient Refused) Start: 04-23-2024 End: 86-23-3018Fznrzkunwh A1c/Hemoglobin.total in BloodHemoglobin A1c Lab Routine Prediabetes Expected: 04/23/2024 (Approximate), Expires: 01/22/2025NOMS HealthcareComment on above:Expected: 04/23/2024 (Approximate), Expires: 01/22/2025Start: 04-22-2024 End: 74-36-2397Uqmhshw encounter procedureNOMS CWM FMComment on above:Arrived Start: 03-07-2024 End: 74-06-1039Exlwchbzbtsct metabolic 2000 panel - Serum or PlasmaComprehensive metabolic panel Lab Routine Prediabetes Expected: 03/07/2024 (Approximate), Expires: 01/22/2025N[facility] HealthcareComment on above:Expected: 03/07/2024 (Approximate), Expires: 01/22/2025Start: 03-07-2024 End: 29-00-6131Goapmxjrwuzz/Creatinine panel in random UrineMicroalbumin / creatinine urine ratio Lab Routine Prediabetes Expected: 03/07/2024 (Approximate), Expires: 01/22/2025NOMS HealthcareComment on above:Expected: 03/07/2024 (Approximate), Expires: 01/22/2025Start: 15-66-0705ZpbyfuegeUniversity Hospitals Ahuja Medical Centertart: 01-23-2024 End: 56-59-3642Vzijabc encounter procedureNOMCBRIDE OR[facility]OP[facility] [place] FMComment on above:Arrived Start: 52-72-2208Facnobhot vaccinationInfluenza Vaccine (#1)[facility] Start: 12-27-2023 End: 92-46-3931Gmuujnj encounter yopdvqmvg15/21/2024 4:30 PM EDT Office Visit [facility] [address] [place] [address] Jacy Rivera, TRANSPORTATION SERVICES REPRESENTATIVE [address] [place] [address] ArrivedN[facility] [place] FMComment on above:ArrivedStart: 12-27-2023 End: 98-77-5016THL W Auto Differential panel - BloodCBC and differential Lab Routine Encounter for wellness examination in adult Expected: 12/27/2023 (A pproximate), Expires: 12/26/2024[facility] HealthcareComment on above:Expected: 12/27/2023 (Approximate), Expires: 12/26/2024Start: 12-27-2023 End: 99-53-2944Xgijsitkf (Vitamin B12) [Mass/volume] in Serum or PlasmaVitamin B12 Lab Routine Fatigue, unspecified type Expected: 12/27/2023 (Approximate), Expires: 12/26/2024[facility] HealthcareComment on above:Expected: 12/27/2023 (Approximate), Expires: 12/26/2024Start: 12-27-2023 End: 23-64-1272Toktqhsibekvd metabolic 2000 panel - Serum or PlasmaComprehensive metabolic panel Lab Routine Encounter for wellness examination in adult Expected: 12/27/2023 (Approximate), Expires: 12/26/2024N[facility] HealthcareComment on above:Expected: 12/27/2023 (Approximate), Expires: 12/26/2024Start: 12-27-2023 End: 98-05-8083Ldjmzxzm [Mass/volume] in Serum or PlasmaFerritin Lab Routine Fatigue, unspecified type Expected: 12/27/2023 (Approximate), Expires: 12/27/19 25N[facility] HealthcareComment on above:Expected: 12/27/2023 (Approximate), Expires: 12/26/2024Start: 12-27-2023 End: 12-21-5212Zkfrtqllbp A1c/Hemoglobin.total in BloodHemoglobin A1c Lab Routine Encounter for wellness examination in adult Expected: 12/27/2023 (Approximate), Expires: 12/26/2024N[facility] HealthcareComment on above:Expected: 12/27/2023 (Approximate), Expires: 12/26/2024Start: 12-27-2023 End: 30-91-2881Rmoe + transferrin + TIBCIron + transferrin + TIBC Lab Routine Fatigue, unspecified type Expected: 12/27/2023 (Approximate),Expires: 12/26/2024 [facility] HealthcareComment on above:Expected: 12/27/2023 (Approximate), Expires: 12/26/2024Start: 12-27-2023 End: 97-69-9440Wdifq 1996 panel - Serum or PlasmaLipid panel Lab Routine Encounter for wellness examination in adult Expected: 12/27/2023 (Approximate), Expires: 12/26/2024[facility] HealthcareComment on above:Expected: 12/27/2023 (Approximate), Expires: 12/26/2024Start: 12-27-2023 End: 81-40-6349EDX W/REFLEX TO FT4TSH W/REFLEX TO FT4 Lab Routine Encounter for wellness examination in adult Expected: 12/27/2023 (Approximate), Expires: 12/26/2024[facility] Work Phone: Comment on above:Expected: 12/27/2023 (Approximate), Expires: 12/26/2024Start: 47-78-4711Opoquahrg for malignant neoplasm of cervix [facility] HealthcareStart: 06-68-8749Dhamczzlp for malignant neoplasm of cervixPap SmearNOMS HealthcarePatient EducationEsophagitis Gastritis (DC) Know your [facility] Work Phone: Immunizations Immunization DateImmunizationNotesCare EtqyxecvMxpntkfw54-84-2037Dldszk Purple Cap SARS-CoV-2 VaccinationLisa Kartik TRANSPORTATION SERVICES REPRESENTATIVE Work Phone: [facility] HospitalPnymgpevzd20-36-2346Abhqnc Purple Cap SARS-CoV-2 VaccinationLisa Walterz TRANSPORTATION SERVICES REPRESENTATIVE Work Phone: [facility] Payers DatePayer CategoryPayerPolicy [id number]-wjs [id number] Wel[employer] HealthBCBS [id number] [facility] [id number] 2023- [phone] [id number] [place] [address] [id number] [id number] 2..1.057862.3.57[id number] 2..1.502594.3.57[id number] 2..1.966833.3.57[id number] 2..1.816172.3.57[id number] 2.16.840.1.320298.3.57[id number] 2.16.840.1.717516.3.57[id number] 2..840.1.822612.3.57[id number] 2.16.840.1.288875.3.57[id number] 2..840.1.450007.3.57[id number] 2..840.1.363367.3.57[id number] 2..0.1.904557.3.579.2.478198-62-3425Bpndrky Health [id number] 10-01-0147Kjao-[id number] Health Insurance [facility] Insurance [id number] [id number] 2.840.1.2[id number] 2.0.1.3[id number] 2.840.1.722390.3.579.2.531 Social History DateTypeDetailFacilityUnknown if ever smokedProTip [employer] Other Start: 01-23-2024 End: 97-29-0352Xmb Assigned At [facility] [employer] Other Start: 01-04-2024 End: 54-17-2456Jjoyisv smoking status NHISNever smoked tobacco (finding) [facility]: 26-25-8554Jqy Assigned At BirthFemale [facility] Centertart: 12-27-2023 End: 85-08-2714Xmolqyx use and exposureSmokeless tobacco non-userNOMS Healthcare Start: 01-23-2024 End: 84-16-0302Okdvvyfut beverage intakeLifetime non-drinker (finding)[facility] HealthcareStart: 01-23-2024 End: 32-67-8569Uyyofdt of Social functionNOMS HealthcareStart: 00-66-7010Xjs assigned at birthNot on fileNOMS HealthcareStart: 64-57-1744PlwLljjsd (finding) [facility] HospitalHistory of tobacco usePassive smokerNOMS HealthcareTobacco smoking status NHISTobacco smoking consumption unknownNOMS HealthcareHow often do you need to have someone help you when you read instructions, pamphlets, or other written material from your doctor or pharmacy [SILS]NeverNOMS HealthcareDo you belong to any clubs or organizations such as yarsanism groups, unions, fraternal or athletic groups, or school groups?NoNOMS HealthcareAre you now , , , , never or living with a partner?MarriedNOMS HealthcareHow often to you have a drink containing alcohol?NeverNOMS HealthcareHow hard is it for you to pay for the very basics like food, housing, medical care, and heatingNot very hardNOMS HealthcareDo you feel stress - tense, restless, nervous, or anxious, or unable to sleep at night because yourmind is troubled all the time - these days [OSQ] Very muchNOMS Healthcare(I/We) worried whether (my/our) food would run out before (I/we) got money to buy more.Sometimes trueNOMS HealthcareThe food that (I/we) bought just didn't last, and (I/we) didn't have money to get more.Never trueNOMS HealthcareNEGATED: Highlighted rowStart: NINFHistory of tobacco use Passive smokerNOMS Healthcare Goals DatePatient GoalDesired Activity/State Clinical Notes 03-31-2021 to 12-23-2024 Note Date & RfwhLdaeIslzacil25-97-7411 History of Present illness Narrative* Opal Verdugo NP - 12/23/2024 7:39 PM EDTAssociated Problem(s): Primary hypertension Please check blood pressure daily and record DASH diet Limit caffeine Take medication as directed Contact office if chest pain, pressure, dizziness, shortness of breath, swelling legs Recommend slow position changes Current meds: losartan No dose changes Check BP daily, if home reads consistently >140/90;s call office * PATRICIA CORREA - 12/23/2024 7:00 PM EDT Pt feels she needs to up the fluoxetine dose. Pt has also stopped taking the metformin due to increase migraines with the adipex after stopping the metformin she has not had any since. Pt would like to know if she can take the one dose at night and not in the AM with the adipex * Opal Verdugo NP - 12/23/2024 7:00 PM EDT Images from the original note [...] were pulsating, no blurry/double vision noted. No chestpain or dyspnea noted Once she stopped the [...] office Morbid obesity due to excess calories ([facility]-HCC) - Primary Discussed with patient their BMI [...] daily if no contraindications Starting weight: 284 (6/25/25) Adipex month's completed: 2 Todays weight 273 [...] Relevant Medications FLUoxetine (PROzac) 20 MG capsule * Opal Verdugo NP - 12/23/2024 7:37 AM EDTAssociated Problem(s): Encounter for wellness examination in adult Check labs * Opal Verdugo NP - 12/23/2024 7:37 AM EDTAssociated Problem(s): ISABEL (generalized anxiety disorder) [...] Please contact the office if these occur. * Opal Verdugo NP - 12/23/2024 7:36 AM EDTAssociated Problem(s): Morbid obesity due to excess calories ([facility]-HCC) Discussed with patient their BMI (actual, verses recommended). We have also discussed lifestyle modifications: attempts to perform physical activity as chronic conditions allow, also to monitor dietary intake: increasing protein/fruits/veggies and lowering carb intake (unless contraindicated). Limit sodas, juices, and sugary drinks. Pt meets qualifications of [facility] 4731-03-11 for weight loss. BMI>30 or >27 [...] cut adipex in half documented in this [facility]08-18-2025 Instructions* Patient Instructions* Opal Verdugo NP - 12/23/2024 7:00 PM EDT Trial 1/2 pill adipex We can increase the fluoxtine to 20mg daily Try starting back on metformin every other day 1 pill documented in this [facility]08-06-2025 Evaluation note* Diagnosis Onset Date Resolution Status Admit Date Hypersomnia acuteAugust 2024 3:40pmHypoxiaacuteAugust 2024 3:40pmObesityacute [place] 2024 3:40pmOSA (obstructive sleep apnea)acuteAugust 2024 3:40pm Sleep deprivationacuteAugust 2024 3:40pmSnoringacuteAugust 2024 3:40pm ISABEL (generalized anxiety disorder)acuteSept2024 3:35pmMorbid (severe) obesity due to excess caloriesacuteSept2024 3:35pmPrimary hypertensionacuteSept2024 3:35pm [facility] Work Phone: 1(318) 829-708108-06-2025 Evaluation note* Diagnosis Onset Date Resolution Status Admit Date Hypersomnia acuteAugust 2024 3:40pmHypoxiaacuteAugust 2024 3:40pmObesityacute [place] 2024 3:40pmOSA (obstructive sleep apnea)acuteAugust 2024 3:40pm Sleep deprivationacuteAugust 2024 3:40pmSnoringacuteAugust 2024 3:40pm [facility] Work Phone: 1(764) 969-216407-23-2025 History of Present illness Narrative* Opal Verdugo NP - 11/27/2024 5:11 PM EDTAssociated Problem(s): ISABEL (generalized anxiety disorder) Current med: fluoxetine * PATRICIA CORREA - 11/27/2024 4:30 PM EDT Pt is only getting about 3079-7404 tamra daily * Opal Verdugo NP - [...] losartan Morbid obesity due to excess calories ([facility]) Discussed with patient their BMI (actual, verses [...] Problem(s): Morbid obesity due to excess calories ([facility]) Discussed with patient their BMI (actual, verses recommended). We have also discussed lifestyle modifications: attempts to perform physical activity as chronic conditions allow, also to monitor dietary intake: increasing protein/fruits/veggies and lowering carb intake (unless contraindicated). Limit sodas, juices, and sugary drinks. Pt meets qualifications of [facility] 4731-03-11 for weight loss. BMI>30 or >27 [...] changes Current meds: losartan documented in this encounterUniversity Health Lakewood Medical CenterDvhdbpfyqk74-42-6179 Instructions* Patient Instructions* Opal Verdugo NP - 11/27/2024 4:30 PM EDT Continue the momentum!! You are worth it and doing great documented in this [facility]06-25-2025 History of Present illness Narrative* PATRICIA CORREA - 10/30/2024 3:20 PM EDT Pt would like to talk about the metformin * Opal Verdugo, TRANSPORTATION SERVICES REPRESENTATIVE - 10/30/2024 3:20 PM EDT Images from [...] compliance problems. There is no history of CAD/TX, heart failure or PVD. SUBJECTIVE: MEDICATIONS: Current [...] tablet Morbid obesity due to excess calories (CMS-HCC) Discussed with patient their BMI (actual, verses [...] Problem(s): Morbid obesity due to excess calories ([facility]) Discussed with patient their BMI (actual, verses [...] changes Current meds: losartan documented in this encounterUniversity Health Lakewood Medical CenterGiesbcfqik61-13-4714 Instructions* Patient Instructions* Opal Verdugo NP - 10/30/2024 3:20 PM EDT Notify office with any symptoms of chest pain, dyspnea, heart palpitations, or any anxiety symptoms. F/U in 4 weeks to document weight loss. Increase physical activity as tolerated, and lower caloricintake to 1600 calories daily if no contraindications documented in this encounterUniversity Health Lakewood Medical CenterPvkedfpdzl58-92-3959 History of Present illness Narrative* Opal Verdugo [...] 21, O2 sat 80% documented in this [facility]04-24-2025 Instructions* Patient Instructions* Opal Verdugo NP - 08/29/2024 3:40 PM EDT Keep meds at current doses Follow up in 8 weeks documented in this [facility]03-24-2025 History of Present illness Narrative* Opal Verdugo NP - 07/29/2024 2:59 PM EDTAssociated Problem(s): ISABEL (generalized anxiety disorder) ([facility]/HCC) Take medication only as directed. 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 Pt states that she has both issues with falling asleep and staying asleep. Pt states she checks her BP at home however not regularly last time was on Monday she had a BP 145/79 wrist cuff * Opalmarin Verdugo, TRANSPORTATION SERVICES REPRESENTATIVE - 07/29/2024 2:00 PM EDT Images from [...] exercise weekly. An HINA inhibitor/angiotensin II receptor cristel is being taken. She does not see a roustabout.Eye exam is current. SUBJECTIVE: MEDICATIONS: Current Outpatient [...] hemoglobin (Hb A1C) docked device (Completed) Hyperlipidemia ([facility]) On statin therapy Check labs yearly and prn dose changes Primary hypertension ([facility]) - Primary Please check blood pressure daily and record DASH diet Limit caffeine Take medication as directed Contact office if chest pain, pressure, dizziness, shortness of breath, swelling legs Recommend slow position changes Current meds: losartan Relevant Medications losartan (Cozaar) 50 MG tablet RESOLVED: Body mass index (BMI) 45.0-49.9, adult ([facility]) Morbid obesity due to excess calories ([facility]) Discussed with patient their BMI (actual, verses [...] O2 sat 80% Will reach out to [facility] sleep lab ISABEL (generalized anxiety disorder) ([facility]) Take medication only as directed. This medication [...] arb, metformin A1c 6.1% 07/29/24 * Opal Vedrugo NP - 07/29/2024 7:16 AM EDTAssociated Problem(s): [...] changes Current meds: losartan documented in this encounterUniversity Health Lakewood Medical CenterJabmwlarwj21-14-4690 Instructions* Patient Instructions* Opal Verdugo NP - 07/29/2024 2:00 PM EDT Start [...] office if these occur. documented in this [facility]12-16-2024 History of Present illness Narrative* Jacy Rivera [...] them to next visit. documented in this encounterUniversity Health Lakewood Medical CenterCoytcdkhui30-82-6221 Procedure noteOhiohealth [facility] Hospital09-30-2024 Evaluation note* Diagnosis Onset Date Resolution Status Admit Date Dysphagia acuteSeptember 2023 3:40pm [facility] Work Phone: 1(657) 726-522109-17-2024 History of Present illness Narrative* Jacy Rivera [...] previously in the past as prescribed by [employer]. States she tolerated well and lost 50 [...] previously in the past as prescribed by [employer]. States she tolerated well and lost 50 [...] CMP in 4 weeks. documented in this encounterUniversity Health Lakewood Medical CenterJftanniglw56-64-4967 Instructions* Patient Instructions* Jacy Rivera NP - [...] if you need anything! documented in this encounterUniversity Health Lakewood Medical CenterPuihglfjxv60-65-2913 History of Present illness Narrative* Jacy Rivera [...] of 50.0 to 59.9 in adult (CMS/HCC) Discussed with patient their BMI (actual, [...] (BMI) of 50.0 to 59.9 in adult ([facility]) Discussed with patient their BMI (actual, verses [...] options for weight loss. documented in this encounterUniversity Health Lakewood Medical CenterHiptfyhdmm21-27-8966 Instructions* Patient Instructions* Jacy Rivera NP - [...] servings from each food group for a 2,348-fszvris-j-day DASH diet: Grains: 6 to 8 servings [...] Read food labels and choose low-salt or vh-owfv-xapte options. Use salt-free spices or flavorings instead [...] you need anything call! documented in this encounterUniversity Health Lakewood Medical CenterSoboeztrbs15-12-7468 Evaluation note* Encounter Date Diagnosis Assessment Notes Treatment Notes Treatment Clinical Notes Mar, COVID-19 (ICD-10 - U07.1) Mar,ontact with and (suspected) exposure to other viral communicable diseases (ICD-10 - Z20.828) Mar,cute recurrent sinusitis, unspecified location (ICD-10 - J01.91) Mar,Other Additional time spent conducting pre-visit phone call, screening for symptoms, instructions on social distancing, application and removal of PPE, and cleaning of examination room, equipment and supplies was preformed. Patient education given for testing methodology and results. Patient care instructions given in writting by [facility] Care At Home document. [employer] Other Evaluation noteNo assessment information available [facility] Work Phone: Evaluation note* Diagnosis Onset Date Resolution Status Dysphagia acute [facility] Work Phone: Evaluation note* Diagnosis Prediabetes- Primary Other abnormal glucose Mixed hyperlipidemia (CMS/HCC) Mixed hyperlipidemia Primary hypertension (CMS/HCC) Unspecified essential hypertension Gastroesophageal reflux disease, unspecified whether esophagitis present documented in this encounter [facility] HealthcareEvaluation note* Diagnosis Encounter for wellness examination in adult- Primary Class 3 severe obesity due to excess calories without serious comorbidity with body mass index (BMI) of 50.0 to 59.9 in adult ([facility]) Gastroesophageal reflux disease, unspecified whether esophagitis present Fatigue, unspecified type Snoring Other dyspnea and respiratory abnormality Prediabetes- Primary Other abnormal glucose Mixed hyperlipidemia (CMS/HCC) Mixed hyperlipidemia Primary hypertension (CMS/HCC) Unspecified essential hypertension Gastroesophageal reflux disease, unspecified whether esophagitis present Mixed hyperlipidemia (CMS/HCC) Mixed hyperlipidemia documented in this encounter [facility] HealthcareEvaluation note* Diagnosis Encounter for wellness examination in adult- Primary Class 3 severe obesity due to excess calories without serious comorbidity with body mass index (BMI) of 50.0 to 59.9 in adult ([facility]/HCC) Gastroesophageal reflux disease, unspecified whether esophagitis present Fatigue, unspecified type Snoring Other dyspnea and respiratory abnormality Prediabetes- Primary Other abnormal glucose Mixed hyperlipidemia (CMS/HCC) Mixed hyperlipidemia Primary hypertension (CMS/HCC) Unspecified essential hypertension Gastroesophageal reflux disease, unspecified whether esophagitis present Primary hypertension (CMS/HCC)- Primary Unspecified essential hypertension Prediabetes Other abnormal glucose Hypercholesteremia ([facility]) Pure hypercholesterolemia documented in this encounter [facility] HealthcareEvaluation note* Diagnosis Encounter for wellness examination in adult- Primary Class 3 severe obesity due to excess calories without serious comorbidity with body mass index (BMI) of 50.0 to 59.9 in adult ([facility]/HCC) Gastroesophageal reflux disease, unspecified whether esophagitis present Fatigue, unspecified type Snoring Other dyspnea and respiratory abnormality documented in this encounter [facility] HealthcareEvaluation note* Diagnosis Hypertriglyceridemia ([facility])- Primary Pure hyperglyceridemia documented in [facility] HealthcareEvaluation [facility]* Diagnosis Hypercholesteremia ([facility])- Primary Pure hypercholesterolemia documented in this encounter [facility] HealthcareEvaluation note* Diagnosis Encounter for wellness examination in adult- Primary Class 3 severe obesity due to excess calories without serious comorbidity with body mass index (BMI) of 50.0 to 59.9 in adult ([facility]) Gastroesophageal reflux disease, unspecified whether esophagitis present Fatigue, unspecified type Snoring Other dyspnea and respiratory abnormality Prediabetes- Primary Other abnormal glucose Mixed hyperlipidemia ([facility]) Mixed hyperlipidemia Primary hypertension ([facility]) Unspecified essential hypertension Gastroesophageal reflux disease, unspecified whether esophagitis present Primary hypertension ([facility])- Primary Unspecified essential hypertension Prediabetes Other abnormal glucose Hypercholesteremia ([facility]) Pure hypercholesterolemia Primary hypertension ([facility])- Primary Unspecified essential hypertension Body mass index (BMI) 45.0-49.9, adult ([facility]) Gastroesophageal reflux disease, unspecified whether esophagitis present Morbid obesity due to excess calories ([facility]) Mixed hyperlipidemia ([facility]) Mixed hyperlipidemia Prediabetes Other abnormal glucose Eosinophilic esophagitis ELISA (obstructive sleep apnea) Obstructive sleep apnea (adult) (pediatric) ISABEL (generalized anxiety disorder) ([facility]) Generalized anxiety disorder documented in this encounter [facility] HealthcareEvaluation note* Diagnosis Encounter for wellness examination in adult- Primary Class 3 severe obesity due to excess calories without serious comorbidity with body mass index (BMI) of 50.0 to 59.9 in adult Gastroesophageal reflux disease, unspecified whether esophagitis present Fatigue, unspecified type Snoring Other dyspnea and respiratory abnormality Prediabetes- Primary Other abnormal glucose Mixed hyperlipidemia ([facility]) Mixed hyperlipidemia Primary hypertension ([facility]) Unspecified essential hypertension Gastroesophageal reflux disease, unspecified whether esophagitis present Primary hypertension ([facility])- Primary Unspecified essential hypertension Prediabetes Other abnormal glucose Hypercholesteremia ([facility]) Pure hypercholesterolemia Primary hypertension ([facility])- Primary Unspecified essential hypertension Body mass index (BMI) 45.0-49.9, adult ([facility]) Gastroesophageal reflux disease, unspecified whether esophagitis present Morbid obesity due to excess calories ([facility] Mixed hyperlipidemia ([facility]) Mixed hyperlipidemia Prediabetes Other abnormal glucose Eosinophilic esophagitis ELISA (obstructive sleep apnea) Obstructive sleep apnea (adult) (pediatric) ISABEL (generalized anxiety disorder) ([facility]) Generalized anxiety disorder Primary hypertension ([facility])- Primary Unspecified essential hypertension Morbid obesity due to excess calories ([facility]) ISABEL (generalized anxiety disorder) ([facility]) Generalized anxiety disorder documented in this encounter [facility] HealthcareEvaluation note* Diagnosis Encounter for wellness examination in adult- Primary Class 3 severe obesity due to excess calories without serious comorbidity with body mass index (BMI) of 50.0 to 59.9 in adult ([facility]) Gastroesophageal reflux disease, unspecified whether esophagitis present Fatigue, unspecified type Snoring Other dyspnea and respiratory abnormality Prediabetes- Primary Other abnormal glucose Mixed hyperlipidemia Mixed hyperlipidemia Primary hypertension Unspecified essential hypertension Gastroesophageal reflux disease, unspecified whether esophagitis present Primary hypertension- Primary Unspecified essential hypertension Prediabetes Other abnormal glucose Hypercholesteremia Pure hypercholesterolemia Primary hypertension- Primary Unspecified essential hypertension Body mass index (BMI) 45.0-49.9, adult ([facility]) Gastroesophageal reflux disease, unspecified whether esophagitis present Morbid obesity due to excess calories ([facility]) Mixed hyperlipidemia Mixed hyperlipidemia Prediabetes Other abnormal glucose Eosinophilic esophagitis ELISA (obstructive sleep apnea) Obstructive sleep apnea (adult) (pediatric) ISABEL (generalized anxiety disorder) Generalized anxiety disorder Primary hypertension- Primary Unspecified essential hypertension Morbid obesity due to excess calories ([facility]) ISABEL (generalized anxiety disorder) Generalized anxiety disorder ISABEL (generalized anxiety disorder)- Primary Generalized anxiety disorder Primary hypertension Unspecified essential hypertension Morbid obesity due to excess calories ([facility]) Prediabetes Other abnormal glucose documented in this encounter [facility] HealthcareEvaluation note* Diagnosis Encounter for wellness examination in adult- Primary Class 3 severe obesity due to excess calories without serious comorbidity with body mass index (BMI) of 50.0 to 59.9 in adult ([facility]) Gastroesophageal reflux disease, unspecified whether esophagitis present Fatigue, unspecified type Snoring Other dyspnea and respiratory abnormality Prediabetes- Primary Other abnormal glucose Mixed hyperlipidemia Mixed hyperlipidemia Primary hypertension Unspecified essential hypertension Gastroesophageal reflux disease, unspecified whether esophagitis present Primary hypertension- Primary Unspecified essential hypertension Prediabetes Other abnormal glucose Hypercholesteremia Pure hypercholesterolemia Primary hypertension- Primary Unspecified essential hypertension Body mass index (BMI) 45.0-49.9, adult ([facility]) Gastroesophageal reflux disease, unspecified whether esophagitis present Morbid obesity due to excess calories ([facility]) Mixed hyperlipidemia Mixed hyperlipidemia Prediabetes Other abnormal glucose Eosinophilic esophagitis ELISA (obstructive sleep apnea) Obstructive sleep apnea (adult) (pediatric) ISABEL (generalized anxiety disorder) Generalized anxiety disorder Primary hypertension- Primary Unspecified essential hypertension Morbid obesity due to excess calories ([facility]) ISABEL (generalized anxiety disorder) Generalized anxiety disorder ISABEL (generalized anxiety disorder)- Primary Generalized anxiety disorder Primary hypertension Unspecified essential hypertension Morbid obesity due to excess calories ([facility]) Prediabetes Other abnormal glucose Primary hypertension- Primary Unspecified essential hypertension Morbid obesity due to excess calories ([facility]) ISABEL (generalized anxiety disorder) Generalized anxiety disorder documented in this encounter [facility]* Diagnosis Encounter for wellness examination in adult- Primary Class 3 severe obesity due to excess calories without serious comorbidity with body mass index (BMI) of 50.0 to 59.9 in adult ([facility]) Gastroesophageal reflux disease, unspecified whether esophagitis present Fatigue, unspecified type Snoring Other dyspnea and respiratory abnormality Prediabetes- Primary Other abnormal glucose Mixed hyperlipidemia Mixed hyperlipidemia Primary hypertension Unspecified essential hypertension Gastroesophageal reflux disease, unspecified whether esophagitis present Primary hypertension- Primary Unspecified essential hypertension Prediabetes Other abnormal glucose Hypercholesteremia Pure hypercholesterolemia Primary hypertension- Primary Unspecified essential hypertension Body mass index (BMI) 45.0-49.9, adult ([facility]) Gastroesophageal reflux disease, unspecified whether esophagitis present Morbid obesity due to excess calories ([facility]) Mixed hyperlipidemia Mixed hyperlipidemia Prediabetes Other abnormal glucose Eosinophilic esophagitis ELISA (obstructive sleep apnea) Obstructive sleep apnea (adult) (pediatric) ISABEL (generalized anxiety disorder) Generalized anxiety disorder Primary hypertension- Primary Unspecified essential hypertension Morbid obesity due to excess calories ([facility]) ISABEL (generalized anxiety disorder) Generalized anxiety disorder ISABEL (generalized anxiety disorder)- Primary Generalized anxiety disorder Primary hypertension Unspecified essential hypertension Morbid obesity due to excess calories ([facility]) Prediabetes Other abnormal glucose Primary hypertension- Primary Unspecified essential hypertension Morbid obesity due to excess calories ([facility]) ISABEL (generalized anxiety disorder) Generalized anxiety disorder ISABEL (generalized anxiety disorder)- Primary Generalized anxiety disorder Morbid obesity due to excess calories ([facility]) Mixed hyperlipidemia Mixed hyperlipidemia Encounter for wellness examination in adult Primary hypertension Unspecified essential hypertension documented in this encounter [facility] HealthcareHistory and physical note Author Laura Fortune [facility] February 20, 2024 8:21amNote Date/TimeOct2023 8:22[place] [id number] Gastroenterology H&P Signed Patient: Ainsley Persaud MR#: [id number] : 1985 Acct:[id number] Age/Sex: 38 / F Adm Date: 4 Loc: Room: Type: [facility] Attending Dr: Laura Fortune MD Copies to: RAJEEV Patricio MD~ Date of Service: 02/20/2024 HISTORY & PHYSICAL: Patient's history with special attention to the cardiovascular, pulmonary systems and the current problem was reviewed with the patient immediately prior to the procedure. Present medications and doses reviewed in the EMR. Allergies and pertinent laboratory tests were also re viewedat this time in the EMR. The physical [...] <Electronically signed by Laura Fortune MD> 02/20/24820 [facility] Work Phone: History general Narrative - Reported* Type Description Date Medical History acid reflux Surgical Historyc-section [id number] HistorycholecystectomySurgical HistoryEGD Surgical HistoryhysterectomyHospitalization HistoryNo know Hospitalization history [facility] Other Reason for referral (narrative)* Consultation (Routine) - Pending ReviewSpecialtyDiagnoses / ProceduresReferred By Contact Referred To ContactGastroenterology Diagnoses Gastroesophageal reflux disease, unspecified whether esophagitis present Procedures HI OFFICE/OUTPATIENT NEW HIGH MDM 60 MINUTES Jacy Rivera NP [address] [place] [address] Jose West MD [address] [address] Referral IDStatusReasonStart DateExpiration DateVisits RequestedVisits [id number] Review Specialty Services Required Scheduling Instructions Please include OV note 12/27/23 * Consultation (Routine) - Pending ReviewSpecialtyDiagnoses / ProceduresReferred By ContactReferred To ContactSle Medicine Diagnoses Fatigue, unspecified type Snoring Procedures HI OFFICE/OUTPATIENT NEW HIGH MDM 60 MINUTES Jacy Rivera NP [address] [place] [address] Malu Guardado MD [facility] [place] [address] Referral IDStatusReasonStnew holland DateExpiration DateVisits RequestedVisits [id number] Review Specialty Services Required / Scheduling Instructions Please include OV note form today 12/26 [facility] HealthcareReason for referral (narrative)No reason for referral information availableDoctors Hospital Work Phone: Summary Purpose Family History Relationship Condition Age at Onset Recorded Date/T cherry father Hypertension Unknown sisterMalignant neoplasm of ovaryUnknowngrandparentHypertensionUnknownDiabetes mellitusUnknownmotherHistory of heart valve replacementUnknown Advance Directives Advance Directive Response Recorded Date/ Time Advance Directives No January 04, 2024 2:44pm Advance Directive Response Recorded Date/ Time Advance Directives No January 04, 2024 1:44pm Chief Complaint and Reason for Visit Chief Complaint Refer: GERD, dysphag ia Chief Complaint Refer: GERD, dysphag ia Dysphagia DysphagiaReason for VisitDysphagia Chief Complaint Admit Date Refer: GERD, dysphagia February 04, 2 024 3:40pm Dysphagia February 20, 2024 7 :05am Dysphagia February 20, 2024 8 :20am Cough, chest congestion March 19, 2 024 4:04pm Reason for Visit Admit Date Dysphagia February 05, 2024 3:40pm Reason for Visit Admit Date Hypersomnia December 11, 2024 3:4 0pm Hypoxia December 11, 2024 3:4 0pm Obesity December 11, 2024 3:4 0pm ELISA (obstructive sleep apnea) December 3:40pm Sleep deprivation December 11, 2024 3:4 0pm Snoring December 11, 2024 3:4 0pm Chief Complaint Admit Date 4W January 30, 2025 3:35pm Reason for Visit Admit Date Hypersomnia December 11, 2024 3:4 0pm Hypoxia December 11, 2024 3:4 0pm Obesity December 11, 2024 3:4 0pm ELISA (obstructive sleep apnea) December 3:40pm Sleep deprivation December 11, 2024 3:4 0pm Snoring December 11, 2024 3:4 0pm ISABEL (generalized anxiety disorder) Septe 2024 3:35pm Morbid (severe) obesity due to excess ca lories January 30, 2025 3:35pm Primary hypertension January 30 3:35pm Reason for Referral SpecialtyDiagnoses / ProceduresReferred By ContactReferred To Contact Diagnoses Hypertriglyceridemia (CMS/HCC) Jacy Rivera, SYDNEY [address] [facility] [place] [address] Referral IDStatusReasonStart DateExpiration DateVisits RequestedVisits [id number] Additional Source Comments INFORMATION SOURCE (unrecogn ized section and content) DATE CREATED AUTHOR 09/01/2020 [facility] DATE CREATED AUTHOR AUTHOR'S ORGANIZ ATION 01/25/2024 [facility] DATE CREATED AUTHOR AUTHOR'S ORGANIZ ATION 03/02/2024 [facility] DATE CREATED AUTHOR AUTHOR'S ORGANIZ ATION 12/25/2024 [facility] EPIC REASON FOR VISIT (unrecogniz ed section and content) ReasonCommentsFollow-upReasonCommentsMed RefillReasonCommentsEstablish CareLeg SwellingBIL X 2MONTHSReasonCommentsHypertensionReasonCommentsGAD Care Teams (unrecognized sec tion and content) Team Status: Active Member Role Status Dates Opal Verdugo TRANSPORTATION SERVICES REPRESENTATIVE-C Primary Care Provider Active Team Status: Inactive Member Role Status Dates Jacy Rivera TRANSPORTATION SERVICES REPRESENTATIVE-C Primary Care Provider Ac tive Start: December 11, 2024 End: December 11, 2024Ricky Abrams ProviderActiveStart: December 11, 2024 End: December 11, 2024 Team Status: Active Member Role Status Dates Jacy Rivera TRANSPORTATION SERVICES REPRESENTATIVE-C Primary Care Provider Ac tive Start: January 11, 2025 Opal Verdugo NP-CAttending ProviderActiveStart: January 11, 2025 Team Status: Inactive Member Role Status Dates Opal Verdugo TRANSPORTATION SERVICES REPRESENTATIVE-C Primary Care Provider Active Start: January 30, 2025 End: January 30, 2025Opal Verdugo NP-CAttending ProviderActiveStart: January 30, 2025 End: January 30, 2025 Team Status: Active Member Role Status Dates PHYSICIAN NO FAMILY Primary Care Provider Active Team Status: Inactive Member Role Status Dates PHYSICIAN NO FAMILY Primary Care Provider Active Start: February 05, 2024 End: February 04Nehemias Escobar ProviderActiveStart: February 05, 2024 End: February 05, 2024 Team Status: Active Member Role Status Dates Jacy Rivera TRANSPORTATION SERVICES REPRESENTATIVE-C Primary Care Provider Ac tive Team Status: Inactive Member Role Status Dates Laura Fortune MD Attending Provider Active Start: February 20, 2024 End: February 19malini Rivera , TRANSPORTATION SERVICES REPRESENTATIVE-CPrimary Care ProviderActive Start: February 20, 2024 End: February 20, 2024 Team Status: Active Member Role Status Dates Laura Fortune MD Attending Provider, Other Provider Active Start: February 20, 2024 Jacy Rivera , TRANSPORTATION SERVICES REPRESENTATIVE-CPrimary Care ProviderActiveStart: February 20, 2024 Team MemberRelationshipSpecialtyStart DateEnd Date Oh Vasquez MD [address] [place] [address] PCP - [facility]12/18/23 Jacy Rivera NP [address] [place] [address] [facility]/18/23 Team Status: Inactive Member Role Status Dates Jacy Rivera , TRANSPORTATION SERVICES REPRESENTATIVE-C Primary Care Provider Ac tive Start: March 19, 2024 End: March 19, 2024Nehemias Rivera ProviderActiveStart: March 19, 2024 End: March 19, 2024Team MemberRelationshipSpecialtyStart DateEnd Date Oh Vasquez MD [address] [place] [address] PCP - [facility]12/18/23 Jacy Rivera NP [address] [place] [address] PCP - [place] Vrnsvgucnz84/1/24 Jacy Rivera, SYDNEY [address] [place] [address] Nurse Pract[facility]er[facility]12/18/23Team MemberRelationshipSpecialtyStart DateEnd Date Oh Vasquez MD [address] [place] [address] [facility] - [facility]/18/23 Jacy Rivera NP [address] [place] [address] Nurse [facility]12/18/23Team MemberRelationshipSpecialtyStart DateEnd Date Oh Vasquez MD [address] [place] [address] PCP - [facility]12/18/23 Jacy Rivera, SYDNEY [address] [place] [address] Nurse Pract[facility]12/18/23Team MemberRelationshipSpecialtyStart DateEnd Date Oh Vasquez MD [address] [place] [address] [facility]CP - [facility]12/18/23 Jacy Rivera NP [address] [place] [address] PCP - [place] Npksyjcwla17/1/24 Jacy Rivera, SYDNEY [address] [place] [address] Nurse Pract[facility]12/18/23Team MemberRelationshipSpecialtyStart DateEnd Date Oh Vasquez MD [address] [place] [address] [facility]CP - [facility]12/18/23 Jacy Rivera NP [address] [place] [address] PCP - [place] Njnbsoidfl62/1/24 Jacy Rivera NP [address] [place] [address] Nurse Pract[facility]er[facility]12/18/23Team MemberRelationshipSpecialtyStart DateEnd Date Oh Vasquez MD [address] [place] [address] [facility]/23 Jacy Rivera, TRANSPORTATION SERVICES REPRESENTATIVE [address] [place] [address] Nurse Pract[facility]12/18/23Team MemberRelationshipSpecialtyStart DateEnd Date Oh Vasquez MD [address] [place] [address] PCP - [facility]12/18/23 Jacy Rivera, SYDNEY [address] [place] [address] Nurse Pract[facility]12/18/23Team MemberRelationshipSpecialtyStart DateEnd Date Oh Vasquez MD [address] [place] [address] [facility]CP - [facility]12/18/23 Jacy Rivera NP [address] [place] [address] Nurse Pract[facility]12/18/23Team MemberRelationshipSpecialtyStart DateEnd Date Oh Vasquez MD [address] [place] [address] PCP - [facility]12/18/23 Jacy Rivera, SYDNEY [address] [place] [address] Nurse [facility]12/18/23Team MemberRelationshipSpecialtyStart DateEnd Date Oh Vasquez MD [address] [place] [address] PCP - [facility]12/18/23 Jacy Rivera NP [address] [place] [address] Nurse [facility]12/18/23Team MemberRelationshipSpecialtyStart DateEnd Date Oh Vasquez MD [address] [place] [address] [facility]12/18/23 Jacy Rivera NP PCP - [place] Tyuxthvfxr75/1/24 Jacy Rivera NP [address] [place] [address] [facility]12/18/23Team MemberRelationshipSpecialtyStart DateEnd Date Oh Vasquez MD [address] [place] [address] [facility]CP [facility]12/18/23 Jacy Rivera, SYDNEY PCP - [place] Fmddrnbaen75/1/24 Jacy Rivera, SYDNEY [address] [place] [address] [facility]12/18/23Team MemberRelationshipSpecialtyStart DateEnd Date Oh Vasquez MD [address] [place] [address] PCP - [facility]12/18/23 Jacy Rivera NP PCP - [place] Swouexsasc07/1/24 Jacy Rivera NP [address] [place] [address] [facility]12/18/23Team MemberRelationshipSpecialtyStart DateEnd Date Oh Vasquez MD [address] [place] [address] PCP - [facility]12/18/23 Jacy Rivera NP PCP - [facility]02/06/24 Jacy Rivera NP [address] [place] [address] Nurse [facility]12/18/23Team MemberRelationshipSpecialtyStart DateEnd Date Oh Vasquez MD [address] [place] [address] PCP - [facility]12/18/23 Jacy Rivera, SYDNEY [address] [place] [address] Nurse Pract[facility]12/18/23Team MemberRelationshipSpecialtyStart DateEnd Date Oh Vasquez MD [address] [place] [address] PCP - [facility]12/18/23 Jacy Rivera, SYDNEY [address] [place] [address] Nurse Pract[facility]12/18/23Team MemberRelationshipSpecialtyStart DateEnd Date Oh Vasquez MD [address] [place] [address] PCP - [facility]12/18/23 Jacy Rivera NP [address] [place] [address] Nurse Pract[facility]12/18/23Team MemberRelationshipSpecialtyStart DateEnd Date Oh Vasquez MD [address] [place] [address] PCP - [facility]12/18/23 Jacy Rivera NP [address] [place] [address] Nurse Pract[facility]12/18/23 Team Status: Inactive Member Role Status Dates Jcay Rivera NP-C Primary Care Provider Ac tive Start: December 11, 2024 End: December 11, 2024NicRicky Nayak ProviderActiveStart: December 11, 2024 End: December 11, 2024Team MemberRelationshipSpecialtyStart DateEnd Date Oh Vasquez MD [address] [place] [address] PCP - [facility]12/18/23 Jacy Rivera NP [address] [place] [address] Nurse Pract[facility]12/18/23Team MemberRelationshipSpecialtyStart DateEnd Date Oh Vasquez MD [address] [place] [address] PCP - [facility]12/18/23 Jacy Rivera NP [address] [place] [address] Nurse [facility]12/18/23 Team Status: Active Member Role Status Dates Opal Verdugo NP-Brianne Primary Care Provider Active Team Status: Active Member Role Status Dates Jacy Rivera NP-C Primary Care Provider Ac tive Start: January 11, 2025 Willam Whaley ProviderActiveStart: January 11, 2025 Team Status: Inactive Member Role Status Dates RAJEEV Whaley Primary Care Provider Active Start: January 30, 2025 End: January 30, 2025Willam Whaley ProviderActiveStart: January 30, 2025 End: January 30, 2025 Goals (unrecognized section and content) Goals may [...] BE BASED ON THE PRIMARY CLINICAL RECORDS. [facility] [employer] provides no warranty or guarantee of the accuracy or completeness of information in this document.
[2025-05-07 11:34] LABS: Alanine Aminotransferase 18 U/L (14-59); Aspartate Amino Transferase 12 U/L (15-37); Cholesterol 148 mg/dL (<=200); HDL Cholesterol 39 mg/dL (40-60); Triglycerides 236 mg/dL (<=150); VLDL CHOLESTEROL 47.2 mg/dL
== END 2025-05-07 10:36 | disposition home or self-care (01) ==
LOC: LAB 10:37
PROVIDERS: PCP Nurse Practitioner; Visit Provider Nurse Practitioner
DX: E78.5 Hyperlipidemia, unspecified (principal)
CPT/HCPCS: 36415; 80061; 84450; 84460